=== PATIENT | male | born 1945 | race Caucasian/White ===

== ENCOUNTER → 2016-09-04 | Outpatient (CLI) | payer MEDICARE, BC ==
[2016-09-04 07:35] LABS: Basophils # (A) 0.1 k/uL (0-0.2); Basophils % (A) 1 %; Eosinophils # (A) 0.3 k/uL (0-0.7); Eosinophils % (A) 4 %; HCT 49.6 % (39.0-53.0); HDW 2.38; HGB 16.3 gm/dL (13.0-17.5); Luc # (Auto) 0.15; Luc % (Auto) 2; Lymphocytes % (A) 29 %; MCH 31.8 pg (25.0-35.0); MCHC 32.7 g/dL (31.0-37.0); MCV 97.2 fL (80.0-100.0); Mean Platelet Volume 6.9; Monocytes # (A) 0.6 k/uL (0-1.0); Monocytes % (A) 9 %; Neutrophils # (A) 3.8 k/uL (1.3-7.7); Neutrophils % (A) 55 %; RBC 5.11 m/uL (4.30-5.90); RDW 12.6 % (11.5-15.5); WBC (Perox) 6.53
[2016-09-04 07:57] LABS: Appearance,Urine Clear (Clear); Bacteria,Urine Rare /hpf; Bilirubin,Urine Negative (Negative); Glucose,Urine (UA) Negative (Negative); Ketones,Urine Negative (Negative); Leukocyte Esterase,Urine Negative (Negative); Mucus,Urine Rare /hpf; Nitrite,Urine Negative (Negative); Particle Count 833; Protein,Urine Negative (Negative); RBC,Urine 2 /hpf (0-5); Specific Gravity,Urine 1.011 (1.001-1.035); UA Billing (MACRO vs. MICRO) MICRO; Urobilinogen,Urine <2.0 mg/dL (<2.0); WBC,Urine 1 /hpf (0-5)
[2016-09-04 09:06] LABS: Hemoglobin A1C 5.8 % (4.2-6.1)
[2016-09-04 11:41] LABS: ALT 40 U/L (21-72); AST 23 U/L (17-59); Alkaline Phosphatase 77 U/L (38-126); Anion Gap 10 mmol/L; Blood Urea Nitrogen 14 mg/dL (9-20); Calcium 9.8 mg/dL (8.4-10.2); Carbon Dioxide 25 mmol/L (22-30); Chloride 106 mmol/L (98-107); Cholesterol 141 mg/dL (<200); Creatine Kinase 58 U/L (55-170); Glucose 110 mg/dL (74-99); HDL Cholesterol 40 mg/dL (40-60); Non-African American GFR(MDRD) >60 (>60 ml/min/1.73 sqM); Potassium 5.1 mmol/L (3.5-5.1); Sodium 141 mmol/L (137-145); Total Bilirubin 0.4 mg/dL (0.2-1.3); Total Protein 6.6 g/dL (6.3-8.2); Triglycerides 130 mg/dL (<150); Uric Acid 4.7 mg/dL (3.5-8.5)
[2016-09-04 12:05] LABS: Prostate Specific Antigen 1.52 ng/mL (0.00-4.00)
== END | disposition home or self-care (01) ==
LOC: LABWHC1 06:48
PROVIDERS: ATTEND Internal Medicine Interventional Cardiology
DX: I10 Essential (primary) hypertension (principal); E78.00 Pure hypercholesterolemia, unspecified; I25.811 Atherosclerosis of native coronary artery of transplanted heart without angina pectoris; N40.0 Benign prostatic hyperplasia without lower urinary tract symptoms
CPT/HCPCS: 36415; 80053; 80061; 81001; 82306; 82550; 83036; 84153; 84439; 84443; 84550; 85025

== ENCOUNTER → 2017-03-12 | Outpatient (CLI) | payer MEDICARE, BC ==
[2017-03-12 09:00] LABS: ALT 49 U/L (21-72); AST 29 U/L (17-59); Cholesterol 134 mg/dL (<200); HDL Cholesterol 33 mg/dL (40-60)
== END | disposition home or self-care (01) ==
LOC: LABWHC1 07:33
PROVIDERS: ATTEND Internal Medicine Interventional Cardiology
DX: E78.2 Mixed hyperlipidemia (principal)
CPT/HCPCS: 36415; 80061; 84450; 84460

== ENCOUNTER → 2018-01-14 | Outpatient (CLI) | payer MEDICARE, BC ==
[2018-01-14 16:52] LABS: HCT 46.7 % (39.0-53.0); HGB 15.6 gm/dL (13.0-17.5); MCH 31.5 pg (25.0-35.0); MCHC 33.4 g/dL (31.0-37.0); MCV 94.4 fL (80.0-100.0); Platelet Count 250 k/uL (150-450); RBC 4.95 m/uL (4.30-5.90); RDW 12.8 % (11.5-15.5)
[2018-01-14 16:58] LABS: Anion Gap 11 mmol/L; Blood Urea Nitrogen 11 mg/dL (9-20); Carbon Dioxide 25 mmol/L (22-30); Chloride 105 mmol/L (98-107); Potassium 4.3 mmol/L (3.5-5.1); Sodium 141 mmol/L (137-145)
== END | disposition home or self-care (01) ==
LOC: LABPAT 16:22
PROVIDERS: ATTEND Internal Medicine Interventional Cardiology
DX: Z01.812 Encounter for preprocedural laboratory examination (principal); I25.10 Atherosclerotic heart disease of native coronary artery without angina pectoris
CPT/HCPCS: 36415; 80051; 82565; 84520; 85027

== ENCOUNTER 2018-01-15 12:34 | Inpatient (IN) | payer MEDICARE, BC ==
[2018-01-15] MEDS ORDERED: ASPIRIN 325 MG TAB ONE (13:00)
[2018-01-15] MEDS ORDERED: ALPRAZolam 0.5 MG TAB PO PRN (13:12)
[2018-01-15] MEDS ORDERED: NITROGLYCERIN SL TABS 0.4 MG TAB SUBLINGUAL PRN (13:12)
[2018-01-15] MEDS ORDERED: SODIUM CHLORIDE 0.9% 1,000 ML in EMPTY BAG 1 BAG IV ONE (13:12)
[2018-01-15] MEDS ORDERED: ASPIRIN 325 MG TAB PO STA (13:12)
[2018-01-15] MEDS ORDERED: ALPRAZolam 0.25 MG TAB PO PRN (13:12)
[2018-01-15] MEDS ORDERED: ATORVASTATIN 80 MG TAB PO STA (13:12)
[2018-01-15] MEDS ORDERED: fentaNYL (PF) 50 MCG/ML 2 ML AMP IV ONE (14:06)
[2018-01-15] MEDS ORDERED: VERAPAMIL 2.5 MG/ML 2 ML AMP ONE (14:06)
[2018-01-15] MEDS ORDERED: fentaNYL (PF) 50 MCG/ML 2 ML AMP ONE (14:06)
[2018-01-15] MEDS ORDERED: LIDOCAINE 2% INJ 20 MG/ML SQ ONE (14:08)
[2018-01-15] MEDS ORDERED: VERAPAMIL SYRINGE (5 MG/10 ML) INTRAARTER ONE (14:10)
[2018-01-15] MEDS ORDERED: HEPARIN SODIUM 1,000 UN/ML (10ML VL) ONE (14:12)
[2018-01-15] MEDS ORDERED: IOPAMIDOL-370 125ML BTL INJ ONE (14:23)
[2018-01-15] MEDS ORDERED: RX INFO: IV CONTRAST WAS GIVEN 1 EACH MISC MISCELLANE PRN (14:41)
[2018-01-15] MEDS ORDERED: SODIUM CHLORIDE 0.9% 1,000 ML IV SCH (14:45)
--- NOTE | 2018-01-15 15:12 | LTR ---
January 15, [address] Owusu: I had the pleasure of performing cardiac catheterization on Mr. Huizar at [facility] on January 15 and a full copy of the procedure note will be forwarded to you. In brief, he was found to have heavily calcified coronary artery versus chronic occluded right coronary artery and severe stenosis involving the proximal LAD and a long segment, heavily calcified. In view of that, I have recommend proceeding with evaluation for possible coronary artery bypass grafting. I will keep you updated on his progress. Thank you again for allowing me to participate in his care. Please feel free to call for any questions. Sincerely, MMTHOML / IJN: [id number] /
--- NOTE | 2018-01-15 15:12 | CC ---
CARDIAC CATHETERIZATION REPORT Mr. Huizar is a 72-year-old male with a known history of coronary disease status post stenting in 2009, who presented with symptoms of chest discomfort reminding him of the way he felt at the time of his stenting. In view of that, recommendation made regarding cardiac catheterization. The procedures, risks and complications were discussed with the patient who is in full understanding and agreement. PROCEDURE: Patient was brought to laboratory mechanic helper in a fasting state after receiving fentanyl and Benadryl and achieving moderate conscious sedated state. Using Xylocaine anesthesia and Seldinger technique a 6-Turkmen sheath was introduced in the right radial artery. Selective right and left angiography performed using 5-Turkmen 3 and half bend right and left Christine catheter multiple views of the coronary artery including hemiaxial views obtained. Following that 5-Turkmen tight pigtail catheters introduced into the left ventricle and a 30 degree HAND view of the left ventricle was obtained. Following that, catheter and sheaths were removed. Hemostasis was obtained with deployment of a TR band. There was no immediate complication. Patient was returned to his room in stable condition. Of note, the patient received 3500 units of intravenous heparin as well as intra-arterial verapamil. FINDINGS: 1. Fluoroscopy: There was severe calcification involving all the coronary arteries. 2. Left Main: This is a large-sized vessel bifurcating left circumflex, left anterior descending artery. Left main coronary artery has no evidence of high-grade stenosis. 3. Left Anterior Descending Artery: This is a large-sized vessel reaching to the apex with a wraparound apex segment giving rise to 2 diagonal branch starting in the proximal segment of the LAD and extending to after the takeoff of the second diagonal branch. There is a severe stenosis with area of stenosis of 99% with severe calcification. The lesion involved the 2nd of the diagonal branch as well. The rest of the vessel has no high-grade stenosis. 4. Left Circumflex: This is a nondominant vessel, small in caliber. It has a has diffuse intimal disease proximally. It gives rise to a small obtuse marginal branch that is totally occluded. 5. Right Coronary Artery: This vessel is totally occluded in the mid segment with no significant antegrade flow. 6. Collaterals: There are collaterals from the left coronary system toward the right PDA and PLV. 7. Left Ventriculogram: Left ventriculogram is performed in 30 degree HAND view and revealed a normal left ventricular size with mild inferior wall hypokinesis. Ejection fraction was 50%. There was no significant mitral regurgitation. 8. Hemodynamics: There was no gradient across the aortic valve. The left ventricle end- diastolic pressure is 18-20 mmHg. CONCLUSION: 1. Heavily calcified coronary arteries. 2. Critical stenosis involving the proximal LAD. 3. Chronic occluded right coronary artery. 4. Severe stenosis in the diffuse left circumflex. 5. Mildly impaired left ventricular systolic function. RECOMMENDATION: In view of the finding and the anatomy I have recommend proceeding with evaluation for coronary bypass grafting. The rationale behind that approach was discussed with the patient and his family who are in full understanding and agreement. Duration procedure is 18 minutes. MMODL / IJN: [id number] /
[2018-01-15] MEDS ORDERED: MD COMMUNICATION TO PHARMACY 1 EACH MISC PO ONE ×4 (15:39)
--- NOTE | 2018-01-15 16:12 | P.GSCN ---
<Andres Conde - Last Filed: 01/15/18 15:56> History of Present Illness Consult date: 01/15/18 Reason for Consult: Symptomatic multivessel coronary artery disease. Requesting physician: Kyle Nicholson History of present illness: This is 72-year-old gentleman who is followed by Dr. Owusu on an outpatient basis. His past medical history significant for coronary artery disease with previous drug-eluting stent placement to his right coronary artery in 2009, hypertension, dyslipidemia, peripheral vascular disease, family history of early onset coronary artery disease with his brother having open heart surgery before the age of 55 and current tobacco dependence. Recently, the patient has been having episodes of chest pain with activity which has been starting in his left arm and radiating to his chest and jaw. He reports the pain doesn't subside with about 10-15 minutes of rest. The chest pain has been present on occasion while resting. He denies any shortness of breath, nausea, vomiting, dizziness or syncope. He was seen and evaluated by his brattice builder Dr. Nicholson who recommended an elective heart catheterization. After obtaining consent he underwent an elective cardiac catheterization which demonstrated a totally occluded right coronary artery, a totally occluded circumflex coronary artery, 99% stenosis to his proximal left anterior ascending coronary artery, and a 50% stenosis to his mid left anterior descending coronary artery. During that heart catheterization a left ventriculogram was completed which showed him to have an ejection fraction of 50%. Due to the patient's symptoms, history of coronary artery disease and cardiac catheterization results a consult was placed to Dr. Son from cardiothoracic surgery to evaluate the patient for possible myocardial revascularization. Review of Systems A 14 point review of systems was completed and was negative except as mentioned in the HPI. Past Medical History Past Medical History: Hyperlipidemia, Hypertension, Vascular Disorder History of Any Multi-Drug Resistant Organisms: None Reported Past Surgical History: Heart Catheterization With Stent (2 drug-eluting stents placed to his right coronary artery in 2009) Past Anesthesia/Blood Transfusion Reactions: No Reported Reaction Past Psychological History: No Psychological Hx Reported Smoking Status: Current every day smoker Past Alcohol Use History: None Reported Past Drug Use History: None Reported - Past Family History Mother Family Medical History: Coronary Artery Disease (CAD), Myocardial Infarction ([place] ) Father Family Medical History: Pneumonia Medications and Allergies Home Medications Medication Instructions Recorded Confirmed Type Acetaminophen Tab [Tylenol] 650 mg PO Q4HR PRN #0 tab 01/21/18 Rx Aspirin 325 mg PO DAILY #30 tab 01/21/18 Rx Atorvastatin [Lipitor] 40 mg PO DAILY #30 tab 01/21/18 Rx Clopidogrel [Plavix] 75 mg PO DAILY #30 tab 01/21/18 Rx Metoprolol Tartrate [Lopressor] 25 mg PO BID #60 tab 01/21/18 Rx Pantoprazole [Protonix] 40 mg PO AC-BRKFST #30 tablet. 01/21/18 Rx Sennosides-Docusate Sodium 2 each PO HS #14 tab 01/21/18 Rx [Senokot-S] guaiFENesin [Mucinex] 1,200 mg PO Q12HR #60 tablet.er 01/21/18 Rx Allergies Allergy/AdvReac Type Severity Reaction Status Date / Time No Known Allergies Allergy Verified 01/16/18 15:38 Surgical - Exam Vital Signs Temp Pulse Resp BP Pulse Ox 97.7 F 50 L 18 132/74 98 01/15/18 13:08 01/15/18 13:08 01/15/18 13:08 01/15/18 13:08 01/15/18 13:08 - General well developed, well nourished, no distress, no pain - Eyes PERRL, normal ocular movement - ENT normal pinna, normal nares, normal mucosa, no hearing loss, no congestion, dentures - Neck No lymphadenopathy, neck is supple. no masses, no bruits, trachea midline, no venous distension - Respiratory Lung sounds are essentially clear throughout, diminished to his bilateral bases. Respirations are symmetrical and nonlabored. - Cardiovascular Regular rhythm and rate. S1 and S2 present, negative for S3, gallop or murmur. Bedside telemetry showing normal sinus bradycardia heart rate 50. No edema present. - Abdomen Abdomen is soft, nontender and nondistended. Active bowel sounds all 4 abdominal quadrants. No guarding or rigidity. No organomegaly. - Genitourinary Deferred - Rectum Deferred - Integumentary Skin is warm and dry. No clubbing or cyanosis present. no rash, no growths, no abnormal pigmentation - Neurologic normal coordination, normal sensation - Musculoskeletal normal gait, normal posture - Psychiatric oriented to time, oriented to person, oriented to place, speech is normal, memory intact Results - Imaging Additional studies: Heart catheterization results reviewed by Dr. Son with Dr. Nicholson. Assessment and Plan (1) Coronary artery disease Status: Acute Code(s): I25.10 - ATHSCL HEART DISEASE OF [place] CORONARY ARTERY W/O ANG PCTRS SNOMED Code(s): 74369417 (2) Unstable angina Status: Acute Code(s): I20.0 - UNSTABLE ANGINA SNOMED Code(s): 2189580 (3) History of coronary artery stent placement Status: Acute Code(s): Z95.5 - PRESENCE OF CORONARY ANGIOPLASTY IMPLANT AND GRAFT SNOMED Code(s): 523398644 (4) Hypertension Status: Acute Code(s): I10 - ESSENTIAL (PRIMARY) HYPERTENSION SNOMED Code(s) : 97870696 (5) Hyperlipidemia Status: Acute Code(s): E78.5 - HYPERLIPIDEMIA, UNSPECIFIED SNOMED Code(s): 00890767 (6) Tobacco dependence Status: Acute Code(s): F17.200 - NICOTINE DEPENDENCE, UNSPECIFIED, UNCOMPLICATED SNOMED Code(s): 06957000 (7) Peripheral vascular disease Status: Acute Code(s): I73.9 - PERIPHERAL VASCULAR DISEASE, UNSPECIFIED SNOMED Code(s): 060337542 Plan: The patient was seen and examined. His chart and diagnostics were reviewed. Dr. Son reviewed the patient's cardiac catheterization results with Dr. Nicholson. Dr. Son discussed with the patient and his the results of the heart catheterization. Risks and benefits of myocardial revascularization were discussed with the patient. The patient wishes to proceed with myocardial revascularization surgery which will be scheduled on 01/17/2018. Preoperative teaching and preoperative testing has been initiated. Continue to maximize medical therapy aspirin, statin and beta gem. He will be admitted to the hospital and scheduled for myocardial revascularization. Thank you Dr. Nicholson for this consult and we will look port working with you in the care of your patient. Time with Patient: Greater than 30 <David Son - Last Filed: 01/21/18 16:21> Surgical - Exam Vital Signs Temp Pulse Resp BP Pulse Ox 97.7 F 50 L 18 132/74 98 01/15/18 13:08 01/15/18 13:08 01/15/18 13:08 01/15/18 13:08 01/15/18 13:08 Results - Labs 01/21/18 05:32 01/21/18 05:32 Abnormal Lab Results - Last 24 Hours (Table) 01/21/18 01/21/18 Range/Units 05:32 05:32 RBC 3.60 L (4.30-5.90) m/uL Hgb 11.6 L (13.0-17.5) gm/dL Hct 34.3 L (39.0-53.0) % Sodium 136 L (137-145) mmol/L Creatinine 0.62 L (0.66-1.25) mg/dL Total Protein 5.0 L (6.3-8.2) g/dL Albumin 2.9 L (3.5-5.0) g/dL Diabetes panel 01/21/18 Range/Units 05:32 Sodium 136 L (137-145) mmol/L Potassium 4.3 (3.5-5.1) mmol/L Chloride 100 (98-107) mmol/L Carbon Dioxide 28 (22-30) mmol/L BUN 14 (9-20) mg/dL Creatinine 0.62 L (0.66-1.25) mg/dL Glucose 92 (74-99) mg/dL Calcium 8.5 (8.4-10.2) mg/dL AST 54 (17-59) U/L ALT 55 (21-72) U/L Alkaline Phosphatase 86 (38-126) U/L Total Protein 5.0 L (6.3-8.2) g/dL Albumin 2.9 L (3.5-5.0) g/dL Calcium panel 01/21/18 Range/Units 05:32 Calcium 8.5 (8.4-10.2) mg/dL Albumin 2.9 L (3.5-5.0) g/dL Pituitary panel 01/21/18 Range/Units 05:32 Sodium 136 L (137-145) mmol/L Potassium 4.3 (3.5-5.1) mmol/L Chloride 100 (98-107) mmol/L Carbon Dioxide 28 (22-30) mmol/L BUN 14 (9-20) mg/dL Creatinine 0.62 L (0.66-1.25) mg/dL Glucose 92 (74-99) mg/dL Calcium 8.5 (8.4-10.2) mg/dL Adrenal panel 06/26/18 Range/Units 05:32 Sodium 136 L (137-145) mmol/L Potassium 4.3 (3.5-5.1) mmol/L Chloride 100 (98-107) mmol/L Carbon Dioxide 28 (22-30) mmol/L BUN 14 (9-20) mg/dL Creatinine 0.62 L (0.66-1.25) mg/dL Glucose 92 (74-99) mg/dL Calcium 8.5 (8.4-10.2) mg/dL Total Bilirubin 0.4 (0.2-1.3) mg/dL AST 54 (17-59) U/L ALT 55 (21-72) U/L Alkaline Phosphatase 86 (38-126) U/L Total Protein 5.0 L (6.3-8.2) g/dL Albumin 2.9 L (3.5-5.0) g/dL Assessment and Plan Plan: The patient was seen and examined. The history and physical findings were verified. I agree with the above assessment and plan. The patient is a 72-year -old male reports chest pain with activity. His cardiac catheterization did reveal multivessel coronary artery disease including a tight, greater than 95% proximal LAD lesion. Coronary artery bypass is recommended. The risks, benefits, and alternatives to this procedure were discussed with the patient. All his questions were answered. We will initiate our standard preoperative workup and plan on performing his procedure during this admission. Thank you for allowing me to participate in the care of this patient. Should you have any questions please feel free to contact me at your earliest convenience.
[2018-01-15 18:14] LABS: Basophils % (A) 1 %; Eosinophils # (A) 0.2 k/uL (0-0.7); Eosinophils % (A) 3 %; HCT 42.6 % (39.0-53.0); HGB 14.5 gm/dL (13.0-17.5); Lymphocytes # (A) 1.5 k/uL (1.0-4.8); Lymphocytes % (A) 30 %; MCH 31.8 pg (25.0-35.0); MCHC 34.1 g/dL (31.0-37.0); MCV 93.4 fL (80.0-100.0); Mean Platelet Volume 7.2; Monocytes # (A) 0.6 k/uL (0-1.0); Monocytes % (A) 11 %; Neutrophils # (A) 2.5 k/uL (1.3-7.7); Neutrophils % (A) 52 %; Platelet Count 221 k/uL (150-450); RBC 4.56 m/uL (4.30-5.90); RDW 13.1 % (11.5-15.5); WBC 4.8 k/uL (3.8-10.6)
[2018-01-15 18:20] LABS: ALT 47 U/L (21-72); AST 30 U/L (17-59); Albumin 3.9 g/dL (3.5-5.0); Alkaline Phosphatase 71 U/L (38-126); Anion Gap 10 mmol/L; Blood Urea Nitrogen 11 mg/dL (9-20); Calcium 9.4 mg/dL (8.4-10.2); Carbon Dioxide 25 mmol/L (22-30); Chloride 105 mmol/L (98-107); Cholesterol 104 mg/dL (<200); Glucose 66 mg/dL (74-99); HDL Cholesterol 35 mg/dL (40-60); LDL Cholesterol,Calculated 53 mg/dL (0-99); Magnesium 2.1 mg/dL (1.6-2.3); Potassium 4.3 mmol/L (3.5-5.1); Sodium 140 mmol/L (137-145); Total Bilirubin 0.2 mg/dL (0.2-1.3); Total Protein 5.8 g/dL (6.3-8.2); Triglycerides 80 mg/dL (<150)
[2018-01-15 18:22] LABS: INR 1.1 (<1.2); Partial Thromboplastin Time 26.4 sec (22.0-30.0); Prothrombin Time 10.5 sec (9.0-12.0)
[2018-01-15] MEDS: HEPARIN SOD,PORK IN 0.45% NACL 25,000 UNIT in 0.45% NACL 1 500ML.BAG IV SCH (20:22)
[2018-01-15 20:54] LABS: Amorphous Sediment,Urine Rare /hpf; Appearance,Urine Clear (Clear); Bilirubin,Urine Negative (Negative); Blood,Urine Trace (Negative); Color,Urine Light Yellow; Glucose,Urine (UA) Negative (Negative); Ketones,Urine Negative (Negative); Leukocyte Esterase,Urine Negative (Negative); Mucus,Urine Rare /hpf; Nitrite,Urine Negative (Negative); Protein,Urine Negative (Negative); RBC,Urine 1 /hpf (0-5); Specific Gravity,Urine 1.018 (1.001-1.035); Urobilinogen,Urine <2.0 mg/dL (<2.0); WBC,Urine <1 /hpf (0-5)
[2018-01-15] MEDS: MUPIROCIN 2% OINT 22 GM TUBE NASAL SCH (22:58)
[2018-01-16 01:24] LABS: Hepatitis A Antibody IgM Non-Reactive (Non-Reactive); Hepatitis B Core IgM Non-Reactive (Non-Reactive)
[2018-01-16 03:18] LABS: Anion Gap 7 mmol/L; Blood Urea Nitrogen 13 mg/dL (9-20); Calcium 9.1 mg/dL (8.4-10.2); Carbon Dioxide 25 mmol/L (22-30); Chloride 106 mmol/L (98-107); Glucose 87 mg/dL (74-99); Potassium 4.1 mmol/L (3.5-5.1); Sodium 138 mmol/L (137-145)
[2018-01-16 03:29] LABS: Basophils % (A) 1 %; Eosinophils # (A) 0.2 k/uL (0-0.7); Eosinophils % (A) 4 %; HCT 41.8 % (39.0-53.0); HGB 13.9 gm/dL (13.0-17.5); Lymphocytes # (A) 1.4 k/uL (1.0-4.8); Lymphocytes % (A) 28 %; MCH 31.3 pg (25.0-35.0); MCHC 33.2 g/dL (31.0-37.0); MCV 94.3 fL (80.0-100.0); Mean Platelet Volume 7.1; Monocytes # (A) 0.5 k/uL (0-1.0); Monocytes % (A) 11 %; Neutrophils # (A) 2.7 k/uL (1.3-7.7); Neutrophils % (A) 54 %; Platelet Count 214 k/uL (150-450); RBC 4.44 m/uL (4.30-5.90); RDW 12.9 % (11.5-15.5); WBC 4.9 k/uL (3.8-10.6)
[2018-01-16] MEDS: HEPARIN SODIUM,PORCINE 5,000 UNIT/ML 1 ML VIAL IV PRN ×2 (03:42→10:59)
[2018-01-16 04:49] LABS: Hemoglobin A1C 5.8 % (4.0-6.0)
--- NOTE | 2018-01-16 07:36 | XR ---
EXAMINATION TYPE: XR chest 2V DATE OF EXAM: 01/16/2018 COMPARISON: 06/02/2010 HISTORY: Preoperative clearance. TECHNIQUE: Frontal and lateral views of the chest are obtained. FINDINGS: There is no focal air space opacity, pleural effusion, or pneumothorax seen. There is pulm onary hyperinflation without hemidiaphragm flattening although there is biapical lucency and therefor e underlying pulmonary emphysema as felt to be present. There is thickening of the right minor fissur e. Slightly prominent right paratracheal stripe may relate to vascular engorgement. The cardiac silh ouette size is within normal limits. The osseous structures are intact. Mild multilevel degenerativ e changes of the thoracic spine. IMPRESSION: No acute cardiopulmonary process. Pulmonary hyperinflation and biapical lucency may be o n the basis of underlying COPD. Correlate with pulmonary function tests.
--- NOTE | 2018-01-16 08:13 | PN ---
PROGRESS NOTE Mr. Huizar is a 72-year-old male with known history of coronary artery disease who presented with symptoms of unstable angina, underwent cardiac catheterization, was found to have critical complex proximal LAD lesion in a very calcified vessels with chronically occluded right coronary artery and obtuse marginal branch. He is doing well this morning. His breathing is stable. He is denying any chest pain. No dizziness. No palpitation. No nausea. He continued be in sinus mechanism. He was evaluated by the cardiovascular surgical team yesterday and by Dr. Son and he is scheduled to undergo coronary artery bypass grafting tomorrow. He continued to be on aspirin once a day, Lipitor 80 mg daily, atenolol 25 mg daily, isosorbide mononitrate 30 mg daily. PHYSICAL EXAMINATION: Blood pressure 114/60 with the heart rate in the 50s. LUNGS: Clear. HEART: Regular rate and rhythm. S1, S2. No S3 with systolic murmur. No diastolic murmur. ABDOMEN: Soft nontender. EXTREMITIES: No edema. Right radial pulse intact. LAB DATA: Lab data revealed BUN and creatinine 13 and 0.8, potassium 4.1. Hemoglobin is 13.9. IMPRESSION: 1. Unstable angina with severe coronary artery disease. 2. Hypertension. 3. Chronic tobacco use. 4. Hyperlipidemia. RECOMMENDATION: Patient will proceed with coronary artery bypass grafting tomorrow and depending on his progress, further recommendation will be made. MMODL / IJN: [id number] /
[2018-01-16] MEDS: ATENOLOL 25 MG TAB PO SCH (08:20)
[2018-01-16] MEDS: ISOSORBIDE MONONITRATE ER 30 MG TAB.ER.24H PO SCH (08:20)
[2018-01-16] MEDS: MUPIROCIN 2% OINT 22 GM TUBE NASAL SCH ×2 (08:20→20:31)
--- NOTE | 2018-01-16 10:41 | P.CNPUL ---
History of Present Illness Consult date: 01/16/18 Reason for consult: chest pain History of present illness: A 72-year-old male patient with symptomatic coronary artery disease who came in for episodes of chest pain and the patient underwent a cardiac catheterization he was found to have significant coronary artery disease with totally occluded RCA, totally occluded circumflex, 99% stenosis of the proximal LAD and 50% stenosis of the mid LAD. The patient has had a previous coronary intervention and stenting of the RCA more than 10 years ago. His ejection fraction was 50%. The patient was referred for CT surgery for bypass surgery. The surgery is planned to be done for tomorrow. He is a smoker. His FEV1 is normal to 69% of predicted. No cough or sputum production. No chest congestion. No recent pneumonias or no swelling lower extremities. Chest x-ray shows no acute abnormalities. He is currently free of any chest pain is hemodynamically stable. His last cardiac catheterization and stenting was in 2009 when the patient had 2 drug-eluting stents in the right coronary artery. Renal function is within normal limits and the patient has good performance status. Review of Systems Constitutional: Reports as per HPI Eyes: denies blurred vision, denies bulging eye, denies decreased vision Ears: deny: decreased hearing, ear discharge, earache Ears, nose, mouth and throat: Denies headache, Denies sore throat Cardiovascular: Reports chest pain Respiratory: Denies cough Gastrointestinal: Denies abdominal pain, Denies diarrhea, Denies nausea, Denies vomiting Genitourinary: Reports as per HPI Musculoskeletal: Reports as per HPI Musculoskeletal: absent: ankle pain, ankle stiffness, ankle swelling Integumentary: Denies pruritus, Denies rash Neurological: Denies numbness, Denies weakness Psychiatric: Reports as per HPI Endocrine: Reports as per HPI Hematologic/Lymphatic: Reports as per HPI Allergic/Immunologic: Reports as per HPI Past Medical History Past Medical History: Coronary Artery Disease (CAD), COPD, Hyperlipidemia, Hypertension, Vascular Disorder History of Any Multi-Drug Resistant Organisms: None Reported Past Surgical History: Heart Catheterization With Stent Past Anesthesia/Blood Transfusion Reactions: No Reported Reaction Date of Last Stent Placement:: 2007 Past Psychological History: No Psychological Hx Reported Smoking Status: Current every day smoker Past Alcohol Use History: None Reported Additional Past Alcohol Use History / Comment(s): started about 50 years ago. spokes 4 cigarrets a day Past Drug Use History: None Reported - Past Family History Mother Family Medical History: Coronary Artery Disease (CAD), Myocardial Infarction ([place] ) Father Family Medical History: Pneumonia Medications and Allergies Home Medications Medication Instructions Recorded Confirmed Type Aspirin [Adult Low Dose Aspirin EC] 81 mg PO HS 01/15/18 01/15/18 History Atenolol 25 mg PO DAILY 01/15/18 01/15/18 History Atorvastatin [Lipitor] 80 mg PO HS 01/15/18 01/15/18 History Isosorbide Mononitrate ER [Imdur] 30 mg PO DAILY 01/15/18 01/15/18 History Allergies Allergy/AdvReac Type Severity Reaction Status Date / Time No Known Allergies Allergy Verified 01/15/18 08:38 Physical Exam Vitals: Vital Signs Temp Pulse Pulse Resp BP BP Pulse Ox 01/16/18 08:12 98.1 F 60 18 123/87 97 01/16/18 03:24 98 F 57 L 16 114/60 95 01/16/18 00:00 97.9 F 58 L 18 101/61 94 L 01/15/18 20:00 97.6 F 57 L 18 108/66 92 L 01/15/18 18:30 97.6 F 57 L 18 108/66 92 L 01/15/18 17:25 57 L 18 141/70 94 L 01/15/18 16:25 48 L 18 136/65 95 01/15/18 16:02 47 L 16 141/70 94 L 01/15/18 15:28 60 18 156/85 97 01/15/18 15:12 52 L 18 164/78 98 01/15/18 14:40 47 L 16 186/81 98 01/15/18 13:08 97.7 F 50 L 18 132/74 143/74 98 Intake and Output 01/15/18 01/16/18 01/16/18 22:59 06:59 14:59 Intake Total 800 918.213 Balance 800 918.213 Intake: Intake, IV Titration 800 918.213 Amount Heparin Sod,Pork in 0.45% 118.213 NaCl 25,000 unit In 0.45 % NaCl 1 500ml.bag @ 12 UNITS/KG/HR 16.12 mls/hr IV .Q24H [facility] Rx#: [id number] Sodium Chloride 0.9% 1, 800 800 000 ml @ 100 mls/hr IV . Q10H [facility] Rx#:[id number] Other: Voiding Method Urinal Urinal # Voids 1 Weight 67.2 kg 65 kg - General well developed, well nourished, no distress, no pain - Eyes PERRL, normal ocular movement - ENT normal pinna, normal nares, normal mucosa, no hearing loss, no congestion, dentures - Neck No lymphadenopathy, neck is supple. no masses, no bruits, trachea midline, no venous distension - Respiratory Lung sounds are essentially clear throughout, diminished to his bilateral bases. Respirations are symmetrical and nonlabored. - Cardiovascular Regular rhythm and rate. S1 and S2 present, negative for S3, gallop or murmur. Bedside telemetry showing normal sinus bradycardia heart rate 50. No edema present. - Abdomen Abdomen is soft, nontender and nondistended. Active bowel sounds all 4 abdominal quadrants. No guarding or rigidity. No organomegaly. - Genitourinary Deferred - Rectum Deferred - Integumentary Skin is warm and dry. No clubbing or cyanosis present. no rash, no growths, no abnormal pigmentation - Neurologic normal coordination, normal sensation - Musculoskeletal normal gait, normal posture - Psychiatric oriented to time, oriented to person, oriented to place, speech is normal, memory intact Results - Laboratory Findings CBC and BMP: 01/16/18 02:46 01/16/18 02:46 PT/INR, D-dimer PT 10.5 sec (9.0-12.0) 01/15/18 17:47 INR 1.1 (<1.2) 01/15/18 17:47 Abnormal lab findings: Abnormal Labs 01/15/18 01/15/18 01/16/18 17:47 20:42 02:46 APTT 37.3 H Glucose 66 L Total Protein 5.8 L HDL Cholesterol 35 L Urine Blood Trace H Amorphous Sediment Rare H Urine Mucus Rare H Crossmatch 01/16/18 06:20 APTT Glucose Total Protein HDL Cholesterol Urine Blood Amorphous Sediment Urine Mucus Crossmatch See Detail - Diagnostic Findings Chest x-ray: image reviewed Assessment and Plan Plan: Assessment 1 symptomatic multivessel coronary artery disease awaiting coronary artery bypass surgery. Patient has a preserved LV function. 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 We'll provide the patient incentive spirometer. We 'll put the patient on DuoNeb the breast treatments 4 times a day/when necessary. Proceed with coronary artery bypass surgery in a.m. Will be involved in managing the ventilator and attempt for any pulmonary needs. Anticipate and easy recovery and easy extubation and do not foresee any way complications patient who seems to have a good performance and functional status and the relatively preserved lung capacity. Smoking cessation counseling was done. Chest x-ray was reviewed. We'll continue to follow.
--- NOTE | 2018-01-16 12:29 | P.CONS ---
History of Present Illness - Reason for Consult Consult date: 01/16/18 CAD, will be going for CABG, COPD, hypertension, hyperlipidemia Requesting physician: Kyle Nicholson - Chief Complaint Chest pain, CAD, total occlusion of the RCA and circumflex with stenosis of - History of Present Illness 72-year-old male one of Dr. Owusu's patient with past medical history of CAD, COPD, hypertension hyperlipidemia who apparently has been having worsening chest pain with exertion and atypical symptoms on and off had lost heart catheter in 2009 a Chin had to limited stent at the time of the coronary artery. Had recurrent symptom this time on and off was sent to see cardiology in consultation and scheduled for elective heart catheter. Finding yesterday of significant coronary artery disease with total occlusion of the LAD, total occlusion of the circumflex, 99% stenosis of the proximal LAD and 50% stenosis of the mid LAD. Ejection fraction has been 50 percentile patient was seen pulmonary and will be clear for surgery. Patient was seen and evaluated by cardiothoracic surgery and planning to do bypass surgery tomorrow. Review of Systems CONSTITUTIONAL: Well-developed no acute respiratory distress. EYES: No icterus sclerae, no conjunctivitis. EARS, NOSE, MOUTH, THROAT, and FACE: No sore throat, lymphadenopathy, carotid bruits or deformity. RESPIRATORY: No SOB cough or wheezes. CARDIOVASCULAR: No CP, Palpitation, PND, Orthopnea, or angina. GASTROINTESTINAL: No Abd pain, Nausea or vomiting, no Diarrhea or constipation, No GI Bleed, no distention or masses. GENITOURINARY: Negative for Hematuria or UTI, no kidney stones. INTEGUMENT/BREAST: Negative for any muscular injury with mild osteoarthritis.. HEMATOLOGIC/LYMPHATIC: Negative for bleed or purpura. MUSCULOSKELTAL: Negative for Myalgia or arthralgia. NEURLOGICAL: No LOC, Sz or syncope, blurred vision dizziness or abnormality.. BEHAVIORAL/PSYCH: Negative. ENDOCRINE: Negative. Past Medical History Past Medical History: Coronary Artery Disease (CAD), COPD, Hyperlipidemia, Hypertension, Vascular Disorder History of Any Multi-Drug Resistant Organisms: None Reported Past Surgical History: Heart Catheterization With Stent Past Anesthesia/Blood Transfusion Reactions: No Reported Reaction Date of Last Stent Placement:: 2007 Past Psychological History: No Psychological Hx Reported Smoking Status: Current every day smoker Past Alcohol Use History: None Reported Additional Past Alcohol Use History / Comment(s): started about 50 years ago. spokes 4 cigarrets a day Past Drug Use History: None Reported - Past Family History Mother Family Medical History: Coronary Artery Disease (CAD), Myocardial Infarction ([place] ) Father Family Medical History: Pneumonia Medications and Allergies Home Medications Medication Instructions Recorded Confirmed Type Aspirin [Adult Low Dose Aspirin EC] 81 mg PO HS 01/15/18 01/15/18 History Atenolol 25 mg PO DAILY 01/15/18 01/15/18 History Atorvastatin [Lipitor] 80 mg PO HS 01/15/18 01/15/18 History Isosorbide Mononitrate ER [Imdur] 30 mg PO DAILY 01/15/18 01/15/18 History Allergies Allergy/AdvReac Type Severity Reaction Status Date / Time No Known Allergies Allergy Verified 01/15/18 08:38 Physical Exam Vitals: Vital Signs Temp Pulse Pulse Resp BP BP Pulse Ox 01/16/18 08:12 98.1 F 60 18 123/87 97 01/16/18 03:24 98 F 57 L 16 114/60 95 01/16/18 00:00 97.9 F 58 L 18 101/61 94 L 01/15/18 20:00 97.6 F 57 L 18 108/66 92 L 01/15/18 18:30 97.6 F 57 L 18 108/66 92 L 01/15/18 17:25 57 L 18 141/70 94 L 01/15/18 16:25 48 L 18 136/65 95 01/15/18 16:02 47 L 16 141/70 94 L 01/15/18 15:28 60 18 156/85 97 01/15/18 15:12 52 L 18 164/78 98 01/15/18 14:40 47 L 16 186/81 98 01/15/18 13:08 97.7 F 50 L 18 132/74 143/74 98 Intake and Output 01/15/18 01/16/18 01/16/18 22:59 06:59 14:59 Intake Total 800 082.926 2815.496 Balance 800 133.625 9718.496 Intake: IV 40 NS @ 20ml/hr 40 Intake, IV Titration 800 918.213 146.496 Amount Heparin Sod,Pork in 0.45% 118.213 146.496 NaCl 25,000 unit In 0.45 % NaCl 1 500ml.bag @ 12 UNITS/KG/HR 16.12 mls/hr IV .Q24H KB Rx#: [id number] Sodium Chloride 0.9% 1, 800 800 000 ml @ 100 mls/hr IV . Q10H KB Rx#:[id number] Oral 1034 Other: Voiding Method Urinal Urinal # Voids 1 2 Weight 67.2 kg 65 kg General Appearance: Alert, cooperative, no distress, appears stated age. Neck HEENT: Supple, no lymphadenopathy, no thyroid enlargement, no carotid bruits. Lungs: Decreased breath sounds bilaterally with auscultation without crackles or wheezes no rhonchi, no deformity. Chest Wall: Chest wall decrease expansion with deep inspiration no tenderness and no deformity was found on exam, no costochondral pain or discomfort. Heart: Regular rate and rhythm, S1, S2 normal, positive S3, 2/6 ejection systolic murmur, rub or gallop. Back: Symmetric, no curvature, ROM normal, no CVA tenderness. Abdomen: Soft, non-tender, bowel sounds active all four quadrants, no masses, no organomegaly. Extremities: Extremities normal, atraumatic, no cyanosis or edema. Pulses: 2+ and symmetric. Skin: Skin color, texture, tugor normal, no rashes or lesions. Neurologic: Alert oriented x3 cranial nerves II through XII intact, no motor deficit, no abnormal balance or gait. Results CBC & Chem 7: 01/16/18 02:46 01/16/18 02:46 Labs: Abnormal Lab Results - Last 24 Hours (Table) 01/15/18 01/15/18 01/16/18 Range/Units 17:47 20:42 02:46 APTT 37.3 H (22.0-30.0) sec Glucose 66 L (74-99) mg/dL Total Protein 5.8 L (6.3-8.2) g/dL HDL Cholesterol 35 L (40-60) mg/dL Urine Blood Trace H (Negative) Amorphous Sediment Rare H (None) /hpf Urine Mucus Rare H (None) /hpf Crossmatch 01/16/18 01/16/18 Range/Units 06:20 10:19 APTT 83.2 H (22.0-30.0) sec Glucose (74-99) mg/dL Total Protein (6.3-8.2) g/dL HDL Cholesterol (40-60) mg/dL Urine Blood (Negative) Amorphous Sediment (None) /hpf Urine Mucus (None) /hpf Crossmatch See Detail Microbiology - Last 24 Hours (Table) 01/15/18 15:53 Nasal Screen MRSA/MSSA (TIM) - Preliminary Nasal Swab 01/15/18 20:42 Urine Culture - Preliminary Urine,Voided Assessment and Plan Plan: 1 multivessel coronary artery disease: Post heart catheter with severe blockage of at least 3 coronary artery, patient be going for open heart surgery tomorrow. From medical standpoint patient had mild risk for complications during after surgery, risk assessment is accepted for this type of surgery no reason to delay surgery or to do any other intervention before this surgery. Patient will be watch hemodynamically will be seen by intensive care/pulmonary regular basis on watch his hemodynamic status along with his blood sugar and watch for any complication after surgery. 2 unstable angina: Patient has been having symptoms repeatedly was on medical management with the current finding of his heart catheter patient be going for surgery. 3 mild COPD: With FEV1 of 69%, patient seen pulmonary regular basis will be kept on bronchodilator along with steroid base nebulizer. 4 hypertension: Patient has been on atenolol will continue atenolol and add small dose of ANA inhibitor. 5 hyperlipidemia: Remain on atorvastatin 80 mg daily. 6 chronic history of smoking: Smoking cessation was addressed patient will be on nicotine patch. 7 peripheral vascular disease: Patient has been seen and watch by cardiology further testing and study might be needed in the future. 8 DVT prophylaxis: Patient will continue knee-high MONISHA hose for now on after surgery DVT prophylaxis will be use. 9 GI prophylaxis: Patient will be on Pepcid 20 mg daily. CODE STATUS: Full code. Admit patient to inpatient status for more than 2 nights service will be transferred to cardiothoracic after surgery will continue to watch patient for medical standpoint and daily basis.
[2018-01-16] MEDS: IPRATROPIUM-ALBUTEROL 3 ML NEB INHALATION SCH ×3 (12:47→19:05)
--- NOTE | 2018-01-16 13:02 | US ---
EXAMINATION TYPE: US carotid duplex BILAT DATE OF EXAM: 01/16/2018 COMPARISON: NONE CLINICAL HISTORY: Preoperative cardiac surgery. EXAM MEASUREMENTS: RIGHT: Peak Systolic Velocity (PSV) cm/sec ----- Right CCA: 73.6 ----- Right ICA: 195.3 ----- Right ECA: 172.7 ICA/CCA ratio: 2.7 RIGHT: End Diastole cm/sec ----- Right CCA: 12.7 ----- Right ICA: 26.2 ----- Right ECA: 13.0 LEFT: Peak Systolic Velocity (PSV) cm/sec ----- Left CCA: 99.5 ----- Left ICA: 56.1 ----- Left ECA: 76.2 ICA/CCA ratio: 0.6 LEFT: End Diastole cm/sec ----- Left CCA: 15.5 ----- Left ICA: 16.8 ----- Left ECA: 6.3 VERTEBRALS (direction of flow): Right Vertebral: Antegrade Left Vertebral: Antegrade Rhythm: Normal Moderate atherosclerotic changes with some mild stenosis on right. Left has no significant velocity e levations. IMPRESSION: 1. Stenosis within the right internal carotid artery corresponding to degree of 50-69% sonographicall y. CTA neck could be performed for more accurate assessment of degree of stenosis. 2. No sonographic evidence of hemodynamically significant stenosis within the left carotid arterial s ystem as visualized.
--- NOTE | 2018-01-16 18:00 | P.PN ---
Subjective Progress Note Date: 01/16/18 Principal diagnosis: Symptomatic multivessel coronary artery disease with previous drug-eluting stent placement to his right coronary artery in 2010, hypertension, dyslipidemia , peripheral vascular disease, family history of early onset coronary artery disease with his brother having open heart surgery before the age of 55 and current tobacco dependence. The patient is sitting up to the edge of his bed in no acute distress. He denies any complaints of pain or shortness of breath. He reports that he has been up ambulating in the [address] [place] [id number] without difficulty. Preoperative teaching was reviewed with the patient and his questions were answered to the best of my ability. Preoperative testing and progress. Objective - Vital Signs Vital signs: Vital Signs Temp 98.1 F 01/16/18 08:12 Pulse 60 01/16/18 08:12 Resp 18 01/16/18 08:12 BP 123/87 01/16/18 08:12 Pulse Ox 97 01/16/18 08:12 Intake & Output 01/15/18 01/16/18 01/16/18 18:59 06:59 18:59 Intake Total 1000 918.213 Balance 1000 918.213 Weight 67.2 kg 65 kg Intake: IV 200 Intake, IV Titration 800 918.213 Amount Heparin Sod,Pork in 0.45% 118.213 NaCl 25,000 unit In 0.45 % NaCl 1 500ml.bag @ 12 UNITS/KG/HR 16.12 mls/hr IV .Q24H KB Rx#: [id number] Sodium Chloride 0.9% 1, 800 800 000 ml @ 100 mls/hr IV . Q10H KB Rx#:[id number] Other: Voiding Method Urinal # Voids 1 - Constitutional General appearance: Present: cooperative, no acute distress - Neck Details: Neck is supple, no JVD, no lymphadenopathy. - Respiratory Details: Lung sounds are essentially clear throughout. Respirations are symmetrical and nonlabored. Oxygen saturation are 97% on room air. Bedside FEV1 was completed and is 69% of predicted. He is achieving 3000 mL on his incentive spirometry. - Cardiovascular Details: Regular rhythm and rate. S1 and S2 present, negative for S3, gallop or murmur. Remote telemetry showing sinus bradycardia heart rate 57. No edema present. - Gastrointestinal Gastrointestinal Comment(s): Abdomen is soft, nontender and nondistended. Active bowel sounds all 4 abdominal quadrants. No guarding or rigidity. No organomegaly. - Genitourinary Genitourinary Comment(s): Voiding clear yellow urine. - Integumentary Integumentary Comment(s): Skin is warm and dry. No clubbing or cyanosis present. No rash or abnormal pigmentation present. - Neurologic Neurologic: Present: CNII-XII intact - Musculoskeletal Musculoskeletal: Present: gait normal, strength equal bilaterally - Psychiatric Psychiatric: Present: A&O x's 3, appropriate affect, intact judgment & insight - Allied health notes Allied health notes reviewed: nursing - Labs CBC & Chem 7: 01/16/18 02:46 01/16/18 02:46 Labs: Abnormal Lab Results - Last 24 Hours (Table) 01/15/18 01/15/18 01/16/18 Range/Units 17:47 20:42 02:46 APTT 37.3 H (22.0-30.0) sec Glucose 66 L (74-99) mg/dL Total Protein 5.8 L (6.3-8.2) g/dL HDL Cholesterol 35 L (40-60) mg/dL Urine Blood Trace H (Negative) Amorphous Sediment Rare H (None) /hpf Urine Mucus Rare H (None) /hpf Microbiology - Last 24 Hours (Table) 01/15/18 15:53 Nasal Screen MRSA/MSSA (TIM) - Preliminary Nasal Swab 01/15/18 20:42 Urine Culture - Preliminary Urine,Voided - Imaging and Cardiology Chest x-ray: report reviewed, image reviewed Assessment and Plan (1) Coronary artery disease Current Visit: Yes Status: Acute Code(s): I25.10 - ATHSCL HEART DISEASE OF [place] CORONARY ARTERY W/O ANG PCTRS SNOMED Code(s): 02131434 (2) Unstable angina Current Visit: Yes Status: Acute Code(s): I20.0 - UNSTABLE ANGINA SNOMED Code(s): 8705560 (3) History of coronary artery stent placement Current Visit: Yes Status: Acute Code(s): Z95.5 - PRESENCE OF CORONARY ANGIOPLASTY IMPLANT AND GRAFT SNOMED Code(s): 280503499 (4) Hypertension Current Visit: Yes Status: Acute Code(s): I10 - ESSENTIAL (PRIMARY) HYPERTENSION SNOMED Code(s): 67123558 (5) Hyperlipidemia Current Visit: Yes Status: Acute Code(s): E78.5 - HYPERLIPIDEMIA, UNSPECIFIED SNOMED Code(s): 53204474 (6) Tobacco dependence Current Visit: Yes Status: Acute Code(s): F17.200 - NICOTINE DEPENDENCE, UNSPECIFIED, UNCOMPLICATED SNOMED Code(s): 40692051 (7) Peripheral vascular disease Current Visit: Yes Status: Acute Code(s): I73.9 - PERIPHERAL VASCULAR DISEASE, UNSPECIFIED SNOMED Code(s): 348014044 Plan: 1. Continue to maximize medical therapy, aspirin, statin and beta gem. 2. Continue heparin drip per protocol, discontinue heparin 2 hours prior to open-heart surgery. 3. Encourage use of his incentive spirometry every hour while awake. 4. Discussed with the patient importance of smoking cessation. 5. Continue preoperative teaching and preoperative testing in progress. 6. STS risk score calculated and discussed with the patient by Dr. Son. 7. 5 m walk test completed time 1: 4.75 seconds, Time 2: 4.07 seconds, Time 3: 3.85 seconds. 8. Cardiology management per Dr. Nicholson. 9. Pulmonary management per Dr. Calhoun. 10. Medical management per primary care service. 11. The patient is scheduled for myocardial revascularization surgery tomorrow 01/17/2018. 12. Nothing by mouth after midnight. 13. Bedside FEV1 completed which showed a 69% effective value. 14. More recommendations to follow based on patient's clinical course. Time with Patient: Greater than 30
[2018-01-16] MEDS ORDERED: ASPIRIN 81 MG PO SCH (21:00)
[2018-01-16] MEDS ORDERED: ATORVASTATIN 80 MG TAB PO SCH (21:00)
[2018-01-16] MEDS: HEPARIN SOD,PORK IN 0.45% NACL 25,000 UNIT in 0.45% NACL 1 500ML.BAG IV SCH (22:40)
[2018-01-17 04:49] LABS: Basophils % (A) 1 %; Eosinophils # (A) 0.1 k/uL (0-0.7); Eosinophils % (A) 2 %; HCT 42.3 % (39.0-53.0); Lymphocytes # (A) 1.7 k/uL (1.0-4.8); Lymphocytes % (A) 34 %; MCH 31.6 pg (25.0-35.0); MCHC 33.1 g/dL (31.0-37.0); MCV 95.6 fL (80.0-100.0); Mean Platelet Volume 7.2; Monocytes # (A) 0.4 k/uL (0-1.0); Monocytes % (A) 8 %; Neutrophils # (A) 2.6 k/uL (1.3-7.7); Neutrophils % (A) 52 %; Platelet Count 209 k/uL (150-450); RBC 4.43 m/uL (4.30-5.90); RDW 13.2 % (11.5-15.5); WBC 5.1 k/uL (3.8-10.6)
[2018-01-17] MEDS ORDERED: NITROGLYCERIN-D5W PMX 50 MG in DEXTROSE/WATER 1 250ML.BAG IV ONE (05:00)
[2018-01-17] MEDS ORDERED: PHENYLEPHRINE 40 MG in SODIUM CHLORIDE 0.9% 250 ML IV ONE (05:00)
[2018-01-17] MEDS ORDERED: ASPIRIN 325 MG TAB PO ONE (05:00)
[2018-01-17] MEDS ORDERED: ceFAZolin 2 GM in SODIUM CHLORIDE 0.9% 30 ML IVPB ONE (05:00)
[2018-01-17] MEDS ORDERED: ALBUMIN HUMAN 5% 500 ML in EMPTY BAG 1 BAG IVPB ONE ×6 (05:00)
[2018-01-17] MEDS ORDERED: SODIUM BICARB 8.4% 50 ML SYR (1 MEQ/ML) IV ONE (05:00)
[2018-01-17] MEDS ORDERED: DEXTROSE 5% IN WATER 1,000 ML with POTASSIUM CHLORIDE 110 MEQ, MAGNESIUM SULFATE 16 MEQ... IV SCH ×5 (05:00)
[2018-01-17] MEDS ORDERED: ceFAZolin 2,000 MG in SODIUM CHLORIDE 0.9% 30 ML IVPB ONE (05:00)
[2018-01-17] MEDS ORDERED: HEPARIN SODIUM 1,000 UN/ML (10ML VL) IV ONE (05:00)
[2018-01-17] MEDS ORDERED: INSULIN REGULAR 100 UNIT in SODIUM CHLORIDE 0.9% 100 ML IV ONE (05:00)
[2018-01-17] MEDS ORDERED: MAGNESIUM SULFATE SYG 4.06 MEQ/ML SYRINGE IV ONE (05:00)
[2018-01-17] MEDS ORDERED: ATORVASTATIN 10 MG TAB PO ONE (05:00)
[2018-01-17] MEDS ORDERED: CALCIUM CHLORIDE 100 MG/ML 10 ML SYRINGE IVP ONE (05:00)
[2018-01-17] MEDS ORDERED: PROTAMINE SULFATE 250 MG in EMPTY BAG 1 BAG IV ONE (05:00)
[2018-01-17] MEDS ORDERED: PROTAMINE SULFATE 10 MG/ML 25 ML VIAL IV ONE ×2 (05:00→08:24)
[2018-01-17] MEDS ORDERED: PAPAVERINE 360 MG in SODIUM CHLORIDE 0.9% 90 ML IV ONE (05:00)
[2018-01-17] MEDS ORDERED: PHENYLEPHRINE-0.9% NACL SYG 1 MG/10 ML SYRINGE IV ONE ×4 (05:00)
[2018-01-17] MEDS ORDERED: NOREPINEPHRIN 4 MG-0.9% NS PMX 4 MG/250 ML ML IV SCH (05:00)
[2018-01-17] MEDS ORDERED: MANNITOL 25% 12.5 GM/50 ML VIAL IV ONE ×2 (05:00)
[2018-01-17] MEDS ORDERED: CLEVIDIPINE BUTYRATE 25 MG in EMPTY BAG 1 BAG IV ONE (05:00)
[2018-01-17] MEDS ORDERED: TRANEXAMIC ACID 2,000 MG in SODIUM CHLORIDE 0.9% 180 ML IV ONE (05:00)
[2018-01-17] MEDS ORDERED: PROPOFOL 1,000 MG in EMPTY BAG 1 BAG IV ONE (05:00)
[2018-01-17] MEDS ORDERED: NITROGLYCERIN-D5W PMX 25 MG/250 ML BTL IV ONE (05:00)
[2018-01-17] MEDS ORDERED: HEPARIN SODIUM,PORCINE 5,000 UNIT in SODIUM CHLORIDE 0.9% 500 ML IV ONE (05:00)
[2018-01-17] MEDS ORDERED: ceFAZolin 1,000 MG in SODIUM CHLORIDE 0.9% IRRIGATIO 1,000 ML IRRIGATION ONE (05:00)
[2018-01-17] MEDS ORDERED: CHLORHEXIDINE GLUCONATE 15 ML CUP MUCOUS MEM ONE (05:00)
[2018-01-17] MEDS ORDERED: ALBUMIN HUMAN 25% 50 ML in EMPTY BAG 1 BAG IVPB ONE (05:00)
[2018-01-17] MEDS ORDERED: DEXTROSE 5% IN WATER 1,000 ML with POTASSIUM CHLORIDE 25 MEQ, SODIUM CHLORIDE 2.5MEQ/ML... IV SCH ×6 (05:00)
[2018-01-17] MEDS ORDERED: METOPROLOL TARTRATE 12.5 MG TAB PO ONE (05:00)
[2018-01-17] MEDS ORDERED: LACTATED RINGERS 1,000 ML IV ONE (06:46)
[2018-01-17] MEDS ORDERED: PROPOFOL 10 MG/ML 20 ML VIAL IV ONE (08:24)
[2018-01-17] MEDS ORDERED: TRANEXAMIC ACID 1,000 MG/10 ML VIAL ONE (08:24)
[2018-01-17] MEDS ORDERED: VECURONIUM 10 MG VIAL IV ONE (08:24)
[2018-01-17] MEDS ORDERED: HEPARIN SODIUM,PORCINE 10,000 UNIT/ML 1 ML VIAL ONE (08:24)
[2018-01-17] MEDS ORDERED: SODIUM CHLORIDE 0.9% 250 ML BAG ONE (08:24)
[2018-01-17] MEDS ORDERED: LACTATED RINGERS 1,000 ML BAG IV ONE (08:24)
[2018-01-17] MEDS ORDERED: MIDAZOLAM 2 MG/2 ML VIAL ONE (08:24)
[2018-01-17] MEDS ORDERED: ELECTROLYTE-R (PH 7.4) 1,000 ML IV.SOLN IV ONE (08:24)
[2018-01-17] MEDS ORDERED: fentaNYL (PF) 50 MCG/ML 50 ML VIAL ONE (08:24)
[2018-01-17] MEDS ORDERED: SUCCINYLCHOLINE CHLORIDE 100 MG/5 ML SYR IV ONE (08:24)
[2018-01-17] MEDS ORDERED: MAGNESIUM SULFATE 4 MEQ/ML 2 ML VIAL ONE (08:24)
[2018-01-17 09:16] LABS: ABG Base Excess -1.2 mmol/L; ABG HCO3 24 mmol/L (21-25); ABG Oxygen Saturation 99.9 % (94-97); ABG PCO2 40 mmHg (35-45); ABG PH 7.39 (7.35-7.45); ABG PO2 380 mmHg (83-108); ABG Potassium Whole Blood 4.2 mmol/L (3.4-4.5); ABG Sodium Whole Blood 141 mmol/L (135-146); ABG TCO2 25 mmol/L (19-24)
[2018-01-17 11:17] LABS: ABG Base Excess -0.2 mmol/L; ABG HCO3 25 mmol/L (21-25); ABG PCO2 43 mmHg (35-45); ABG PH 7.38 (7.35-7.45); ABG Sodium Whole Blood 137 mmol/L (135-146); ABG TCO2 26 mmol/L (19-24)
[2018-01-17 11:47] LABS: ABG Base Excess 0.3 mmol/L; ABG HCO3 25 mmol/L (21-25); ABG Oxygen Saturation 99.9 % (94-97); ABG PCO2 39 mmHg (35-45); ABG PH 7.41 (7.35-7.45); ABG PO2 312 mmHg (83-108); ABG Potassium Whole Blood 4.9 mmol/L (3.4-4.5); ABG Sodium Whole Blood 134 mmol/L (135-146); ABG TCO2 26 mmol/L (19-24)
[2018-01-17 12:16] LABS: ABG Base Excess 0.2 mmol/L; ABG HCO3 25 mmol/L (21-25); ABG Oxygen Saturation 99.8 % (94-97); ABG PCO2 37 mmHg (35-45); ABG PH 7.43 (7.35-7.45); ABG PO2 289 mmHg (83-108); ABG Potassium Whole Blood 4.6 mmol/L (3.4-4.5); ABG Sodium Whole Blood 135 mmol/L (135-146); ABG TCO2 26 mmol/L (19-24)
[2018-01-17 12:47] LABS: ABG Base Excess 0.4 mmol/L; ABG HCO3 25 mmol/L (21-25); ABG Oxygen Saturation 99.9 % (94-97); ABG PCO2 37 mmHg (35-45); ABG PH 7.44 (7.35-7.45); ABG PO2 356 mmHg (83-108); ABG Potassium Whole Blood 4.8 mmol/L (3.4-4.5); ABG Sodium Whole Blood 135 mmol/L (135-146); ABG TCO2 26 mmol/L (19-24)
[2018-01-17] MEDS ORDERED: ALBUMIN HUMAN 5% 250 ML IVPB ONE (14:38)
[2018-01-17] MEDS ORDERED: Potassium Replacement Protocol 1 EACH MISC MISCELLANE PRN (14:45)
[2018-01-17] MEDS ORDERED: BENZOCAINE/MENTHOL LOZENG 1 EACH LOZENGE MUCOUS MEM PRN (14:45)
[2018-01-17] MEDS ORDERED: IPRATROPIUM-ALBUTEROL 3 ML NEB INHALATION PRN (14:45)
[2018-01-17] MEDS ORDERED: CALCIUM CHLORIDE 1,000 MG in SODIUM CHLORIDE 0.9% 100 ML IV PRN (14:45)
[2018-01-17] MEDS ORDERED: DEXTROSE 5% IN WATER 100 ML with AMIODARONE 150 MG IV PRN (14:45)
[2018-01-17] MEDS ORDERED: Phosphorus Replacement Protoco 1 EACH MISC MISCELLANE PRN (14:45)
[2018-01-17] MEDS ORDERED: PROPOFOL 1,000 MG in EMPTY BAG 1 BAG IV SCH (14:45)
[2018-01-17] MEDS ORDERED: METOCLOPRAMIDE 5 MG/ML 2 ML VIAL IVP PRN (14:45)
[2018-01-17] MEDS ORDERED: NITROGLYCERIN-D5W PMX 50 MG in DEXTROSE/WATER 1 250ML.BAG IV SCH (14:45)
[2018-01-17] MEDS ORDERED: AMIODARONE 450 MG in DEXTROSE 5% IN WATER 250 ML IV PRN ×2 (14:45)
[2018-01-17] MEDS ORDERED: Magnesium Replacement Protocol 1 EACH MISC MISCELLANE PRN (14:45)
[2018-01-17] MEDS ORDERED: ALBUMIN HUMAN 5% 250 ML in EMPTY BAG 1 BAG IVPB PRN (14:45)
[2018-01-17] MEDS ORDERED: INSULIN REGULAR 100 UNIT in SODIUM CHLORIDE 0.9% 100 ML IV SCH (15:15)
[2018-01-17 15:30] LABS: Basophils % (A) 0 %; Eosinophils % (A) 0 %; HCT 32.1 % (39.0-53.0); Lymphocytes # (A) 0.9 k/uL (1.0-4.8); Lymphocytes % (A) 12 %; MCH 31.5 pg (25.0-35.0); MCHC 32.6 g/dL (31.0-37.0); MCV 96.5 fL (80.0-100.0); Mean Platelet Volume 7.3; Monocytes # (A) 0.4 k/uL (0-1.0); Monocytes % (A) 6 %; Neutrophils # (A) 6.3 k/uL (1.3-7.7); Neutrophils % (A) 81 %; Platelet Count 121 k/uL (150-450); RBC 3.32 m/uL (4.30-5.90); RDW 13.2 % (11.5-15.5); WBC 7.7 k/uL (3.8-10.6)
[2018-01-17 15:32] LABS: ABG Base Excess 0.4 mmol/L; ABG HCO3 26 mmol/L (21-25); ABG Oxygen Saturation 99.7 % (94-97); ABG PCO2 48 mmHg (35-45); ABG PH 7.35 (7.35-7.45); ABG PO2 263 mmHg (83-108); ABG TCO2 28 mmol/L (19-24)
[2018-01-17 15:33] LABS: HGB 10.5 gm/dL (13.0-17.5); Ionized Calcium 4.8 mg/dL (4.5-5.3)
[2018-01-17 15:33] LABS: Glucose,Whole Blood 110 mg/dL (75-99)
--- NOTE | 2018-01-17 15:33 | XR ---
EXAMINATION TYPE: XR chest 1V portable DATE OF EXAM: 01/17/2018 COMPARISON: 01/16/2018 INDICATION: Post cardiac surgery TECHNIQUE: Single frontal view of the chest is obtained. FINDINGS: The heart size is normal. The pulmonary vasculature is normal. No suspicious infiltrates are present. There is a left-sided chest tube present. Subcutaneous air is near the insertion site. Nasogastric tu be transverses the thorax with the tip in the left upper quadrant of the abdomen. Right central venou s catheter is present with the tip in the main pulmonary artery region. An endotracheal tube is prese nt with the tip above the leonides. 2 Mediastinal tubes are present. IMPRESSION: 1. Multiple lines and catheters discussed above. 2. No acute pulmonary process.
[2018-01-17] MEDS: IPRATROPIUM-ALBUTEROL 3 ML NEB INHALATION SCH ×4 (15:37→23:32)
[2018-01-17 15:39] LABS: INR 1.3 (<1.2)
[2018-01-17 15:57] LABS: ALT 28 U/L (21-72); AST 28 U/L (17-59); Albumin 2.1 g/dL (3.5-5.0); Alkaline Phosphatase 36 U/L (38-126); Anion Gap 5 mmol/L; Blood Urea Nitrogen 10 mg/dL (9-20); Calcium 7.7 mg/dL (8.4-10.2); Carbon Dioxide 26 mmol/L (22-30); Chloride 107 mmol/L (98-107); Glucose 103 mg/dL (74-99); Magnesium 2.6 mg/dL (1.6-2.3); Potassium 4.1 mmol/L (3.5-5.1); Sodium 138 mmol/L (137-145); Total Bilirubin 0.2 mg/dL (0.2-1.3); Total Protein 3.7 g/dL (6.3-8.2)
[2018-01-17 16:01] LABS: Glucose,Whole Blood 98 mg/dL (75-99)
[2018-01-17] MEDS: ceFAZolin IN SWFI 2 GM/20 ML SYRINGE IVP SCH ×2 (16:08→23:35)
[2018-01-17] MEDS: LACTATED RINGERS 1,000 ML IV SCH (16:09)
[2018-01-17] MEDS: CLEVIDIPINE BUTYRATE 25 MG in EMPTY BAG 1 BAG IV SCH (16:09)
--- NOTE | 2018-01-17 16:23 | OP ---
OPERATIVE REPORT DATE OF SURGERY: 01/17/2018 PREOPERATIVE DIAGNOSIS: Coronary artery disease. POSTOPERATIVE DIAGNOSE: Coronary artery disease. PROCEDURE: 1. Urgent coronary bypass grafting x3 vessels (left internal mammary artery to left anterior descending artery, saphenous vein graft to diagonal artery, saphenous vein graft to ramus artery). 2. Endoscopic vein harvest, left greater saphenous vein. 3. Epiaortic ultrasound. 4. Transesophageal echocardiogram. SURGEON: David Son MD. ASSISTANTS: 1. IMMANUEL Eaton. 2. Armen Conde NP. ANESTHESIA: General. SPECIMENS: None. COMPLICATIONS: None. INDICATION: The patient is a 72-year-old male with a past medical history significant for hyperlipidemia, hypertension, peripheral vascular disease, coronary artery disease, status post coronary stents, and tobacco use. He presented to the hospital with chest pain. Cardiac catheterization did reveal multi-vessel coronary artery disease. Coronary artery bypass was recommended. The risks, benefits and alternatives to this procedure were discussed with the patient. All his questions were answered. Consent was obtained. FINDINGS: The left internal mammary artery was a good conduit with brisk flow. Saphenous vein was a good conduit. The LAD contained diffuse heavy calcium that measured 1.3 mm. The ramus artery measured 1.5 mm. The diagonal artery measured 1.0 mm. There was a fair amount of calcium on all coronary arteries. There were islands of plaque as well on the ascending aorta. PROCEDURE IN DETAIL: The patient was taken to the operating room and placed supine on the operating table. After induction of general anesthesia, he was prepped and draped in the usual sterile fashion. Preoperative transesophageal echocardiogram confirmed an ejection fraction of about 40% to 45% with some hypokinesis of the anterior septal wall and trivial mitral regurgitation. A median sternotomy was performed. The left internal mammary artery was harvested in the standard fashion, taking care to clip all branches. Intravenous heparin was administered and the vessel was transected distally revealing brisk flow. Simultaneously, greater saphenous vein was harvested from the left lower extremity using endoscopic technique. All branches were tied. The vein was a good conduit. A pericardial cradle was created. The ascending aorta was palpated. There was evidence of calcific plaque noted in the arch as well as at the takeoff of the innominate artery and in the distal ascending aorta anteriorly. Epiaortic ultrasound was then performed. It also revealed plaque posteriorly in the distal ascending aorta. I did identify a spot which was soft and free of plaque that I felt was amenable to cannulation. In addition, epiaortic ultrasound directed a safe area for cross- clamp. The arterial cannula was then placed in the ascending aorta. A venous cannula was placed through the right atrial appendage directed into the IVC. Both antegrade and retrograde catheters were then placed as well. The patient was then placed on cardiopulmonary bypass with good decompression of the heart. The aortic cross- clamp was applied carefully. Cold blood potassium cardioplegia was delivered in both antegrade and retrograde fashion to achieve arrest of the heart. Of note, cardioplegia was delivered every 15 to 20 minutes while the patient remained under crossclamp. We began by inspecting the inferior wall. The right coronary artery was heavily calcified. I did not feel there were any targets amenable for bypass. The lateral wall was then inspected. The ramus artery was identified. It contained palpable plaque proximally. I dissected it distally into its intramuscular location, which was thin-walled but free of disease. A small arteriotomy was created. This vessel accepted a 1.5 mm probe distally. Using saphenous vein in reverse fashion, an end-to- side anastomosis was created. This was performed using running 7-0 Prolene suture. The graft was hemostatic and had great flow. Next the diagonal artery was identified. It too contained calcific plaque proximally. A soft spot was noted distally and an arteriotomy was created. This vessel accepted a 1 mm probe. Using saphenous vein in reverse fashion, an end-to-side anastomosis was created. This was performed using running 7-0 Prolene suture. The graft was seen intact and had good flow. Finally attention was turned to the LAD. It contained thick plaque throughout its course. A soft spot amenable for bypass was noted in its mid to distal region. A small arteriotomy was created. This vessel accepted a 1 mm probe. Using the left internal mammary artery, an end-to-side anastomosis was created. This was performed using running 8-0 Prolene suture. The graft was hemostatic. The mammary pedicle was then tacked on the anterior surface of the heart. Attention was then turned to the proximal anastomoses. These were performed to the ascending aorta in end-to-side fashion using running 6-0 Prolene sutures. One liter of warm blood was delivered in retrograde fashion. The aortic crossclamp was removed. The grafts were de-aired in standard fashion. Distal anastomoses were inspected and appeared to be hemostatic. Temporary atrial and ventricular pacing wires were placed and brought through the skin. The retrograde catheter was removed. The patient was then weaned off cardiopulmonary bypass. He without difficulty. Follow-up transesophageal echocardiogram revealed improved function of the left ventricle and no change in the trivial mitral regurgitation. Protamine was administered. There were no adverse reactions. The remaining cannulas were removed. All surgical sites were inspected and found to be hemostatic. Reinforcement sutures were placed as needed. The mediastinum was copiously irrigated with warm saline solution. Soft tissues were reapproximated over the ascending aorta as well as over the apex of the heart. Straight 32- [place] chest tubes were placed in the left pleural space as well as in the mediastinum. These were all secured to the skin using sutures. The bone was reapproximated using stainless steel wires in a [id number] fashion. At the completion of the closure, the sternum was well aligned. The wound was then closed in layers. Sterile dressing was applied. The patient appeared to have tolerated the procedure well. There were no immediate complications. He returned to the ICU in critical but stable condition. MMODL / IJN: [id number] / LYLA
--- NOTE | 2018-01-17 16:27 | P.PN ---
Subjective Progress Note Date: 01/17/18 I'm seeing this patient postop following his three-vessel bypass surgery for multivessel symptomatic coronary artery disease. The patient arrived to the intensive care unit. The patient was placed on Diprivan which is currently running at 20 mics per KG pigmented for sedation. Initially was on SIMV mode of ventilation and switch him to assist control rate of 14 with a tidal volume of 500 and I dropped down the FiO2 down to 50% with a PEEP of 5. Chest x-ray shows adequate positioning of the orotracheal tube, chest tubes, NG tube and Buncombe-Neptali catheter. No evidence of any pneumothorax. The patient has 2 mediastinal chest tube and the patient has a single left pleural chest tube and output is minimal at this point and there is no evidence of any air leak. The patient had a episodes of bradycardia, sinus in nature, and currently rate of 80. He is hypertensive on Cleviprex drip at 1 mg/hr. Producing adequate amount of urine output. Cardiac index is at 3.4. His blood gases showed a pH of 7.35 and a pCO2 of 48 and pO2 of 263 and this was done upon arrival to the intensive care unit in 100% FiO2. Labs show a hemoglobin of 10.5. The rest of the electrodes are all within normal limits. Creatinine is at 0.6. Objective - Vital Signs Vital signs: Vital Signs Temp 98.4 F 01/17/18 06:37 Pulse 91 01/17/18 15:54 Resp 16 01/17/18 06:37 BP 155/80 01/17/18 06:37 Pulse Ox 96 01/17/18 06:37 Intake & Output 01/16/18 01/17/18 01/17/18 18:59 06:59 18:59 Intake Total 2163.793 299.514 3 Output Total 2300 Balance 2163.793 299.514 -2297 Weight 66.6 kg Intake: IV 200 20 3 NS @ 20ml/hr 200 20 Intake, IV Titration 369.793 279.514 Amount Heparin Sod,Pork in 0.45% 209.793 279.514 NaCl 25,000 unit In 0.45 % NaCl 1 500ml.bag @ 12 UNITS/KG/HR 16.12 mls/hr IV .Q24H [facility] Rx#: [id number] Heparin Sodium,Porcine 5, 160 000 unit In Sodium Chloride 0.9% 500 ml @ As Directed IV ONCE ONE Rx# :[id number] Oral 1594 Output: Urine 1300 Estimated Blood Loss 1000 Other: Voiding Method Toilet Urinal # Voids 3 1 - Exam Sedated, comfortable likely distress intubated on a mechanical ventilator. Orotracheal and orogastric tube are both in place. Head exam was generally normal. There was no scleral icterus or corneal arcus. Mucous membranes were moist. Neck was supple and without jugular venous distension, thyromegaly, or carotid bruits. Carotids were easily palpable bilaterally. There was no adenopathy. The patient has a right IJ Buncombe-Neptali catheter. The patient also has a orotracheal and orogastric tube. Lungs revealed equal and symmetrical breath sounds bilaterally. Sternum is stable clean and intact. The patient is to mediastinal and 1 left pleural chest tube. Cardiac exam revealed the PMI to be normally situated and sized. The rhythm was regular and no extrasystoles were noted during several minutes of auscultation. The first and second heart sounds were normal and physiologic splitting of the second heart sound was noted. There were no murmurs, rubs, clicks, or gallops. There is some rub appreciated over the anterior chest area mainly on the left. Abdominal exam revealed normal bowel sounds. The abdomen was soft, non-tender, and without masses, organomegaly, or appreciable enlargement of the abdominal aorta. Examination of the extremities revealed easily palpable radial, femoral and pedal pulses. There was no cyanosis, clubbing or edema. Examination of the skin revealed no evidence of significant rashes, suspicious appearing nevi or other concerning lesions. Sternal wound is dry clean and intact. Neurologically the patient is easily arousable and currently is sedated on Diprivan. No cranial deficits. - Labs CBC & Chem 7: 01/17/18 15:15 01/17/18 15:15 Labs: Abnormal Lab Results - Last 24 Hours (Table) 01/16/18 01/16/18 01/17/18 Range/Units 06:20 19:12 04:37 RBC (4.30-5.90) m/uL Hgb (13.0-17.5) gm/dL Hct (39.0-53.0) % Plt Count (150-450) k/uL Lymphocytes # (1.0-4.8) k/uL INR (<1.2) APTT 72.4 H 43.1 H (22.0-30.0) sec ABG pCO2 (35-45) mmHg ABG pO2 (83-108) mmHg ABG HCO3 (21-25) mmol/L ABG Total CO2 (19-24) mmol/L ABG O2 Saturation (94-97) % Creatinine (0.66-1.25) mg/dL Glucose (74-99) mg/dL POC Glucose (mg/dL) (75-99) mg/dL Calcium (8.4-10.2) mg/dL Magnesium (1.6-2.3) mg/dL Alkaline Phosphatase (38-126) U/L Total Protein (6.3-8.2) g/dL Albumin (3.5-5.0) g/dL Crossmatch See Detail 01/17/18 01/17/18 01/17/18 Range/Units 09:17 15:13 15:15 RBC 3.32 L (4.30-5.90) m/uL Hgb 10.5 L D (13.0-17.5) gm/dL Hct 32.1 L (39.0-53.0) % Plt Count 121 L (150-450) k/uL Lymphocytes # 0.9 L (1.0-4.8) k/uL INR (<1.2) APTT (22.0-30.0) sec ABG pCO2 (35-45) mmHg ABG pO2 380 H (83-108) mmHg ABG HCO3 (21-25) mmol/L ABG Total CO2 25 H (19-24) mmol/L ABG O2 Saturation 99.9 H (94-97) % Creatinine (0.66-1.25) mg/dL Glucose (74-99) mg/dL POC Glucose (mg/dL) 110 H (75-99) mg/dL Calcium (8.4-10.2) mg/dL Magnesium (1.6-2.3) mg/dL Alkaline Phosphatase (38-126) U/L Total Protein (6.3-8.2) g/dL Albumin (3.5-5.0) g/dL Crossmatch 01/17/18 01/17/18 01/17/18 Range/Units 15:15 15:15 15:29 RBC (4.30-5.90) m/uL Hgb (13.0-17.5) gm/dL Hct (39.0-53.0) % Plt Count (150-450) k/uL Lymphocytes # (1.0-4.8) k/uL INR 1.3 H (<1.2) APTT (22.0-30.0) sec ABG pCO2 48 H (35-45) mmHg ABG pO2 263 H (83-108) mmHg ABG HCO3 26 H (21-25) mmol/L ABG Total CO2 28 H (19-24) mmol/L ABG O2 Saturation 99.7 H (94-97) % Creatinine 0.60 L (0.66-1.25) mg/dL Glucose 103 H (74-99) mg/dL POC Glucose (mg/dL) (75-99) mg/dL Calcium 7.7 L (8.4-10.2) mg/dL Magnesium 2.6 H (1.6-2.3) mg/dL Alkaline Phosphatase 36 L (38-126) U/L Total Protein 3.7 L (6.3-8.2) g/dL Albumin 2.1 L (3.5-5.0) g/dL Crossmatch Microbiology - Last 24 Hours (Table) 01/15/18 15:53 Nasal Screen MRSA/MSSA (TIM) - Final Nasal Swab 01/15/18 20:42 Urine Culture - Final Urine,Voided Assessment and Plan Plan: Assessment 1 three-vessel coronary artery bypass surgery for symptomatic multivessel coronary artery disease, and the patient is postop day #0. Still intubated on a mechanical ventilator. Sedated with Diprivan. Hemodynamically stable. Currently on Cleviprex drip for blood pressure control. Chest tubes are all in place. Chest x-ray was reviewed and was adequate. Blood gases was reviewed and necessary vent changes were done. Hemodynamically stable with adequate cardiac output and urine output. Patient had a single episode of sinus bradycardia currently paced at the rate of 80. 2 post thoracotomy, currently intubated on mechanical ventilator. 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 Monitor pulse ox and saturation. Drop down the FiO2 down to 40% if he is able to tolerate that. Chest x-ray was reviewed. Continue the Cleviprex drip. Monitor hemodynamics. Start weaning this patient. We'll start of by stopping sedation assessing his readiness to wean and we'll check weaning parameters and he is able to tolerate a spontaneous breathing trial he will be extubated. We'll continue to follow. Postop blood gases and blood work was all reviewed.
[2018-01-17 16:55] LABS: Glucose,Whole Blood 102 mg/dL (75-99)
[2018-01-17] MEDS: KETOROLAC 30 MG/ML 1 ML VIAL IVP PRN ×2 (16:57→22:58)
[2018-01-17] MEDS: ACETAMINOPHEN IV (For NPO) 1,000 MG in EMPTY BAG 1 BAG IVPB SCH ×2 (17:02→23:35)
[2018-01-17 17:40] LABS: ABG Base Excess -0.8 mmol/L; ABG HCO3 25 mmol/L (21-25); ABG Oxygen Saturation 97.7 % (94-97); ABG PCO2 42 mmHg (35-45); ABG PH 7.37 (7.35-7.45); ABG PO2 95 mmHg (83-108); ABG TCO2 26 mmol/L (19-24)
[2018-01-17 18:08] LABS: Glucose,Whole Blood 102 mg/dL (75-99)
[2018-01-17 18:22] LABS: Basophils % (A) 0 %; Eosinophils % (A) 0 %; HCT 35.6 % (39.0-53.0); HGB 11.7 gm/dL (13.0-17.5); Lymphocytes # (A) 0.6 k/uL (1.0-4.8); Lymphocytes % (A) 7 %; MCH 31.4 pg (25.0-35.0); MCHC 32.9 g/dL (31.0-37.0); MCV 95.3 fL (80.0-100.0); Mean Platelet Volume 7.2; Monocytes # (A) 0.5 k/uL (0-1.0); Monocytes % (A) 7 %; Neutrophils % (A) 86 %; Platelet Count 131 k/uL (150-450); RBC 3.74 m/uL (4.30-5.90); RDW 13.1 % (11.5-15.5); WBC 8.1 k/uL (3.8-10.6)
[2018-01-17 18:27] LABS: Ionized Calcium 4.7 mg/dL (4.5-5.3)
[2018-01-17 18:40] LABS: Anion Gap 6 mmol/L; Blood Urea Nitrogen 9 mg/dL (9-20); Calcium 7.9 mg/dL (8.4-10.2); Carbon Dioxide 25 mmol/L (22-30); Chloride 106 mmol/L (98-107); Glucose 94 mg/dL (74-99); Magnesium 2.3 mg/dL (1.6-2.3); Potassium 4.2 mmol/L (3.5-5.1); Sodium 137 mmol/L (137-145)
[2018-01-17 18:49] LABS: INR 1.2 (<1.2); Prothrombin Time 11.1 sec (9.0-12.0)
[2018-01-17 19:08] LABS: Glucose,Whole Blood 113 mg/dL (75-99)
[2018-01-17] MEDS ORDERED: ARTIFICIAL TEARS-HYPROMELLOSE DROPS 15 ML BTL BOTH EYES PRN (19:50)
[2018-01-17 20:11] LABS: Glucose,Whole Blood 100 mg/dL (75-99)
[2018-01-17 20:23] LABS: Basophils % (A) 0 %; Eosinophils % (A) 0 %; HCT 37.1 % (39.0-53.0); HGB 12.2 gm/dL (13.0-17.5); Lymphocytes # (A) 0.6 k/uL (1.0-4.8); Lymphocytes % (A) 7 %; MCH 31.6 pg (25.0-35.0); MCHC 32.9 g/dL (31.0-37.0); MCV 96.1 fL (80.0-100.0); Mean Platelet Volume 6.9; Monocytes # (A) 0.5 k/uL (0-1.0); Monocytes % (A) 6 %; Neutrophils # (A) 8.1 k/uL (1.3-7.7); Neutrophils % (A) 87 %; Platelet Count 143 k/uL (150-450); RBC 3.86 m/uL (4.30-5.90); RDW 13.5 % (11.5-15.5); WBC 9.4 k/uL (3.8-10.6)
[2018-01-17] MEDS ORDERED: METOPROLOL TARTRATE 12.5 MG TAB PO STA (20:52)
[2018-01-17] MEDS: MUPIROCIN 2% OINT 22 GM TUBE NASAL SCH ×2 (21:15→23:32)
[2018-01-17] MEDS: HEPARIN SODIUM,PORCINE 5,000 UNIT/ML 1 ML VIAL SQ SCH (21:20)
[2018-01-17 21:37] LABS: Glucose,Whole Blood 98 mg/dL (75-99)
[2018-01-17 22:20] LABS: Glucose,Whole Blood 101 mg/dL (75-99)
[2018-01-17 23:06] LABS: Glucose,Whole Blood 105 mg/dL (75-99)
[2018-01-17] MEDS: ATENOLOL 25 MG TAB PO SCH (23:32)
[2018-01-17] MEDS: ISOSORBIDE MONONITRATE ER 30 MG TAB.ER.24H PO SCH (23:32)
[2018-01-18] MEDS ORDERED: METOPROLOL TARTRATE 12.5 MG TAB PO STA (00:10)
[2018-01-18 01:22] LABS: Glucose,Whole Blood 106 mg/dL (75-99)
[2018-01-18 04:18] LABS: Glucose,Whole Blood 106 mg/dL (75-99)
[2018-01-18 04:28] LABS: Basophils % (A) 0 %; Eosinophils % (A) 0 %; HCT 36.3 % (39.0-53.0); HGB 11.8 gm/dL (13.0-17.5); Lymphocytes # (A) 1.4 k/uL (1.0-4.8); Lymphocytes % (A) 15 %; MCH 31.1 pg (25.0-35.0); MCHC 32.6 g/dL (31.0-37.0); MCV 95.6 fL (80.0-100.0); Mean Platelet Volume 7.5; Monocytes # (A) 0.6 k/uL (0-1.0); Monocytes % (A) 6 %; Neutrophils # (A) 7.1 k/uL (1.3-7.7); Neutrophils % (A) 77 %; Platelet Count 145 k/uL (150-450); RDW 13.3 % (11.5-15.5); WBC 9.2 k/uL (3.8-10.6)
[2018-01-18 04:38] LABS: INR 1.2 (<1.2); Partial Thromboplastin Time 28.6 sec (22.0-30.0); Prothrombin Time 11.4 sec (9.0-12.0)
[2018-01-18 04:39] LABS: Ionized Calcium 4.8 mg/dL (4.5-5.3)
[2018-01-18 04:48] LABS: ALT 35 U/L (21-72); AST 45 U/L (17-59); Albumin 2.7 g/dL (3.5-5.0); Alkaline Phosphatase 45 U/L (38-126); Anion Gap 7 mmol/L; Blood Urea Nitrogen 9 mg/dL (9-20); Calcium 7.9 mg/dL (8.4-10.2); Carbon Dioxide 24 mmol/L (22-30); Chloride 103 mmol/L (98-107); Glucose 99 mg/dL (74-99); Magnesium 2.1 mg/dL (1.6-2.3); Potassium 4.4 mmol/L (3.5-5.1); Sodium 134 mmol/L (137-145); Total Bilirubin 0.2 mg/dL (0.2-1.3); Total Protein 4.3 g/dL (6.3-8.2)
[2018-01-18] MEDS: ACETAMINOPHEN IV (For NPO) 1,000 MG in EMPTY BAG 1 BAG IVPB SCH ×3 (05:31→19:08)
[2018-01-18 06:43] LABS: Glucose,Whole Blood 116 mg/dL (75-99)
[2018-01-18 07:11] LABS: Glucose,Whole Blood 110 mg/dL (75-99)
--- NOTE | 2018-01-18 07:38 | XR ---
EXAMINATION TYPE: XR chest 1V portable DATE OF EXAM: 01/18/2018 Comparison: 01/17/2018 Clinical History: 72-year-old male Post Operative Cardiac Surgery Findings: Heart remains upper limits of normal in size. Median sternotomy wires. Mild diffuse interstitial prom inence shows improvement. Some patchy left basilar opacity is slightly increased. Interval extubation and removal of NG tube. 2 mediastinal drains. Some epicardial pacer leads. Left-s ided chest tube without residual pneumothorax. Right IJ sheath with Perry-Neptali catheter at the distal main pulmonary outflow tract. Impression: 1. Improving vascular congestion. 2. Interval extubation with some slight increased patchy left basilar atelectasis.
[2018-01-18 08:28] LABS: Glucose,Whole Blood 112 mg/dL (75-99)
[2018-01-18] MEDS: IPRATROPIUM-ALBUTEROL 3 ML NEB INHALATION SCH ×4 (08:36→19:26)
[2018-01-18] MEDS ORDERED: PANTOPRAZOLE 40 MG/10 ML VIAL IVP SCH (09:00)
[2018-01-18] MEDS: HEPARIN SODIUM,PORCINE 5,000 UNIT/ML 1 ML VIAL SQ SCH ×2 (09:15→17:19)
[2018-01-18] MEDS: ceFAZolin IN SWFI 2 GM/20 ML SYRINGE IVP SCH (09:15)
[2018-01-18] MEDS: ONDANSETRON 4 MG/2 ML VIAL IVP PRN ×2 (09:15→16:01)
[2018-01-18] MEDS: PANTOPRAZOLE 40 MG TABLET PO SCH (09:16)
[2018-01-18] MEDS: METOPROLOL TARTRATE 12.5 MG TAB PO SCH ×3 (09:17→21:01)
[2018-01-18] MEDS: CLOPIDOGREL 75 MG TAB PO SCH (09:17)
[2018-01-18] MEDS: ASPIRIN 325 MG TAB PO SCH (09:17)
[2018-01-18] MEDS: MUPIROCIN 2% OINT 22 GM TUBE NASAL SCH ×2 (09:17→21:01)
[2018-01-18] MEDS: ATORVASTATIN 40 MG TAB PO SCH (09:17)
--- NOTE | 2018-01-18 09:54 | P.PN ---
Subjective Progress Note Date: 01/18/18 Principal diagnosis: Symptomatic multivessel coronary artery disease with previous drug-eluting stent placement to his right coronary artery in 2009, hypertension, dyslipidemia , peripheral vascular disease, family history of early onset coronary artery disease with his brother having open heart surgery before the age of 55, COPD mild with a preoperative FEV1 of 69% of predicted and current tobacco dependence. POD #1 urgent coronary artery bypass grafting 3 vessels with placement of his left internal mammary artery to the left anterior descending coronary artery, reverse greater saphenous vein graft to the diagonal coronary artery, a reverse greater saphenous vein graft to the ramus coronary artery. Endoscopic vein harvest of the left greater saphenous vein, epi-aortic ultrasound, intraoperative transesophageal echocardiogram. The patient is sitting up to the bedside recliner. He is in no acute distress. He denies any shortness of breath at this time, he is complaining of pain 3-4 out of 10 on the pain scale 2 his chest tube insertion sites. He is currently on 4 L nasal cannula with oxygen saturations 100%. He is achieving 1000 mL on his incentive spirometry. His heart hugger is in place and he is demonstrating appropriate use. He was extubated at 5:45 PM yesterday 01/17/2018. Objective - Vital Signs Vital signs: Vital Signs Temp 98.4 F 01/17/18 06:37 Pulse 72 01/18/18 08:47 Resp 16 01/18/18 07:00 BP 155/80 01/17/18 06:37 Pulse Ox 99 01/18/18 08:00 Intake & Output 01/17/18 01/18/18 01/18/18 18:59 06:59 18:59 Intake Total 471 995.800 409.5 Output Total 4193 1795 111 Balance -3722 -799.200 298.5 Weight 73.8 kg Intake: IV 470 979 168 0.9 flush 27 99 18 ACETAMINOPHEN IV (For NPO 100 ) 1,000 mg In Empty Bag 1 bag @ 400 mls/hr IVPB Q6HR [facility] Rx#:[id number] Lactated Ringers 1,000 ml 250 550 100 @ 50 mls/hr IV .Q20H [facility] Rx#:[id number] cardiac output 90 330 50 Intake, IV Titration 1 16.800 1.5 Amount Clevidipine Butyrate 25 1 16.800 mg In Empty Bag 1 bag @ 1 MG/HR 2 mls/hr IV .Q24H [facility] Rx#:[id number] Nitroglycerin-D5w Pmx 50 1.5 mg In Dextrose/Water 1 250ml.bag @ 5 MCG/MIN 1.5 mls/hr IV .Q24H [facility] Rx#: [id number] Oral 240 Output: Chest Tube Drainage 268 370 36 Mediastinal 232 280 20 left pleural 36 90 16 Urine 2925 1425 75 Estimated Blood Loss 1000 Other: Voiding Method Indwelling Catheter Indwelling Catheter ABP, PAP, CO, CI - Last Documented Arterial Blood Pressure 100/50 Pulmonary Artery Pressure 13/5 Cardiac Output 4.4 Cardiac Index 2.4 - Constitutional General appearance: Present: cooperative, no acute distress - Respiratory Details: Lung sounds with some scattered expiratory wheezes, diminished bilateral bases. Respirations are symmetrical and nonlabored. Oxygen saturation is 100% on 4 L nasal cannula. He is achieving 1000 mL on his incentive spirometry. Mediastinal chest tube and left pleural chest tubes in place to low continuous wall suction -20 cm H2O. Positive air leak to his mediastinal chest tubes. Mediastinal chest tubes and left pleural chest tube draining thin serosanguineous drainage. Mediastinal chest tubes drained 190 mL output in the last 8 hours, 510 mL since surgery. Left pleural chest tube drained 90 mL in the last 8 hours, 125 mL since surgery. - Cardiovascular Details: Regular rhythm and rate. S1 and S2 present, negative for S3, gallop or murmur. Sternum is stable. Bedside telemetry showing sinus bradycardia heart rate 63. Heart hugger is in place and he is demonstrating appropriate use. No edema present. Knee-high MONISHA hose and sequential compression devices in place to his bilateral lower extremities. Atrial and ventricular epicardial pacemaker wires in place and connected to back up to bedside pacemaker generator. Right IJ Cordis with Brandeis-Neptali catheter in place and functioning. Cardiac output 5.4, cardiac index 3.0, PA pressures 18/9, CVP pressures 2. - Gastrointestinal Gastrointestinal Comment(s): Abdomen is soft, nontender and nondistended. Active bowel sounds all 4 abdominal quadrants. He is tolerating oral intake. - Genitourinary Genitourinary Comment(s): Sandhu catheter in place for accurate I&O. Draining clear yellow urine. 1050 mL output in the last 8 hours. - Integumentary Integumentary Comment(s): Skin is warm and dry. No clubbing or cyanosis present. Midline sternal incision clean and dry and approximated. No drainage or redness present. Left leg EVH site clean dry and approximated. No drainage or redness present. - Neurologic Neurologic: Present: CNII-XII intact - Musculoskeletal Musculoskeletal: Present: gait normal, strength equal bilaterally - Psychiatric Psychiatric: Present: A&O x's 3, appropriate affect, intact judgment & insight - Allied health notes Allied health notes reviewed: nursing - Labs CBC & Chem 7: 01/18/18 04:20 01/18/18 04:20 Labs: Abnormal Lab Results - Last 24 Hours (Table) 01/16/18 01/17/18 01/17/18 Range/Units 06:20 09:17 15:13 RBC (4.30-5.90) m/uL Hgb (13.0-17.5) gm/dL Hct (39.0-53.0) % Plt Count (150-450) k/uL Neutrophils # (1.3-7.7) k/uL Lymphocytes # (1.0-4.8) k/uL INR (<1.2) ABG pCO2 (35-45) mmHg ABG pO2 380 H (83-108) mmHg ABG HCO3 (21-25) mmol/L ABG Total CO2 25 H (19-24) mmol/L ABG O2 Saturation 99.9 H (94-97) % Sodium (137-145) mmol/L Creatinine (0.66-1.25) mg/dL Glucose (74-99) mg/dL POC Glucose (mg/dL) 110 H (75-99) mg/dL Calcium (8.4-10.2) mg/dL Magnesium (1.6-2.3) mg/dL Alkaline Phosphatase (38-126) U/L Total Protein (6.3-8.2) g/dL Albumin (3.5-5.0) g/dL Crossmatch See Detail 01/17/18 01/17/18 01/17/18 Range/Units 15:15 15:15 15:15 RBC 3.32 L (4.30-5.90) m/uL Hgb 10.5 L D (13.0-17.5) gm/dL Hct 32.1 L (39.0-53.0) % Plt Count 121 L (150-450) k/uL Neutrophils # (1.3-7.7) k/uL Lymphocytes # 0.9 L (1.0-4.8) k/uL INR 1.3 H (<1.2) ABG pCO2 (35-45) mmHg ABG pO2 (83-108) mmHg ABG HCO3 (21-25) mmol/L ABG Total CO2 (19-24) mmol/L ABG O2 Saturation (94-97) % Sodium (137-145) mmol/L Creatinine 0.60 L (0.66-1.25) mg/dL Glucose 103 H (74-99) mg/dL POC Glucose (mg/dL) (75-99) mg/dL Calcium 7.7 L (8.4-10.2) mg/dL Magnesium 2.6 H (1.6-2.3) mg/dL Alkaline Phosphatase 36 L (38-126) U/L Total Protein 3.7 L (6.3-8.2) g/dL Albumin 2.1 L (3.5-5.0) g/dL Crossmatch 01/17/18 01/17/18 01/17/18 Range/Units 15:29 16:53 17:35 RBC (4.30-5.90) m/uL Hgb (13.0-17.5) gm/dL Hct (39.0-53.0) % Plt Count (150-450) k/uL Neutrophils # (1.3-7.7) k/uL Lymphocytes # (1.0-4.8) k/uL INR (<1.2) ABG pCO2 48 H (35-45) mmHg ABG pO2 263 H (83-108) mmHg ABG HCO3 26 H (21-25) mmol/L ABG Total CO2 28 H 26 H (19-24) mmol/L ABG O2 Saturation 99.7 H 97.7 H (94-97) % Sodium (137-145) mmol/L Creatinine (0.66-1.25) mg/dL Glucose (74-99) mg/dL POC Glucose (mg/dL) 102 H (75-99) mg/dL Calcium (8.4-10.2) mg/dL Magnesium (1.6-2.3) mg/dL Alkaline Phosphatase (38-126) U/L Total Protein (6.3-8.2) g/dL Albumin (3.5-5.0) g/dL Crossmatch 01/17/18 01/17/18 01/17/18 Range/Units 18:05 18:10 18:10 RBC 3.74 L (4.30-5.90) m/uL Hgb 11.7 L (13.0-17.5) gm/dL Hct 35.6 L (39.0-53.0) % Plt Count 131 L (150-450) k/uL Neutrophils # (1.3-7.7) k/uL Lymphocytes # 0.6 L (1.0-4.8) k/uL INR (<1.2) ABG pCO2 (35-45) mmHg ABG pO2 (83-108) mmHg ABG HCO3 (21-25) mmol/L ABG Total CO2 (19-24) mmol/L ABG O2 Saturation (94-97) % Sodium (137-145) mmol/L Creatinine 0.62 L (0.66-1.25) mg/dL Glucose (74-99) mg/dL POC Glucose (mg/dL) 102 H (75-99) mg/dL Calcium 7.9 L (8.4-10.2) mg/dL Magnesium (1.6-2.3) mg/dL Alkaline Phosphatase (38-126) U/L Total Protein (6.3-8.2) g/dL Albumin (3.5-5.0) g/dL Crossmatch 01/17/18 01/17/18 01/17/18 Range/Units 18:10 18:56 20:08 RBC (4.30-5.90) m/uL Hgb (13.0-17.5) gm/dL Hct (39.0-53.0) % Plt Count (150-450) k/uL Neutrophils # (1.3-7.7) k/uL Lymphocytes # (1.0-4.8) k/uL INR 1.2 H (<1.2) ABG pCO2 (35-45) mmHg ABG pO2 (83-108) mmHg ABG HCO3 (21-25) mmol/L ABG Total CO2 (19-24) mmol/L ABG O2 Saturation (94-97) % Sodium (137-145) mmol/L Creatinine (0.66-1.25) mg/dL Glucose (74-99) mg/dL POC Glucose (mg/dL) 113 H 100 H (75-99) mg/dL Calcium (8.4-10.2) mg/dL Magnesium (1.6-2.3) mg/dL Alkaline Phosphatase (38-126) U/L Total Protein (6.3-8.2) g/dL Albumin (3.5-5.0) g/dL Crossmatch 01/17/18 01/17/18 01/17/18 Range/Units 20:10 22:18 23:05 RBC 3.86 L (4.30-5.90) m/uL Hgb 12.2 L (13.0-17.5) gm/dL Hct 37.1 L (39.0-53.0) % Plt Count 143 L (150-450) k/uL Neutrophils # 8.1 H (1.3-7.7) k/uL Lymphocytes # 0.6 L (1.0-4.8) k/uL INR (<1.2) ABG pCO2 (35-45) mmHg ABG pO2 (83-108) mmHg ABG HCO3 (21-25) mmol/L ABG Total CO2 (19-24) mmol/L ABG O2 Saturation (94-97) % Sodium (137-145) mmol/L Creatinine (0.66-1.25) mg/dL Glucose (74-99) mg/dL POC Glucose (mg/dL) 101 H 105 H (75-99) mg/dL Calcium (8.4-10.2) mg/dL Magnesium (1.6-2.3) mg/dL Alkaline Phosphatase (38-126) U/L Total Protein (6.3-8.2) g/dL Albumin (3.5-5.0) g/dL Crossmatch 01/18/18 01/18/18 01/18/18 Range/Units 01:20 04:16 04:20 RBC 3.80 L (4.30-5.90) m/uL Hgb 11.8 L (13.0-17.5) gm/dL Hct 36.3 L (39.0-53.0) % Plt Count 145 L (150-450) k/uL Neutrophils # (1.3-7.7) k/uL Lymphocytes # (1.0-4.8) k/uL INR (<1.2) ABG pCO2 (35-45) mmHg ABG pO2 (83-108) mmHg ABG HCO3 (21-25) mmol/L ABG Total CO2 (19-24) mmol/L ABG O2 Saturation (94-97) % Sodium (137-145) mmol/L Creatinine (0.66-1.25) mg/dL Glucose (74-99) mg/dL POC Glucose (mg/dL) 106 H 106 H (75-99) mg/dL Calcium (8.4-10.2) mg/dL Magnesium (1.6-2.3) mg/dL Alkaline Phosphatase (38-126) U/L Total Protein (6.3-8.2) g/dL Albumin (3.5-5.0) g/dL Crossmatch 01/18/18 01/18/18 01/18/18 Range/Units 04:20 04:20 06:41 RBC (4.30-5.90) m/uL Hgb (13.0-17.5) gm/dL Hct (39.0-53.0) % Plt Count (150-450) k/uL Neutrophils # (1.3-7.7) k/uL Lymphocytes # (1.0-4.8) k/uL INR 1.2 H (<1.2) ABG pCO2 (35-45) mmHg ABG pO2 (83-108) mmHg ABG HCO3 (21-25) mmol/L ABG Total CO2 (19-24) mmol/L ABG O2 Saturation (94-97) % Sodium 134 L (137-145) mmol/L Creatinine 0.60 L (0.66-1.25) mg/dL Glucose (74-99) mg/dL POC Glucose (mg/dL) 116 H (75-99) mg/dL Calcium 7.9 L (8.4-10.2) mg/dL Magnesium (1.6-2.3) mg/dL Alkaline Phosphatase (38-126) U/L Total Protein 4.3 L (6.3-8.2) g/dL Albumin 2.7 L (3.5-5.0) g/dL Crossmatch 01/18/18 01/18/18 Range/Units 07:10 08:26 RBC (4.30-5.90) m/uL Hgb (13.0-17.5) gm/dL Hct (39.0-53.0) % Plt Count (150-450) k/uL Neutrophils # (1.3-7.7) k/uL Lymphocytes # (1.0-4.8) k/uL INR (<1.2) ABG pCO2 (35-45) mmHg ABG pO2 (83-108) mmHg ABG HCO3 (21-25) mmol/L ABG Total CO2 (19-24) mmol/L ABG O2 Saturation (94-97) % Sodium (137-145) mmol/L Creatinine (0.66-1.25) mg/dL Glucose (74-99) mg/dL POC Glucose (mg/dL) 110 H 112 H (75-99) mg/dL Calcium (8.4-10.2) mg/dL Magnesium (1.6-2.3) mg/dL Alkaline Phosphatase (38-126) U/L Total Protein (6.3-8.2) g/dL Albumin (3.5-5.0) g/dL Crossmatch - Imaging and Cardiology Chest x-ray: report reviewed, image reviewed Assessment and Plan (1) Coronary artery disease Current Visit: Yes Status: Acute Code(s): I25.10 - ATHSCL HEART DISEASE OF [place] CORONARY ARTERY W/O ANG PCTRS SNOMED Code(s): 77946645 (2) Unstable angina Current Visit: Yes Status: Acute Code(s): I20.0 - UNSTABLE ANGINA SNOMED Code(s): 4706142 (3) History of coronary artery stent placement Current Visit: Yes Status: Acute Code(s): Z95.5 - PRESENCE OF CORONARY ANGIOPLASTY IMPLANT AND GRAFT SNOMED Code(s): 413679800 (4) Hypertension Current Visit: Yes Status: Acute Code(s): I10 - ESSENTIAL (PRIMARY) HYPERTENSION SNOMED Code(s): 27020375 (5) Hyperlipidemia Current Visit: Yes Status: Acute Code(s): E78.5 - HYPERLIPIDEMIA, UNSPECIFIED SNOMED Code(s): 13571051 (6) Tobacco dependence Current Visit: Yes Status: Acute Code(s): F17.200 - NICOTINE DEPENDENCE, UNSPECIFIED, UNCOMPLICATED SNOMED Code(s): 17789368 (7) Peripheral vascular disease Current Visit: Yes Status: Acute Code(s): I73.9 - PERIPHERAL VASCULAR DISEASE, UNSPECIFIED SNOMED Code(s): 569786659 (8) COPD (chronic obstructive pulmonary disease) Current Visit: Yes Status: Acute Code(s): J44.9 - CHRONIC OBSTRUCTIVE PULMONARY DISEASE, UNSPECIFIED SNOMED Code(s): 18591651 Plan: 1. Continue aspirin, statin, Plavix, heparin subcu, and beta gem. We will adjust beta gem as tolerated. 2. Encourage use of his incentive spirometry every hour while awake. 3. Continue to encourage and discuss the importance of smoking cessation. 4. Pulmonary recommendations per Dr. Calhoun. 5. Monitor daily labs and x-rays. 6. We will discontinue his Brandeis-Neptali catheter today and keep his right IJ cordis in place to continuous CVP monitoring. 7. Medical management per Dr. Owusu. 8. Increase activity as tolerated, PT/OT/cardiac rehab consulted. 9. We will keep his chest tubes in place today to low continuous wall suction at -20 cm H2O. 10. Pain control per current medication regime. 11. Further recommendations to follow based on patient's clinical course. Time with Patient: Greater than 30
--- NOTE | 2018-01-18 11:54 | PN ---
PROGRESS NOTE Michele Huizar underwent coronary artery bypass grafting yesterday with CABG x3. He is alert, awake, sitting in a chair. He has been extubated. His vitals are stable. Pulse rate is in the 70s. Respirations are normal. Blood pressure 102/42 mmHg, pulse ox 97% to 100% on 3 L nasal cannula. Breath sounds are reduced bilaterally. Conducted sounds are audible. Heart sounds are distant. Extremities are warm. He is afebrile. IMPRESSION: 1. Severe coronary artery disease. 2. Status post coronary artery bypass grafting. 3. History of paroxysmal atrial fibrillation which was brief perioperatively but is now in sinus rhythm. SUGGEST: Continue post-CABG care. Continue aspirin. Continue atorvastatin. The rest of his cardiac medications will be re-introduced gradually, depending upon his response. He is on low-dose metoprolol. MMODL / IJN: [id number] /
--- NOTE | 2018-01-18 12:27 | P.PN ---
Subjective Progress Note Date: 01/18/18 I'm seeing this patient postop following his three-vessel bypass surgery for multivessel symptomatic coronary artery disease. The patient arrived to the intensive care unit. The patient was placed on Diprivan which is currently running at 20 mics per KG pigmented for sedation. Initially was on SIMV mode of ventilation and switch him to assist control rate of 14 with a tidal volume of 500 and I dropped down the FiO2 down to 50% with a PEEP of 5. Chest x-ray shows adequate positioning of the orotracheal tube, chest tubes, NG tube and Saint Jo-Neptali catheter. No evidence of any pneumothorax. The patient has 2 mediastinal chest tube and the patient has a single left pleural chest tube and output is minimal at this point and there is no evidence of any air leak. The patient had a episodes of bradycardia, sinus in nature, and currently rate of 80. He is hypertensive on Cleviprex drip at 1 mg/hr. Producing adequate amount of urine output. Cardiac index is at 3.4. His blood gases showed a pH of 7.35 and a pCO2 of 48 and pO2 of 263 and this was done upon arrival to the intensive care unit in 100% FiO2. Labs show a hemoglobin of 10.5. The rest of the electrodes are all within normal limits. Creatinine is at 0.6. On today's evaluation of 01/15/2018, the patient is awake and alert and extubated on 3 L of oxygen by nasal cannula. Chest x-ray showed adequate expansion of both lungs and there is no evidence of any pneumothorax. The patient is to mediastinal chest tube and 1 pleural chest tube. There is evidence of air leak within the mediastinal chest tube and the patient has no evidence of pneumothorax or pneumomediastinum and today's chest x-ray. Afebrile. Chest wall pain is under good control. Using incentive spirometer and pulling approximately 1000. The patient has put out approximately 190 mL of output from the mediastinal chest tube over the past 8 hours and 5 and since surgery. As for left-sided chest tube output of 125 mL since surgery. The patient's Saint Jo-Neptali catheter shows a cardiac output of 5.4 with an index of 3.0. CVP is at 2. Pulmonary artery pressures are 18/9 cm of water. No altered mentation. Tolerating some clear liquid diet this morning. Renal function is stable. No pressors of been utilized. He was also stable at 11.8. Objective - Vital Signs Vital signs: Vital Signs Temp 98.4 F 01/17/18 06:37 Pulse 85 01/18/18 11:00 Resp 22 01/18/18 11:00 BP 88/49 01/18/18 09:00 Pulse Ox 100 01/18/18 11:00 Intake & Output 01/17/18 01/18/18 01/18/18 18:59 06:59 18:59 Intake Total 471 995.800 492.0 Output Total 4193 1795 276 Balance -3722 -799.200 216.0 Weight 73.8 kg Intake: IV 470 979 249 0.9 flush 27 99 39 ACETAMINOPHEN IV (For NPO 100 ) 1,000 mg In Empty Bag 1 bag @ 400 mls/hr IVPB Q6HR KB Rx#:[id number] Lactated Ringers 1,000 ml 250 550 160 @ 20 mls/hr IV .Q24H KB Rx#:[id number] cardiac output 90 330 50 Intake, IV Titration 1 16.800 3.0 Amount Clevidipine Butyrate 25 1 16.800 mg In Empty Bag 1 bag @ 1 MG/HR 2 mls/hr IV .Q24H KB Rx#:[id number] Nitroglycerin-D5w Pmx 50 3.0 mg In Dextrose/Water 1 250ml.bag @ 5 MCG/MIN 1.5 mls/hr IV .Q24H KB Rx#: [id number] Oral 240 Output: Chest Tube Drainage 268 370 86 Mediastinal 232 280 60 left pleural 36 90 26 Urine 2925 1425 190 Estimated Blood Loss 1000 Other: Voiding Method Indwelling Catheter Indwelling Catheter Indwelling Catheter ABP, PAP, CO, CI - Last Documented Arterial Blood Pressure 98/43 Pulmonary Artery Pressure 13/5 Cardiac Output 4.4 Cardiac Index 2.4 - Exam Patient is awake and alert and the patient is not in acute respiratory distress this point in time. Extubated on oxygen by nasal cannula at 3 L/m. Head exam was generally normal. There was no scleral icterus or corneal arcus. Mucous membranes were moist. Neck was supple and without jugular venous distension, thyromegaly, or carotid bruits. Carotids were easily palpable bilaterally. There was no adenopathy. The patient has a right IJ Saint Jo-Neptali catheter. The patient also has a orotracheal and orogastric tube. Lungs revealed equal and symmetrical breath sounds bilaterally. Sternum is stable clean and intact. The patient is to mediastinal and 1 left pleural chest tube. Cardiac exam revealed the PMI to be normally situated and sized. The rhythm was regular and no extrasystoles were noted during several minutes of auscultation. The first and second heart sounds were normal and physiologic splitting of the second heart sound was noted. There were no murmurs, rubs, clicks, or gallops. There is some rub appreciated over the anterior chest area mainly on the left. Abdominal exam revealed normal bowel sounds. The abdomen was soft, non-tender, and without masses, organomegaly, or appreciable enlargement of the abdominal aorta. Examination of the extremities revealed easily palpable radial, femoral and pedal pulses. There was no cyanosis, clubbing or edema. Examination of the skin revealed no evidence of significant rashes, suspicious appearing nevi or other concerning lesions. Sternal wound is dry clean and intact. Neurologically the patient is awake and alert and not in acute distress. - Labs CBC & Chem 7: 01/18/18 04:20 01/18/18 04:20 Labs: Abnormal Lab Results - Last 24 Hours (Table) 01/16/18 01/17/18 01/17/18 Range/Units 06:20 15:13 15:15 RBC 3.32 L (4.30-5.90) m/uL Hgb 10.5 L D (13.0-17.5) gm/dL Hct 32.1 L (39.0-53.0) % Plt Count 121 L (150-450) k/uL Neutrophils # (1.3-7.7) k/uL Lymphocytes # 0.9 L (1.0-4.8) k/uL INR (<1.2) ABG pCO2 (35-45) mmHg ABG pO2 (83-108) mmHg ABG HCO3 (21-25) mmol/L ABG Total CO2 (19-24) mmol/L ABG O2 Saturation (94-97) % Sodium (137-145) mmol/L Creatinine (0.66-1.25) mg/dL Glucose (74-99) mg/dL POC Glucose (mg/dL) 110 H (75-99) mg/dL Calcium (8.4-10.2) mg/dL Magnesium (1.6-2.3) mg/dL Alkaline Phosphatase (38-126) U/L Total Protein (6.3-8.2) g/dL Albumin (3.5-5.0) g/dL Crossmatch See Detail 01/17/18 01/17/18 01/17/18 Range/Units 15:15 15:15 15:29 RBC (4.30-5.90) m/uL Hgb (13.0-17.5) gm/dL Hct (39.0-53.0) % Plt Count (150-450) k/uL Neutrophils # (1.3-7.7) k/uL Lymphocytes # (1.0-4.8) k/uL INR 1.3 H (<1.2) ABG pCO2 48 H (35-45) mmHg ABG pO2 263 H (83-108) mmHg ABG HCO3 26 H (21-25) mmol/L ABG Total CO2 28 H (19-24) mmol/L ABG O2 Saturation 99.7 H (94-97) % Sodium (137-145) mmol/L Creatinine 0.60 L (0.66-1.25) mg/dL Glucose 103 H (74-99) mg/dL POC Glucose (mg/dL) (75-99) mg/dL Calcium 7.7 L (8.4-10.2) mg/dL Magnesium 2.6 H (1.6-2.3) mg/dL Alkaline Phosphatase 36 L (38-126) U/L Total Protein 3.7 L (6.3-8.2) g/dL Albumin 2.1 L (3.5-5.0) g/dL Crossmatch 01/17/18 01/17/18 01/17/18 Range/Units 16:53 17:35 18:05 RBC (4.30-5.90) m/uL Hgb (13.0-17.5) gm/dL Hct (39.0-53.0) % Plt Count (150-450) k/uL Neutrophils # (1.3-7.7) k/uL Lymphocytes # (1.0-4.8) k/uL INR (<1.2) ABG pCO2 (35-45) mmHg ABG pO2 (83-108) mmHg ABG HCO3 (21-25) mmol/L ABG Total CO2 26 H (19-24) mmol/L ABG O2 Saturation 97.7 H (94-97) % Sodium (137-145) mmol/L Creatinine (0.66-1.25) mg/dL Glucose (74-99) mg/dL POC Glucose (mg/dL) 102 H 102 H (75-99) mg/dL Calcium (8.4-10.2) mg/dL Magnesium (1.6-2.3) mg/dL Alkaline Phosphatase (38-126) U/L Total Protein (6.3-8.2) g/dL Albumin (3.5-5.0) g/dL Crossmatch 01/17/18 01/17/18 01/17/18 Range/Units 18:10 18:10 18:10 RBC 3.74 L (4.30-5.90) m/uL Hgb 11.7 L (13.0-17.5) gm/dL Hct 35.6 L (39.0-53.0) % Plt Count 131 L (150-450) k/uL Neutrophils # (1.3-7.7) k/uL Lymphocytes # 0.6 L (1.0-4.8) k/uL INR 1.2 H (<1.2) ABG pCO2 (35-45) mmHg ABG pO2 (83-108) mmHg ABG HCO3 (21-25) mmol/L ABG Total CO2 (19-24) mmol/L ABG O2 Saturation (94-97) % Sodium (137-145) mmol/L Creatinine 0.62 L (0.66-1.25) mg/dL Glucose (74-99) mg/dL POC Glucose (mg/dL) (75-99) mg/dL Calcium 7.9 L (8.4-10.2) mg/dL Magnesium (1.6-2.3) mg/dL Alkaline Phosphatase (38-126) U/L Total Protein (6.3-8.2) g/dL Albumin (3.5-5.0) g/dL Crossmatch 01/17/18 01/17/18 01/17/18 Range/Units 18:56 20:08 20:10 RBC 3.86 L (4.30-5.90) m/uL Hgb 12.2 L (13.0-17.5) gm/dL Hct 37.1 L (39.0-53.0) % Plt Count 143 L (150-450) k/uL Neutrophils # 8.1 H (1.3-7.7) k/uL Lymphocytes # 0.6 L (1.0-4.8) k/uL INR (<1.2) ABG pCO2 (35-45) mmHg ABG pO2 (83-108) mmHg ABG HCO3 (21-25) mmol/L ABG Total CO2 (19-24) mmol/L ABG O2 Saturation (94-97) % Sodium (137-145) mmol/L Creatinine (0.66-1.25) mg/dL Glucose (74-99) mg/dL POC Glucose (mg/dL) 113 H 100 H (75-99) mg/dL Calcium (8.4-10.2) mg/dL Magnesium (1.6-2.3) mg/dL Alkaline Phosphatase (38-126) U/L Total Protein (6.3-8.2) g/dL Albumin (3.5-5.0) g/dL Crossmatch 01/17/18 01/17/18 01/18/18 Range/Units 22:18 23:05 01:20 RBC (4.30-5.90) m/uL Hgb (13.0-17.5) gm/dL Hct (39.0-53.0) % Plt Count (150-450) k/uL Neutrophils # (1.3-7.7) k/uL Lymphocytes # (1.0-4.8) k/uL INR (<1.2) ABG pCO2 (35-45) mmHg ABG pO2 (83-108) mmHg ABG HCO3 (21-25) mmol/L ABG Total CO2 (19-24) mmol/L ABG O2 Saturation (94-97) % Sodium (137-145) mmol/L Creatinine (0.66-1.25) mg/dL Glucose (74-99) mg/dL POC Glucose (mg/dL) 101 H 105 H 106 H (75-99) mg/dL Calcium (8.4-10.2) mg/dL Magnesium (1.6-2.3) mg/dL Alkaline Phosphatase (38-126) U/L Total Protein (6.3-8.2) g/dL Albumin (3.5-5.0) g/dL Crossmatch 01/18/18 01/18/18 01/18/18 Range/Units 04:16 04:20 04:20 RBC 3.80 L (4.30-5.90) m/uL Hgb 11.8 L (13.0-17.5) gm/dL Hct 36.3 L (39.0-53.0) % Plt Count 145 L (150-450) k/uL Neutrophils # (1.3-7.7) k/uL Lymphocytes # (1.0-4.8) k/uL INR 1.2 H (<1.2) ABG pCO2 (35-45) mmHg ABG pO2 (83-108) mmHg ABG HCO3 (21-25) mmol/L ABG Total CO2 (19-24) mmol/L ABG O2 Saturation (94-97) % Sodium (137-145) mmol/L Creatinine (0.66-1.25) mg/dL Glucose (74-99) mg/dL POC Glucose (mg/dL) 106 H (75-99) mg/dL Calcium (8.4-10.2) mg/dL Magnesium (1.6-2.3) mg/dL Alkaline Phosphatase (38-126) U/L Total Protein (6.3-8.2) g/dL Albumin (3.5-5.0) g/dL Crossmatch 01/18/18 01/18/18 01/18/18 Range/Units 04:20 06:41 07:10 RBC (4.30-5.90) m/uL Hgb (13.0-17.5) gm/dL Hct (39.0-53.0) % Plt Count (150-450) k/uL Neutrophils # (1.3-7.7) k/uL Lymphocytes # (1.0-4.8) k/uL INR (<1.2) ABG pCO2 (35-45) mmHg ABG pO2 (83-108) mmHg ABG HCO3 (21-25) mmol/L ABG Total CO2 (19-24) mmol/L ABG O2 Saturation (94-97) % Sodium 134 L (137-145) mmol/L Creatinine 0.60 L (0.66-1.25) mg/dL Glucose (74-99) mg/dL POC Glucose (mg/dL) 116 H 110 H (75-99) mg/dL Calcium 7.9 L (8.4-10.2) mg/dL Magnesium (1.6-2.3) mg/dL Alkaline Phosphatase (38-126) U/L Total Protein 4.3 L (6.3-8.2) g/dL Albumin 2.7 L (3.5-5.0) g/dL Crossmatch 01/18/18 Range/Units 08:26 RBC (4.30-5.90) m/uL Hgb (13.0-17.5) gm/dL Hct (39.0-53.0) % Plt Count (150-450) k/uL Neutrophils # (1.3-7.7) k/uL Lymphocytes # (1.0-4.8) k/uL INR (<1.2) ABG pCO2 (35-45) mmHg ABG pO2 (83-108) mmHg ABG HCO3 (21-25) mmol/L ABG Total CO2 (19-24) mmol/L ABG O2 Saturation (94-97) % Sodium (137-145) mmol/L Creatinine (0.66-1.25) mg/dL Glucose (74-99) mg/dL POC Glucose (mg/dL) 112 H (75-99) mg/dL Calcium (8.4-10.2) mg/dL Magnesium (1.6-2.3) mg/dL Alkaline Phosphatase (38-126) U/L Total Protein (6.3-8.2) g/dL Albumin (3.5-5.0) g/dL Crossmatch Assessment and Plan Plan: Assessment 1 three-vessel coronary artery bypass surgery for symptomatic multivessel coronary artery disease, and the patient is postop day #1. The patient is hemodynamically stable. The patient has a pleural and mediastinal chest tube and there is evidence of air leak within the mediastinal chest tube. Output has been minimal. Hemodynamically stable. Cardiac output and index are satisfactory. Adequate urine output. No pressors at this point. 2 post thoracotomy, currently on 3 L of oxygen by nasal cannula 3 previous history of coronary artery disease and coronary intervention and stenting of the RCA back in 2009 4 COPD mild with an FEV1 of 69% of predicted 5 hypertension 6 hyperlipidemia 7 smoker 8 peripheral vascular disease Plan Continue aspirin and Plavix. Continue beta blockers. Monitor the output from the chest tube. Monitored air leak. Discontinue the Saint Jo-Neptali catheter. Continue using incentive spirometer. We'll continue to follow. We'll stay in ICU for another 24 hours.
--- NOTE | 2018-01-18 12:35 | P.PN ---
Subjective 72-year-old male one of Dr. Owusu's patient with past medical history of CAD, COPD, hypertension hyperlipidemia who apparently has been having worsening chest pain with exertion and atypical symptoms on and off had lost heart catheter in 2009 a Chin had to limited stent at the time of the coronary artery. Had recurrent symptom this time on and off was sent to see cardiology in consultation and scheduled for elective heart catheter. Finding yesterday of significant coronary artery disease with total occlusion of the LAD, total occlusion of the circumflex, 99% stenosis of the proximal LAD and 50% stenosis of the mid LAD. Ejection fraction has been 50 percentile patient was seen pulmonary and will be clear for surgery. Patient was seen and evaluated by cardiothoracic surgery and planning to do bypass surgery tomorrow. 01/18: Patient is postop following a three-vessel bypass surgery. He was extubated yesterday. Patient was evaluated this morning, he is noted to be sitting up in the bedside chair, in no acute distress. He is in the intensive care unit, he has two mediastinal chest tubes and left pleural chest tube. The patient did have a episode of bradycardia yesterday, heart rate did come up and is running in the 70s. Glucose has been well controlled, had slight drop in hemoglobin 11.8, creatinine 0.60, BUN 9. Objective - Vital Signs Vital signs: Vital Signs Temp 98.4 F 01/17/18 06:37 Pulse 71 01/18/18 08:37 Resp 16 01/18/18 07:00 BP 155/80 01/17/18 06:37 Pulse Ox 99 01/18/18 08:00 Intake & Output 01/17/18 01/18/18 01/18/18 18:59 06:59 18:59 Intake Total 471 995.800 409.5 Output Total 4193 1795 111 Balance -3722 -799.200 298.5 Weight 73.8 kg Intake: IV 470 979 168 0.9 flush 27 99 18 ACETAMINOPHEN IV (For NPO 100 ) 1,000 mg In Empty Bag 1 bag @ 400 mls/hr IVPB Q6HR KB Rx#:[id number] Lactated Ringers 1,000 ml 250 550 100 @ 50 mls/hr IV .Q20H KB Rx#:[id number] cardiac output 90 330 50 Intake, IV Titration 1 16.800 1.5 Amount Clevidipine Butyrate 25 1 16.800 mg In Empty Bag 1 bag @ 1 MG/HR 2 mls/hr IV .Q24H KB Rx#:[id number] Nitroglycerin-D5w Pmx 50 1.5 mg In Dextrose/Water 1 250ml.bag @ 5 MCG/MIN 1.5 mls/hr IV .Q24H KB Rx#: [id number] Oral 240 Output: Chest Tube Drainage 268 370 36 Mediastinal 232 280 20 left pleural 36 90 16 Urine 2925 1425 75 Estimated Blood Loss 1000 Other: Voiding Method Indwelling Catheter Indwelling Catheter ABP, PAP, CO, CI - Last Documented Arterial Blood Pressure 100/50 Pulmonary Artery Pressure 13/5 Cardiac Output 4.4 Cardiac Index 2.4 - Exam General Appearance: Alert, cooperative, no distress, appears stated age. Neck HEENT: Supple, no lymphadenopathy, no thyroid enlargement, no carotid bruits. Lungs: Decreased breath sounds bilaterally with auscultation without crackles or wheezes no rhonchi, no deformity. Chest Wall: Chest wall decrease expansion with deep inspiration no tenderness and no deformity was found on exam, no costochondral pain or discomfort. Heart: Regular rate and rhythm, S1, S2 normal, positive S3, 2/6 ejection systolic murmur, rub or gallop. Back: Symmetric, no curvature, ROM normal, no CVA tenderness. Abdomen: Soft, non-tender, bowel sounds active all four quadrants, no masses, no organomegaly. Extremities: Extremities normal, atraumatic, no cyanosis or edema. Pulses: 2+ and symmetric. Skin: Skin color, texture, tugor normal, no rashes or lesions. Neurologic: Alert oriented x3 cranial nerves II through XII intact, no motor deficit, no abnormal balance or - Labs CBC & Chem 7: 01/18/18 04:20 01/18/18 04:20 Labs: Abnormal Lab Results - Last 24 Hours (Table) 01/16/18 01/17/18 01/17/18 Range/Units 06:20 09:17 15:13 RBC (4.30-5.90) m/uL Hgb (13.0-17.5) gm/dL Hct (39.0-53.0) % Plt Count (150-450) k/uL Neutrophils # (1.3-7.7) k/uL Lymphocytes # (1.0-4.8) k/uL INR (<1.2) ABG pCO2 (35-45) mmHg ABG pO2 380 H (83-108) mmHg ABG HCO3 (21-25) mmol/L ABG Total CO2 25 H (19-24) mmol/L ABG O2 Saturation 99.9 H (94-97) % Sodium (137-145) mmol/L Creatinine (0.66-1.25) mg/dL Glucose (74-99) mg/dL POC Glucose (mg/dL) 110 H (75-99) mg/dL Calcium (8.4-10.2) mg/dL Magnesium (1.6-2.3) mg/dL Alkaline Phosphatase (38-126) U/L Total Protein (6.3-8.2) g/dL Albumin (3.5-5.0) g/dL Crossmatch See Detail 01/17/18 01/17/18 01/17/18 Range/Units 15:15 15:15 15:15 RBC 3.32 L (4.30-5.90) m/uL Hgb 10.5 L D (13.0-17.5) gm/dL Hct 32.1 L (39.0-53.0) % Plt Count 121 L (150-450) k/uL Neutrophils # (1.3-7.7) k/uL Lymphocytes # 0.9 L (1.0-4.8) k/uL INR 1.3 H (<1.2) ABG pCO2 (35-45) mmHg ABG pO2 (83-108) mmHg ABG HCO3 (21-25) mmol/L ABG Total CO2 (19-24) mmol/L ABG O2 Saturation (94-97) % Sodium (137-145) mmol/L Creatinine 0.60 L (0.66-1.25) mg/dL Glucose 103 H (74-99) mg/dL POC Glucose (mg/dL) (75-99) mg/dL Calcium 7.7 L (8.4-10.2) mg/dL Magnesium 2.6 H (1.6-2.3) mg/dL Alkaline Phosphatase 36 L (38-126) U/L Total Protein 3.7 L (6.3-8.2) g/dL Albumin 2.1 L (3.5-5.0) g/dL Crossmatch 01/17/18 01/17/18 01/17/18 Range/Units 15:29 16:53 17:35 RBC (4.30-5.90) m/uL Hgb (13.0-17.5) gm/dL Hct (39.0-53.0) % Plt Count (150-450) k/uL Neutrophils # (1.3-7.7) k/uL Lymphocytes # (1.0-4.8) k/uL INR (<1.2) ABG pCO2 48 H (35-45) mmHg ABG pO2 263 H (83-108) mmHg ABG HCO3 26 H (21-25) mmol/L ABG Total CO2 28 H 26 H (19-24) mmol/L ABG O2 Saturation 99.7 H 97.7 H (94-97) % Sodium (137-145) mmol/L Creatinine (0.66-1.25) mg/dL Glucose (74-99) mg/dL POC Glucose (mg/dL) 102 H (75-99) mg/dL Calcium (8.4-10.2) mg/dL Magnesium (1.6-2.3) mg/dL Alkaline Phosphatase (38-126) U/L Total Protein (6.3-8.2) g/dL Albumin (3.5-5.0) g/dL Crossmatch 01/17/18 01/17/18 01/17/18 Range/Units 18:05 18:10 18:10 RBC 3.74 L (4.30-5.90) m/uL Hgb 11.7 L (13.0-17.5) gm/dL Hct 35.6 L (39.0-53.0) % Plt Count 131 L (150-450) k/uL Neutrophils # (1.3-7.7) k/uL Lymphocytes # 0.6 L (1.0-4.8) k/uL INR (<1.2) ABG pCO2 (35-45) mmHg ABG pO2 (83-108) mmHg ABG HCO3 (21-25) mmol/L ABG Total CO2 (19-24) mmol/L ABG O2 Saturation (94-97) % Sodium (137-145) mmol/L Creatinine 0.62 L (0.66-1.25) mg/dL Glucose (74-99) mg/dL POC Glucose (mg/dL) 102 H (75-99) mg/dL Calcium 7.9 L (8.4-10.2) mg/dL Magnesium (1.6-2.3) mg/dL Alkaline Phosphatase (38-126) U/L Total Protein (6.3-8.2) g/dL Albumin (3.5-5.0) g/dL Crossmatch 01/17/18 01/17/18 01/17/18 Range/Units 18:10 18:56 20:08 RBC (4.30-5.90) m/uL Hgb (13.0-17.5) gm/dL Hct (39.0-53.0) % Plt Count (150-450) k/uL Neutrophils # (1.3-7.7) k/uL Lymphocytes # (1.0-4.8) k/uL INR 1.2 H (<1.2) ABG pCO2 (35-45) mmHg ABG pO2 (83-108) mmHg ABG HCO3 (21-25) mmol/L ABG Total CO2 (19-24) mmol/L ABG O2 Saturation (94-97) % Sodium (137-145) mmol/L Creatinine (0.66-1.25) mg/dL Glucose (74-99) mg/dL POC Glucose (mg/dL) 113 H 100 H (75-99) mg/dL Calcium (8.4-10.2) mg/dL Magnesium (1.6-2.3) mg/dL Alkaline Phosphatase (38-126) U/L Total Protein (6.3-8.2) g/dL Albumin (3.5-5.0) g/dL Crossmatch 01/17/18 01/17/18 01/17/18 Range/Units 20:10 22:18 23:05 RBC 3.86 L (4.30-5.90) m/uL Hgb 12.2 L (13.0-17.5) gm/dL Hct 37.1 L (39.0-53.0) % Plt Count 143 L (150-450) k/uL Neutrophils # 8.1 H (1.3-7.7) k/uL Lymphocytes # 0.6 L (1.0-4.8) k/uL INR (<1.2) ABG pCO2 (35-45) mmHg ABG pO2 (83-108) mmHg ABG HCO3 (21-25) mmol/L ABG Total CO2 (19-24) mmol/L ABG O2 Saturation (94-97) % Sodium (137-145) mmol/L Creatinine (0.66-1.25) mg/dL Glucose (74-99) mg/dL POC Glucose (mg/dL) 101 H 105 H (75-99) mg/dL Calcium (8.4-10.2) mg/dL Magnesium (1.6-2.3) mg/dL Alkaline Phosphatase (38-126) U/L Total Protein (6.3-8.2) g/dL Albumin (3.5-5.0) g/dL Crossmatch 01/18/18 01/18/18 01/18/18 Range/Units 01:20 04:16 04:20 RBC 3.80 L (4.30-5.90) m/uL Hgb 11.8 L (13.0-17.5) gm/dL Hct 36.3 L (39.0-53.0) % Plt Count 145 L (150-450) k/uL Neutrophils # (1.3-7.7) k/uL Lymphocytes # (1.0-4.8) k/uL INR (<1.2) ABG pCO2 (35-45) mmHg ABG pO2 (83-108) mmHg ABG HCO3 (21-25) mmol/L ABG Total CO2 (19-24) mmol/L ABG O2 Saturation (94-97) % Sodium (137-145) mmol/L Creatinine (0.66-1.25) mg/dL Glucose (74-99) mg/dL POC Glucose (mg/dL) 106 H 106 H (75-99) mg/dL Calcium (8.4-10.2) mg/dL Magnesium (1.6-2.3) mg/dL Alkaline Phosphatase (38-126) U/L Total Protein (6.3-8.2) g/dL Albumin (3.5-5.0) g/dL Crossmatch 01/18/18 01/18/18 01/18/18 Range/Units 04:20 04:20 06:41 RBC (4.30-5.90) m/uL Hgb (13.0-17.5) gm/dL Hct (39.0-53.0) % Plt Count (150-450) k/uL Neutrophils # (1.3-7.7) k/uL Lymphocytes # (1.0-4.8) k/uL INR 1.2 H (<1.2) ABG pCO2 (35-45) mmHg ABG pO2 (83-108) mmHg ABG HCO3 (21-25) mmol/L ABG Total CO2 (19-24) mmol/L ABG O2 Saturation (94-97) % Sodium 134 L (137-145) mmol/L Creatinine 0.60 L (0.66-1.25) mg/dL Glucose (74-99) mg/dL POC Glucose (mg/dL) 116 H (75-99) mg/dL Calcium 7.9 L (8.4-10.2) mg/dL Magnesium (1.6-2.3) mg/dL Alkaline Phosphatase (38-126) U/L Total Protein 4.3 L (6.3-8.2) g/dL Albumin 2.7 L (3.5-5.0) g/dL Crossmatch 01/18/18 01/18/18 Range/Units 07:10 08:26 RBC (4.30-5.90) m/uL Hgb (13.0-17.5) gm/dL Hct (39.0-53.0) % Plt Count (150-450) k/uL Neutrophils # (1.3-7.7) k/uL Lymphocytes # (1.0-4.8) k/uL INR (<1.2) ABG pCO2 (35-45) mmHg ABG pO2 (83-108) mmHg ABG HCO3 (21-25) mmol/L ABG Total CO2 (19-24) mmol/L ABG O2 Saturation (94-97) % Sodium (137-145) mmol/L Creatinine (0.66-1.25) mg/dL Glucose (74-99) mg/dL POC Glucose (mg/dL) 110 H 112 H (75-99) mg/dL Calcium (8.4-10.2) mg/dL Magnesium (1.6-2.3) mg/dL Alkaline Phosphatase (38-126) U/L Total Protein (6.3-8.2) g/dL Albumin (3.5-5.0) g/dL Crossmatch Assessment and Plan Plan: 1 multivessel coronary artery disease: Status post three-vessel bypass surgery. From medical standpoint patient had mild risk for complications during after surgery, risk assessment is accepted for this type of surgery no reason to delay surgery or to do any other intervention before this surgery. Patient will be watch hemodynamically will be seen by intensive care/pulmonary regular basis on watch his hemodynamic status along with his blood sugar and watch for any complication after surgery. 2 unstable angina: Patient has been having symptoms repeatedly was on medical management with the current finding of his heart catheter, status post three- vessel bypass surgery 3 mild COPD: With FEV1 of 69%, patient seen pulmonary regular basis will be kept on bronchodilator along with steroid base nebulizer. 4 hypertension: Patient has been on atenolol will continue atenolol and add small dose of ANA inhibitor. 5 hyperlipidemia: Remain on atorvastatin 80 mg daily. 6 chronic history of smoking: Smoking cessation was addressed patient will be on nicotine patch. 7 peripheral vascular disease: Patient has been seen and watch by cardiology further testing and study might be needed in the future. 8 DVT prophylaxis: Patient will continue knee-high MONISHA hose for now on after surgery DVT prophylaxis will be use. 9 GI prophylaxis: Patient will be on Pepcid 20 mg daily. CODE STATUS: Full code. Admit patient to inpatient status for more than 2 nights service will be transferred to cardiothoracic after surgery will continue to watch patient for medical standpoint and daily basis. The above impression and plan of care have been discussed and directed by signing physician. Kelly Strauss nurse practitioner acting as scribe for signing physician.
[2018-01-18 13:16] LABS: Glucose,Whole Blood 138 mg/dL (75-99)
[2018-01-18 14:01] VITALS: BMI 24.0
[2018-01-18] MEDS ORDERED: HYDROcodone/APAP 5-325MG 1 EACH TAB PO PRN (14:29)
[2018-01-18] MEDS ORDERED: BISACODYL 10 MG SUPP RECTAL PRN (14:31)
[2018-01-18] MEDS ORDERED: MAGNESIUM HYDROXIDE 2,400 MG/10 ML CUP PO PRN (14:31)
[2018-01-18] MEDS: CLEVIDIPINE BUTYRATE 25 MG in EMPTY BAG 1 BAG IV SCH (15:18)
[2018-01-18] MEDS: LACTATED RINGERS 1,000 ML IV SCH (15:19)
[2018-01-18] MEDS: INSULIN ASPART 100 UNIT/ML 1 ML 10 ML VIAL SQ SCH ×2 (18:05→21:01)
[2018-01-18 18:08] LABS: Glucose,Whole Blood 84 mg/dL (75-99)
[2018-01-18 20:57] LABS: Glucose,Whole Blood 109 mg/dL (75-99)
[2018-01-18] MEDS: HYDROcodone/APAP 5-325MG 1 EACH TAB PO PRN (21:00)
[2018-01-18] MEDS: SENNOSIDES-DOCUSATE SODIUM 1 EACH TAB PO SCH (21:01)
[2018-01-19] MEDS: HEPARIN SODIUM,PORCINE 5,000 UNIT/ML 1 ML VIAL SQ SCH ×3 (00:12→16:26)
[2018-01-19] MEDS: KETOROLAC 30 MG/ML 1 ML VIAL IVP PRN ×2 (00:22→11:32)
[2018-01-19] MEDS ORDERED: FUROSEMIDE 10 MG/ML 4 ML VIAL IV STA (00:39)
[2018-01-19] MEDS: HYDROcodone/APAP 5-325MG 1 EACH TAB PO PRN (04:33)
[2018-01-19 04:35] LABS: Basophils % (A) 0 %; Eosinophils # (A) 0.1 k/uL (0-0.7); Eosinophils % (A) 1 %; HGB 11.3 gm/dL (13.0-17.5); Lymphocytes # (A) 1.1 k/uL (1.0-4.8); Lymphocytes % (A) 13 %; MCH 31.6 pg (25.0-35.0); MCHC 33.2 g/dL (31.0-37.0); MCV 95.3 fL (80.0-100.0); Mean Platelet Volume 7.5; Monocytes # (A) 0.6 k/uL (0-1.0); Monocytes % (A) 8 %; Neutrophils # (A) 6.4 k/uL (1.3-7.7); Neutrophils % (A) 77 %; Platelet Count 125 k/uL (150-450); RBC 3.57 m/uL (4.30-5.90); RDW 13.1 % (11.5-15.5); WBC 8.3 k/uL (3.8-10.6)
[2018-01-19 04:39] LABS: Ionized Calcium 4.8 mg/dL (4.5-5.3)
[2018-01-19 04:49] LABS: ALT 27 U/L (21-72); AST 39 U/L (17-59); Albumin 2.7 g/dL (3.5-5.0); Alkaline Phosphatase 46 U/L (38-126); Anion Gap 6 mmol/L; Blood Urea Nitrogen 11 mg/dL (9-20); Carbon Dioxide 26 mmol/L (22-30); Chloride 103 mmol/L (98-107); Glucose 94 mg/dL (74-99); Magnesium 2.1 mg/dL (1.6-2.3); Potassium 4.5 mmol/L (3.5-5.1); Sodium 135 mmol/L (137-145); Total Bilirubin 0.3 mg/dL (0.2-1.3); Total Protein 4.5 g/dL (6.3-8.2)
--- NOTE | 2018-01-19 07:14 | XR ---
EXAMINATION TYPE: XR chest 1V portable DATE OF EXAM: 01/19/2018 Comparison: 01/19/2020 Clinical History: 72-year-old male Post Operative Cardiac Surgery Findings: Right IJ sheath remains in place. [place]-Nept[place] catheter removed in the interval. Median sternotomy wires . 2 mediastinal drains remain in place. Left-sided chest tube redemonstrated. No appreciable pneumoth orax. Heart remains borderline in size. Diffuse interstitial prominence unchanged. Some patchy right basilar density is increased. Improved aeration at the left base. Impression: 1. Stable mild pulmonary vascular congestion. 2. Some minimal patchy opacity, likely atelectasis at right base.
[2018-01-19 07:17] LABS: Glucose,Whole Blood 89 mg/dL (75-99)
[2018-01-19] MEDS: ONDANSETRON 4 MG/2 ML VIAL IVP PRN (07:25)
[2018-01-19] MEDS: IPRATROPIUM-ALBUTEROL 3 ML NEB INHALATION SCH ×4 (07:40→19:36)
[2018-01-19] MEDS: INSULIN ASPART 100 UNIT/ML 1 ML 10 ML VIAL SQ SCH ×4 (08:38→21:22)
[2018-01-19] MEDS: ATORVASTATIN 40 MG TAB PO SCH (08:54)
[2018-01-19] MEDS: PANTOPRAZOLE 40 MG TABLET PO SCH (08:54)
[2018-01-19] MEDS: ASPIRIN 325 MG TAB PO SCH (08:54)
[2018-01-19] MEDS: CLOPIDOGREL 75 MG TAB PO SCH (08:54)
[2018-01-19] MEDS: MUPIROCIN 2% OINT 22 GM TUBE NASAL SCH ×2 (08:54→21:23)
[2018-01-19] MEDS: METOPROLOL TARTRATE 12.5 MG TAB PO SCH ×2 (08:55→21:23)
[2018-01-19] MEDS ORDERED: FUROSEMIDE 10 MG/ML 2 ML VIAL IV STA (09:55)
--- NOTE | 2018-01-19 11:49 | PN ---
PROGRESS NOTE Mr. Huizar underwent coronary artery bypass grafting. He is doing very well. He is doing well. His vitals stable. He looks very comfortable. He has some chest pain incisional, but overall he is breathing very comfortably. He is afebrile, 98.7 degrees Fahrenheit, pulse rate in the 80s, blood pressure 120/61 mmHg. Head and neck examination normal. Heart sounds are normal. Lungs are clear to auscultation. Extremities are warm no edema. IMPRESSION: Status post coronary artery disease status post coronary artery bypass grafting, doing well. SUGGEST: Continue current medications and once the lines are removed and the central lines and chest tubes are removed, he should be moved to [facility]. MMODL / IJN: [id number] /
[2018-01-19 11:53] LABS: Glucose,Whole Blood 91 mg/dL (75-99)
--- NOTE | 2018-01-19 12:45 | P.PN ---
Subjective 72-year-old male one of Dr. Owusu's patient with past medical history of CAD, COPD, hypertension hyperlipidemia who apparently has been having worsening chest pain with exertion and atypical symptoms on and off had lost heart catheter in 2009 a Chin had to limited stent at the time of the coronary artery. Had recurrent symptom this time on and off was sent to see cardiology in consultation and scheduled for elective heart catheter. Finding yesterday of significant coronary artery disease with total occlusion of the LAD, total occlusion of the circumflex, 99% stenosis of the proximal LAD and 50% stenosis of the mid LAD. Ejection fraction has been 50 percentile patient was seen pulmonary and will be clear for surgery. Patient was seen and evaluated by cardiothoracic surgery and planning to do bypass surgery tomorrow. 01/18: Patient is postop following a three-vessel bypass surgery. He was extubated yesterday. Patient was evaluated this morning, he is noted to be sitting up in the bedside chair, in no acute distress. He is in the intensive care unit, he has two mediastinal chest tubes and left pleural chest tube. The patient did have a episode of bradycardia yesterday, heart rate did come up and is running in the 70s. Glucose has been well controlled, had slight drop in hemoglobin 11.8, creatinine 0.60, BUN 9. 01/19: Patient doing well status post three-vessel bypass surgery. His noted to be sitting up in the bedside recliner this morning with family at bedside. He continues to use his incentive spirometer, he is achieving 1000 mL's. He denies any shortness of breath at this time. He does have some pain around the chest tube insertion sites. Glucose continues to be well controlled, creatinine 0.7, BUN 11, hemoglobin stable at 11.3. Plan to be transferred out of the ICU today Objective - Vital Signs Vital signs: Vital Signs Temp 99.2 F 01/19/18 12:00 Pulse 88 01/19/18 12:00 Resp 16 01/19/18 12:00 BP 91/43 01/19/18 12:00 Pulse Ox 92 L 01/19/18 12:00 Intake & Output 01/18/18 01/19/18 01/19/18 18:59 06:59 18:59 Intake Total 1254.0 712 552 Output Total 1526 1481 180 Balance -272.0 -769 372 Weight 73.8 kg 71.4 kg Intake: IV 531 312 72 0.9 flush 81 72 12 ACETAMINOPHEN IV (For NPO 100 ) 1,000 mg In Empty Bag 1 bag @ 400 mls/hr IVPB Q6HR KB Rx#:[id number] Lactated Ringers 1,000 ml 300 240 60 @ 20 mls/hr IV .Q24H KB Rx#:[id number] cardiac output 50 Intake, IV Titration 3.0 Amount Nitroglycerin-D5w Pmx 50 3.0 mg In Dextrose/Water 1 250ml.bag @ 5 MCG/MIN 1.5 mls/hr IV .Q24H KB Rx#: [id number] Oral 720 400 480 Output: Chest Tube Drainage 186 186 60 Mediastinal 140 150 20 left pleural 46 36 40 Urine 1340 1295 120 Other: Voiding Method Indwelling Catheter Indwelling Catheter Indwelling Catheter ABP, PAP, CO, CI - Last Documented Arterial Blood Pressure 112/81 Pulmonary Artery Pressure 13/5 Cardiac Output 4.4 Cardiac Index 2.4 - Exam General Appearance: Alert, cooperative, no distress, appears stated age. Neck HEENT: Supple, no lymphadenopathy, no thyroid enlargement, no carotid bruits. Lungs: Decreased breath sounds bilaterally with auscultation without crackles or wheezes no rhonchi, no deformity. Chest Wall: Chest wall decrease expansion with deep inspiration no tenderness and no deformity was found on exam, no costochondral pain or discomfort. Heart: Regular rate and rhythm, S1, S2 normal, positive S3, 2/6 ejection systolic murmur, rub or gallop. Back: Symmetric, no curvature, ROM normal, no CVA tenderness. Abdomen: Soft, non-tender, bowel sounds active all four quadrants, no masses, no organomegaly. Extremities: Extremities normal, atraumatic, no cyanosis or edema. Pulses: 2+ and symmetric. Skin: Skin color, texture, tugor normal, no rashes or lesions. Neurologic: Alert oriented x3 cranial nerves II through XII intact, no motor deficit, no abnormal balance or - Labs CBC & Chem 7: 01/19/18 04:25 01/19/18 04:25 Labs: Abnormal Lab Results - Last 24 Hours (Table) 01/18/18 01/18/18 01/19/18 Range/Units 13:13 20:56 04:25 RBC (4.30-5.90) m/uL Hgb (13.0-17.5) gm/dL Hct (39.0-53.0) % Plt Count (150-450) k/uL Sodium 135 L (137-145) mmol/L POC Glucose (mg/dL) 138 H 109 H (75-99) mg/dL Calcium 8.0 L (8.4-10.2) mg/dL Total Protein 4.5 L (6.3-8.2) g/dL Albumin 2.7 L (3.5-5.0) g/dL 01/19/18 Range/Units 04:25 RBC 3.57 L (4.30-5.90) m/uL Hgb 11.3 L (13.0-17.5) gm/dL Hct 34.0 L (39.0-53.0) % Plt Count 125 L (150-450) k/uL Sodium (137-145) mmol/L POC Glucose (mg/dL) (75-99) mg/dL Calcium (8.4-10.2) mg/dL Total Protein (6.3-8.2) g/dL Albumin (3.5-5.0) g/dL Assessment and Plan Plan: 1 multivessel coronary artery disease: Status post three-vessel bypass surgery. From medical standpoint patient had mild risk for complications during after surgery, risk assessment is accepted for this type of surgery no reason to delay surgery or to do any other intervention before this surgery. Patient will be watch hemodynamically will be seen by intensive care/pulmonary regular basis on watch his hemodynamic status along with his blood sugar and watch for any complication after surgery. 2 unstable angina: Patient has been having symptoms repeatedly was on medical management with the current finding of his heart catheter, status post three- vessel bypass surgery 3 mild COPD: With FEV1 of 69%, patient seen pulmonary regular basis will be kept on bronchodilator along with steroid base nebulizer. 4 hypertension: Patient has been on atenolol will continue atenolol and add small dose of ANA inhibitor. 5 hyperlipidemia: Remain on atorvastatin 80 mg daily. 6 chronic history of smoking: Smoking cessation was addressed patient will be on nicotine patch. 7 peripheral vascular disease: Patient has been seen and watch by cardiology further testing and study might be needed in the future. 8 DVT prophylaxis: Patient will continue knee-high MONISHA hose for now on after surgery DVT prophylaxis will be use. 9 GI prophylaxis: Patient will be on Pepcid 20 mg daily. CODE STATUS: Full code. Admit patient to inpatient status for more than 2 nights service will be transferred to cardiothoracic after surgery will continue to watch patient for medical standpoint and daily basis. The above impression and plan of care have been discussed and directed by signing physician. Kelly Strauss nurse practitioner acting as scribe for signing physician.
--- NOTE | 2018-01-19 13:20 | P.PN ---
Subjective Progress Note Date: 01/19/18 Principal diagnosis: Symptomatic multivessel coronary artery disease with previous drug-eluting stent placement to his right coronary artery in 2010, hypertension, dyslipidemia , peripheral vascular disease, family history of early onset coronary artery disease with his brother having open heart surgery before the age of 55, COPD mild with a preoperative FEV1 of 69% of predicted and current tobacco dependence. POD #2 urgent coronary artery bypass grafting 3 vessels with placement of his left internal mammary artery to the left anterior descending coronary artery, reverse greater saphenous vein graft to the diagonal coronary artery, a reverse greater saphenous vein graft to the ramus coronary artery. Endoscopic vein harvest of the left greater saphenous vein, epi-aortic ultrasound, intraoperative transesophageal echocardiogram. The patient is sitting up to the bedside recliner. He is in no acute distress. He denies any shortness of breath at this time, he is complaining of pain 6 out of 10 on the pain scale to his chest tube insertion sites. He is currently on room air are 95%. He is achieving 1000 mL on his incentive spirometry. His heart hugger is in place and he is demonstrating appropriate use. He is ambulating in the ICU hallway with minimal assistance. Objective - Vital Signs Vital signs: Vital Signs Temp 99.2 F 01/19/18 12:00 Pulse 88 01/19/18 12:00 Resp 16 01/19/18 12:00 BP 91/43 01/19/18 12:00 Pulse Ox 92 L 01/19/18 12:00 Intake & Output 01/18/18 01/19/18 01/19/18 18:59 06:59 18:59 Intake Total 1254.0 712 552 Output Total 1526 1481 180 Balance -272.0 -769 372 Weight 73.8 kg 71.4 kg Intake: IV 531 312 72 0.9 flush 81 72 12 ACETAMINOPHEN IV (For NPO 100 ) 1,000 mg In Empty Bag 1 bag @ 400 mls/hr IVPB Q6HR KB Rx#:[id number] Lactated Ringers 1,000 ml 300 240 60 @ 20 mls/hr IV .Q24H KB Rx#:[id number] cardiac output 50 Intake, IV Titration 3.0 Amount Nitroglycerin-D5w Pmx 50 3.0 mg In Dextrose/Water 1 250ml.bag @ 5 MCG/MIN 1.5 mls/hr IV .Q24H [facility] Rx#: [id number] Oral 720 400 480 Output: Chest Tube Drainage 186 186 60 Mediastinal 140 150 20 left pleural 46 36 40 Urine 1340 1295 120 Other: Voiding Method Indwelling Catheter Indwelling Catheter Indwelling Catheter ABP, PAP, CO, CI - Last Documented Arterial Blood Pressure 112/81 Pulmonary Artery Pressure 13/5 Cardiac Output 4.4 Cardiac Index 2.4 - Constitutional General appearance: Present: cooperative, no acute distress - Respiratory Details: Lung sounds with few scattered expiratory wheezes, diminished to his bilateral bases. Respirations are symmetrical and nonlabored. Oxygen saturation are 95% on room air. He is achieving 1000 mL on his incentive spirometry. Mediastinal chest tubes and left pleural chest tube to low continuous wall suction -20 cm H2O. Positive air leak is present to his mediastinal chest tubes. Mediastinal chest tubes and left pleural chest tube draining thin serosanguineous drainage. Mediastinal chest tubes with 290 mL output in the last 24 hours, 120 mL output in the last 8 hours. Left pleural chest tube with 80 mL output in the last 24 hours, 25 mm output in the last 8 hours. - Cardiovascular Details: Regular rhythm and rate. S1 and S2 present, negative for S3, gallop or murmur. Sternum is stable. Bedside telemetry showing normal sinus rhythm heart rate 83. Atrial and ventricular epicardial pacemaker wires intact and connected to bedside backup pacemaker generator. Heart hugger is in place and he is demonstrating appropriate use. Knee-high MONISHA hose and sequential compression devices in place to his bilateral lower extremities. No edema present. Right IJ Cordis in place and connected to continuous CVP monitoring. Current CVP pressures 8 mmHg. - Gastrointestinal Gastrointestinal Comment(s): Abdomen is soft, nontender and nondistended. Active bowel sounds all 4 abdominal quadrants. He is tolerating oral intake. Passing flatus. - Genitourinary Genitourinary Comment(s): Sandhu catheter for accurate I&O. Draining clear yellow urine. 1035 mL output in the last 8 hours. - Integumentary Integumentary Comment(s): Skin is warm and dry. No clubbing or cyanosis present. Midline sternal incision clean and dry and approximated. No drainage or redness present. Left leg EVH site clean dry and approximated. No drainage or redness present. - Musculoskeletal Musculoskeletal: Present: gait normal, strength equal bilaterally - Psychiatric Psychiatric: Present: A&O x's 3, appropriate affect, intact judgment & insight - Allied health notes Allied health notes reviewed: nursing - Labs CBC & Chem 7: 01/19/18 04:25 01/19/18 04:25 Labs: Abnormal Lab Results - Last 24 Hours (Table) 01/18/18 01/18/18 01/19/18 Range/Units 13:13 20:56 04:25 RBC (4.30-5.90) m/uL Hgb (13.0-17.5) gm/dL Hct (39.0-53.0) % Plt Count (150-450) k/uL Sodium 135 L (137-145) mmol/L POC Glucose (mg/dL) 138 H 109 H (75-99) mg/dL Calcium 8.0 L (8.4-10.2) mg/dL Total Protein 4.5 L (6.3-8.2) g/dL Albumin 2.7 L (3.5-5.0) g/dL 01/19/18 Range/Units 04:25 RBC 3.57 L (4.30-5.90) m/uL Hgb 11.3 L (13.0-17.5) gm/dL Hct 34.0 L (39.0-53.0) % Plt Count 125 L (150-450) k/uL Sodium (137-145) mmol/L POC Glucose (mg/dL) (75-99) mg/dL Calcium (8.4-10.2) mg/dL Total Protein (6.3-8.2) g/dL Albumin (3.5-5.0) g/dL - Imaging and Cardiology Chest x-ray: report reviewed, image reviewed Assessment and Plan (1) Coronary artery disease Current Visit: Yes Status: Acute Code(s): I25.10 - ATHSCL HEART DISEASE OF [place] CORONARY ARTERY W/O ANG PCTRS SNOMED Code(s): 77768319 (2) Unstable angina Current Visit: Yes Status: Acute Code(s): I20.0 - UNSTABLE ANGINA SNOMED Code(s): 2026463 (3) History of coronary artery stent placement Current Visit: Yes Status: Acute Code(s): Z95.5 - PRESENCE OF CORONARY ANGIOPLASTY IMPLANT AND GRAFT SNOMED Code(s): 922162932 (4) Hypertension Current Visit: Yes Status: Acute Code(s): I10 - ESSENTIAL (PRIMARY) HYPERTENSION SNOMED Code(s): 26880599 (5) Hyperlipidemia Current Visit: Yes Status: Acute Code(s): E78.5 - HYPERLIPIDEMIA, UNSPECIFIED SNOMED Code(s): 66091908 (6) Tobacco dependence Current Visit: Yes Status: Acute Code(s): F17.200 - NICOTINE DEPENDENCE, UNSPECIFIED, UNCOMPLICATED SNOMED Code(s): 64255028 (7) Peripheral vascular disease Current Visit: Yes Status: Acute Code(s): I73.9 - PERIPHERAL VASCULAR DISEASE, UNSPECIFIED SNOMED Code(s): 759804215 (8) COPD (chronic obstructive pulmonary disease) Current Visit: Yes Status: Acute Code(s): J44.9 - CHRONIC OBSTRUCTIVE PULMONARY DISEASE, UNSPECIFIED SNOMED Code(s): 14982463 Plan: 1. Continue aspirin, statin, Plavix, heparin subcu, and beta gem. We will adjust beta gem as tolerated. 2. Encourage use of his incentive spirometry every hour while awake. 3. Continue to encourage and discuss the importance of smoking cessation. 4. Pulmonary recommendations per Dr. Calhoun. 5. Monitor daily labs and x-rays. 6. We will discontinue his right IJ Cordis. 7. Medical management per Dr. Owusu. 8. Increase activity as tolerated, PT/OT/cardiac rehab consulted. 9. We will keep his left pleural chest tube in place today to low continuous wall suction at -20 cm H2O. We will discontinue his mediastinal chest tubes. 10. Pain control per current medication regimen. 11. We will discontinue his Sandhu catheter. 12. Lasix 20 mg IV 1 now. 13. Further recommendations to follow based on patient's clinical course. 14. He will be transferred to [address] [place] [address] when bed available. Time with Patient: Greater than 30
--- NOTE | 2018-01-19 14:48 | P.PN ---
Subjective Progress Note Date: 01/19/18 I'm seeing this patient postop following his three-vessel bypass surgery for multivessel symptomatic coronary artery disease. The patient arrived to the intensive care unit. The patient was placed on Diprivan which is currently running at 20 mics per KG pigmented for sedation. Initially was on SIMV mode of ventilation and switch him to assist control rate of 14 with a tidal volume of 500 and I dropped down the FiO2 down to 50% with a PEEP of 5. Chest x-ray shows adequate positioning of the orotracheal tube, chest tubes, NG tube and [place]-Neptali catheter. No evidence of any pneumothorax. The patient has 2 mediastinal chest tube and the patient has a single left pleural chest tube and output is minimal at this point and there is no evidence of any air leak. The patient had a episodes of bradycardia, sinus in nature, and currently rate of 80. He is hypertensive on Cleviprex drip at 1 mg/hr. Producing adequate amount of urine output. Cardiac index is at 3.4. His blood gases showed a pH of 7.35 and a pCO2 of 48 and pO2 of 263 and this was done upon arrival to the intensive care unit in 100% FiO2. Labs show a hemoglobin of 10.5. The rest of the electrodes are all within normal limits. Creatinine is at 0.6. On today's evaluation of 01/18/2018, the patient is awake and alert and extubated on 3 L of oxygen by nasal cannula. Chest x-ray showed adequate expansion of both lungs and there is no evidence of any pneumothorax. The patient is to mediastinal chest tube and 1 pleural chest tube. There is evidence of air leak within the mediastinal chest tube and the patient has no evidence of pneumothorax or pneumomediastinum and today's chest x-ray. Afebrile. Chest wall pain is under good control. Using incentive spirometer and pulling approximately 1000. The patient has put out approximately 190 mL of output from the mediastinal chest tube over the past 8 hours and 5 and since surgery. As for left-sided chest tube output of 125 mL since surgery. The patient's [place]Neptali catheter shows a cardiac output of 5.4 with an index of 3.0. CVP is at 2. Pulmonary artery pressures are 18/9 cm of water. No altered mentation. Tolerating some clear liquid diet this morning. Renal function is stable. No pressors of been utilized. He was also stable at 11.8. On 01/19/2018, the patient is awake and alert. The patient has no specific complaints. The patient is postop day #2 following his coronary artery bypass surgery. The sternal stable clean and intact. The mediastinal chest tubes were removed today. Note that postop the patient was having some limited use final leak with subsequently recovered. He is hemodynamically stable on no pressors. He is afebrile. Chest x-ray shows adequate expansion of both lungs bilaterally and there is no evidence of any pneumothorax. Cardiac rhythm is sinus. He is using incentive spirometer. Hemoglobin is stable. No other significant events overnight. Objective - Vital Signs Vital signs: Vital Signs Temp 99.2 F 01/19/18 12:00 Pulse 94 01/19/18 14:00 Resp 20 01/19/18 14:00 BP 96/47 01/19/18 14:00 Pulse Ox 93 L 01/19/18 14:00 Intake & Output 01/18/18 01/19/18 01/19/18 18:59 06:59 18:59 Intake Total 1254.0 712 552 Output Total 1526 1481 180 Balance -272.0 -769 372 Weight 73.8 kg 71.4 kg Intake: IV 531 312 72 0.9 flush 81 72 12 ACETAMINOPHEN IV (For NPO 100 ) 1,000 mg In Empty Bag 1 bag @ 400 mls/hr IVPB Q6HR [facility] Rx#:[id number] Lactated Ringers 1,000 ml 300 240 60 @ 20 mls/hr IV .Q24H [facility] Rx#:[id number] cardiac output 50 Intake, IV Titration 3.0 Amount Nitroglycerin-D5w Pmx 50 3.0 mg In Dextrose/Water 1 250ml.bag @ 5 MCG/MIN 1.5 mls/hr IV .Q24H [facility] Rx#: [id number] Oral 720 400 480 Output: Chest Tube Drainage 186 186 60 Mediastinal 140 150 20 left pleural 46 36 40 Urine 1340 1295 120 Other: Voiding Method Indwelling Catheter Indwelling Catheter Indwelling Catheter ABP, PAP, CO, CI - Last Documented Arterial Blood Pressure 112/81 Pulmonary Artery Pressure 13/5 Cardiac Output 4.4 Cardiac Index 2.4 - Exam Patient is awake and alert and the patient is not in acute respiratory distress this point in time. Head exam was generally normal. There was no scleral icterus or corneal arcus. Mucous membranes were moist. Neck was supple and without jugular venous distension, thyromegaly, or carotid bruits. Carotids were easily palpable bilaterally. There was no adenopathy. The patient has a right IJ [place]Neptali catheter. The patient also has a orotracheal and orogastric tube. Lungs revealed equal and symmetrical breath sounds bilaterally. Sternum is stable clean and intact. The patient has 1 left pleural chest tube. Cardiac exam revealed the PMI to be normally situated and sized. The rhythm was regular and no extrasystoles were noted during several minutes of auscultation. The first and second heart sounds were normal and physiologic splitting of the second heart sound was noted. There were no murmurs, rubs, clicks, or gallops. There is some rub appreciated over the anterior chest area mainly on the left. Abdominal exam revealed normal bowel sounds. The abdomen was soft, non-tender, and without masses, organomegaly, or appreciable enlargement of the abdominal aorta. Examination of the extremities revealed easily palpable radial, femoral and pedal pulses. There was no cyanosis, clubbing or edema. Examination of the skin revealed no evidence of significant rashes, suspicious appearing nevi or other concerning lesions. Sternal wound is dry clean and intact. Neurologically the patient is awake and alert and not in acute distress. - Labs CBC & Chem 7: 01/19/18 04:25 01/19/18 04:25 Labs: Abnormal Lab Results - Last 24 Hours (Table) 01/18/18 01/19/18 01/19/18 Range/Units 20:56 04:25 04:25 RBC 3.57 L (4.30-5.90) m/uL Hgb 11.3 L (13.0-17.5) gm/dL Hct 34.0 L (39.0-53.0) % Plt Count 125 L (150-450) k/uL Sodium 135 L (137-145) mmol/L POC Glucose (mg/dL) 109 H (75-99) mg/dL Calcium 8.0 L (8.4-10.2) mg/dL Total Protein 4.5 L (6.3-8.2) g/dL Albumin 2.7 L (3.5-5.0) g/dL Assessment and Plan Plan: Assessment 1 three-vessel coronary artery bypass surgery for symptomatic multivessel coronary artery disease, and the patient is postop day #2. The patient is hemodynamically stable. The mediastinal chest tube has been removed. The patient has only pleural chest tube left at this point in time. Chest x-ray showed adequate expansion of both lungs. 2 post thoracotomy, currently on room air with a pulse ox of 93%. 3 previous history of coronary artery disease and coronary intervention and stenting of the RCA back in 2009 4 COPD mild with an FEV1 of 69% of predicted 5 hypertension 6 hyperlipidemia 7 smoker 8 peripheral vascular disease Plan Continue aspirin and Plavix. Continue beta blockers. Monitor the output from the chest tube. The central chest tube has been removed. Monitor the output from the pleural chest tube. He was evidently stable. Patient is currently off oxygen on room air. No other significant events overnight. We'll continue to follow.
[2018-01-19 17:26] LABS: Glucose,Whole Blood 90 mg/dL (75-99)
[2018-01-19 21:21] LABS: Glucose,Whole Blood 118 mg/dL (75-99)
[2018-01-19] MEDS: SENNOSIDES-DOCUSATE SODIUM 1 EACH TAB PO SCH (21:23)
[2018-01-20] MEDS: HEPARIN SODIUM,PORCINE 5,000 UNIT/ML 1 ML VIAL SQ SCH ×4 (03:12→23:40)
[2018-01-20] MEDS: HYDROcodone/APAP 5-325MG 1 EACH TAB PO PRN (03:12)
[2018-01-20 06:18] LABS: Basophils % (A) 0 %; Eosinophils # (A) 0.2 k/uL (0-0.7); Eosinophils % (A) 2 %; HCT 35.2 % (39.0-53.0); HGB 11.5 gm/dL (13.0-17.5); Lymphocytes # (A) 1.2 k/uL (1.0-4.8); Lymphocytes % (A) 13 %; MCH 31.7 pg (25.0-35.0); MCHC 32.6 g/dL (31.0-37.0); Mean Platelet Volume 7.6; Monocytes # (A) 0.5 k/uL (0-1.0); Monocytes % (A) 6 %; Neutrophils # (A) 7.1 k/uL (1.3-7.7); Neutrophils % (A) 78 %; Platelet Count 148 k/uL (150-450); RBC 3.63 m/uL (4.30-5.90); RDW 13.5 % (11.5-15.5)
[2018-01-20 06:31] LABS: ALT 32 U/L (21-72); AST 33 U/L (17-59); Albumin 2.8 g/dL (3.5-5.0); Alkaline Phosphatase 54 U/L (38-126); Anion Gap 7 mmol/L; Blood Urea Nitrogen 16 mg/dL (9-20); Calcium 8.5 mg/dL (8.4-10.2); Carbon Dioxide 28 mmol/L (22-30); Chloride 100 mmol/L (98-107); Glucose 88 mg/dL (74-99); Potassium 4.4 mmol/L (3.5-5.1); Sodium 135 mmol/L (137-145); Total Bilirubin 0.3 mg/dL (0.2-1.3); Total Protein 4.6 g/dL (6.3-8.2)
[2018-01-20 06:52] LABS: Glucose,Whole Blood 82 mg/dL (75-99)
--- NOTE | 2018-01-20 07:34 | XR ---
EXAMINATION TYPE: XR chest 1V portable DATE OF EXAM: 01/20/2018 COMPARISON: 01/19/2018 INDICATION: Postop CABG TECHNIQUE: Single frontal view of the chest is obtained. FINDINGS: The heart size is normal. The pulmonary vasculature is normal. Lung mccarthy are clear. There is artifact overlying the chest. EKG leads overlie the chest. Left-sided chest tube is in position. No pneumothorax is evident. Right central venous catheter sheath has been removed. Sternotomy wires from CABG are evident. Mediastinal tubes have been removed. IMPRESSION: 1. Left-sided chest tube remains in position. 2. No acute pulmonary process. 3. Removal of some lines and catheters. The left chest tube remains in position without pneumothorax is evident.
[2018-01-20] MEDS: PANTOPRAZOLE 40 MG TABLET PO SCH (08:15)
[2018-01-20] MEDS: ASPIRIN 325 MG TAB PO SCH (08:15)
[2018-01-20] MEDS: CLOPIDOGREL 75 MG TAB PO SCH (08:15)
[2018-01-20] MEDS: ATORVASTATIN 40 MG TAB PO SCH (08:15)
[2018-01-20] MEDS: METOPROLOL TARTRATE 12.5 MG TAB PO SCH ×2 (08:15→20:22)
[2018-01-20] MEDS: MUPIROCIN 2% OINT 22 GM TUBE NASAL SCH ×2 (08:16→20:22)
[2018-01-20] MEDS: IPRATROPIUM-ALBUTEROL 3 ML NEB INHALATION SCH ×4 (08:33→19:45)
[2018-01-20] MEDS ORDERED: METOPROLOL TARTRATE 12.5 MG TAB PO SCH (09:00)
[2018-01-20] MEDS ORDERED: FUROSEMIDE 10 MG/ML 2 ML VIAL IV ONE (09:00)
[2018-01-20 09:18] LABS: ABG PO2 >420 mmHg (83-108)
[2018-01-20 09:28] LABS: ABG Base Excess -0.8 mmol/L; ABG HCO3 24 mmol/L (21-25); ABG Oxygen Saturation 99.7 % (94-97); ABG PCO2 40 mmHg (35-45); ABG PH 7.39 (7.35-7.45); ABG PO2 376 mmHg (83-108); ABG Potassium Whole Blood 3.7 mmol/L (3.4-4.5); ABG Sodium Whole Blood 137 mmol/L (135-146); ABG TCO2 25 mmol/L (19-24)
--- NOTE | 2018-01-20 09:54 | P.PN ---
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 POD #3 urgent coronary artery bypass grafting 3 vessels with placement of his left internal mammary artery to the left anterior descending coronary artery, reverse greater saphenous vein graft to the diagonal coronary artery, a reverse greater saphenous vein graft to the ramus coronary artery. Endoscopic vein harvest of the left greater saphenous vein, epi-aortic ultrasound, intraoperative transesophageal echocardiogram. The patient is sitting up to the bedside recliner. He is in no acute distress. He denies any shortness of breath at this time, he is complaining of pain 3 out of 10 on the pain scale to his chest tube insertion site. He is currently on room air are 94% oxygen saturations. He is achieving 750 mL on his incentive spirometry. His heart hugger is in place and he is demonstrating appropriate use. He is ambulating in the ICU hallway with minimal assistance. Objective - Vital Signs Vital signs: Vital Signs Temp 97.6 F 01/20/18 04:00 Pulse 81 01/20/18 06:00 Resp 18 01/20/18 06:00 BP 100/59 01/20/18 06:00 Pulse Ox 99 01/20/18 06:00 Intake & Output 01/19/18 01/20/18 01/20/18 18:59 06:59 18:59 Intake Total 552 Output Total 680 495 Balance -128 -495 Weight 65 kg Intake: IV 72 0.9 flush 12 Lactated Ringers 1,000 ml 60 @ 20 mls/hr IV .Q24H [facility] Rx#:[id number] Oral 480 Output: Chest Tube Drainage 110 70 Mediastinal 20 left pleural 90 70 Urine 570 425 Other: Voiding Method Urinal Urinal # Voids 0 ABP, PAP, CO, CI - Last Documented Arterial Blood Pressure 112/81 Pulmonary Artery Pressure 13/5 Cardiac Output 4.4 Cardiac Index 2.4 - Constitutional General appearance: Present: cooperative, no acute distress - Respiratory Details: Lung sounds with few expiratory wheezes throughout, diminished was bilateral bases left greater than right. Respirations are symmetrical and nonlabored. Oxygen saturation are 94% on room air. His achieving 750 mm on incentive spirometry. Left pleural chest tube in place to low continuous wall suction - 20 cm H2O. No air leak present. Draining thin serosanguineous drainage. 70 mL output in the last 8 hours, 150 mL output in the last 24 hours. Loose productive cough, white colored sputum. - Cardiovascular Details: Regular rhythm and rate. S1 and S2 present, negative for S3, gallop or murmur. Sternum is stable. Bedside telemetry showing normal sinus rhythm heart rate 94. Heart hugger is in place and he is demonstrating appropriate use. Knee- high MONISHA hose and sequential compression devices in place to his bilateral lower extremities. No edema present. Atrial and ventricular epicardial pacemaker wires in place and grounded. - Gastrointestinal Gastrointestinal Comment(s): Abdomen is soft, nontender and nondistended. Hypoactive bowel sounds all 4 abdominal quadrants. Tolerating oral intake. No bowel movement since surgery. - Genitourinary Genitourinary Comment(s): Voiding clear yellow urine. 425 mL output in the last 8 hours. - Integumentary Integumentary Comment(s): Skin is warm and dry. No clubbing or cyanosis present. Midline sternal incision clean and dry and approximated. No drainage or redness present. Left leg EVH sites clean dry and approximated. No redness or drainage present. No edema present. - Neurologic Neurologic: Present: CNII-XII intact - Musculoskeletal Musculoskeletal: Present: gait normal, strength equal bilaterally - Psychiatric Psychiatric: Present: A&O x's 3, appropriate affect, intact judgment & insight - Allied health notes Allied health notes reviewed: nursing - Labs CBC & Chem 7: 01/20/18 05:42 01/20/18 05:42 Labs: Abnormal Lab Results - Last 24 Hours (Table) 01/19/18 01/20/18 01/20/18 Range/Units 21:18 05:42 05:42 RBC 3.63 L (4.30-5.90) m/uL Hgb 11.5 L (13.0-17.5) gm/dL Hct 35.2 L (39.0-53.0) % Plt Count 148 L (150-450) k/uL Sodium 135 L (137-145) mmol/L POC Glucose (mg/dL) 118 H (75-99) mg/dL Total Protein 4.6 L (6.3-8.2) g/dL Albumin 2.8 L (3.5-5.0) g/dL - Imaging and Cardiology Chest x-ray: report reviewed, image reviewed Assessment and Plan (1) Coronary artery disease Current Visit: Yes Status: Acute Code(s): I25.10 - ATHSCL HEART DISEASE OF [place] CORONARY ARTERY W/O ANG PCTRS SNOMED Code(s): 27537355 (2) Unstable angina Current Visit: Yes Status: Acute Code(s): I20.0 - UNSTABLE ANGINA SNOMED Code(s): 2512051 (3) History of coronary artery stent placement Current Visit: Yes Status: Acute Code(s): Z95.5 - PRESENCE OF CORONARY ANGIOPLASTY IMPLANT AND GRAFT SNOMED Code(s): 391699661 (4) Hypertension Current Visit: Yes Status: Acute Code(s): I10 - ESSENTIAL (PRIMARY) HYPERTENSION SNOMED Code(s): 99256830 (5) Hyperlipidemia Current Visit: Yes Status: Acute Code(s): E78.5 - HYPERLIPIDEMIA, UNSPECIFIED SNOMED Code(s): 29908651 (6) Tobacco dependence Current Visit: Yes Status: Acute Code(s): F17.200 - NICOTINE DEPENDENCE, UNSPECIFIED, UNCOMPLICATED SNOMED Code(s): 36594033 (7) Peripheral vascular disease Current Visit: Yes Status: Acute Code(s): I73.9 - PERIPHERAL VASCULAR DISEASE, UNSPECIFIED SNOMED Code(s): 273983349 (8) COPD (chronic obstructive pulmonary disease) Current Visit: Yes Status: Acute Code(s): J44.9 - CHRONIC OBSTRUCTIVE PULMONARY DISEASE, UNSPECIFIED SNOMED Code(s): 80202666 Plan: 1. Continue aspirin, statin, Plavix, heparin subcu, and beta gem. We will adjust beta gem as tolerated. 2. Encourage use of his incentive spirometry every hour while awake. 3. Continue to encourage and discuss the importance of smoking cessation. 4. Pulmonary recommendations per Dr. Last. 5. Monitor daily labs and x-rays. 6. We will discontinue his epicardial pacemaker wires, bed rest for 1 hour post pacemaker wire removal. 7. Medical management per primary care service. 8. Increase activity as tolerated, PT/OT/cardiac rehab consulted. 9. We will clamp his left pleural chest tube. If no air leak is present we will remove his left pleural chest tube today. 10. Pain control per current medication regimen. 11. He will be transferred to [address] [place] [address] when bed available. 12. Lasix 20 mg IV 1 now. 13. We will start the patient on Mucinex 1200 mg by mouth every 12 hours for his productive cough. 14. Further recommendations to follow based on patient's clinical course. Atrial and ventricular epicardial pacemaker wires removed without incident today at 9:45 AM. Patient will be on bed rest for 1 hour post pacemaker wire removal. Time with Patient: Greater than 30
[2018-01-20] MEDS: guaiFENesin 600 MG TABLET.ER PO SCH ×2 (10:24→20:22)
--- NOTE | 2018-01-20 11:08 | PN ---
PROGRESS NOTE Michele is a 72-year-old gentleman who is status post CABG, doing well. The pacer has just been removed. Comfortable at rest and hemodynamically stable. On exam, comfortable in sinus rhythm. Vital signs are stable. Chest exam reveals good air entry bilaterally. Heart exam reveals first and second heart sounds. No gallop. Exam of the extremities did not reveal any edema. Peripheral pulses are felt. The patient is currently on aspirin, Lipitor, Plavix, Lopressor, which we will continue. ASSESSMENT: Coronary artery disease status post coronary artery bypass grafting. PLAN: Patient is doing well. Continue with current medications. MMODL / IJN: [id number] /
--- NOTE | 2018-01-20 11:57 | P.PN ---
Subjective Progress Note Date: 01/20/18 Principal diagnosis: Status post CABG postoperative day #3. I'm seeing this patient postop following his three-vessel bypass surgery for multivessel symptomatic coronary artery disease. The patient arrived to the intensive care unit. The patient was placed on Diprivan which is currently running at 20 mics per KG pigmented for sedation. Initially was on SIMV mode of ventilation and switch him to assist control rate of 14 with a tidal volume of 500 and I dropped down the FiO2 down to 50% with a PEEP of 5. Chest x-ray shows adequate positioning of the orotracheal tube, chest tubes, NG tube and [place]-Neptali catheter. No evidence of any pneumothorax. The patient has 2 mediastinal chest tube and the patient has a single left pleural chest tube and output is minimal at this point and there is no evidence of any air leak. The patient had a episodes of bradycardia, sinus in nature, and currently rate of 80. He is hypertensive on Cleviprex drip at 1 mg/hr. Producing adequate amount of urine output. Cardiac index is at 3.4. His blood gases showed a pH of 7.35 and a pCO2 of 48 and pO2 of 263 and this was done upon arrival to the intensive care unit in 100% FiO2. Labs show a hemoglobin of 10.5. The rest of the electrodes are all within normal limits. Creatinine is at 0.6. On today's evaluation of 01/18/2018, the patient is awake and alert and extubated on 3 L of oxygen by nasal cannula. Chest x-ray showed adequate expansion of both lungs and there is no evidence of any pneumothorax. The patient is to mediastinal chest tube and 1 pleural chest tube. There is evidence of air leak within the mediastinal chest tube and the patient has no evidence of pneumothorax or pneumomediastinum and today's chest x-ray. Afebrile. Chest wall pain is under good control. Using incentive spirometer and pulling approximately 1000. The patient has put out approximately 190 mL of output from the mediastinal chest tube over the past 8 hours and 5 and since surgery. As for left-sided chest tube output of 125 mL since surgery. The patient's [place]-Neptali catheter shows a cardiac output of 5.4 with an index of 3.0. CVP is at 2. Pulmonary artery pressures are 18/9 cm of water. No altered mentation. Tolerating some clear liquid diet this morning. Renal function is stable. No pressors of been utilized. He was also stable at 11.8. On 01/19/2018, the patient is awake and alert. The patient has no specific complaints. The patient is postop day #2 following his coronary artery bypass surgery. The sternal stable clean and intact. The mediastinal chest tubes were removed today. Note that postop the patient was having some limited use final leak with subsequently recovered. He is hemodynamically stable on no pressors. He is afebrile. Chest x-ray shows adequate expansion of both lungs bilaterally and there is no evidence of any pneumothorax. Cardiac rhythm is sinus. He is using incentive spirometer. Hemoglobin is stable. No other significant events overnight. Reevaluated today on 01/20/2018 patient is doing well, asymptomatic, doing well with incentive spirometry, chest x-ray showed left sided chest tube in place, but no acute process is noted otherwise. Postsurgical changes noted. CBC is relatively normal basic metabolic profile is normal. Objective - Vital Signs Vital signs: Vital Signs Temp 98.9 F 01/20/18 08:00 Pulse 88 01/20/18 10:00 Resp 18 01/20/18 10:00 BP 101/52 01/20/18 10:00 Pulse Ox 93 L 01/20/18 10:00 Intake & Output 01/19/18 01/20/18 01/20/18 18:59 06:59 18:59 Intake Total 552 240 Output Total 680 495 540 Balance -128 -495 -300 Weight 65 kg Intake: IV 72 0.9 flush 12 Lactated Ringers 1,000 ml 60 @ 20 mls/hr IV .Q[facility]H [facility] Rx#:[id number] Oral 480 240 Output: Chest Tube Drainage 110 70 90 Mediastinal 20 left pleural 90 70 90 Urine 570 425 450 Other: Voiding Method Urinal Urinal # Voids 0 ABP, PAP, CO, CI - Last Documented Arterial Blood Pressure 112/81 Pulmonary Artery Pressure 13/5 Cardiac Output 4.4 Cardiac Index 2.4 - Exam Physical Exam revealed a 72-year-old white male in no distress. Head: Atraumatic, normocephalic. HEENT:[Neck is supple.] [No neck masses.] [No thyromegaly.] [No JVD.] Chest: [Diminished breath sounds at the bases, no crackles, no rhonchi, no wheezes.] Left sided chest tube is noted. Cardiac Exam: [Normal S1 and S2, no S3 gallop, no murmur.] Abdomen: [Soft, nontender, no megaly, no rebound, no guarding, normal bowel sounds.] Extremities: [No clubbing, no edema, no cyanosis.] Neurological Exam: [No focal neurologic deficit. Psychiatric: Normal mood affect and mental status examination. Lymphatics: No lymphadenopathy.] - Labs CBC & Chem 7: 01/20/18 05:42 01/20/18 05:42 Labs: Abnormal Lab Results - Last 24 Hours (Table) 01/17/18 01/17/18 01/17/18 Range/Units 11:18 11:48 12:17 RBC (4.30-5.90) m/uL Hgb (13.0-17.5) gm/dL Hct (39.0-53.0) % Plt Count (150-450) k/uL ABG pO2 >420 H 312 H 289 H (83-108) mmHg ABG Total CO2 26 H 26 H 26 H (19-24) mmol/L ABG O2 Saturation 100.0 H 99.9 H 99.8 H (94-97) % ABG Hematocrit 26 L 25 L 25 L (34.0-46.0) % ABG Sodium 134 L (135-146) mmol/L ABG Potassium 4.9 H 4.6 H (3.4-4.5) mmol/L ABG Ionized Calcium 4.1 L 4.1 L 4.2 L (4.5-5.3) mg/dL ABG Glucose 127 H 226 H 222 H (75-99) mg/dL ABG Lactic Acid (0.5-1.6) mmol/L Hemoglobin 8.6 L 8.0 L 8.3 L (13.0-17.5) gm/dL Sodium (137-145) mmol/L POC Glucose (mg/dL) (75-99) mg/dL Total Protein (6.3-8.2) g/dL Albumin (3.5-5.0) g/dL Arterial Blood Potassium 4.9 H 4.6 H (3.4-4.5) mmol/L Arterial Blood Glucose 127 H 226 H 222 H (75-99) mg/dL 01/17/18 01/17/18 01/19/18 Range/Units 12:48 14:03 21:18 RBC (4.30-5.90) m/uL Hgb (13.0-17.5) gm/dL Hct (39.0-53.0) % Plt Count (150-450) k/uL ABG pO2 356 H 376 H (83-108) mmHg ABG Total CO2 26 H 25 H (19-24) mmol/L ABG O2 Saturation 99.9 H 99.7 H (94-97) % ABG Hematocrit 24 L 30 L (34.0-46.0) % ABG Sodium (135-146) mmol/L ABG Potassium 4.8 H (3.4-4.5) mmol/L ABG Ionized Calcium 4.2 L 4.3 L (4.5-5.3) mg/dL ABG Glucose 276 H 167 H (75-99) mg/dL ABG Lactic Acid 2.6 H* (0.5-1.6) mmol/L Hemoglobin 7.9 L 9.6 L (13.0-17.5) gm/dL Sodium (137-145) mmol/L POC Glucose (mg/dL) 118 H (75-99) mg/dL Total Protein (6.3-8.2) g/dL Albumin (3.5-5.0) g/dL Arterial Blood Potassium 4.8 H (3.4-4.5) mmol/L Arterial Blood Glucose 276 H 167 H (75-99) mg/dL 01/20/18 01/20/18 Range/Units 05:42 05:42 RBC 3.63 L (4.30-5.90) m/uL Hgb 11.5 L (13.0-17.5) gm/dL Hct 35.2 L (39.0-53.0) % Plt Count 148 L (150-450) k/uL ABG pO2 (83-108) mmHg ABG Total CO2 (19-24) mmol/L ABG O2 Saturation (94-97) % ABG Hematocrit (34.0-46.0) % ABG Sodium (135-146) mmol/L ABG Potassium (3.4-4.5) mmol/L ABG Ionized Calcium (4.5-5.3) mg/dL ABG Glucose (75-99) mg/dL ABG Lactic Acid (0.5-1.6) mmol/L Hemoglobin (13.0-17.5) gm/dL Sodium 135 L (137-145) mmol/L POC Glucose (mg/dL) (75-99) mg/dL Total Protein 4.6 L (6.3-8.2) g/dL Albumin 2.8 L (3.5-5.0) g/dL Arterial Blood Potassium (3.4-4.5) mmol/L Arterial Blood Glucose (75-99) mg/dL Assessment and Plan Assessment: 1 three-vessel coronary artery bypass surgery for symptomatic multivessel coronary artery disease, and the patient is postop day for 3. The patient is hemodynamically stable. 2 post thoracotomy, currently on room air with a pulse ox of 93%. 3 previous history of coronary artery disease and coronary intervention and stenting of the RCA back in 2009 4 COPD mild with an FEV1 of 69% of predicted 5 hypertension 6 hyperlipidemia 7 smoker 8 peripheral vascular disease Recommendation: Continue present meds continue incentive spirometry, likely transfer out of the ICU to a monitor bed on selective. Time with Patient: Less than 30
--- NOTE | 2018-01-20 12:54 | P.PN ---
Subjective 72-year-old male one of Dr. Owusu's patient with past medical history of CAD, COPD, hypertension hyperlipidemia who apparently has been having worsening chest pain with exertion and atypical symptoms on and off had lost heart catheter in 2009 a Chin had to limited stent at the time of the coronary artery. Had recurrent symptom this time on and off was sent to see cardiology in consultation and scheduled for elective heart catheter. Finding yesterday of significant coronary artery disease with total occlusion of the LAD, total occlusion of the circumflex, 99% stenosis of the proximal LAD and 50% stenosis of the mid LAD. Ejection fraction has been 50 percentile patient was seen pulmonary and will be clear for surgery. Patient was seen and evaluated by cardiothoracic surgery and planning to do bypass surgery tomorrow. 01/18: Patient is postop following a three-vessel bypass surgery. He was extubated yesterday. Patient was evaluated this morning, he is noted to be sitting up in the bedside chair, in no acute distress. He is in the intensive care unit, he has two mediastinal chest tubes and left pleural chest tube. The patient did have a episode of bradycardia yesterday, heart rate did come up and is running in the 70s. Glucose has been well controlled, had slight drop in hemoglobin 11.8, creatinine 0.60, BUN 9. 01/19: Patient doing well status post three-vessel bypass surgery. His noted to be sitting up in the bedside recliner this morning with family at bedside. He continues to use his incentive spirometer, he is achieving 1000 mL's. He denies any shortness of breath at this time. He does have some pain around the chest tube insertion sites. Glucose continues to be well controlled, creatinine 0.7, BUN 11, hemoglobin stable at 11.3. Plan to be transferred out of the ICU today 01/20: Patient was evaluated this morning status post three-vessel bypass surgery. He is sitting up at the bedside recliner, continues to do well with his incentive spirometry. He reports he is feeling well, denies any chest pain , palpitations, or increased shortness of breath. He is using the heart hugger and also ambulating in the hallways. Repeat chest x-ray shows the left-sided chest tube, but no acute process. Objective - Vital Signs Vital signs: Vital Signs Temp 99.3 F 01/20/18 12:00 Pulse 89 01/20/18 12:00 Resp 18 01/20/18 12:00 BP 94/60 01/20/18 12:00 Pulse Ox 98 01/20/18 12:00 Intake & Output 01/19/18 01/20/18 01/20/18 18:59 06:59 18:59 Intake Total 552 480 Output Total 863 108 0807 Balance -128 -495 -560 Weight 65 kg 65 kg Intake: IV 72 0.9 flush 12 Lactated Ringers 1,000 ml 60 @ 20 mls/hr IV .Q24H [facility] Rx#:[id number] Oral 480 480 Output: Chest Tube Drainage 110 70 90 Mediastinal 20 left pleural 90 70 90 Urine 570 425 950 Other: Voiding Method Urinal Urinal # Voids 0 ABP, PAP, CO, CI - Last Documented Arterial Blood Pressure 112/81 Pulmonary Artery Pressure 13/5 Cardiac Output 4.4 Cardiac Index 2.4 - Exam General Appearance: Alert, cooperative, no distress, appears stated age. Neck HEENT: Supple, no lymphadenopathy, no thyroid enlargement, no carotid bruits. Lungs: Decreased breath sounds bilaterally with auscultation without crackles or wheezes no rhonchi, no deformity. Chest Wall: Chest wall decrease expansion with deep inspiration no tenderness and no deformity was found on exam, no costochondral pain or discomfort. Heart: Regular rate and rhythm, S1, S2 normal, positive S3, 2/6 ejection systolic murmur, rub or gallop. Back: Symmetric, no curvature, ROM normal, no CVA tenderness. Abdomen: Soft, non-tender, bowel sounds active all four quadrants, no masses, no organomegaly. Extremities: Extremities normal, atraumatic, no cyanosis or edema. Pulses: 2+ and symmetric. Skin: Skin color, texture, tugor normal, no rashes or lesions. Neurologic: Alert oriented x3 cranial nerves II through XII intact, no motor deficit, no abnormal balance or - Labs CBC & Chem 7: 01/20/18 05:42 01/20/18 05:42 Labs: Abnormal Lab Results - Last 24 Hours (Table) 01/17/18 01/17/18 01/17/18 Range/Units 11:18 11:48 12:17 RBC (4.30-5.90) m/uL Hgb (13.0-17.5) gm/dL Hct (39.0-53.0) % Plt Count (150-450) k/uL ABG pO2 >420 H 312 H 289 H (83-108) mmHg ABG Total CO2 26 H 26 H 26 H (19-24) mmol/L ABG O2 Saturation 100.0 H 99.9 H 99.8 H (94-97) % ABG Hematocrit 26 L 25 L 25 L (34.0-46.0) % ABG Sodium 134 L (135-146) mmol/L ABG Potassium 4.9 H 4.6 H (3.4-4.5) mmol/L ABG Ionized Calcium 4.1 L 4.1 L 4.2 L (4.5-5.3) mg/dL ABG Glucose 127 H 226 H 222 H (75-99) mg/dL ABG Lactic Acid (0.5-1.6) mmol/L Hemoglobin 8.6 L 8.0 L 8.3 L (13.0-17.5) gm/dL Sodium (137-145) mmol/L POC Glucose (mg/dL) (75-99) mg/dL Total Protein (6.3-8.2) g/dL Albumin (3.5-5.0) g/dL Arterial Blood Potassium 4.9 H 4.6 H (3.4-4.5) mmol/L Arterial Blood Glucose 127 H 226 H 222 H (75-99) mg/dL 01/17/18 01/17/18 01/19/18 Range/Units 12:48 14:03 21:18 RBC (4.30-5.90) m/uL Hgb (13.0-17.5) gm/dL Hct (39.0-53.0) % Plt Count (150-450) k/uL ABG pO2 356 H 376 H (83-108) mmHg ABG Total CO2 26 H 25 H (19-24) mmol/L ABG O2 Saturation 99.9 H 99.7 H (94-97) % ABG Hematocrit 24 L 30 L (34.0-46.0) % ABG Sodium (135-146) mmol/L ABG Potassium 4.8 H (3.4-4.5) mmol/L ABG Ionized Calcium 4.2 L 4.3 L (4.5-5.3) mg/dL ABG Glucose 276 H 167 H (75-99) mg/dL ABG Lactic Acid 2.6 H* (0.5-1.6) mmol/L Hemoglobin 7.9 L 9.6 L (13.0-17.5) gm/dL Sodium (137-145) mmol/L POC Glucose (mg/dL) 118 H (75-99) mg/dL Total Protein (6.3-8.2) g/dL Albumin (3.5-5.0) g/dL Arterial Blood Potassium 4.8 H (3.4-4.5) mmol/L Arterial Blood Glucose 276 H 167 H (75-99) mg/dL 01/20/18 01/20/18 Range/Units 05:42 05:42 RBC 3.63 L (4.30-5.90) m/uL Hgb 11.5 L (13.0-17.5) gm/dL Hct 35.2 L (39.0-53.0) % Plt Count 148 L (150-450) k/uL ABG pO2 (83-108) mmHg ABG Total CO2 (19-24) mmol/L ABG O2 Saturation (94-97) % ABG Hematocrit (34.0-46.0) % ABG Sodium (135-146) mmol/L ABG Potassium (3.4-4.5) mmol/L ABG Ionized Calcium (4.5-5.3) mg/dL ABG Glucose (75-99) mg/dL ABG Lactic Acid (0.5-1.6) mmol/L Hemoglobin (13.0-17.5) gm/dL Sodium 135 L (137-145) mmol/L POC Glucose (mg/dL) (75-99) mg/dL Total Protein 4.6 L (6.3-8.2) g/dL Albumin 2.8 L (3.5-5.0) g/dL Arterial Blood Potassium (3.4-4.5) mmol/L Arterial Blood Glucose (75-99) mg/dL Assessment and Plan Plan: 1 multivessel coronary artery disease: Status post three-vessel bypass surgery. From medical standpoint patient had mild risk for complications during after surgery, risk assessment is accepted for this type of surgery no reason to delay surgery or to do any other intervention before this surgery. Patient will be watch hemodynamically will be seen by intensive care/pulmonary regular basis on watch his hemodynamic status along with his blood sugar and watch for any complication after surgery. 2 unstable angina: Patient has been having symptoms repeatedly was on medical management with the current finding of his heart catheter, status post three- vessel bypass surgery 3 mild COPD: With FEV1 of 69%, patient seen pulmonary regular basis will be kept on bronchodilator along with steroid base nebulizer. 4 hypertension: Patient has been on atenolol will continue atenolol and add small dose of ANA inhibitor. 5 hyperlipidemia: Remain on atorvastatin 80 mg daily. 6 chronic history of smoking: Smoking cessation was addressed patient will be on nicotine patch. 7 peripheral vascular disease: Patient has been seen and watch by cardiology further testing and study might be needed in the future. 8 DVT prophylaxis: Patient will continue knee-high MONISHA hose for now on after surgery DVT prophylaxis will be use. 9 GI prophylaxis: Patient will be on Pepcid 20 mg daily. CODE STATUS: Full code. Admit patient to inpatient status for more than 2 nights service will be transferred to cardiothoracic after surgery will continue to watch patient for medical standpoint and daily basis. The above impression and plan of care have been discussed and directed by signing physician. Kelly Strauss nurse practitioner acting as scribe for signing physician.
[2018-01-20] MEDS: SENNOSIDES-DOCUSATE SODIUM 1 EACH TAB PO SCH (20:22)
[2018-01-20] MEDS: ACETAMINOPHEN TAB 325 MG TAB PO PRN (20:22)
[2018-01-21] MEDS: ONDANSETRON 4 MG/2 ML VIAL IVP PRN (02:31)
[2018-01-21 05:42] LABS: Basophils % (A) 0 %; Eosinophils # (A) 0.1 k/uL (0-0.7); Eosinophils % (A) 2 %; HCT 34.3 % (39.0-53.0); HGB 11.6 gm/dL (13.0-17.5); Lymphocytes # (A) 1.2 k/uL (1.0-4.8); Lymphocytes % (A) 15 %; MCH 32.2 pg (25.0-35.0); MCHC 33.8 g/dL (31.0-37.0); MCV 95.2 fL (80.0-100.0); Mean Platelet Volume 8.1; Monocytes # (A) 0.5 k/uL (0-1.0); Monocytes % (A) 6 %; Neutrophils # (A) 6.1 k/uL (1.3-7.7); Neutrophils % (A) 76 %; Platelet Count 184 k/uL (150-450); RDW 13.2 % (11.5-15.5)
[2018-01-21 06:12] LABS: ALT 55 U/L (21-72); AST 54 U/L (17-59); Albumin 2.9 g/dL (3.5-5.0); Alkaline Phosphatase 86 U/L (38-126); Anion Gap 8 mmol/L; Blood Urea Nitrogen 14 mg/dL (9-20); Calcium 8.5 mg/dL (8.4-10.2); Carbon Dioxide 28 mmol/L (22-30); Chloride 100 mmol/L (98-107); Glucose 92 mg/dL (74-99); Potassium 4.3 mmol/L (3.5-5.1); Sodium 136 mmol/L (137-145); Total Bilirubin 0.4 mg/dL (0.2-1.3)
[2018-01-21] MEDS: ACETAMINOPHEN TAB 325 MG TAB PO PRN (06:57)
[2018-01-21] MEDS: KETOROLAC 30 MG/ML 1 ML VIAL IVP PRN (06:59)
--- NOTE | 2018-01-21 07:53 | XR ---
EXAMINATION TYPE: XR chest 1V portable DATE OF EXAM: 01/21/2018 HISTORY: Shortness of breath. COMPARISON: 01/20/2018 TECHNIQUE: Single view of the chest is submitted. FINDINGS: Demonstrated are scattered senescent parenchymal change. Left-sided chest tube has been removed. Suspect small less than 10% left apical pneumothorax. Subcuta neous air is seen within the left neck region. Mild blunting left costophrenic angle may reflect a small pleural effusion. Cardiomediastinal silhouette is midline. Right lung is clear. IMPRESSION: 1. Left-sided chest tube has been removed. Suspect small less than 10% left apical pneumothorax. Sub cutaneous air is seen within the left neck region.
[2018-01-21] MEDS: HEPARIN SODIUM,PORCINE 5,000 UNIT/ML 1 ML VIAL SQ SCH (08:25)
[2018-01-21] MEDS: PANTOPRAZOLE 40 MG TABLET PO SCH (08:25)
[2018-01-21] MEDS: ASPIRIN 325 MG TAB PO SCH (08:25)
[2018-01-21] MEDS: CLOPIDOGREL 75 MG TAB PO SCH (08:26)
[2018-01-21] MEDS: ATORVASTATIN 40 MG TAB PO SCH (08:26)
[2018-01-21] MEDS: guaiFENesin 600 MG TABLET.ER PO SCH (08:26)
[2018-01-21] MEDS: IPRATROPIUM-ALBUTEROL 3 ML NEB INHALATION SCH ×2 (08:50→11:46)
[2018-01-21] MEDS ORDERED: METOPROLOL TARTRATE 25 MG TAB PO SCH (09:00)
--- NOTE | 2018-01-21 10:16 | P.PN ---
Subjective Progress Note Date: 01/21/18 Principal diagnosis: Status post CABG postoperative day #4 I'm seeing this patient postop following his three-vessel bypass surgery for multivessel symptomatic coronary artery disease. The patient arrived to the intensive care unit. The patient was placed on Diprivan which is currently running at 20 mics per KG pigmented for sedation. Initially was on SIMV mode of ventilation and switch him to assist control rate of 14 with a tidal volume of 500 and I dropped down the FiO2 down to 50% with a PEEP of 5. Chest x-ray shows adequate positioning of the orotracheal tube, chest tubes, NG tube and Camden-Neptali catheter. No evidence of any pneumothorax. The patient has 2 mediastinal chest tube and the patient has a single left pleural chest tube and output is minimal at this point and there is no evidence of any air leak. The patient had a episodes of bradycardia, sinus in nature, and currently rate of 80. He is hypertensive on Cleviprex drip at 1 mg/hr. Producing adequate amount of urine output. Cardiac index is at 3.4. His blood gases showed a pH of 7.35 and a pCO2 of 48 and pO2 of 263 and this was done upon arrival to the intensive care unit in 100% FiO2. Labs show a hemoglobin of 10.5. The rest of the electrodes are all within normal limits. Creatinine is at 0.6. On today's evaluation of 01/18/2018, the patient is awake and alert and extubated on 3 L of oxygen by nasal cannula. Chest x-ray showed adequate expansion of both lungs and there is no evidence of any pneumothorax. The patient is to mediastinal chest tube and 1 pleural chest tube. There is evidence of air leak within the mediastinal chest tube and the patient has no evidence of pneumothorax or pneumomediastinum and today's chest x-ray. Afebrile. Chest wall pain is under good control. Using incentive spirometer and pulling approximately 1000. The patient has put out approximately 190 mL of output from the mediastinal chest tube over the past 8 hours and 5 and since surgery. As for left-sided chest tube output of 125 mL since surgery. The patient's Camden-Neptali catheter shows a cardiac output of 5.4 with an index of 3.0. CVP is at 2. Pulmonary artery pressures are 18/9 cm of water. No altered mentation. Tolerating some clear liquid diet this morning. Renal function is stable. No pressors of been utilized. He was also stable at 11.8. On 01/19/2018, the patient is awake and alert. The patient has no specific complaints. The patient is postop day #2 following his coronary artery bypass surgery. The sternal stable clean and intact. The mediastinal chest tubes were removed today. Note that postop the patient was having some limited use final leak with subsequently recovered. He is hemodynamically stable on no pressors. He is afebrile. Chest x-ray shows adequate expansion of both lungs bilaterally and there is no evidence of any pneumothorax. Cardiac rhythm is sinus. He is using incentive spirometer. Hemoglobin is stable. No other significant events overnight. Reevaluated today on 01/20/2018 patient is doing well, asymptomatic, doing well with incentive spirometry, chest x-ray showed left sided chest tube in place, but no acute process is noted otherwise. Postsurgical changes noted. CBC is relatively normal basic metabolic profile is normal. Patient was seen today on 01/21/2018, doing quite well, relatively asymptomatic , no cough no wheezing no shortness of breath, chest x-ray is reassuring, discharge planning is in progress. All labs were reviewed including CBC and basic metabolic profile as well as liver profile. Objective - Vital Signs Vital signs: Vital Signs Temp 98.1 F 01/21/18 08:00 Pulse 100 01/21/18 08:00 Resp 16 01/21/18 08:00 BP 100/60 01/21/18 08:00 Pulse Ox 95 01/21/18 08:00 Intake & Output 01/20/18 01/21/18 01/21/18 18:59 06:59 18:59 Intake Total 480 480 Output Total 1635 1225 Balance -1155 -1225 480 Weight 65 kg 63.6 kg Intake: Oral 480 480 Output: Chest Tube Drainage 110 left pleural 110 Urine 1525 1225 Other: Voiding Method Urinal Urinal # Voids 1 0 ABP, PAP, CO, CI - Last Documented Arterial Blood Pressure 112/81 Pulmonary Artery Pressure 13/5 Cardiac Output 4.4 Cardiac Index 2.4 - Exam Physical Exam revealed a 72-year-old white male in no distress. Head: Atraumatic, normocephalic. HEENT:[Neck is supple.] [No neck masses.] [No thyromegaly.] [No JVD.] Chest: [Diminished breath sounds at the bases, no crackles, no rhonchi, no wheezes.] Left sided chest tube is noted. Cardiac Exam: [Normal S1 and S2, no S3 gallop, no murmur.] Abdomen: [Soft, nontender, no megaly, no rebound, no guarding, normal bowel sounds.] Extremities: [No clubbing, no edema, no cyanosis.] Neurological Exam: [No focal neurologic deficit. Psychiatric: Normal mood affect and mental status examination. Lymphatics: No lymphadenopathy.] - Labs CBC & Chem 7: 01/21/18 05:32 01/21/18 05:32 Labs: Abnormal Lab Results - Last 24 Hours (Table) 01/21/18 01/21/18 Range/Units 05:32 05:32 RBC 3.60 L (4.30-5.90) m/uL Hgb 11.6 L (13.0-17.5) gm/dL Hct 34.3 L (39.0-53.0) % Sodium 136 L (137-145) mmol/L Creatinine 0.62 L (0.66-1.25) mg/dL Total Protein 5.0 L (6.3-8.2) g/dL Albumin 2.9 L (3.5-5.0) g/dL Assessment and Plan Assessment: 1 three-vessel coronary artery bypass surgery for symptomatic multivessel coronary artery disease, and the patient is postop #4 2 post thoracotomy, currently on room air with a pulse ox of 93%. 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
--- NOTE | 2018-01-21 10:34 | P.VSCSTY ---
Greater Saphenous Vein Mapping This is bilateral lower extremity greater saphenous vein mapping. Date of service 01/16/2018 Vein quality and ultrasound appearance no thrombosis or wall changes are seen. Vein size groin right 5.8 x 5.3 groin left 5.8 x 4.5 High thigh right 2.9 x 2.6 high thigh left 4.7 x 4.2 Mid thigh right 2.5 x 2.2 mid thigh left 4.8 x 3.8 Above-knee right 2.9 x 2.3 above-knee left 4.5 x 3.1 Below knee right 3.1 x 2.1 below-knee left 4.7 x 3.2 Mid calf right 3.9 x 2.2 mid calf left 2.9 x 2.5 Ankle right 4.2 x 2.7 ankle left 3.3 x 2.3 Impression usable bilateral greater saphenous vein. Left leg somewhat more consistent in size..
--- NOTE | 2018-01-21 10:38 | P.ARTDOP ---
Arterial Doppler LOWER EXTREMITY ARTERIAL DOPPLER: DATE OF SERVICE: 01/16/2018 Reason for study: Pre-CABG. Doppler waveforms: Multiphasic bilaterally throughout. Pulse volume recording: Mild blunting distally. Pressure gradients: Mild gradient across the knee bilaterally. Ankle-brachial indices: 0.79 on the right and 0.87 on the left. Toe pressures: [] on the right, [] on the left Impression: Mild bilateral femoral popliteal disease..
--- NOTE | 2018-01-21 10:41 | P.DS ---
Providers Date of admission: 01/16/18 14:37 Expected date of discharge: 01/21/18 Attending physician: David Son Consults: 01/15/18 14:43 Consult Physician Routine Consulting Provider: David Son Consult Reason/Comments: cabg Do you want consulting provider notified?: Already Contacted 01/15/18 15:39 Consult Physician Routine Consulting Provider: Gilbert Calhoun Consult Reason/Comments: Pulmonary management Do you want consulting provider notified?: Yes, Notify in am Consult to Anesthesia Routine Consulting Provider: Anesthesia,Services Consult Reason/Comments: Cardiac Surgery Pre-Op 01/16/18 07:37 Consult Physician Routine Consulting Provider: Nura Owusu Consult Reason/Comments: cad Do you want consulting provider notified?: Yes 01/17/18 14:45 Consult Physician Routine Consulting Provider: Kyle Nicholson Consult Reason/Comments: Clinical Studies Specialist Consult: post cardiac surgery Do you want consulting provider notified?: Already Contacted Primary care physician: Nura Francoise - Discharge Diagnosis(es) (1) Coronary artery disease Current Visit: Yes Status: Acute (2) Unstable angina Current Visit: Yes Status: Acute (3) History of coronary artery stent placement Current Visit: Yes Status: Acute (4) Hypertension Current Visit: Yes Status: Acute (5) Hyperlipidemia Current Visit: Yes Status: Acute (6) Tobacco dependence Current Visit: Yes Status: Acute (7) Peripheral vascular disease Current Visit: Yes Status: Acute (8) COPD (chronic obstructive pulmonary disease) Current Visit: Yes Status: Acute Hospital Course: FINAL DIAGNOSIS: 1. Symptomatic multivessel coronary artery disease with previous drug-eluting stent placement to his right coronary artery in 2009 2. Hypertension 3. Hyperlipidemia 4. Peripheral vascular disease 5. Family history of early onset coronary artery disease with his brother having open heart surgery before the age of 55 6. COPD mild with preoperative FEV1 of 69% of predicted 7. Current tobacco dependence PRINCIPAL PROCEDURE: 1. Urgent coronary artery bypass grafting 3 vessels with placement of his left internal mammary artery to his left anterior setting coronary artery, a reverse greater saphenous vein graft to the diagonal coronary artery, and a reverse greater saphenous vein graft to the ramus coronary artery. 2. Endoscopic vein harvest of his left greater saphenous vein. 3. Intraoperative transesophageal echocardiogram and epi-aortic ultrasound. 4. Selective left and right coronary angiography. HISTORY OF PRESENT ILLNESS: This is 72-year-old gentleman who is followed by Dr. Talley on an outpatient basis. He has a past medical history significant for coronary artery disease with previous drug-eluting stent placement to his right coronary artery in 2009, hypertension, hyperlipidemia, peripheral vascular disease with intermittent claudication, family history of early onset coronary artery disease with his brother having open heart surgery before the age of 55 and current tobacco dependence. The patient has recently been complaining of episodes of chest pain with activity, which has been present for the last 2-3 weeks. He was recently in [place] and was having complaints of chest pain which radiated to his left arm and jaw. The pain was subsiding with episodes of rest. He was seen by his primary care physician and underwent a 12-lead EKG which was abnormal. Subsequently he was referred to Dr. Nicholson from [facility] due to his recent symptoms, history of coronary artery disease and abnormal EKG. Subsequently on 01/15/2018 he underwent elective cardiac catheterization which demonstrated a totally occluded right coronary artery, a totally occluded circumflex coronary artery, a 99% stenosis to his proximal left anterior descending coronary artery, and a 50% stenosis to his mid left anterior descending coronary artery. Also during heart catheterization and left ventriculogram was completed which showed him to have an ejection fraction of 50%. A 2-D echocardiogram was also completed which showed an overall left ventricular systolic function to be low normal with an ejection fraction between 50 and 55%, trace to mild mitral valve regurgitation, trace tricuspid valve regurgitation, and mild pulmonic valve regurgitation. Due to the patient's symptoms, history of coronary artery disease and cardiac catheterization results a consult was placed to Dr. Son from cardiothoracic surgery to evaluate the patient for myocardial revascularization. HOSPITAL COURSE: The patient was admitted to the hospital, his cardiac catheterization results were reviewed with the patient by Dr. Son and Dr. Nicholson. Treatment options were reviewed with the patient and the patient wished to proceed with myocardial revascularization surgery. Preoperatively his STS risk score was calculated and was discussed with the patient by Dr. Son. Subsequently a consent was obtained and the patient was taken to the operating room where Dr. Son performed an urgent coronary artery bypass grafting 3 vessels with placement of his left internal mammary artery to the left anterior descending coronary artery, a reverse greater saphenous vein graft to the diagonal coronary artery, and a reverse greater saphenous vein graft to the ramus coronary artery. He also underwent endoscopic vein harvesting of his left greater saphenous vein, intraoperative epi-aortic ultrasound and transesophageal echocardiogram. The patient was then transferred to the cardiovascular intensive care unit where he was recovered, monitored hemodynamically, and where he progressed cardiac rhythm rehabilitation phase 1. He was extubated, all lines, tubes and supportive drips were discontinued when appropriate and transfer orders were placed to [address] [place] [id number] for further monitoring and rehabilitation. The patient remained in the intensive care unit due to no bed availability on the stepdown unit. His oxygen was titrated down and he was weaned to room air, he continued to work with physical therapy and was ready to be discharged home on day #4 with [facility] to follow. He has received verbal and written instructions regarding his medications, activity restrictions, signs and symptoms requiring physician notification and his follow up appointments. COMPLICATIONS: There were no postoperative complications. CONSULTATIONS: 1. Dr. Nicholson for cardiology management. 2. Dr. Owusu for medical management. 3. Dr. Calhoun for pulmonary and ventilator management. DISCHARGE INSTRUCTIONS: 1. No driving for 4 weeks, or until physician gives their ok. 2. The patient should sleep in their own bed, no medical bed needed. 3. Stairs are not an issue. If the bedroom is upstairs, it is advised that the patient go up at night and down in the morning for the first week. Go slowly, using handrail and take 1 step at a time. 4. MONISHA hose are to be worn for 30 days or until physician discontinues. 5. Heart hugger is to be worn 100% of the time until physician discontinues.( except when showering) 6. No lifting, pushing, or pulling more than 10 pounds for 12 weeks. The physician will advise of any restriction changes. 7. The patient is expected to continue the prescribed walking program. 8. Continue pain control per as needed orders. 9. Continue with incentive spirometry and splinting/heart hugger until otherwise directed by the physician. 10. Must shower daily using liquid antibacterial soap and a separate white washcloth for each individual incision. 11. Routine sternal incision care, no ointments, lotions or powders on the incisions. 12. Please notify surgeon/nurse practitioner for temperature greater than 101F or purulent drainage from incisions 13. Prescriptions for first 30 days given per cardiac surgery service. After 30 days, all prescription refills obtained through cardiology/primary care physician. 14. A red arm and has been placed on this patient it should be worn for 30 days post surgery and will be removed by the cardiothoracic surgeons. If an ER visit is necessary, please make sure the number on the red arm band is called. 15. The importance of smoking cessation was discussed and reviewed with the patient. HOME HEALTH SERVICES TO PROVIDE: RN SKILLED HOME CARE SERVICES FOR POST-OP SURGICAL PATIENTS WITH THE FOLLOWING: Coronary Artery Bypass Surgery (CABG), Mitral Valve Replacement/ Repair ( MVR), Aortic Valve Replacement/Repair (AVR) RN TO CONTINUE EDUCATION FROM ``ROAD TO A HEALTH HEART PATIENT EDUCATION MANUAL" (GIVEN TO PATIENT IN THE HOSPITAL) MEDICATION RECONCILIATION WITH EDUCATION NEEDED ON FIRST HOME VISIT EMPHASIZE IMPORTANCE OF WEARING BREAST SUPPORT/HEART HUGGER ENCOURAGE USE OF INCENTIVE SPIROMETER 10 X EVERY HOUR WHILE AWAKE ENCOURAGE UTILIZATION OF LOWER EXTREMITY COMPRESSION STOCKINGS/MONISHA HOSE and ELEVATE LEGS ABOVE LEVEL OF HEART WHILE AT REST. ENCOURAGE AMBULATION 3-5x/day INCREASING TOLERATES, WHILE AVOID EXTREMES IN TEMPERATURE FREQUENCY: RN TO OPEN THE PATIENT WITHIN 24 HOURS OF DISCHARGE FROM THE HOSPITAL WITH TELEHEALTH INSTALLED AT [facility] – [place], RN TO VISIT 2-3 X A WEEK FOR 4 WEEKS ESTABLISHED BY PATIENT NEEDS. LABORATORY: CBC, CMP TO BE DRAWN ON THE THIRD DAY HOME, (RAN STAT) FAX RESULTS TO [phone]. 01/24/2018 TELEHEALTH PARAMETERS: WEIGHT: NOTIFY MD OF WEIGHT GAIN OF 2 LBS IN 24 HOURS OR 5 LBS IN ONE WEEK HR: NOTIFY MD OF HR <55 BPM OR HR>100 BPM BP: NOTIFY MD IF BP <90/55 OR BP>140/100 O2 SAT: NOTIFY MD IF PO2<93% ON ROOM AIR SEND TELEHEALTH REPORT TO [employer]OP[facility] CONSULTANT AND CARDIOVASCULAR SURGEON THE FIRST WEEK OF CARE AND THEN BI-WEEKLY. PLEASE ADDITIONALLY COMMUNICATE ANY ABNORMALS AND NEW FINDINGS TO THE SURGEONS OFFICE. Plan - Discharge Summary Discharge Rx Participant: Yes New Discharge Prescriptions: New Acetaminophen Tab [Tylenol] 650 mg PO Q4HR PRN #0 tab PRN Reason: Fever And/ Or Pain guaiFENesin [Mucinex] 1,200 mg PO Q12HR #60 tablet.er Aspirin 325 mg PO DAILY #30 tab Atorvastatin [Lipitor] 40 mg PO DAILY #30 tab Clopidogrel [Plavix] 75 mg PO DAILY #30 tab Metoprolol Tartrate [Lopressor] 25 mg PO BID #60 tab Pantoprazole [Protonix] 40 mg PO AC-BRKFST #30 tablet.[address] Grace-Docusate Sodium [Senokot-S] 2 each PO HS #14 tab Discontinued Isosorbide Mononitrate ER [Imdur] 30 mg PO DAILY Atorvastatin [Lipitor] 80 mg PO HS Atenolol 25 mg PO DAILY Aspirin [Adult Low Dose Aspirin EC] 81 mg PO HS Discharge Medication List Acetaminophen Tab [Tylenol] 650 mg PO Q4HR PRN #0 tab 01/21/18 [Rx] Aspirin 325 mg PO DAILY #30 tab 01/21/18 [Rx] Atorvastatin [Lipitor] 40 mg PO DAILY #30 tab 01/21/18 [Rx] Clopidogrel [Plavix] 75 mg PO DAILY #30 tab 01/21/18 [Rx] Metoprolol Tartrate [Lopressor] 25 mg PO BID #60 tab 01/21/18 [Rx] Pantoprazole [Protonix] 40 mg PO AC-BRKFST #30 tablet. 01/21/18 [Rx] Sennosides-Docusate Sodium [Senokot-S] 2 each PO HS #14 tab 01/21/18 [Rx] guaiFENesin [Mucinex] 1,200 mg PO Q12HR #60 tablet.er 01/21/18 [Rx] Follow up Appointment(s)/Referral(s): Kyle Nicholson MD [STAFF PHYSICIAN] - 01/31/18 10:45 am Nura Owusu MD [Primary Care Provider] - 02/03/18 4:00 pm Inga Cotton NPC [Nurse Practitioner] - 02/12/18 2:00 pm [facility], [NON-STAFF] - David Son MD [STAFF PHYSICIAN] - 02/07/18 10:45 am Andres Conde NPC [Nurse Practitioner] - 02/03/18 11:00 am Discharge Disposition: HOME WITH HOME HEALTH SERVICES
--- NOTE | 2018-01-21 11:01 | PN ---
PROGRESS NOTE Michele is a 72-year-old gentleman with history of coronary artery disease, status post CABG, is doing well and actually ready to be discharged home. Remains in sinus rhythm and free of symptoms. PHYSICAL EXAMINATION: On exam, vital signs are stable. There is no jugular venous distention. Chest exam reveals good air entry bilaterally. Heart exam reveals first and second heart sounds. No gallop. Exam of extremities did not reveal any edema. Peripheral pulses are felt. The patient is currently on aspirin, Lipitor, Plavix, Lopressor. ASSESSMENT: Coronary artery disease, status post coronary artery bypass grafting. Patient is doing well. Stable to be discharged home. Follow up with Cardiology. MMODL / IJN: [id number] /
[2018-01-21 12:04] VITALS: BP 103/63; PULSE 95; RESP 15; TEMP 98
--- NOTE | 2018-01-21 13:11 | P.PN ---
Subjective 72-year-old male one of Dr. Owusu's patient with past medical history of CAD, COPD, hypertension hyperlipidemia who apparently has been having worsening chest pain with exertion and atypical symptoms on and off had lost heart catheter in 2009 a Chin had to limited stent at the time of the coronary artery. Had recurrent symptom this time on and off was sent to see cardiology in consultation and scheduled for elective heart catheter. Finding yesterday of significant coronary artery disease with total occlusion of the LAD, total occlusion of the circumflex, 99% stenosis of the proximal LAD and 50% stenosis of the mid LAD. Ejection fraction has been 50 percentile patient was seen pulmonary and will be clear for surgery. Patient was seen and evaluated by cardiothoracic surgery and planning to do bypass surgery tomorrow. 01/18: Patient is postop following a three-vessel bypass surgery. He was extubated yesterday. Patient was evaluated this morning, he is noted to be sitting up in the bedside chair, in no acute distress. He is in the intensive care unit, he has two mediastinal chest tubes and left pleural chest tube. The patient did have a episode of bradycardia yesterday, heart rate did come up and is running in the 70s. Glucose has been well controlled, had slight drop in hemoglobin 11.8, creatinine 0.60, BUN 9. 01/19: Patient doing well status post three-vessel bypass surgery. His noted to be sitting up in the bedside recliner this morning with family at bedside. He continues to use his incentive spirometer, he is achieving 1000 mL's. He denies any shortness of breath at this time. He does have some pain around the chest tube insertion sites. Glucose continues to be well controlled, creatinine 0.7, BUN 11, hemoglobin stable at 11.3. Plan to be transferred out of the ICU today 01/20: Patient was evaluated this morning status post three-vessel bypass surgery. He is sitting up at the bedside recliner, continues to do well with his incentive spirometry. He reports he is feeling well, denies any chest pain , palpitations, or increased shortness of breath. He is using the heart hugger and also ambulating in the hallways. Repeat chest x-ray shows the left-sided chest tube, but no acute process. 01/21: Patient doing well today, no shortness of breath, slight chest discomfort , heart hugger in place. Patient continues with incentive spirometry, vital signs remain stable, he is ambulating well the hallways. Objective - Vital Signs Vital signs: Vital Signs Temp 98.0 F 01/21/18 12:00 Pulse 95 01/21/18 12:00 Resp 15 01/21/18 12:00 BP 103/63 01/21/18 12:00 Pulse Ox 95 01/21/18 12:00 Intake & Output 01/20/18 01/21/18 01/21/18 18:59 06:59 18:59 Intake Total 480 480 Output Total 1635 1225 Balance -1155 -1225 480 Weight 65 kg 63.6 kg Intake: Oral 480 480 Output: Chest Tube Drainage 110 left pleural 110 Urine 1525 1225 Other: Voiding Method Urinal Urinal # Voids 1 1 ABP, PAP, CO, CI - Last Documented Arterial Blood Pressure 112/81 Pulmonary Artery Pressure 13/5 Cardiac Output 4.4 Cardiac Index 2.4 - Exam General Appearance: Alert, cooperative, no distress, appears stated age. Neck HEENT: Supple, no lymphadenopathy, no thyroid enlargement, no carotid bruits. Lungs: Decreased breath sounds bilaterally with auscultation without crackles or wheezes no rhonchi, no deformity. Chest Wall: Chest wall decrease expansion with deep inspiration no tenderness and no deformity was found on exam, no costochondral pain or discomfort. Heart: Regular rate and rhythm, S1, S2 normal, positive S3, 2/6 ejection systolic murmur, rub or gallop. Back: Symmetric, no curvature, ROM normal, no CVA tenderness. Abdomen: Soft, non-tender, bowel sounds active all four quadrants, no masses, no organomegaly. Extremities: Extremities normal, atraumatic, no cyanosis or edema. Pulses: 2+ and symmetric. Skin: Skin color, texture, tugor normal, no rashes or lesions. Neurologic: Alert oriented x3 cranial nerves II through XII intact, no motor deficit, no abnormal balance or - Labs CBC & Chem 7: 01/21/18 05:32 01/21/18 05:32 Labs: Abnormal Lab Results - Last 24 Hours (Table) 01/21/18 01/21/18 Range/Units 05:32 05:32 RBC 3.60 L (4.30-5.90) m/uL Hgb 11.6 L (13.0-17.5) gm/dL Hct 34.3 L (39.0-53.0) % Sodium 136 L (137-145) mmol/L Creatinine 0.62 L (0.66-1.25) mg/dL Total Protein 5.0 L (6.3-8.2) g/dL Albumin 2.9 L (3.5-5.0) g/dL Assessment and Plan Plan: 1 multivessel coronary artery disease: Status post three-vessel bypass surgery. From medical standpoint patient had mild risk for complications during after surgery, risk assessment is accepted for this type of surgery no reason to delay surgery or to do any other intervention before this surgery. Patient will be watch hemodynamically will be seen by intensive care/pulmonary regular basis on watch his hemodynamic status along with his blood sugar and watch for any complication after surgery. 2 unstable angina: Patient has been having symptoms repeatedly was on medical management with the current finding of his heart catheter, status post three- vessel bypass surgery 3 mild COPD: With FEV1 of 69%, patient seen pulmonary regular basis will be kept on bronchodilator along with steroid base nebulizer. 4 hypertension: Patient has been on atenolol will continue atenolol and add small dose of ANA inhibitor. 5 hyperlipidemia: Remain on atorvastatin 80 mg daily. 6 chronic history of smoking: Smoking cessation was addressed patient will be on nicotine patch. 7 peripheral vascular disease: Patient has been seen and watch by cardiology further testing and study might be needed in the future. 8 DVT prophylaxis: Patient will continue knee-high MONISHA hose for now on after surgery DVT prophylaxis will be use. 9 GI prophylaxis: Patient will be on Pepcid 20 mg daily. CODE STATUS: Full code. Admit patient to inpatient status for more than 2 nights service will be transferred to cardiothoracic after surgery will continue to watch patient for medical standpoint and daily basis. The above impression and plan of care have been discussed and directed by signing physician. Kelly Strauss nurse practitioner acting as scribe for signing physician.
--- NOTE | 2018-01-23 12:48 | ECHOF ---
Referral Reason:Preop cardiac surgery MEASUREMENTS -------- HEIGHT: 175.3 cm WEIGHT: 67.1 kg BP: IVSd: 1.2 cm (0.6 - 1.1) LVIDd: 3.8 cm (3.9 - 5.3) LVPWd: 1.2 cm (0.6 - 1.1) IVSs: 1.7 cm LVIDs: 3.2 cm LVPWs: 1.4 cm RVIDd: 2.7 cm (< 3.3) LAESV Index (A-L): 21.38 ml/m Ao Diam: 2.9 cm (2.0 - 3.7) LA Diam: 3.1 cm (2.7 - 3.8) AV Cusp: 1.5 cm (1.5 - 2.6) EPSS: 0.7 cm MV E Rj: 1.03 m/s MV DecT: 169 ms MV A Rj: 0.81 m/s MV E/A Ratio: 1.28 RAP: 5.00 mmHg RVSP: 22.02 mmHg MV EF SLOPE: 108.99 mm/s (70 - 150) MV EXCURSION: 1.89 cm (> 18.000) FINDINGS -------- Resting bradycardia (HR<60bpm). This was a technically adequate study. The left ventricular size is normal. There is mild concentric left ventricular hypertrophy. Overa ll left ventricular systolic function is low-normal with, an EF between 50 - 55 %. The right ventricle is normal in size and function. Normal LA size by volume 22+/-6 ml/m2. The right atrium is normal in size. Aortic valve is trileaflet and is mildly thickened. There is no evidence of aortic regurgitation. There is no evidence of aortic stenosis. The mitral valve leaflets are mildly thickened. There is trace to mild mitral regurgitation. Trace tricuspid regurgitation present. Right ventricular systolic pressure is normal at < 35 mmHg. There is no evidence of pulmonary hypertension. Trace/mild (physiologic) pulmonic regurgitation. The aortic root size is normal. Normal inferior vena cava with normal inspiratory collapse consistent with estimated right atrial pre ssure of 5 mmHg. There is no pericardial effusion. CONCLUSIONS -------- 1. Resting bradycardia (HR<60bpm). 2. This was a technically adequate study. 3. The left ventricular size is normal. 4. There is mild concentric left ventricular hypertrophy. 5. Overall left ventricular systolic function is low-normal with, an EF between 50 - 55 %. 6. Normal LA size by volume 22+/-6 ml/m2. 7. Aortic valve is trileaflet and is mildly thickened. 8. The mitral valve leaflets are mildly thickened. 9. There is trace to mild mitral regurgitation. 10. Trace tricuspid regurgitation present. 11. Right ventricular systolic pressure is normal at < 35 mmHg. 12. There is no evidence of pulmonary hypertension. 13. Trace/mild (physiologic) pulmonic regurgitation. 14. The aortic root size is normal. 15. There is no pericardial effusion. ELECTROMEDICAL EQUIPMENT TECHNICIAN: Vic Hooper RDCS
== END 2018-01-21 12:49 | disposition home health service (06) | DRG 234 ==
LOC: CATHCVL 12:34 → 6SEL 14:25 → CATHCVL 01-16 14:37 → 6ICU 01-17 06:13 → 6SEL 01-19 16:30 → 6ICU 01-19 16:33
PROVIDERS: ADMIT Surgery; ATTEND Surgery
PROC: 4A023N7 Measurement of Cardiac Sampling and Pressure, Left Heart, Percutaneous Approach (ICD-10-PCS; principal; 2018-01-16)
PROC: B2111ZZ Fluoroscopy of Multiple Coronary Arteries using Low Osmolar Contrast (ICD-10-PCS; 2018-01-16)
PROC: B2151ZZ Fluoroscopy of Left Heart using Low Osmolar Contrast (ICD-10-PCS; 2018-01-16)
PROC: 03B10ZZ Excision of Left Internal Mammary Artery, Open Approach (ICD-10-PCS; 2018-01-17)
PROC: 06BQ4ZZ Excision of Left Saphenous Vein, Percutaneous Endoscopic Approach (ICD-10-PCS; 2018-01-17)
PROC: 021109W Bypass Coronary Artery, Two Arteries from Aorta with Autologous Venous Tissue, Open Approach (ICD-10-PCS; 2018-01-17)
PROC: B24BZZ4 Ultrasonography of Heart with Aorta, Transesophageal (ICD-10-PCS; 2018-01-17)
PROC: 5A1221Z Performance of Cardiac Output, Continuous (ICD-10-PCS; 2018-01-17)
PROC: 02100AW Bypass Coronary Artery, One Artery from Aorta with Autologous Arterial Tissue, Open Approach (ICD-10-PCS; 2018-01-17 08:00)
DX: I25.110 Atherosclerotic heart disease of native coronary artery with unstable angina pectoris (principal); I25.84 Coronary atherosclerosis due to calcified coronary lesion; I25.82 Chronic total occlusion of coronary artery; E78.5 Hyperlipidemia, unspecified; I10 Essential (primary) hypertension; J44.9 Chronic obstructive pulmonary disease, unspecified; I73.9 Peripheral vascular disease, unspecified; I48.0 Paroxysmal atrial fibrillation; F17.200 Nicotine dependence, unspecified, uncomplicated; I70.0 Atherosclerosis of aorta; Z79.82 Long term (current) use of aspirin; Z79.899 Other long term (current) drug therapy; Z82.49 Family history of ischemic heart disease and other diseases of the circulatory system; Z82.5 Family history of asthma and other chronic lower respiratory diseases; Z71.6 Tobacco abuse counseling
CPT/HCPCS: 36415; 71045; 71046; 80048; 80051; 80053; 80061; 80074; 81001; 82330; 82565; 82805; 83036; 83735; 83880; 84443; 84520; 85025; 85027; 85610; 85730; 86850; 86891; 86900; 86901; 86920; 87070; 87086; 93306; 93458; 93880; 93923; 93970; 94002; 94150; 94640

== ENCOUNTER → 2018-01-24 | Outpatient (CLI) | payer MEDICARE, BC ==
--- NOTE | 2018-01-24 13:05 | XR ---
EXAMINATION TYPE: XR chest 2V DATE OF EXAM: 01/24/2018 COMPARISON: Chest x-ray from 3 days ago. HISTORY: History of cardiac bypass surgery one week ago TECHNIQUE: Frontal and lateral views of the chest are obtained. FINDINGS: There is persistent left neck subcutaneous emphysema. Post CABG changes with mediastinal cl ips and sternal wires is redemonstrated. There is persistent small left pleural effusion and associat ed left basilar atelectasis. . There is new right infrahilar atelectasis and/or infiltrate. No sizabl e pneumothorax is seen bilaterally. The cardiac silhouette size is stable and enlarged. The osseous structures are intact. IMPRESSION: Persistent left neck subcutaneous emphysema. Persistent cardiomegaly with small left ple ural effusion and associated left basilar atelectasis and/or infiltrate. No residual left-sided pneum othorax currently. Suspect new right medial infrahilar atelectasis and/or infiltrate. Consider progre ss study.
== END | disposition home or self-care (01) ==
LOC: RADXRMAIN 11:37
PROVIDERS: ATTEND Nurse Practitioner Acute Care
DX: J98.2 Interstitial emphysema (principal); I51.7 Cardiomegaly; J90 Pleural effusion, not elsewhere classified
CPT/HCPCS: 71046

== ENCOUNTER → 2018-03-11 | Outpatient (CLI) | payer MEDICARE, BC ==
[2018-03-11 09:02] LABS: ALT 29 U/L (21-72); AST 22 U/L (17-59); Albumin 4.3 g/dL (3.5-5.0); Alkaline Phosphatase 86 U/L (38-126); Anion Gap 7 mmol/L; Blood Urea Nitrogen 13 mg/dL (9-20); Carbon Dioxide 29 mmol/L (22-30); Chloride 104 mmol/L (98-107); Cholesterol 170 mg/dL (<200); Glucose 96 mg/dL (74-99); HDL Cholesterol 41 mg/dL (40-60); LDL Cholesterol,Calculated 104 mg/dL (0-99); Potassium 5.1 mmol/L (3.5-5.1); Sodium 140 mmol/L (137-145); Total Bilirubin 0.2 mg/dL (0.2-1.3); Total Protein 6.7 g/dL (6.3-8.2); Triglycerides 123 mg/dL (<150)
== END | disposition home or self-care (01) ==
LOC: LABWHC1 07:57
PROVIDERS: ATTEND Internal Medicine Interventional Cardiology
DX: E78.2 Mixed hyperlipidemia (principal)
CPT/HCPCS: 36415; 80053; 80061

== ENCOUNTER → 2018-11-03 | Outpatient (CLI) | payer MEDICARE, BC ==
[2018-11-03 16:29] LABS: Albumin 4.7 g/dL (3.80-4.90); Albumin/Globulin Ratio 2.61 (1.60-3.17); Anion Gap 6.8 mmol/L (4.00-12.00); Carbon Dioxide 27.2 mmol/L (21.6-31.8); Globulin 1.8 g/dL (1.6-3.3); LDL Cholesterol,Calculated 70.6 mg/dL (0.0-131.0); Potassium 4.8 mmol/L (3.5-5.5); Total Bilirubin 0.4 mg/dL (0.3-1.2); Total Protein 6.5 g/dL (6.2-8.2); VLDL Calculation 31.4 mg/dL (5.00-40.00)
== END | disposition home or self-care (01) ==
LOC: LABWHC1 07:32
PROVIDERS: ATTEND Internal Medicine Interventional Cardiology
DX: E78.2 Mixed hyperlipidemia (principal)
CPT/HCPCS: 36415; 80053; 80061

== ENCOUNTER → 2018-12-31 | Outpatient (CLI) | payer MEDICARE, BC ==
[2018-12-31 08:34] LABS: HCT 45.7 % (39.0-53.0); HGB 14.6 gm/dL (13.0-17.5); MCH 29.6 pg (25.0-35.0); MCHC 32.1 g/dL (31.0-37.0); MCV 92.2 fL (80.0-100.0); Mean Platelet Volume 7.5; Platelet Count 283 k/uL (150-450); RBC 4.95 m/uL (4.30-5.90); RDW 13.9 % (11.5-15.5); WBC 6.6 k/uL (3.8-10.6)
[2018-12-31 08:39] LABS: Potassium 5.2 mmol/L (3.5-5.1)
== END | disposition home or self-care (01) ==
LOC: LABPAT 07:19
PROVIDERS: ATTEND Internal Medicine Interventional Cardiology
DX: I25.10 Atherosclerotic heart disease of native coronary artery without angina pectoris (principal); E78.2 Mixed hyperlipidemia; Z01.812 Encounter for preprocedural laboratory examination; I73.9 Peripheral vascular disease, unspecified; Z95.1 Presence of aortocoronary bypass graft
CPT/HCPCS: 36415; 80051; 82565; 82947; 84520; 85027

== ENCOUNTER 2019-01-08 07:41 | Day surgery (SDC) | payer MEDICARE, BC ==
[2019-01-05 13:42] VITALS: BMI 25.1
[~2019-01-08 07:41] MED LIST: ALPRAZolam 0.25 MG TAB PO PRN; ALPRAZolam 0.5 MG TAB PO PRN; ASPIRIN 325 MG TAB PO STA; ATORVASTATIN 80 MG TAB PO STA; NITROGLYCERIN SL TABS 0.4 MG TAB SUBLINGUAL PRN; SODIUM CHLORIDE 0.9% 1,000 ML in EMPTY BAG 1 BAG IV ONE
[2019-01-08 08:18] VITALS: PULSE 94; TEMP 97.8
[2019-01-08] MEDS ORDERED: fentaNYL (PF) 50 MCG/ML 2 ML AMP ONE (09:13)
[2019-01-08] MEDS ORDERED: LIDOCAINE 1% INJ 10MG/ML (20 ML MDV) ONE (09:13)
[2019-01-08] MEDS ORDERED: fentaNYL (PF) 50 MCG/ML 2 ML AMP IV ONE (09:37)
[2019-01-08] MEDS ORDERED: LIDOCAINE 1% INJ 10MG/ML (20 ML MDV) SQ ONE (09:52)
[2019-01-08] MEDS ORDERED: IOPAMIDOL-370 50ML BTL INJ ONE (10:11)
[2019-01-08] MEDS ORDERED: IOPAMIDOL-370 125ML BTL INJ ONE (10:11)
[2019-01-08] MEDS ORDERED: RX INFO: IV CONTRAST WAS GIVEN 1 EACH MISC MISCELLANE PRN (10:32)
[2019-01-08] MEDS ORDERED: SODIUM CHLORIDE 0.9% 1,000 ML IV SCH (10:45)
--- NOTE | 2019-01-08 11:22 | CC ---
CARDIAC CATHETERIZATION REPORT Mr. Huizar is a 73-year-old male with known history of coronary artery disease, status post coronary artery bypass grafting, history of hypertension, hyperlipidemia, diabetes mellitus as well history of peripheral vascular disease who has been complaining of episode of chest discomfort, consistent with angina pectoris and had a positive stress test. In view of that, recommendation made regarding cardiac catheterization, the procedures, it risks and complication were discussed with the patient who is in full understanding and agreement. PROCEDURE: Patient was brought to the quality assurance lab technician in a fasting semi-sedated state after receiving fentanyl and Benadryl and achieving moderate conscious sedated state. Using Xylocaine anesthesia and Seldinger technique, a 6-[place]izen [place] sheath was introduced in the right femoral artery. Selective right and left coronary angiography was performed using6- [place], 4 bend right Christine catheter. Multiple views of the coronary artery including hemiaxial views obtained. From that the right Christine catheter was used to cannulate the saphenous vein grafts and as well as BALDERAS to LAD. Images of the grafts were obtained. Following that, a 6-[place]izen [place] tight pigtail catheter was introduced into the left ventricle and a 30 degree HAND view of the left ventricle was obtained. Following that catheter and sheaths were removed. Hemostasis was obtained with compression of the right groin. There was no immediate complication patient is returned to his room in stable condition. FINDINGS: 1. FLUOROSCOPY: There was severe calcification involving all the coronary arteries and the right femoral artery. 2. LEFT MAIN: This is a large-sized vessel bifurcating into left circumflex, left anterior descending artery, left main coronary artery, has an ostial 95% stenosis. The rest of the vessel has no high-grade stenosis. 3. LEFT ANTERIOR DESCENDING ARTERY: This is a large-sized vessel giving rise to 2 diagonal branch, heavily calcified. Prior to the takeoff of the first diagonal branch, there is a 95% heavily calcified lesion after the takeoff of the second diagonal after the takeoff of the first diagonal branch. There is another area of stenosis of 95%. There was competitive flow in the LAD but no competitive flow in both diagonal branch. 4. LEFT CIRCUMFLEX: This is a nondominant small vessel that has chronic occluded small obtuse marginal branch. The left circumflex bright in the proximal segment has a 90% stenosis. The rest of the vessel has no high-grade stenosis. 5. RIGHT CORONARY ARTERY: This vessel is heavily calcified, totally occluded in mid segment with no antegrade flow. 6. COLLATERALS: There is clot from the left coronary system toward the right PDA. 7. SAPHENOUS VEIN GRAFT TO THE DIAGONAL BRANCH, DIAGONAL 1: This graft is totally occluded proximally. Two saphenous vein graft to the diagonal branch 2. This graft is totally occluded proximally. 8. BALDERAS TO LAD: The distal anastomotic site is patent. The flow into the LAD is brisk. There is no evidence of high-grade stenosis. 9. LEFT VENTRICULOGRAM: Left ventriculogram has been performed in 30 degree HAND view and revealed a normal left ventricular size with inferior wall hypokinesis. Ejection fraction is estimated at 50% there was arrhythmia induced mitral regurgitation severe calcification in the abdominal aorta was noted. 10.HEMODYNAMICS: There was no gradient across the aortic valve. The left ventricular end-diastolic pressure was 16-20 mmHg. CONCLUSION: 1. Heavily calcified coronary artery and calcified right femoral artery. 2. Severe left main disease. 3. Critical stenosis in the proximal and mid left anterior descending artery. 4. Critical stenosis in the left circumflex. 5. Chronic occluded right coronary artery. 6. Patent BALDERAS to LAD. 7. Chronically occluded saphenous vein graft to the diagonal 1 and 2. 8. Mildly impaired left ventricular systolic function with calcified abdominal aorta. RECOMMENDATION: In view of finding anatomy, I will maximize his medical therapy at this time and the patient will undergo evaluation for possible high risk stenting of the left main and the LAD. Those findings and recommendation were discussed with the patient his family, who are in full understanding and agreement. Duration of procedure is 22 minutes. MMTHOML / JAIRN: [id number] /
[2019-01-08 13:51] LABS: Glucose,Whole Blood 81 mg/dL (75-99)
[2019-01-08 14:42] VITALS: RESP 18
[2019-01-08 17:55] VITALS: BP 118/58
[2019-01-08] MEDS ORDERED: CLOPIDOGREL 75 MG TAB PO SCH (21:00)
[2019-01-08] MEDS ORDERED: METOPROLOL TARTRATE 25 MG TAB PO SCH (21:00)
[2019-01-08] MEDS ORDERED: LISINOPRIL 5 MG TAB PO SCH (21:00)
[2019-01-09] MEDS ORDERED: PANTOPRAZOLE 40 MG TABLET PO SCH (07:30)
[2019-01-09] MEDS ORDERED: ISOSORBIDE MONONITRATE ER 30 MG TAB.ER.24H PO SCH (09:00)
[2019-01-09] MEDS ORDERED: EZETIMIBE 10 MG TAB PO SCH (09:00)
[2019-01-09] MEDS ORDERED: ATORVASTATIN 40 MG TAB PO SCH (09:00)
[2019-01-09] MEDS ORDERED: ASPIRIN 81 MG PO SCH (09:00)
--- NOTE | 2019-01-12 17:42 | CDI ---
Outpatient Documentation Clarification Form Date: 01/12/19 CDS/Tree Wrapper Name: Angi Lujan Phone: If any questions, call Megan Black Bevel Polisher at [phone] Patient Name: Michele Huizar Admit Date: 01/08/19 Discharge Date: 01/08/19 ATTENTION: The [facility] Coding Staff appreciate your assistance in clarifying documentation. Please respond to the clarification below the line at the bottom and electronically sign. The [facility] Coding staff will review the response and follow-up if needed. Please note: Queries are made part of the Legal Health Record. If you have any questions, please contact the Bevel Polisher. Dear Dr. Nicholson, Please provide clarification as to the location of the calcification in the Right Coronary Artery. In or to code to the greatest specificity, please clarify if the stenosis was in-stent or int the artery itself. On the H&P under Cardiovascular procedures it states that the MID RCA ws stented in 2009. On the Operative report it is documented that the RCA is heavily calcified and totally occluded in the MID segment. Please clarify. Thank you for your kind consideration, _Diffuse calcification MTDD
--- NOTE | 2019-01-14 12:51 | CDI ---
Outpatient Documentation Clarification Form Date: 01/12/19 CDS/Entry Level Staff Accountant Name: Angi Lujan Phone: If any questions, call Megan Black Program Engineer at [phone] Patient Name: Michele Huizar Admit Date: 01/08/19 Discharge Date: 01/08/19 ATTENTION: The [facility] Coding Staff appreciate your assistance in clarifying documentation. Please respond to the clarification below the line at the bottom and electronically sign. The [facility] Coding staff will review the response and follow-up if needed. Please note: Queries are made part of the Legal Health Record. If you have any questions, please contact the Program Engineer. Dear Dr. Nicholson, Patient presented for a cardiac catheterization because of episodes of angina pectoris and a positive stress test. Patient has known CAD and has had a CABG along with a stent placement in 2009 in the RCA. Views of the RCA on this catheterization exam showed heavy calcification and total occlusion in the mid segment. Thank you for clarifying that there was diffuse calcifications in your previous query answer. Further clarification is needed, however. Please clarify if the stent that was previously placed within the RCA is involved in the current occlusion/disease within the RCA. Please clarify: Not involved with the occlusion End stent restenosis (disease adjacent to the stent) In stent (within the stent) Other (please specify) Unable to determine Thank you for your kind consideration, The RCA is patent and has moderate disease MTDD
== END 2019-01-08 17:50 | disposition home or self-care (01) ==
LOC: CATHCVL 07:41
PROVIDERS: ATTEND Internal Medicine Interventional Cardiology
DX: I25.10 Atherosclerotic heart disease of native coronary artery without angina pectoris (principal); I70.0 Atherosclerosis of aorta; I25.84 Coronary atherosclerosis due to calcified coronary lesion; I25.82 Chronic total occlusion of coronary artery; I10 Essential (primary) hypertension; F17.210 Nicotine dependence, cigarettes, uncomplicated; E78.5 Hyperlipidemia, unspecified; Z79.02 Long term (current) use of antithrombotics/antiplatelets; Z79.82 Long term (current) use of aspirin; Z79.899 Other long term (current) drug therapy; Z95.5 Presence of coronary angioplasty implant and graft
CPT/HCPCS: 93459; 84132; C1769 ×2; C1894; J2001; J3010; Q9967 ×2

== ENCOUNTER → 2019-06-17 | Outpatient (CLI) | payer MEDICARE, BC ==
[2019-06-17 16:03] LABS: African American GFR (CKD) 86.8 (60.0-200.0); Albumin 4.6 g/dL (3.80-4.90); Albumin/Globulin Ratio 2.56 (1.60-3.17); Anion Gap 11.5 mmol/L (4.00-12.00); Calcium 9.7 mg/dL (8.7-10.3); Carbon Dioxide 24.5 mmol/L (21.6-31.8); Chol/HDL Ratio 3.74; Globulin 1.8 g/dL (1.6-3.3); Non-African American GFR(CKD) 74.9 (60.0-200.0); Potassium 4.5 mmol/L (3.5-5.5); Total Bilirubin 0.3 mg/dL (0.2-1.2); Total Protein 6.4 g/dL (6.2-8.2)
== END | disposition home or self-care (01) ==
LOC: LABWHC1 08:10
PROVIDERS: ATTEND Internal Medicine Interventional Cardiology
DX: E78.2 Mixed hyperlipidemia (principal)
CPT/HCPCS: 36415; 80053; 80061

== ENCOUNTER → 2019-12-10 | Outpatient (CLI) | payer MEDICARE, BC ==
[2019-12-10 15:21] LABS: Chol/HDL Ratio 3.69; LDL Cholesterol,Calculated 66.2 mg/dL (0.0-131.0); VLDL Calculation 27.8 mg/dL (5.00-40.00)
== END | disposition home or self-care (01) ==
LOC: LABWHC1 08:01
PROVIDERS: ATTEND Nurse Practitioner Adult Health
DX: E78.2 Mixed hyperlipidemia (principal)
CPT/HCPCS: 36415; 80061; 84450; 84460

== ENCOUNTER → 2020-06-21 | Outpatient (CLI) | payer MEDICARE, BC ==
[2020-06-21 08:28] LABS: Basophils # (A) 0.1 k/uL (0-0.2); Basophils % (A) 1 %; Eosinophils # (A) 0.3 k/uL (0-0.7); Eosinophils % (A) 4 %; HCT 46.7 % (39.0-53.0); HGB 15.6 gm/dL (13.0-17.5); Lymphocytes # (A) 1.7 k/uL (1.0-4.8); Lymphocytes % (A) 23 %; MCH 31.9 pg (25.0-35.0); MCHC 33.5 g/dL (31.0-37.0); MCV 95.4 fL (80.0-100.0); Mean Platelet Volume 7.1; Monocytes # (A) 0.5 k/uL (0-1.0); Monocytes % (A) 8 %; Neutrophils # (A) 4.3 k/uL (1.3-7.7); Neutrophils % (A) 61 %; Platelet Count 259 k/uL (150-450); RDW 12.5 % (11.5-15.5); WBC 7.1 k/uL (3.8-10.6)
[2020-06-21 15:59] LABS: African American GFR (CKD) 76.8 (60.0-200.0); Albumin 4.6 g/dL (3.80-4.90); Albumin/Globulin Ratio 2.3 (1.60-3.17); Anion Gap 7.6 mmol/L (4.00-12.00); BUN/Creat Ratio 16.36 Ratio (12.00-20.00); Carbon Dioxide 28.4 mmol/L (21.6-31.8); Chol/HDL Ratio 4.03; LDL Cholesterol,Calculated 80.8 mg/dL (0.0-131.0); Non-African American GFR(CKD) 66.2 (60.0-200.0); Potassium 4.8 mmol/L (3.5-5.5); Total Bilirubin 0.4 mg/dL (0.2-1.2); Total Protein 6.6 g/dL (6.2-8.2); VLDL Calculation 25.2 mg/dL (5.00-40.00)
== END | disposition home or self-care (01) ==
LOC: LABWHC1 07:47
PROVIDERS: ATTEND Internal Medicine Interventional Cardiology
DX: E78.2 Mixed hyperlipidemia (principal); I10 Essential (primary) hypertension
CPT/HCPCS: 36415; 80053; 80061; 84443; 85025

== ENCOUNTER → 2020-12-14 | Outpatient (CLI) | payer MEDICARE, BC ==
[2020-12-14 14:53] LABS: Chol/HDL Ratio 4.59
== END | disposition home or self-care (01) ==
LOC: LABWHC1 07:53
PROVIDERS: ATTEND Nurse Practitioner Adult Health
DX: E78.2 Mixed hyperlipidemia (principal)
CPT/HCPCS: 36415; 80061

== ENCOUNTER → 2021-07-11 | Outpatient (CLI) | payer MEDICARE, BC ==
[2021-07-11 19:23] LABS: ALT 20 U/L (10-49); AST 14 U/L (14-35); African American GFR (CKD) 97.2 (60.0-200.0); Albumin 4.4 g/dL (3.8-4.9); Alkaline Phosphatase 99 U/L (41-126); Blood Urea Nitrogen 13.5 mg/dL (9.0-27.0); Calcium 9.4 mg/dL (8.7-10.3); Carbon Dioxide 20.7 mmol/L (20.0-27.5); Chloride 104 mmol/L (96-109); Chol/HDL Ratio 3.87 Ratio; Globulin 2.2 g/dL (1.6-3.3); Glucose 98 mg/dL (70-110); LDL Cholesterol,Calculated 77.3 mg/dL (0.0-131.0); Non-African American GFR(CKD) 83.8 (60.0-200.0); Potassium 4.5 mmol/L (3.5-5.5); Sodium 140 mmol/L (135-145); Total Protein 6.6 g/dL (6.2-8.2)
== END | disposition home or self-care (01) ==
LOC: LABWHC1 08:23
PROVIDERS: ATTEND Internal Medicine Interventional Cardiology
DX: E78.2 Mixed hyperlipidemia (principal)
CPT/HCPCS: 36415; 80053; 80061

== ENCOUNTER 2021-11-25 13:51 | Emergency (ER) | payer MEDICARE, BC ==
[2021-11-25 13:56] VITALS: RESP 18; TEMP 98
[2021-11-25] MEDS ORDERED: LIDOCAINE 1% INJ 10MG/ML (5 ML VIAL-PF) SQ ONE (14:29)
[2021-11-25] MEDS ORDERED: LIDOCAINE/EPINEPHR/TETRACAINE 5 ML BOTTLE TOPICAL ONE (14:30)
--- NOTE | 2021-11-25 14:35 | ED ---
General Adult HPI - General Chief complaint: Wound/Laceration Stated complaint: L hand finger lac Time Seen by Provider: 11/25/21 14:20 Source: patient, RN notes reviewed, old records reviewed Mode of arrival: ambulatory Limitations: no limitations - History of Present Illness Initial comments: 76-year-old male presents with complaints of laceration to his left middle finger last night around 6 PM. Patient states he cut it on his own pocketknife. He did not seek care at that time. He states that he did wash out and put a bandage on it. However today it opened up again and has not been able to get it to stop bleeding. Patient states his tetanus shot is up-to-date. -: hour(s) (22) Location: left (finger), upper extremity Radiation: non-radiation Severity scale (1-10): 4 Quality: constant Consistency: constant Associated Symptoms: denies other symptoms Treatments Prior to Arrival: other (bandage) - Related Data Home Medications Medication Instructions Recorded Confirmed Aspirin [Adult Low Dose Aspirin EC] 81 mg PO DAILY 01/05/19 01/08/19 Clopidogrel [Plavix] 75 mg PO HS 01/05/19 01/05/19 Ezetimibe [Zetia] 10 mg PO DAILY 01/05/19 01/05/19 lisinopriL [Zestril] 5 mg PO HS 01/05/19 01/05/19 Previous Rx's Medication Instructions Recorded Atorvastatin [Lipitor] 40 mg PO DAILY #30 tab 01/21/18 Metoprolol Tartrate [Lopressor] 25 mg PO BID #60 tab 01/21/18 Pantoprazole [Protonix] 40 mg PO AC-BRKFST #30 tablet. 01/21/18 Isosorbide Mononitrate ER [Imdur] 30 mg PO DAILY #90 tab 01/08/19 Cephalexin [Keflex] 500 mg PO Q6HR 2 Days #8 cap 11/25/21 Allergies Allergy/AdvReac Type Severity Reaction Status Date / Time No Known Allergies Allergy Verified 11/25/21 13:56 Review of Systems ROS Statement: Those systems with pertinent positive or pertinent negative responses have been documented in the HPI. ROS Other: All systems not noted in ROS Statement are negative. Past Medical History Past Medical History: Coronary Artery Disease (CAD), COPD, Hyperlipidemia, Hypertension, Vascular Disorder History of Any Multi-Drug Resistant Organisms: None Reported Past Surgical History: Heart Catheterization With Stent Additional Past Surgical History / Comment(s): two cardiac stents, triple bypass 12/2017 Past Anesthesia/Blood Transfusion Reactions: No Reported Reaction Date of Last Stent Placement:: 2007 Past Psychological History: No Psychological Hx Reported Smoking Status: Never smoker Past Alcohol Use History: None Reported Past Drug Use History: None Reported - Past Family History Mother Family Medical History: Myocardial Infarction ([place]) Father Family Medical History: Pneumonia Brother(s) Family Medical History: Cancer General Exam Limitations: no limitations General appearance: alert, in no apparent distress Respiratory exam: Absent: respiratory distress Cardiovascular Exam: Present: regular rate Left Hand Wrist exam: Present: laceration (laceration to Flexor surface of the left middle finger approximately 3 cm) Vascular: Present: normal capillary refill. Absent: vascular compromise Neurological exam: Present: alert, oriented X3, normal gait Psychiatric exam: Present: normal affect, normal mood Skin exam: Present: warm, dry, normal color. Absent: cyanosis, diaphoretic, petechiae, pallor Course Vital Signs 11/25/21 11/25/21 13:54 14:50 Temperature 98 F Pulse Rate 93 89 Respiratory 18 18 Rate Blood Pressure 115/72 O2 Sat by Pulse 98 Oximetry Procedures - Laceration Laceration #1 Consent Obtained: verbal consent Indication: laceration Site: other (ring finger left hand) Description: linear Depth: simple, single layer Anesthetic Used: lidocaine 1% Anesthesia Technique: local infiltration Type of Sutures: nylon Size of Sutures: 4-0 Number of Sutures: 5 Technique: simple, interrupted Patient Tolerated Procedure: well Medical Decision Making - Medical Decision Making Patient presents with a laceration to his left middle finger he sustained last night at 6 PM, cut with his own pocket knife. Wound was closed with 5 sutures. He has full extension and flexion of the finger and capillary refill is less than 2 seconds. Patient was placed on antibiotics prophylactically for 2 days. He states that his tetanus shot is up-to-date. He was discharged home to have sutures removed in 10 days, keep wound clean and dry and return if any complications including fever, redness, increased pain or drainage. Patient is agreeable to this plan of care. Disposition Clinical Impression: Laceration Disposition: HOME SELF-CARE Condition: Good Instructions (If sedation given, give patient instructions): Finger Laceration (ED) Additional Instructions: Keep wound clean and dry. Sutures to be removed in 10 days. Take antibiotics for the next 2 days as prescribed to prevent infection. Return to the emergency room with any new or concerning symptoms including fever, redness, increased pain or drainage. Prescriptions: Cephalexin [Keflex] 500 mg PO Q6HR 2 Days #8 cap Is patient prescribed a controlled substance at d/c from ED?: No Referrals: Nura Owusu MD [Primary Care Provider] - 1-2 days Time of Disposition: 15:28
[2021-11-25 14:53] VITALS: BP 115/72; PULSE 89
== END 2021-11-25 15:40 | disposition home or self-care (01) ==
LOC: EC 13:51
DX: S61.213A Laceration without foreign body of left middle finger without damage to nail, initial encounter (principal); I10 Essential (primary) hypertension; J44.9 Chronic obstructive pulmonary disease, unspecified; I25.10 Atherosclerotic heart disease of native coronary artery without angina pectoris; E78.5 Hyperlipidemia, unspecified; Z79.02 Long term (current) use of antithrombotics/antiplatelets; Z79.82 Long term (current) use of aspirin; Z79.899 Other long term (current) drug therapy; Z95.5 Presence of coronary angioplasty implant and graft; W26.0XXA Contact with knife, initial encounter
CPT/HCPCS: 12002; 99282; J2001

== ENCOUNTER → 2022-08-01 | Outpatient (CLI) | payer MEDICARE ==
[2022-08-01 16:01] LABS: Basophils # (A) 0.09 X 10*3/uL (0.00-0.10); Basophils % (A) 0.8 %; Eosinophils % (A) 6.7 %; HCT 41.6 % (39.6-50.0); HGB 12.7 g/dL (13.0-17.0); Immature Grans, Automated 0.8 %; Lymphocytes # (A) 1.71 X 10*3/uL (0.90-5.00); Lymphocytes % (A) 14.3 %; MCH 27.3 pg (27.0-32.0); MCHC 30.5 g/dL (32.0-37.0); MCV 89.3 fL (80.0-97.0); Mean Platelet Volume 9.4 fL (9.5-12.2); Monocytes # (A) 1.28 X 10*3/uL (0.20-1.00); Monocytes % (A) 10.7 %; NRBC Per 100 WBC 0 /100 WBCS (0.0-0.0); Neutrophils # (A) 8.02 X 10*3/uL (1.80-7.70); Neutrophils % (A) 66.7 %; Platelet Count 456 X 10*3/uL (140-440); RBC 4.66 X 10*6/uL (4.40-5.60); RDW 13.5 % (11.5-14.5)
[2022-08-01 16:32] LABS: ALT 23 U/L (10-49); AST 18 U/L (14-35); African American GFR (CKD) 96.5 (60.0-200.0); Albumin/Globulin Ratio 1.54 (1.60-3.17); Alkaline Phosphatase 105 U/L (41-126); BUN/Creat Ratio 18.11 Ratio (12.00-20.00); Blood Urea Nitrogen 16.3 mg/dL (9.0-27.0); Calcium 9.7 mg/dL (8.7-10.3); Carbon Dioxide 25.7 mmol/L (20.0-27.5); Chloride 98 mmol/L (96-109); Chol/HDL Ratio 3.69 Ratio; Globulin 2.6 g/dL (1.6-3.3); Glucose 96 mg/dL (70-110); LDL Cholesterol,Calculated 72.6 mg/dL (0.0-131.0); Magnesium 1.9 mg/dL (1.5-2.4); Non-African American GFR(CKD) 83.3 (60.0-200.0); Potassium 4.8 mmol/L (3.5-5.5); Sodium 136 mmol/L (135-145); Total Protein 6.6 g/dL (6.2-8.2)
[2022-08-01 17:02] LABS: Appearance,Urine Clear (Clear); Bilirubin,Urine Negative (Negative); Blood,Urine Negative (Negative); Color,Urine Yellow (Yellow); Ketones,Urine Negative (Negative); Nitrite,Urine Negative (Negative); Specific Gravity,Urine 1.017 (1.001-1.030); Urobilinogen,Urine 0.2 (0.2,1.0)
== END | disposition home or self-care (01) ==
LOC: LABWHC1 07:14
PROVIDERS: ATTEND Internal Medicine Interventional Cardiology
DX: I10 Essential (primary) hypertension (principal); E78.2 Mixed hyperlipidemia; R73.03 Prediabetes
CPT/HCPCS: 36415; 80053; 80061; 81003; 83036; 83735; 84439; 84443; 85025

== ENCOUNTER → 2022-08-23 | Outpatient (CLI) | payer MEDICARE ==
--- NOTE | 2022-08-24 08:03 | CT ---
"EXAMINATION TYPE: CT angio neck DATE OF EXAM: 08/23/2022 COMPARISON: None HISTORY: carotid stenosis. CT DLP: 202.8 mGycm CONTRAST: CTA cervical carotids is performed and with IV Contrast, patient injected with 70 mL of Isovue 370. Contrast CTA of the cervical carotids was performed 3-D reconstruction imaging obtained at a separate workstation. Right carotid system: Mild plaque is seen of the right common carotid artery. There is moderate to s evere plaque also noted at the carotid bulb. Estimated diameter reduction is greater than 90%. ECA is patent. Right vertebral artery appears unremarkable. Left carotid system: Mild plaque is seen of the left common carotid artery. There is mild plaque als o noted at the carotid bulb. Estimated diameter reduction is less than 50%. ECA is patent. Left ve rtebral artery appears unremarkable. There is right upper lobe masslike density with volume loss and paratracheal adenopathy highly suspic ious for malignancy. Dedicated CT of the chest is advised. IMPRESSION: 1. Right upper lobe masslike density with paratracheal adenopathy suspicious for malignancy. CT of th e chest is recommended. 1. High-grade stenosis right carotid bulb with estimated diameter reduction of greater than 90%. 2. Estimated diameter reduction Left ICA less than 50%. NASCET criteria was used in interpretation of this exam? A Yellow level critical message alert has been initiated for Kyle Nicholson MD via the [email or web address] 36 0 | Critical Results System on 08/23/2022 3:30 PM. This message alert has been sent to Kyle Nicholson MD via the preferences provided by the clinician for the receipt of Radiology Critical Findings. [facility] ID [id number]."
== END | disposition home or self-care (01) ==
LOC: RADCTMAIN 13:52
PROVIDERS: ATTEND Internal Medicine Interventional Cardiology
DX: I65.23 Occlusion and stenosis of bilateral carotid arteries (principal)
CPT/HCPCS: 82565; 84520; 70498; 36415; Q9967

== ENCOUNTER → 2022-08-28 | Outpatient (CLI) | payer MEDICARE, BC ==
[2022-08-28 09:33] LABS: African American GFR (CKD) >90 (>60 ml/min/1.73 sqM); Blood Urea Nitrogen 15 mg/dL (9-20); Non-African American GFR(CKD) 89 (>60 ml/min/1.73 sqM)
--- NOTE | 2022-08-28 10:18 | CT ---
EXAMINATION TYPE: CT chest w con CT DLP: 475 mGycm, Automated exposure control for dose reduction was used. DATE OF EXAM: 08/28/2022 10:03 AM COMPARISON: CTA neck 08/23/2022. CLINICAL INDICATION:Male, 77 years old with history of R91.8; PHH, Abnormal findings in lung field TECHNIQUE: Multiple axial images were obtained through the chest following the administration of 100 cc of Isovue 300. FINDINGS: LUNGS/ PLEURA: No pleural effusion or pneumothorax. Large right upper lobe heterogenous enhancing mas s with extension into the mediastinum. This measures grossly 11.7 x 8.5 x 11.8 cm in AP, TV, CC dimen sions. There is mild mass effect upon the superior vena cava. There is mass effect involving the uppe r lobe branches of the right segmental pulmonary arteries. There is tapering with cut off of the righ t upper lobe bronchus. Small left upper lower lobe superior segment and superior segment of the right upper lobe subpleural consolidations. Left upper lobe 4 mm pulmonary nodule (series 4, image 22). AIRWAY: The trachea is patent. HEART: Size within normal limits. No pericardial effusion. Coronary arterial calcifications and/or st ents. MEDIASTINUM: Right paratracheal and prevascular space enlarged lymph nodes with significant including a right paratracheal lymph node measuring 1.1 cm short axis (series 3, image 20). Additional enlarge d conglomerate right hilar lymph nodes with example including a 1.1 cm short axis lymph node (series 3, image 33). Post-CABG changes. VASCULATURE: No aortic aneurysm. Atherosclerotic calcification of the aorta and its branches. MUSCULOSKELETAL: No acute osseous abnormalities. Median sternotomy wires. No aggressive osseous lesio n. SOFT TISSUES/LYMPH NODES: Unremarkable. LOWER NECK: No significant findings. UPPER ABDOMEN: Left adrenal gland heterogenous hypoattenuating mass measuring 4.8 x 4.0 cm. Right darryn al 1.0 cm cyst. IMPRESSION: 1. Large right upper lobe mass measuring up to 11.8 cm which is considered malignancy until proven ot herwise. There is associated cut off of the upper lobe bronchus and invasion into the mediastinum. 2. Pathologically enlarged mediastinal lymph nodes consistent with metastasis. 3. Pathologically enlarged left adrenal gland mass consistent with metastasis. 4. Nonspecific left upper lobe 4 mm pulmonary nodule. A Yellow level critical message alert has been initiated for Nura Owusu MD via the [employer] Critical Results System on 08/28/2022 10:14 AM. This message alert has been sent to Nura Owusu MD vi a the preferences provided by the clinician for the receipt of Radiology Critical Findings. Message I D [id number].
== END | disposition home or self-care (01) ==
LOC: RADCTMAIN 08:29
PROVIDERS: ATTEND Internal Medicine
DX: R91.8 Other nonspecific abnormal finding of lung field (principal); E27.9 Disorder of adrenal gland, unspecified; R59.0 Localized enlarged lymph nodes
CPT/HCPCS: 82565; 84520; 71260; 36415; Q9967

== ENCOUNTER 2022-12-12 10:53 | Inpatient (IN) | payer MEDICARE ==
[2022-12-12] MEDS ORDERED: SODIUM CHLORIDE 0.9% 500 ML 500 ML IV STA (11:10)
[2022-12-12] MEDS ORDERED: ONDANSETRON 4 MG/2 ML VIAL IVP STA (11:11)
--- NOTE | 2022-12-12 11:34 | XR ---
EXAMINATION TYPE: XR chest 2V DATE OF EXAM: 12/12/2022 11:25 AM COMPARISON: CT 08/28/2022. Chest radiograph 01/15/2019 TECHNIQUE: XR chest 2V Frontal and lateral views of the chest. CLINICAL INDICATION:Male, 77 years old with history of syncope; FINDINGS: Lungs/Pleura: There is no evidence of pneumothorax. Blunting of the costophrenic angles. Lobe consol idation changes superimposed on chronic airspace disease. Pulmonary vascularity: Unremarkable. Heart/mediastinum: Cardiomediastinal silhouette is unremarkable. Musculoskeletal: No acute osseous pathology. Midline sternotomy wires are noted. IMPRESSION: 1. Right upper lobe consolidation changes compatible with known mass seen on prior CT 08/28/2022 2. Blunting of the costophrenic angles correlate for underlying trace pleural effusions.
--- NOTE | 2022-12-12 11:55 | ED ---
General Adult HPI - General Chief complaint: Syncope Stated complaint: pass out Time Seen by Provider: 12/12/22 10:59 Source: patient, EMS, RN notes reviewed Mode of arrival: EMS Limitations: no limitations - History of Present Illness Initial comments: 77-year-old male presents emergency dept via EMS from cardiology's office for syncopal episode. Patient states he was driving out some paperwork there when he passed out. Patient states he has not been feeling well after he had chemo 2 weeks ago. Patient states been feeling lightheaded, dizzy. Patient denies any complaints of chest pain or increasing shortness breath. Patient is on chemotherapy for lung cancer. - Related Data Home Medications Medication Instructions Recorded Confirmed Aspirin [Adult Low Dose Aspirin EC] 81 mg PO DAILY 01/05/19 12/12/22 Clopidogrel [Plavix] 75 mg PO HS 01/05/19 12/12/22 Ezetimibe [Zetia] 10 mg PO DAILY 01/05/19 12/12/22 lisinopriL [Zestril] 5 mg PO HS 01/05/19 12/12/22 Ranolazine [Ranexa] 1,000 mg PO BID 09/06/22 12/12/22 Atorvastatin [Lipitor] 80 mg PO DAILY 12/12/22 12/12/22 Isosorbide Mononitrate ER [Imdur] 60 mg PO DAILY 12/12/22 12/12/22 Ondansetron [Zofran] 4 mg PO Q4H PRN 12/12/22 12/12/22 Pantoprazole [Protonix] 40 mg PO DAILY 12/12/22 12/12/22 Previous Rx's Medication Instructions Recorded Metoprolol Tartrate [Lopressor] 25 mg PO BID #60 tab 01/21/18 Allergies Allergy/AdvReac Type Severity Reaction Status Date / Time No Known Allergies Allergy Verified 12/12/22 12:59 Review of Systems ROS Statement: Those systems with pertinent positive or pertinent negative responses have been documented in the HPI. ROS Other: All systems not noted in ROS Statement are negative. Past Medical History Past Medical History: Coronary Artery Disease (CAD), Cancer, COPD, Hyperlipidemia, Hypertension, Vascular Disorder Additional Past Medical History / Comment(s): lung cancer diagnosis in aug/september. History of Any Multi-Drug Resistant Organisms: None Reported Past Surgical History: Heart Catheterization With Stent Additional Past Surgical History / Comment(s): two cardiac stents, triple bypass 12/2017 Past Anesthesia/Blood Transfusion Reactions: No Reported Reaction Date of Last Stent Placement:: 2007 Past Psychological History: No Psychological Hx Reported Smoking Status: Never smoker Past Alcohol Use History: None Reported Past Drug Use History: None Reported - Past Family History Mother Family Medical History: Myocardial Infarction (ME) Father Family Medical History: Pneumonia Brother(s) Family Medical History: Cancer General Exam Limitations: no limitations General appearance: alert, in no apparent distress Head exam: Present: atraumatic, normocephalic, normal inspection Eye exam: Present: normal appearance, PERRL, EOMI. Absent: scleral icterus, conjunctival injection, periorbital swelling ENT exam: Present: normal exam, normal oropharynx, mucous membranes moist Neck exam: Present: normal inspection, full ROM. Absent: tenderness, meningismus, lymphadenopathy Respiratory exam: Present: normal lung sounds bilaterally. Absent: respiratory distress, wheezes, rales, rhonchi, stridor Cardiovascular Exam: Present: regular rate, normal rhythm, normal heart sounds. Absent: systolic murmur, diastolic murmur, rubs, gallop, clicks GI/Abdominal exam: Present: soft, normal bowel sounds. Absent: distended, tenderness, guarding, rebound, rigid Course Vital Signs 12/12/22 12/12/22 12/12/22 10:55 11:27 11:41 Temperature 97.5 F L Pulse Rate 74 75 Respiratory 18 18 Rate Blood Pressure 84/55 77/50 87/53 O2 Sat by Pulse 100 97 Oximetry 12/12/22 12/12/22 12/12/22 12:55 13:23 14:40 Temperature Pulse Rate 81 84 85 Respiratory 16 18 16 Rate Blood Pressure 83/51 85/57 89/57 O2 Sat by Pulse 97 97 95 Oximetry EKG Findings - EKG Comments: EKG Findings:: EKG performed at 11:29 sinus rhythm rate of 75 IL 157/qrs 123 QT/QTC 402/431 - EKG Results: EKG: interpreted by [facility] Medical Decision Making - Medical Decision Making Was pt. sent in by a medical professional or institution (, PA, RETAIL LOAN ORIGINATOR ASSISTANT, urgent care, hospital, or senior care...) When possible be specific @ -No Did you speak to anyone other than the patient for history (EMS, parent, family, police, friend...)? What history was obtained from this source @ -[EMS regarding prehospital care and treatment Did you review nursing and triage notes (agree or disagree)? Why? @ -I reviewed and agree with nursing and triage notes Were old charts reviewed (outside hosp., previous admission, EMS record, old EKG, old radiological studies, urgent care reports/EKG's, senior care records)? Report findings @ -No old charts were reviewed Differential Diagnosis (chest pain, altered mental status, abdominal pain women, abdominal pain men, vaginal bleeding, weakness, fever, dyspnea, syncope, headache, dizziness, GI bleed, back pain, seizure, CVA, palpatations, mental health, musculoskeletal)? @ -Differential Syncope: Valvular disease, hypertrophic cardiomyopathy, pulmonary embolism, tamponade, tachycardia, bradycardia, ME, hypovolemia, hemorrhage, dissection, anemia, intracranial hemorrhage, seizure, hypoglycemia, carbon monoxide poisoning, this is not meant to be an all-inclusive list. EKG interpreted by me (3pts min.). @ -As above X-rays interpreted by me (1pt min.). @ -Chest x-ray shows lung mass CT interpreted by me (1pt min.). @ -CT edge of the chest shows no evidence of PE does show improvement of right lung mass U/S interpreted by me (1pt. min.). @ -None done What testing was considered but not performed or refused? (CT, X-rays, U/S, labs)? Why? @ -None What meds were considered but not given or refused? Why? @ -None Did you discuss the management of the patient with other professionals (professionals i.e. , PA, RETAIL LOAN ORIGINATOR ASSISTANT, lab, RT, psych nurse, social media intern, dub room engineer, teacher, security flex officer, registered nurse hh case manager)? Give summary @ -[Discussed the case with PCP Dr. Owusu for admission given patient's syncopal episode, mild hypertension and elevated troponin. Cardiology Dr. Wesley was notified patient is currently asymptomatic, is otherwise chest pain. Was smoking cessation discussed for >3mins.? @ -No Was critical care preformed (if so, how long)? @ -35mins Were there social determinants of health that impacted care today? How? (Homelessness, low income, unemployed, alcoholism, drug addiction, transportation, low edu. Level, literacy, decrease access to med. care, half-way, rehab)? @ -No Was there de-escalation of care discussed even if they declined (Discuss DNR or withdrawal of care, Hospice)? DNR status @ -No What co-morbidities impacted this encounter? (DM, HTN, Smoking, COPD, CAD, Cancer, CVA, ARF, Chemo, Hep., AIDS, mental health diagnosis, sleep apnea, morbid obesity)? @ -CAD, lung cancer Was patient admitted / discharged? Hospital course, mention meds given and route, prescriptions, significant lab abnormalities, going to OR and other pertinent info. @ -Admitted patient's presented for syncopal episode and cardiology's office. Patient does have an hypotension patient was given fluid bolus. Patient does have mild hypomagnesemia 1.4, 1gm was ordered. Patient is not having any acute EKG changes but has significantly elevated troponin at 16. Patient denies any chest pain. Patient was started on heparin patient case discussed with PCP and cardiology. Undiagnosed new problem with uncertain prognosis? @ -No Drug Therapy requiring intensive monitoring for toxicity (Heparin, Nitro, Insulin, Cardizem)? @ -No Were any procedures done? @ -No Diagnosis/symptom? @ -[NSTEMI, syncope, Acute, or Chronic, or Acute on Chronic? @ -Acute Uncomplicated (without systemic symptoms) or Complicated (systemic symptoms)? @ -Complicated Side effects of treatment? @ -No Exacerbation, Progression, or Severe Exacerbation? @ -No Poses a threat to life or bodily function? How? (Chest pain, USA, ME, pneumonia, PE, COPD, DKA, ARF, appy, cholecystitis, CVA, Diverticulitis, Homicidal, Suicidal, threat to staff... and all critical care pts) @ -[Yes, cardiac arrest risk - Lab Data Result diagrams: 12/12/22 11:10 12/12/22 11:10 Lab Results 12/12/22 12/12/22 12/12/22 Range/Units 11:10 11:10 11:10 WBC 4.0 (3.8-10.6) k/uL RBC 2.75 L (4.30-5.90) m/uL Hgb 8.4 L (13.0-17.5) gm/dL Hct 25.1 L (39.0-53.0) % MCV 91.3 (80.0-100.0) fL MCH 30.4 (25.0-35.0) pg MCHC 33.3 (31.0-37.0) g/dL RDW 20.3 H (11.5-15.5) % Plt Count 143 L (150-450) k/uL MPV 9.1 Neutrophils % 69 % Lymphocytes % 16 % Monocytes % 12 % Eosinophils % 0 % Basophils % 0 % Neutrophils # 2.8 (1.3-7.7) k/uL Lymphocytes # 0.6 L (1.0-4.8) k/uL Monocytes # 0.5 (0-1.0) k/uL Eosinophils # 0.0 (0-0.7) k/uL Basophils # 0.0 (0-0.2) k/uL Anisocytosis Moderate Macrocytosis Slight PT 12.3 H (9.0-12.0) sec INR 1.2 H (<1.2) APTT (22.0-30.0) sec Sodium (137-145) mmol/L Potassium (3.5-5.1) mmol/L Chloride (98-107) mmol/L Carbon Dioxide (22-30) mmol/L Anion Gap mmol/L BUN (9-20) mg/dL Creatinine (0.66-1.25) mg/dL Est GFR (CKD-EPI)AfAm (>60 ml/min/1.73 sqM) Est GFR (CKD-EPI)NonAf (>60 ml/min/1.73 sqM) Glucose (74-99) mg/dL Calcium (8.4-10.2) mg/dL Magnesium 1.4 L (1.6-2.3) mg/dL Total Bilirubin (0.2-1.3) mg/dL AST (17-59) U/L ALT (4-49) U/L Alkaline Phosphatase (38-126) U/L Troponin I (0.000-0.034) ng/mL Total Protein (6.3-8.2) g/dL Albumin (3.5-5.0) g/dL 12/12/22 12/12/22 12/12/22 Range/Units 11:10 11:10 11:10 WBC (3.8-10.6) k/uL RBC (4.30-5.90) m/uL Hgb (13.0-17.5) gm/dL Hct (39.0-53.0) % MCV (80.0-100.0) fL MCH (25.0-35.0) pg MCHC (31.0-37.0) g/dL RDW (11.5-15.5) % Plt Count (150-450) k/uL MPV Neutrophils % % Lymphocytes % % Monocytes % % Eosinophils % % Basophils % % Neutrophils # (1.3-7.7) k/uL Lymphocytes # (1.0-4.8) k/uL Monocytes # (0-1.0) k/uL Eosinophils # (0-0.7) k/uL Basophils # (0-0.2) k/uL Anisocytosis Macrocytosis PT (9.0-12.0) sec INR (<1.2) APTT 23.8 (22.0-30.0) sec Sodium 132 L (137-145) mmol/L Potassium 4.5 (3.5-5.1) mmol/L Chloride 99 (98-107) mmol/L Carbon Dioxide 22 (22-30) mmol/L Anion Gap 11 mmol/L BUN 26 H (9-20) mg/dL Creatinine 0.88 (0.66-1.25) mg/dL Est GFR (CKD-EPI)AfAm >90 (>60 ml/min/1.73 sqM) Est GFR (CKD-EPI)NonAf 84 (>60 ml/min/1.73 sqM) Glucose 115 H (74-99) mg/dL Calcium 8.6 (8.4-10.2) mg/dL Magnesium (1.6-2.3) mg/dL Total Bilirubin 0.4 (0.2-1.3) mg/dL AST 82 H (17-59) U/L ALT 34 (4-49) U/L Alkaline Phosphatase 81 (38-126) U/L Troponin I 16.100 H* (0.000-0.034) ng/mL Total Protein 5.7 L (6.3-8.2) g/dL Albumin 3.3 L (3.5-5.0) g/dL Critical Care Time Critical Care Time: Yes Total Critical Care Time: 35 Disposition Clinical Impression: NSTEMI (non-ST elevated myocardial infarction), Lung cancer, Syncope Disposition: ADMITTED IP TO THIS HOSP Condition: Fair Referrals: Nura Owusu MD [Primary Care Provider] - 1-2 days Time of Disposition: 15:41
[2022-12-12] MEDS ORDERED: SODIUM CHLORIDE 0.9% 1,000 ML IV ONE (11:56)
[2022-12-12 12:30] LABS: Anisocytosis Moderate; Basophils % (A) 0 %; Eosinophils % (A) 0 %; HCT 25.1 % (39.0-53.0); HGB 8.4 gm/dL (13.0-17.5); Lymphocytes # (A) 0.6 k/uL (1.0-4.8); Lymphocytes % (A) 16 %; MCH 30.4 pg (25.0-35.0); MCHC 33.3 g/dL (31.0-37.0); MCV 91.3 fL (80.0-100.0); Macrocytosis Slight; Mean Platelet Volume 9.1; Monocytes # (A) 0.5 k/uL (0-1.0); Monocytes % (A) 12 %; Neutrophils # (A) 2.8 k/uL (1.3-7.7); Neutrophils % (A) 69 %; Platelet Count 143 k/uL (150-450); RBC 2.75 m/uL (4.30-5.90); RDW 20.3 % (11.5-15.5)
[2022-12-12 12:41] LABS: INR 1.2 (<1.2); Prothrombin Time 12.3 sec (9.0-12.0)
[2022-12-12 14:10] LABS: ALT 34 U/L (4-49); AST 82 U/L (17-59); African American GFR (CKD) >90 (>60 ml/min/1.73 sqM); Albumin 3.3 g/dL (3.5-5.0); Alkaline Phosphatase 81 U/L (38-126); Anion Gap 11 mmol/L; Blood Urea Nitrogen 26 mg/dL (9-20); Calcium 8.6 mg/dL (8.4-10.2); Carbon Dioxide 22 mmol/L (22-30); Chloride 99 mmol/L (98-107); Glucose 115 mg/dL (74-99); Non-African American GFR(CKD) 84 (>60 ml/min/1.73 sqM); Potassium 4.5 mmol/L (3.5-5.1); Sodium 132 mmol/L (137-145); Total Bilirubin 0.4 mg/dL (0.2-1.3); Total Protein 5.7 g/dL (6.3-8.2)
[2022-12-12] MEDS ORDERED: MAGNESIUM SULFATE-D5W PMX 1 GM in DEXTROSE/WATER 1 100ML.BAG IVPB ONE (14:39)
--- NOTE | 2022-12-12 15:34 | CT ---
EXAMINATION TYPE: CT chest angio for PE CT DLP: 358.4 mGycm, Automated exposure control for dose reduction was used. DATE OF EXAM: 12/12/2022 3:17 PM COMPARISON: CT chest 08/28/2022 CLINICAL INDICATION:Male, 77 years old with history of Syncope; syncope, hx of lung ca TECHNIQUE/CONTRAST: CTA scan of the thorax is performed with IV Contrast, patient injected with 90 mL of Isovue 370, pulm onary embolism protocol. MIP images are created and reviewed. FINDINGS: Pulmonary Artery: There is no evidence for a filling defect within the pulmonary vasculature to sugge st acute pulmonary embolism. The pulmonary artery is of normal size. Lungs/Pleura: Trace left and small right pleural effusion with associated atelectasis. Decrease in si ze of right upper lobe mass measuring 8.1 x 5.6 cm, previously 11.7 x 8.5 cm. This again is extends i nto the right suprahilar region. Diffuse intralobular septal thickening. Airway: There is again narrowing of the right upper lobe bronchus with abrupt cut off. Heart: Mildly enlarged in size. No pericardial effusion. Severe coronary artery calcifications and/or stents. Vasculature: No evidence of aortic aneurysm. Mediastinum: Increase in size of subcarinal lymph node measuring 1.5 cm short axis, previously 1.0 cm short axis. Post CABG changes. Musculoskeletal: No acute osseous abnormalities. Median sternotomy wires. Soft Tissues: Unremarkable. Lower neck: No significant findings. Upper Abdomen: Cholelithiasis. Left renal cyst measuring up to 2.2 cm.. IMPRESSION: 1. No evidence of pulmonary embolism. 2. Decreased size of right upper lobe mass consistent with known lung cancer. 3. Increase in size of subcarinal lymph node suspicious for metastasis. 4. Cardiomegaly with intralobular septal thickening and trace left and small right pleural effusions which may represent CHF exacerbation. Correlate with BNP. 5. Cholelithiasis.
[2022-12-12] MEDS ORDERED: HEPARIN SODIUM 1,000 UN/ML (10ML VL) IV PRN (15:38)
[2022-12-12] MEDS ORDERED: HEPARIN SODIUM 1,000 UN/ML (10ML VL) IV ONE (15:38)
[2022-12-12] MEDS ORDERED: ASPIRIN 81 MG PO STA (15:41)
[2022-12-12] MEDS: HEPARIN SOD,PORK IN 0.45% NACL 25,000 UNIT in 0.45% NACL 1 250ML.BAG IV SCH (15:51)
--- NOTE | 2022-12-12 17:36 | P.HPIM ---
History of Present Illness H&P Date: 12/12/22 Chief Complaint: Syncope HISTORY OF PRESENT ILLNESS: This is a 77-year-old male with a previous medical history significant for coronary artery disease status post remote Percodans coronary intervention of the RCA more than 10 years ago, status post 3 vessel coronary artery bypass graft back in December 2017 with BALDERAS to LAD, 7 is venous graft to the diagonal branch and sentences graft to the ramus that was done at [facility], hypertension and hypertensive cardio vascular disease, hyperlipidemia, mild chronic obstructive pulmonary disease with an FEV1 of 69%, remote tobacco use and dependence. Patient had quit smoking in 2018, unfortunately patient d eveloped to have a a non-small cell lung cancer that is PD1 and PDL one positive has been under the care of hematology oncology underwent chemotherapy along with immunotherapy in the form of Keytruda along with carboplatin along with Doxil patient was supposed to get his last chemotherapy next Saturday and then he will go for a repeated CT/PET scan for evaluation of the tumor response through Dr. Salcedo's office, patient stated that he had an episode of chest pain last Saturday and he did not have any nitroglycerin sublingual to take so he contacted Dr. Nicholson's office and get some better was her refill apparently that was not done so he tried to stop by today to get his prescription refilled, and while he was in the car he felt a bit dizzy and lightheaded, he sat in the car for lobe that he walked into the office while he is in the lobby he felt dizzy and immediately passed out, patient skinned his right knee, he did not hit his head, patient apparently was brought into the emergency department at [facility] via EMS for evaluation, patient laboratory evaluation showed mild edema, mild from cytopenia likely related to recent chemotherapy, and he also was found surprisingly an elevation of troponin of 16, EKG did not show evidence of acute ST-T wave changes, but because of the presentation was admitted to the hospital he was placed on aspirin as well as heparin drip, he was placed on his Plavix along with the rest of his cardiac medication he was seen in consultation by monico colbert and he was admitted under my service for further evaluation and recommendation. REVIEW OF SYSTEMS: Constitutional: No documented fever, no chills, no night sweats. No weight change. No weakness, fatigue or lethargy. No daytime sleepiness. EENT: No headache. No blurred vision or double vision, no loss of vision. No loss of Hearing, no ringing in the ears, no dizziness. No nasal drainage or congestion. No epistaxis. No sore throat. Lungs: No shortness of breath, no cough, no sputum production. No wheezing. Reports dyspnea with activity. Cardiovascular: No chest pain, no lower extremity edema. No palpitations. No paroxysmal nocturnal dyspnea. No orthopnea. No lightheadedness or dizziness. No syncopal episodes. Abdominal: Reports abdominal pain. No nausea, vomiting. No diarrhea. No constipation. No bloody or tarry stools reports loss of appetite. Genitourinary: No dysuria, increased frequency, urgency. No urinary retention. Musculoskeletal: No myalgias. No muscle weakness, no gait dysfunction, no frequent falls. No back pain. No neck pain. Integumentary: No wounds, no lesions. No rash or pruritus. No unusual bruising. No change in hair or nails. Neurologic: No aphasia. No facial droop. No change in mentation. No head injury. No headache. No paralysis. No paresthesia. Psychiatric: No depression. No anxiety. No mood swings. Endocrine: No abnormal blood sugars. No weight change. PAST MEDICAL HISTORY: Coronary artery disease status post PCI of the RCA and CABG 3 with BALDERAS to LAD reverse saphenous venous graft to the diagonal branch and reverse evidence graft to the ramus intermedius Hypertension and hypertensive cardiovascular disease. Hyperlipidemia. Non-small cell lung cancer currently on immunotherapy and chemotherapy GERD with esophagitis. Unstable angina Anemia. Carotid artery disease PAST SURGICAL HISTORY: CABG 3 in 2018 left heart catheterization 2018 Colonoscopy 2016 Right lung biopsy August 2022. SOCIAL HISTORY: patient used to smoke about a pack every day smoked since he was 20-year-old and quit in 2018. He denies any drug use or abuse, he denies any alcohol ingestion. FAMILY HISTORY: father at age 54 from pneumonia mother at age of 93 from dementia patient had 6 brothers to from cancer and 2 with PA and one is alive and okay patient has 2 sisters one from brain cancer at the age of 30 patient has one son who is okay. PHYSICAL EXAMINATION: General: 77-year-old male sitting up in bed in no apparent distress per HEENT: Head is atraumatic, normocephalic, pupils were equal round reactive to light and recommendation, extraocular muscle movement were intact, sclera nonicteric, conjunctivae were pale, mucous membranes of the mouth are somewhat dry. Neck: Supple, no JVP, decreased carotid upstroke bilaterally, no lymphadenopathy. Chest: Decreased breath sounds at the bases, few rhonchi, no expiratory wheezes, no chest wall tenderness, no intercostal retractions. Heart: First heart sound is normal, second heart sound is normal there is systolic ejection murmur 2/6 located in the left sternal border. Abdomen: Soft, nontender, nondistended, positive bowel sounds. Extremities: There is no edema no calf tenderness DP +2 bilaterally. Neurologic examination: Patient is awake alert and oriented X 3, cranial nerves II-12 appear grossly intact, muscle power were 5 out of 5 in upper extremities and 5 out of 5 in bilateral lower extremities, deep tendon reflexes normal bilaterally. ASSESSMENT AND PLAN: 1. Syncope likely cardiac syncope in view of the patient having non-ST elevation PA. Start the patient on heparin drip, aspirin 81 mg once every day, Plavix 75 minute gram once every day, continue patient on isosorbide mononitrate, continue patient on metoprolol, cardiology consultation, serial enzymes, echocardiogram, we'll continue to monitor the patient very closely. 2. Anemia and Thromocytopenia likely related to recent chemotherapy as well as immunotherapy. Monitor the patient's CBC keep his hemoglobin above 8. 3. Coronary artery disease status post coronary artery bypass graft 3 in 2018 continue treatment as in paragraph #1. 4. Hypertension and hypertensive cardiovascular disease. Continue patient on metoprolol 25 mg orally twice a day as well as lisinopril 5 mg at bedtime. 5. Mixed hyperlipidemia. Continue atorvastatin 80 mg once every day as well as Zetia 10 mg once every day 6. GERD with esophagitis. Continue patient on pantoprazole 40 mg once every day. 7. Non-small cell lung cancer that is PD1 and PDL one positive currently the patient is on immunotherapy as well as chemotherapy. Last cycle next Saturday and then he would be going for restaging. 8. Mild COPD FEV1 is 69% of predicted patient has been tobacco free for the last 5 years. 9. Severe carotid artery disease in the range of 90% of the right internal carotid artery patient at this time is not a candidate for surgical intervention due to his underlying stage IV non-small cell lung cancer. . 10. DVT prophylaxis. Continue patient on heparin drip. 11. GI prophylaxis. Continue patient on Protonix 40 mg once every day. 12. Admitted to inpatient. Estimate a length of stay 2 midnights pre- 13. Patient is full code. Past Medical History Past Medical History: Coronary Artery Disease (CAD), Cancer, COPD, Hyperlipidemia, Hypertension, Vascular Disorder Additional Past Medical History / Comment(s): lung cancer diagnosis in . History of Any Multi-Drug Resistant Organisms: None Reported Past Surgical History: Heart Catheterization With Stent Additional Past Surgical History / Comment(s): two cardiac stents, triple bypass 12/2017 Past Anesthesia/Blood Transfusion Reactions: No Reported Reaction Date of Last Stent Placement:: 2007 Past Psychological History: No Psychological Hx Reported Smoking Status: Never smoker Past Alcohol Use History: None Reported Past Drug Use History: None Reported - Past Family History Mother Family Medical History: Myocardial Infarction (PA) Father Family Medical History: Pneumonia Brother(s) Family Medical History: Cancer Medications and Allergies Home Medications Medication Instructions Recorded Confirmed Type Metoprolol Tartrate [Lopressor] 25 mg PO BID #60 tab 01/21/18 12/12/22 Rx Aspirin [Adult Low Dose Aspirin EC] 81 mg PO DAILY 01/05/19 12/12/22 History Clopidogrel [Plavix] 75 mg PO HS 01/05/19 12/12/22 History Ezetimibe [Zetia] 10 mg PO DAILY 01/05/19 12/12/22 History lisinopriL [Zestril] 5 mg PO HS 01/05/19 12/12/22 History Ranolazine [Ranexa] 1,000 mg PO BID 09/06/22 12/12/22 History Atorvastatin [Lipitor] 80 mg PO DAILY 12/12/22 12/12/22 History Isosorbide Mononitrate ER [Imdur] 60 mg PO DAILY 12/12/22 12/12/22 History Ondansetron [Zofran] 4 mg PO Q4H PRN 12/12/22 12/12/22 History Pantoprazole [Protonix] 40 mg PO DAILY 12/12/22 12/12/22 History Allergies Allergy/AdvReac Type Severity Reaction Status Date / Time No Known Allergies Allergy Verified 12/12/22 12:59 Physical Exam Vitals: Vital Signs Temp Pulse Resp BP Pulse Ox 12/12/22 17:04 89 18 108/93 95 12/12/22 15:53 79 18 92/57 95 12/12/22 14:40 85 16 89/57 95 12/12/22 13:23 84 18 85/57 97 12/12/22 12:55 81 16 83/51 97 12/12/22 11:41 87/53 12/12/22 11:27 75 18 77/50 97 12/12/22 10:55 97.5 F L 74 18 84/55 100 Intake and Output 12/12/22 12/12/22 12/12/22 06:59 14:59 22:59 Other: Weight 70.307 kg Results CBC & Chem 7: 12/12/22 11:10 12/12/22 11:10 Labs: Abnormal Lab Results - Last 24 Hours (Table) 12/12/22 12/12/22 12/12/22 Range/Units 11:10 11:10 11:10 RBC 2.75 L (4.30-5.90) m/uL Hgb 8.4 L (13.0-17.5) gm/dL Hct 25.1 L (39.0-53.0) % RDW 20.3 H (11.5-15.5) % Plt Count 143 L (150-450) k/uL Lymphocytes # 0.6 L (1.0-4.8) k/uL PT 12.3 H (9.0-12.0) sec INR 1.2 H (<1.2) Sodium (137-145) mmol/L BUN (9-20) mg/dL Glucose (74-99) mg/dL Magnesium 1.4 L (1.6-2.3) mg/dL AST (17-59) U/L Troponin I (0.000-0.034) ng/mL Total Protein (6.3-8.2) g/dL Albumin (3.5-5.0) g/dL 12/12/22 12/12/22 Range/Units 11:10 11:10 RBC (4.30-5.90) m/uL Hgb (13.0-17.5) gm/dL Hct (39.0-53.0) % RDW (11.5-15.5) % Plt Count (150-450) k/uL Lymphocytes # (1.0-4.8) k/uL PT (9.0-12.0) sec INR (<1.2) Sodium 132 L (137-145) mmol/L BUN 26 H (9-20) mg/dL Glucose 115 H (74-99) mg/dL Magnesium (1.6-2.3) mg/dL AST 82 H (17-59) U/L Troponin I 16.100 H* (0.000-0.034) ng/mL Total Protein 5.7 L (6.3-8.2) g/dL Albumin 3.3 L (3.5-5.0) g/dL
[2022-12-12] MEDS: RANOLAZINE 500 MG TAB.ER.12H PO SCH (21:00)
[2022-12-12] MEDS: METOPROLOL TARTRATE 25 MG TAB PO SCH (21:01)
[2022-12-12] MEDS: CLOPIDOGREL 75 MG TAB PO SCH (21:01)
[2022-12-12] MEDS: lisinopriL 5 MG TAB PO SCH (21:45)
--- NOTE | 2022-12-13 02:22 | CONS ---
CONSULTATION CHIEF COMPLAINT: Syncope. HISTORY OF PRESENT ILLNESS: This is a 77-year-old gentleman with history of coronary artery disease, status post CABG, who presents to hospital following an episode of syncope. The patient had recently been diagnosed with lung cancer and is currently receiving chemotherapy and the most recent chemo was on Saturday. He was at his oncologist's office this Saturday, had very low blood pressures and was told to go see the stock supervisor and he was at our office today to make an appointment and had a syncopal event. There is no bladder or bowel incontinence, no seizure. No focal neurological deficits. He was sent to the emergency room where his blood pressures were in the 80s systolic. EKG shows sinus rhythm with nonspecific ST-T wave changes. The troponin is elevated at 16. He had a CT scan of the chest that is negative for pulmonary embolism. The patient had a cardiac catheterization in December of 2018 that revealed severe three-vessel coronary artery disease with patent BALDERAS to LAD and occluded venous grafts to the diagonal for which he was advised medical therapy and at the time of my evaluation, he is pain-free and hemodynamically stable. Plan at this stage is to treat him with heparin, obtain a 2D echo, resume his medications naturally. Given the stage IV lung cancer that he had been diagnosed with recently, he is probably not a candidate for any invasive procedures. I will talk to Dr. Nicholson in the morning. PAST MEDICAL HISTORY: Significant for coronary artery disease status post CABG, severe right internal carotid artery stenosis, lung cancer, and dyslipidemia. MEDICATIONS AT HOME: 1. Plavix. 2. Metoprolol. 3. Lipitor. 4. Lisinopril. 5. Zetia. 6. Aspirin. 7. Along with Imdur and Ranexa. ALLERGIES: There are no known drug allergies. FAMILY HISTORY: Negative for premature coronary artery disease. SOCIAL HISTORY: Negative for current smoking, EtOH abuse, or drug abuse. REVIEW OF SYSTEMS: HEENT: Unremarkable. CARDIAC: As described above. RESPIRATORY: Negative. GI: Negative: GENITOURINARY: Negative. ALLERGY/IMMUNOLOGY: Negative. SKIN: Negative. MUSCULOSKELETAL: Significant for arthritis. PSYCHOSOCIAL: Negative. DERM: Negative. CONSTITUTIONAL: Negative. ONCOLOGICAL: As described above. Rest of the system review is not relevant. PHYSICAL EXAMINATION: GENERAL: The patient is comfortable at rest. VITAL SIGNS: Stable. Blood pressure is 107/80, respiratory rate 18, O2 saturation is 95%, and heart rate is 86. NECK: There is no jugular venous distention. Carotid upstroke is normal. There is no bruit. CHEST: Reveals good air entry bilaterally. HEART: Reveals first and second heart sounds, no gallop. EXTREMITIES: Did not reveal any edema. ABDOMEN: Soft, nontender. LABORATORY DATA: Labs are as described above. EKG is as described above. ASSESSMENT: 1. Syncope, probably related to severe hypotension and possible recent [id number] elevation VA, could very well be related to the chemotherapy that he had recently. 2. Coronary artery disease, status post CABG. 3. Severe right internal carotid artery stenosis. PLAN: I will treat the patient with intravenous heparin. Resume his medications gradually. Obtain a 2D echo and decide on further course of action based on how his symptoms evolve. ALLY / PORSHA: [id number] /
[2022-12-13 04:37] LABS: INR 1.1 (<1.2); Prothrombin Time 11.3 sec (9.0-12.0)
[2022-12-13] MEDS: ONDANSETRON 4 MG TAB PO PRN (04:42)
[2022-12-13] MEDS: PANTOPRAZOLE 40 MG TABLET PO SCH (04:42)
--- NOTE | 2022-12-13 07:41 | CONS ---
CONSULTATION HISTORY OF PRESENT ILLNESS: Michele is a 77-year-old gentleman with history of coronary artery disease, status post prior bypass surgery, severe right internal carotid artery stenosis, who had recently been diagnosed with right upper lobe lung mass and had been diagnosed with stage IV lung cancer and is currently receiving chemotherapy. Most recent chemotherapy was given at the beginning of the week. The patient was seen by his oncologist, Dr. Reynoso on Saturday, had very low blood pressures and was told to go see Dr. Urrutia, his business objects consultant and he was at our office around 12:30 today to get an appointment and had a syncopal event. He was sent from there to the emergency room here at [facility], and his blood pressures initially were in the 80s systolic and gradually have improved to 108/93. The patient does not have chest pain, difficulty in breathing, or focal neurological deficits. The patient at the time of my evaluation, appears comfortable at rest, remains in sinus rhythm, stable hemodynamically, and does not seem to be in overt heart failure. He had labs done that showed a hemoglobin of 8.4, platelet count is 143. Troponin is elevated at 16 and creatinine is 0.8. He underwent a CT scan of the chest that is negative for pulmonary embolism. The patient is currently on IV heparin and we will gradually resume his medications. The patient has known coronary artery disease and had prior bypass surgery. Most recent cardiac catheterization in December 2018 revealed severe triple-vessel coronary artery disease with patent BALDERAS to LAD and chronically occluded venous graft to diagonal 1 and diagonal 2. The patient was advised medical therapy DICTATION ENDS HERE MMODL / IJN: [id number] /
[2022-12-13] MEDS: ATORVASTATIN 80 MG TAB PO SCH (09:02)
[2022-12-13] MEDS: EZETIMIBE 10 MG TAB PO SCH (09:02)
[2022-12-13] MEDS: METOPROLOL TARTRATE 25 MG TAB PO SCH ×2 (09:02→20:13)
[2022-12-13] MEDS: ASPIRIN 81 MG PO SCH (09:02)
[2022-12-13] MEDS: RANOLAZINE 500 MG TAB.ER.12H PO SCH ×2 (09:02→20:13)
[2022-12-13] MEDS: ISOSORBIDE MONONITRATE ER 60 MG TAB.ER.24H PO SCH (09:02)
[2022-12-13 09:32] LABS: Mean Platelet Volume 9.7; Platelet Count 181 k/uL (150-450)
--- NOTE | 2022-12-13 12:52 | P.CONS ---
History of Present Illness - Reason for Consult Consult date: 12/13/22 hx lung cancer Requesting physician: Narayan Wesley - Chief Complaint chest pain - History of Present Illness Patient is a 77-year-old male with a significant cardiac history and metastatic non-small cell lung carcinoma. We are consulted for history of NSCLC. He is a patient of Dr. Reynoso. He is currently receiving carbo/Alimta/Keytruda. He has completed cycle 3 on 11/26/22, with plan for 4 cycles, then patient will continue on Keytruda. Patient has been tolerating treatment well. Patient presented to the emergency room for progressing chest pain over the last 2 weeks. He also reports shortness of breath and dizziness which he reports is baseline for him. Patient was at his radiology transcriptionist office when he had a syncopal episode, at which point he presented to the ER for further evaluation. Upon presentation to the ER his troponins were significantly elevated. He was started on IV heparin. Chest x-ray revealed right upper lobe consolidation changes compatible with known mass. Blunting of the costal phrenic angles, correlate for underlying trace pleural effusions. CTA chest revealed no evidence of pulmonary embolism. Decreased size of right upper lobe mass consistent with known lung cancer. Increase in size of subcarinal lymph node suspicious for metastasis. Cardiomegaly with intralobular septal thickening and trace left and small right pleural effusions. WBC 4, hemoglobin 8.4, platelets 143,000. Review of Systems 10 point ROS is negative except as stated in HPI Past Medical History Past Medical History: Coronary Artery Disease (CAD), Cancer, COPD, Hyperlipidemia, Hypertension, Vascular Disorder Additional Past Medical History / Comment(s): lung cancer diagnosis in aug/september. History of Any Multi-Drug Resistant Organisms: None Reported Past Surgical History: Heart Catheterization With Stent Additional Past Surgical History / Comment(s): two cardiac stents, triple bypass 12/2017 Past Anesthesia/Blood Transfusion Reactions: No Reported Reaction Date of Last Stent Placement:: 2007 Smoking Status: Former smoker - Past Family History Mother Family Medical History: Myocardial Infarction ([place]) Father Family Medical History: Pneumonia Brother(s) Family Medical History: Cancer Medications and Allergies Home Medications Medication Instructions Recorded Confirmed Type Metoprolol Tartrate [Lopressor] 25 mg PO BID #60 tab 01/21/18 12/12/22 Rx Aspirin [Adult Low Dose Aspirin EC] 81 mg PO DAILY 01/05/19 12/12/22 History Clopidogrel [Plavix] 75 mg PO HS 01/05/19 12/12/22 History Ezetimibe [Zetia] 10 mg PO DAILY 01/05/19 12/12/22 History lisinopriL [Zestril] 5 mg PO HS 01/05/19 12/12/22 History Ranolazine [Ranexa] 1,000 mg PO BID 09/06/22 12/12/22 History Atorvastatin [Lipitor] 80 mg PO DAILY 12/12/22 12/12/22 History Isosorbide Mononitrate ER [Imdur] 60 mg PO DAILY 12/12/22 12/12/22 History Ondansetron [Zofran] 4 mg PO Q4H PRN 12/12/22 12/12/22 History Pantoprazole [Protonix] 40 mg PO DAILY 12/12/22 12/12/22 History Allergies Allergy/AdvReac Type Severity Reaction Status Date / Time No Known Allergies Allergy Verified 12/12/22 12:59 Physical Exam Vitals: Vital Signs Temp Pulse Pulse Resp BP BP BP 12/13/22 09:15 96.9 F L 91 16 12/13/22 08:04 12/13/22 04:00 78 20 98/57 93/53 12/13/22 01:53 78 18 12/13/22 00:00 97.5 F L 78 18 12/12/22 20:00 97.6 F 98 18 12/12/22 18:16 98.1 F 91 16 103/56 12/12/22 17:04 89 18 108/93 12/12/22 15:53 79 18 92/57 12/12/22 14:40 85 16 89/57 12/12/22 13:23 84 18 85/57 12/12/22 12:55 81 16 83/51 BP BP Pulse Ox 12/13/22 09:15 111/55 97 12/13/22 08:04 98 12/13/22 04:00 94/60 98 12/13/22 01:53 12/13/22 00:00 91/51 98 12/12/22 20:00 106/55 99 12/12/22 18:16 96 12/12/22 17:04 95 12/12/22 15:53 95 12/12/22 14:40 95 12/12/22 13:23 97 12/12/22 12:55 97 Intake and Output 12/12/22 12/13/22 12/13/22 22:59 06:59 14:59 Intake Total 690.319 Balance 690.319 Intake: Intake, IV Titration 150.319 Amount Heparin Sod,Pork in 0.45% 150.319 NaCl 25,000 unit In 0.45 % NaCl 1 250ml.bag @ 12 UNITS/KG/HR 8.437 mls/hr IV .Q24H KB Rx#: [id number] Oral 540 Other: # Voids 1 Weight 70.307 kg - Constitutional General appearance: average body habitus, no acute distress - EENT Eyes: anicteric sclerae, EOMI ENT: hearing grossly normal - Respiratory breathing is unlabored Respiratory: bilateral: rhonchi - Cardiovascular Rhythm: regular Heart sounds: normal: S1, S2 Abnormal Heart Sounds: no systolic murmur, no diastolic murmur, no rub, no S3 Gallop, no S4 Gallop, no click, no other leg Peripheral Edema: bilateral: None - Integumentary Integumentary: pale - Neurologic grossly intact - Musculoskeletal Musculoskeletal: strength equal bilaterally - Psychiatric Psychiatric: A&O x's 3, appropriate affect, intact judgment & insight Results CBC & Chem 7: 12/13/22 08:50 12/12/22 11:10 Labs: Abnormal Lab Results - Last 24 Hours (Table) 12/12/22 12/12/22 12/12/22 Range/Units 11:10 11:10 11:10 RBC 2.75 L (4.30-5.90) m/uL Hgb 8.4 L (13.0-17.5) gm/dL Hct 25.1 L (39.0-53.0) % RDW 20.3 H (11.5-15.5) % Plt Count 143 L (150-450) k/uL Lymphocytes # 0.6 L (1.0-4.8) k/uL PT 12.3 H (9.0-12.0) sec INR 1.2 H (<1.2) APTT (22.0-30.0) sec Sodium (137-145) mmol/L BUN (9-20) mg/dL Glucose (74-99) mg/dL Magnesium 1.4 L (1.6-2.3) mg/dL AST (17-59) U/L Troponin I (0.000-0.034) ng/mL Total Protein (6.3-8.2) g/dL Albumin (3.5-5.0) g/dL 12/12/22 12/12/22 12/12/22 Range/Units 11:10 11:10 22:30 RBC (4.30-5.90) m/uL Hgb (13.0-17.5) gm/dL Hct (39.0-53.0) % RDW (11.5-15.5) % Plt Count (150-450) k/uL Lymphocytes # (1.0-4.8) k/uL PT (9.0-12.0) sec INR (<1.2) APTT 46.8 H (22.0-30.0) sec Sodium 132 L (137-145) mmol/L BUN 26 H (9-20) mg/dL Glucose 115 H (74-99) mg/dL Magnesium (1.6-2.3) mg/dL AST 82 H (17-59) U/L Troponin I 16.100 H* (0.000-0.034) ng/mL Total Protein 5.7 L (6.3-8.2) g/dL Albumin 3.3 L (3.5-5.0) g/dL 12/12/22 12/13/22 12/13/22 Range/Units 22:30 08:50 08:50 RBC (4.30-5.90) m/uL Hgb (13.0-17.5) gm/dL Hct (39.0-53.0) % RDW (11.5-15.5) % Plt Count (150-450) k/uL Lymphocytes # (1.0-4.8) k/uL PT (9.0-12.0) sec INR (<1.2) APTT 33.3 H (22.0-30.0) sec Sodium (137-145) mmol/L BUN (9-20) mg/dL Glucose (74-99) mg/dL Magnesium (1.6-2.3) mg/dL AST (17-59) U/L Troponin I 10.000 H* 6.440 H* (0.000-0.034) ng/mL Total Protein (6.3-8.2) g/dL Albumin (3.5-5.0) g/dL Chest x-ray: report reviewed CT scan - chest: report reviewed Assessment and Plan (1) Lung cancer Current Visit: Yes Status: Acute Priority: High Code(s): C34.90 - MALIGNANT NEOPLASM OF UNSP PART OF UNSP BRONCHUS OR LUNG SNOMED Code(s): 145078789 (2) NSTEMI (non-ST elevated myocardial infarction) Current Visit: Yes Status: Acute Priority: High Code(s): I21.4 - NON-ST ELEVATION (NSTEMI) MYOCARDIAL INFARCTION SNOMED Code(s): 16239587 Plan: Metastatic NSCLC: -He is a patient of Dr. Reynoso. He is currently receiving carbo/Alimta/Keytruda. He has completed cycle 3 on 11/26/22, with plan for 4 cycles, then patient will continue on Keytruda every 3 weeks. Patient has been tolerating treatment well. -In regards to prognosis, chemo is not of curative intent, but pt is tolerating treatment well, and would expect prognosis of 18-24 months, or even longer due to patient having multiple positive biomarkers and would be a candidate for different treatment modalities NSTEMI: -Elevated troponins -Started on IV heparin. On aspirin and plavix -Defer to cardiology for management
--- NOTE | 2022-12-13 13:05 | P.PN ---
Subjective Progress Note Date: 12/13/22 HISTORY OF PRESENT ILLNESS: This is a 77-year-old male who was admitted to the hospital after having a syncopal episode at the cardiology office. Patient was found to have an elevate d troponin of 16. He was started on IV heparin. Patient examined this morning at the bedside. He denies chest pain or pressure. He denies shortness of breath. Most recent cardiac catheterization was performed in 2019 revealing heavily calcified coronary artery and calcified right femoral artery. Severe left main disease. Critical stenosis in the proximal and mid LAD. Critical stenosis in the left circumflex. Chronic occluded right coronary artery. Patent BALDERAS to LAD. Chronically occluded saphenous vein graft to diagonal 1 and 2. Medical management was recommended. PHYSICAL EXAM: VITAL SIGNS: Reviewed. GENERAL: Well-developed in no acute distress. NECK: Supple. No JVD or thyromegaly LUNGS: Respirations even and unlabored. Lungs essentially clear to auscultation bilaterally. HEART: Regular rate and rhythm. S1 and S2 heard. EXTREMITIES: Normal range of motion. No clubbing or cyanosis. Peripheral pulses intact. No lower extremity edema ASSESSMENT: Non-STEMI Syncope Hypotension Coronary artery disease with previous CABG, most recent cardiac catheterization reveals patent BALDERAS to LAD and occluded SVG to diagonal 1 and 2 Chronically occluded RCA Severe left main disease Metastatic non-small cell lung cancer, currently undergoing chemotherapy PLAN: 2-D echo has been ordered. Await results Continue IV heparin for an additional 24 hours Case was discussed with oncology and also with Dr. Nicholson At this time we will plan for medical management. No plans for cardiac catheterization at this time. Further recommendations pending patient's course Nurse practitioner note has been reviewed by physician. Signing provider agrees with the documented findings, assessment, and plan of care. Objective - Vital Signs Vital signs: Vital Signs Temp 97.4 F L 12/13/22 12:00 Pulse 68 12/13/22 12:00 Resp 17 12/13/22 12:00 BP 93/53 12/13/22 12:00 Pulse Ox 97 12/13/22 12:00 FiO2 Intake & Output 12/12/22 12/13/22 12/13/22 18:59 06:59 18:59 Intake Total 690.319 Balance 690.319 Weight 70.307 kg 70.307 kg Intake: Intake, IV Titration 150.319 Amount Heparin Sod,Pork in 0.45% 150.319 NaCl 25,000 unit In 0.45 % NaCl 1 250ml.bag @ 12 UNITS/KG/HR 8.437 mls/hr IV .Q24H [facility] Rx#: [id number] Oral 540 Other: # Voids 1 - Labs CBC & Chem 7: 12/13/22 08:50 12/12/22 11:10 Labs: Abnormal Lab Results - Last 24 Hours (Table) 12/12/22 12/12/22 12/12/22 Range/Units 11:10 11:10 22:30 APTT 46.8 H (22.0-30.0) sec Sodium 132 L (137-145) mmol/L BUN 26 H (9-20) mg/dL Glucose 115 H (74-99) mg/dL AST 82 H (17-59) U/L Troponin I 16.100 H* (0.000-0.034) ng/mL Total Protein 5.7 L (6.3-8.2) g/dL Albumin 3.3 L (3.5-5.0) g/dL 12/12/22 12/13/22 12/13/22 Range/Units 22:30 08:50 08:50 APTT 33.3 H (22.0-30.0) sec Sodium (137-145) mmol/L BUN (9-20) mg/dL Glucose (74-99) mg/dL AST (17-59) U/L Troponin I 10.000 H* 6.440 H* (0.000-0.034) ng/mL Total Protein (6.3-8.2) g/dL Albumin (3.5-5.0) g/dL
[2022-12-13 14:59] LABS: LDL Cholesterol,Calculated 67.9 mg/dL (0.0-131.0); VLDL Calculation 16.06 mg/dL (5.00-40.00)
--- NOTE | 2022-12-13 15:15 | P.PN ---
Subjective Progress Note Date: 12/13/22 HISTORY OF PRESENT ILLNESS: This is a 77-year-old male with a previous medical history significant for coronary artery disease status post remote Percodans coronary intervention of the RCA more than 10 years ago, status post 3 vessel coronary artery bypass graft back in December 2017 with BALDERAS to LAD, 7 is venous graft to the diagonal branch and sentences graft to the ramus that was done at [facility], hypertension and hypertensive cardio vascular disease, hyperlipidemia, mild chronic obstructive pulmonary disease with an FEV1 of 69%, remote tobacco use and dependence. Patient had quit smoking in 2018, unfortunately patient developed to have a a non-small cell lung cancer that is PD1 and PDL one positive has been under the care of hematology oncology underwent chemotherapy along with immunotherapy in the form of Keytruda along with carboplatin along with Doxil patient was supposed to get his last chemotherapy next Saturday and then he will go for a repeated CT/PET scan for evaluation of the tumor response through Dr. Salcedo's office, patient stated that he had an episode of chest pain last Saturday and he did not have any nitroglycerin sublingual to take so he contacted Dr. Nicholson's office and get some better was her refill apparently that was not done so he tried to stop by today to get his prescription refilled, and while he was in the car he felt a bit dizzy and lightheaded, he sat in the car for lobe that he walked into the office while he is in the lobby he felt dizzy and immediately passed out, patient skinned his right knee, he did not hit his head, patient apparently was brought into the emergency department at [facility] via EMS for evaluation, patient laboratory evaluation showed mild edema, mild from cytopenia likely related to recent chemotherapy, and he also was found surprisingly an elevation of troponin of 16, EKG did not show evidence of acute ST-T wave changes, but because of the presentation was admitted to the hospital he was placed on aspirin as well as heparin drip, he was placed on his Plavix along with the rest of his cardiac medication he was seen in consultation by cardiology and he was admitted under my service for further evaluation and recommendation. 12/13: patient has been seen by cardiology and continued on heparin drip, echocardiogram ordered. Case was discussed with his primary district extension service agent, Dr. Nicholson. orthostatic blood pressure was negative. Blood pressure this morning 111/55, heart rate in the 70s to 90s, afebrile, pulse ox 97% on room air. CTA of the chest revealed no evidence of pulmonary embolism. Decreased size of right upper lobe mass consistent with known lung cancer. Increase in size of s ubcarinal lymph node suspicious for metastasis REVIEW OF SYSTEMS: Constitutional: No documented fever, no chills, no night sweats. No weight change. No weakness, fatigue or lethargy. No daytime sleepiness. EENT: No headache. No blurred vision or double vision, no loss of vision. No loss of Hearing, no ringing in the ears, no dizziness. No nasal drainage or congestion. No epistaxis. No sore throat. Lungs: No shortness of breath, no cough, no sputum production. No wheezing. Reports dyspnea with activity. Cardiovascular: No chest pain, no lower extremity edema. No palpitations. No p aroxysmal nocturnal dyspnea. No orthopnea. No lightheadedness or dizziness. No syncopal episodes. Abdominal: Reports abdominal pain. No nausea, vomiting. No diarrhea. No constipation. No bloody or tarry stools reports loss of appetite. Genitourinary: No dysuria, increased frequency, urgency. No urinary retention. Musculoskeletal: No myalgias. No muscle weakness, no gait dysfunction, no fr equent falls. No back pain. No neck pain. Integumentary: No wounds, no lesions. No rash or pruritus. No unusual bruising. No change in hair or nails. Neurologic: No aphasia. No facial droop. No change in mentation. No head injury. No headache. No paralysis. No paresthesia. Psychiatric: No depression. No anxiety. No mood swings. Endocrine: No abnormal blood sugars. No weight change. PHYSICAL EXAMINATION: General: 77-year-old male sitting up in bed in no apparent distress HEENT: Head is atraumatic, normocephalic, pupils were equal round reactive to light and recommendation, extraocular muscle movement were intact, sclera nonicteric, conjunctivae were pale, mucous membranes of the mouth are somewhat dry. Neck: Supple, no JVP, decreased carotid upstroke bilaterally, no lymphadenopathy. Chest: Decreased breath sounds at the bases, few rhonchi, no expiratory wheezes, no chest wall tenderness, no intercostal retractions. Heart: First heart sound is normal, second heart sound is normal there is systolic ejection murmur 2/6 located in the left sternal border. Abdomen: Soft, nontender, nondistended, positive bowel sounds. Extremities: There is no edema no calf tenderness DP +2 bilaterally. Neurologic examination: Patient is awake alert and oriented X 3, cranial nerves II-12 appear grossly intact, muscle power were 5 out of 5 in upper extremities and 5 out of 5 in bilateral lower extremities, deep tendon reflexes normal bilaterally. ASSESSMENT AND PLAN: 1. Syncope likely cardiac syncope in view of the patient having non-ST elevation OH. Start the patient on heparin drip, aspirin 81 mg once every day, Plavix 75 minute gram once every day, continue patient on isosorbide mononitrate, continue patient on metoprolol, cardiology consultation, serial enzymes, echocardiogram, we'll continue to monitor the patient very closely. 2. Anemia and Thromocytopenia likely related to recent chemotherapy as well as immunotherapy. Monitor the patient's CBC keep his hemoglobin above 8. 3. Coronary artery disease status post coronary artery bypass graft 3 in 2018 continue treatment as in paragraph #1. 4. Hypertension and hypertensive cardiovascular disease. Continue patient on metoprolol 25 mg orally twice a day as well as lisinopril 5 mg at bedtime. 5. Mixed hyperlipidemia. Continue atorvastatin 80 mg once every day as well as Zetia 10 mg once every day 6. GERD with esophagitis. Continue patient on pantoprazole 40 mg once every day. 7. Non-small cell lung cancer that is PD1 and PDL one positive currently the patient is on immunotherapy as well as chemotherapy. Last cycle next Saturday and then he would be going for restaging. 8. Mild COPD FEV1 is 69% of predicted patient has been tobacco free for the last 5 years. 9. Severe carotid artery disease in the range of 90% of the right internal carotid artery patient at this time is not a candidate for surgical intervention due to his underlying stage IV non-small cell lung cancer. . 10. DVT prophylaxis. Continue patient on heparin drip. 11. GI prophylaxis. Continue patient on Protonix 40 mg once every day. Patient is full code. Impression and plan of care have been directed as dictated by the signing physician. Eugenia Arce nurse practitioner acting as scribe for signing physician. Objective - Vital Signs Vital signs: Vital Signs Temp 96.9 F L 05/18/23 09:15 Pulse 91 12/13/22 09:15 Resp 16 12/13/22 09:15 BP 111/55 12/13/22 09:15 Pulse Ox 97 12/13/22 09:15 FiO2 Intake & Output 12/12/22 12/13/22 12/13/22 18:59 06:59 18:59 Intake Total 690.319 Balance 690.319 Weight 70.307 kg 70.307 kg Intake: Intake, IV Titration 150.319 Amount Heparin Sod,Pork in 0.45% 150.319 NaCl 25,000 unit In 0.45 % NaCl 1 250ml.bag @ 12 UNITS/KG/HR 8.437 mls/hr IV .Q24H [facility] Rx#: [id number] Oral 540 Other: # Voids 1 - Labs CBC & Chem 7: 12/13/22 08:50 12/12/22 11:10 Labs: Abnormal Lab Results - Last 24 Hours (Table) 12/12/22 12/12/22 12/12/22 Range/Units 11:10 11:10 11:10 RBC 2.75 L (4.30-5.90) m/uL Hgb 8.4 L (13.0-17.5) gm/dL Hct 25.1 L (39.0-53.0) % RDW 20.3 H (11.5-15.5) % Plt Count 143 L (150-450) k/uL Lymphocytes # 0.6 L (1.0-4.8) k/uL PT 12.3 H (9.0-12.0) sec INR 1.2 H (<1.2) APTT (22.0-30.0) sec Sodium (137-145) mmol/L BUN (9-20) mg/dL Glucose (74-99) mg/dL Magnesium 1.4 L (1.6-2.3) mg/dL AST (17-59) U/L Troponin I (0.000-0.034) ng/mL Total Protein (6.3-8.2) g/dL Albumin (3.5-5.0) g/dL 12/12/22 12/12/22 12/12/22 Range/Units 11:10 11:10 22:30 RBC (4.30-5.90) m/uL Hgb (13.0-17.5) gm/dL Hct (39.0-53.0) % RDW (11.5-15.5) % Plt Count (150-450) k/uL Lymphocytes # (1.0-4.8) k/uL PT (9.0-12.0) sec INR (<1.2) APTT 46.8 H (22.0-30.0) sec Sodium 132 L (137-145) mmol/L BUN 26 H (9-20) mg/dL Glucose 115 H (74-99) mg/dL Magnesium (1.6-2.3) mg/dL AST 82 H (17-59) U/L Troponin I 16.100 H* (0.000-0.034) ng/mL Total Protein 5.7 L (6.3-8.2) g/dL Albumin 3.3 L (3.5-5.0) g/dL 12/12/22 12/13/22 Range/Units 22:30 08:50 RBC (4.30-5.90) m/uL Hgb (13.0-17.5) gm/dL Hct (39.0-53.0) % RDW (11.5-15.5) % Plt Count (150-450) k/uL Lymphocytes # (1.0-4.8) k/uL PT (9.0-12.0) sec INR (<1.2) APTT 33.3 H (22.0-30.0) sec Sodium (137-145) mmol/L BUN (9-20) mg/dL Glucose (74-99) mg/dL Magnesium (1.6-2.3) mg/dL AST (17-59) U/L Troponin I 10.000 H* (0.000-0.034) ng/mL Total Protein (6.3-8.2) g/dL Albumin (3.5-5.0) g/dL
[2022-12-13] MEDS: HEPARIN SOD,PORK IN 0.45% NACL 25,000 UNIT in 0.45% NACL 1 250ML.BAG IV SCH (16:15)
[2022-12-13] MEDS: CLOPIDOGREL 75 MG TAB PO SCH (20:13)
[2022-12-13] MEDS: lisinopriL 5 MG TAB PO SCH (20:14)
[2022-12-14] MEDS: PANTOPRAZOLE 40 MG TABLET PO SCH (05:54)
[2022-12-14] MEDS: ONDANSETRON 4 MG TAB PO PRN ×2 (05:54→17:19)
[2022-12-14] MEDS ORDERED: FUROSEMIDE 10 MG/ML 4 ML VIAL IV STA (08:33)
[2022-12-14] MEDS: RANOLAZINE 500 MG TAB.ER.12H PO SCH ×2 (08:52→20:20)
[2022-12-14] MEDS: ISOSORBIDE MONONITRATE ER 60 MG TAB.ER.24H PO SCH (08:52)
[2022-12-14] MEDS: METOPROLOL TARTRATE 25 MG TAB PO SCH ×2 (08:52→20:20)
[2022-12-14] MEDS: ASPIRIN 81 MG PO SCH (08:52)
[2022-12-14] MEDS: IPRATROPIUM-ALBUTEROL 3 ML NEB INHALATION SCH ×5 (08:58→21:22)
--- NOTE | 2022-12-14 08:59 | CA ---
Transthoracic Echo Report Name: Michele Huizar Age: 77 Gender: M : 1945 Exam Date: 12/13/2022 11:16 Exam Location: [place] [facility] Ht (in): 69 Wt (lb): 155 Ordering Physician: Cheryl Gibson Attending/Referring Phys: [id number], Paige Hog Operator Ney Ca Procedure CPT: Indications: LV function Cardiac Hx: CAD, HTN, COPD Technical Quality: Fair Contrast 1: Total Dose (mL): Contrast 2: Total Dose (mL): MEASUREMENTS (Male / Female) Normal Values 2D ECHO LV Diastolic Diameter PLAX 5.1 cm 4.2 - 5.9 / 3.9 - 5.3 cm LV Systolic Diameter PLAX 4.4 cm IVS Diastolic Thickness 1.2 cm 0.6 - 1.0 / 0.6 - 0.9 cm LVPW Diastolic Thickness 1.1 cm 0.6 - 1.0 / 0.6 - 0.9 cm LV Relative Wall Thickness 0.4 RV Internal Dim ED PLAX 2.5 cm LVOT Diameter 2.0 cm Aortic Root Diameter 2.7 cm LA Systolic Diameter LX 3.0 cm 3.0 - 4.0 / 2.7 - 3.8 cm LV Diastolic Volume MOD BP 80.3 cm??? 67 - 155 / 56 - 104 cm??? LV Systolic Volume MOD BP 62.8 cm??? 22 - 58 / 19 - 49 cm??? LV Ejection Fraction MOD BP 21.8 % >= 55 % LV Diastolic Volume MOD 4C 83.6 cm??? LV Systolic Volume MOD 4C 53.9 cm??? LV Ejection Fraction MOD 4C 35.5 % LV Diastolic Length 4C 7.5 cm LV Systolic Length 4C 6.9 cm LV Diastolic Volume MOD 2C 74.9 cm??? LV Systolic Volume MOD 2C 64.8 cm??? LV Ejection Fraction MOD 2C 13.5 % LV Diastolic Length 2C 6.3 cm LV Systolic Length 2C 6.4 cm Ascending Aorta Diameter 3.0 cm DOPPLER AV Peak Velocity 104.8 cm/s AV Peak Gradient 4.4 mmHg MR Peak Velocity 393.0 cm/s MR Peak Gradient 61.8 mmHg Mitral E Point Velocity 104.0 cm/s Mitral A Point Velocity 76.3 cm/s Mitral E to A Ratio 1.4 MV Deceleration Time 159.2 ms MV E' Velocity 4.9 cm/s Mitral E to MV E' Ratio 21.1 TR Peak Velocity 295.4 cm/s TR Peak Gradient 34.9 mmHg Right Ventricular Systolic Press 40.0 mmHg PV Peak Velocity 92.0 cm/s PV Peak Gradient 3.4 mmHg FINDINGS Left Ventricle Left ventricular ejection fraction is estimated at 40%. There is hypokinesia of the inferobasal wall inferoseptal and inferolateral wall. Right Ventricle Normal right ventricular size and function. RVSP=44mmhg Right Atrium Normal right atrial size. Left Atrium Mild left atrial dilatation. LA Index= 35.1ml/m2 Mitral Valve Structurally normal mitral valve. Mild mitral regurgitation. Aortic Valve Grossly Normal. Tricuspid Valve Structurally normal tricuspid valve. Mild tricuspid regurgitation. Pulmonic Valve Pulmonic valve not well visualized. Moderate pulmonic regurgitation. Pericardium Normal pericardium. Aorta Normal size aortic root and proximal ascending aorta. CONCLUSIONS Ischemic cardiomyopathy with ejection fraction of about 40% with inferobasal, inferoseptal and inferolateral hypokinesia mild to moderate pulmonary hypertension mild mitral and tricuspid regurgitation. No pericardial effusion Previewed by: Dr. Rosangela Borja MD (Electronically Signed) Final Date: 14 Dec 2022 08:58
--- NOTE | 2022-12-14 09:10 | XR ---
EXAMINATION TYPE: XR chest 1V portable DATE OF EXAM: 12/14/2022 CLINICAL HISTORY: Difficulty breathing progress study. TECHNIQUE: Single AP portable upright view of the chest is obtained. COMPARISON: Chest x-ray from 2 days earlier and older studies. FINDINGS: Overlying sternal wires and mediastinal clips are redemonstrated. Cardiac silhouette size stable and upper limits of normal. Osseous structures remain demineralized. Background chronic emphys ematous change with persistent right upper lung obstructing mass/neoplasm. Persistent small bilateral pleural effusions. Persistent reticular increased interstitial markings particularly in the lower jake ngs which is nonspecific. IMPRESSION: Chronic changes with stable small bilateral pleural effusions and suspected mild intersti tial edema. Effusions and interstitial edema slightly worsened since most recent x-ray.
[2022-12-14 10:49] LABS: Anisocytosis Moderate; HCT 27.8 % (39.0-53.0); HGB 9.2 gm/dL (13.0-17.5); MCH 30.7 pg (25.0-35.0); MCHC 32.9 g/dL (31.0-37.0); MCV 93.2 fL (80.0-100.0); Macrocytosis Slight; Mean Platelet Volume 8.8; Platelet Count 213 k/uL (150-450); RBC 2.99 m/uL (4.30-5.90); RDW 20.6 % (11.5-15.5); WBC 5.2 k/uL (3.8-10.6)
--- NOTE | 2022-12-14 11:59 | P.PN ---
Subjective Progress Note Date: 12/14/22 HISTORY OF PRESENT ILLNESS: This is a 77-year-old male with a previous medical history significant for coronary artery disease status post remote Percodans coronary intervention of the RCA more than 10 years ago, status post 3 vessel coronary artery bypass graft back in December 2017 with BALDERAS to LAD, 7 is venous graft to the diagonal branch and sentences graft to the ramus that was done at [facility], hypertension and hypertensive cardio vascular disease, hyperlipidemia, mild chronic obstructive pulmonary disease with an FEV1 of 69%, remote tobacco use and dependence. Patient had quit smoking in 2018, unfortunately patient developed to have a a non-small cell lung cancer that is PD1 and PDL one positive has been under the care of hematology oncology underwent chemotherapy along with immunotherapy in the form of Keytruda along with carboplatin along with Doxil patient was supposed to get his last chemotherapy next Saturday and then he will go for a repeated CT/PET scan for evaluation of the tumor response through Dr. Salcedo's office, patient stated that he had an episode of chest pain last Saturday and he did not have any nitroglycerin sublingual to take so he contacted Dr. Nicholson's office and get some better was her refill apparently that was not done so he tried to stop by today to get his prescription refilled, and while he was in the car he felt a bit dizzy and lightheaded, he sat in the car for lobe that he walked into the office while he is in the lobby he felt dizzy and immediately passed out, patient skinned his right knee, he did not hit his head, patient apparently was brought into the emergency department at [facility] via EMS for evaluation, patient laboratory evaluation showed mild edema, mild from cytopenia likely related to recent chemotherapy, and he also was found surprisingly an elevation of troponin of 16, EKG did not show evidence of acute ST-T wave changes, but because of the presentation was admitted to the hospital he was placed on aspirin as well as heparin drip, he was placed on his Plavix along with the rest of his cardiac medication he was seen in consultation by cardiology and he was admitted under my service for further evaluation and recommendation. 12/13: patient has been seen by cardiology and continued on heparin drip, echocardiogram ordered. Case was discussed with his primary baker apprentice, Dr. Nicholson. orthostatic blood pressure was negative. Blood pressure this morning 111/55, heart rate in the 70s to 90s, afebrile, pulse ox 97% on room air. CTA of the chest revealed no evidence of pulmonary embolism. Decreased size of right upper lobe mass consistent with known lung cancer. Increase in size of s ubcarinal lymph node suspicious for metastasis 12/14: Echocardiogram reveals EF of 40% with inferior basal, inferior septal and inferior lateral hypokinesia mild to moderate pulmonary hypertension, mild mitral and tricuspid regurgitation. No pericardial effusion. Patient has been seen by oncology as requested by cardiology regarding prognosis. Would expect prognosis of 18-24 months or even longer. Plan from cardiology is for medical management. No plan for cardiac catheterization at this time and heparin is discontinued. This morning, patient was having some respiratory distress and one dose of IV Lasix ordered and patient diuresed. He is now seen in recheck and his respiratory status is improved. Chest x-ray performed today reveals chronic changes with stable small bilateral pleural effusions and suspected mild interstitial edema. Effusions and interstitial edema slightly worsened since most recent x-ray. IV Lasix added at 40 mg every 12 hours Patient has been afebrile, heart rate in the 80s, blood pressure 129/68, pulse ox 97% on 3 L nasal cannula. Repeat blood work reveals a hemoglobin of 9.2, WBC 5.2 and platelet count 213. Patient denies having any chest pain. REVIEW OF SYSTEMS: Constitutional: No documented fever, no chills, no night sweats. No weight change. No weakness, fatigue or lethargy. No daytime sleepiness. EENT: No headache. No blurred vision or double vision, no loss of vision. No loss of Hearing, no ringing in the ears, no dizziness. No nasal drainage or congestion. No epistaxis. No sore throat. Lungs: Reports shortness of breath, no cough, no sputum production. No wheezing. Reports dyspnea with activity. Cardiovascular: No chest pain, no lower extremity edema. No palpitations. No paroxysmal nocturnal dyspnea. No orthopnea. No lightheadedness or dizziness. No syncopal episodes. Abdominal: Reports abdominal pain. No nausea, vomiting. No diarrhea. No constipation. No bloody or tarry stools reports loss of appetite. Genitourinary: No dysuria, increased frequency, urgency. No urinary retention. Musculoskeletal: No myalgias. No muscle weakness, no gait dysfunction, no frequent falls. No back pain. No neck pain. Integumentary: No wounds, no lesions. No rash or pruritus. No unusual bruising. No change in hair or nails. Neurologic: No aphasia. No facial droop. No change in mentation. No head injury. No headache. No paralysis. No paresthesia. Psychiatric: No depression. No anxiety. No mood swings. Endocrine: No abnormal blood sugars. No weight change. PHYSICAL EXAMINATION: General: 77-year-old male sitting up in bed in no apparent distress HEENT: Head is atraumatic, normocephalic, pupils were equal round reactive to light and recommendation, extraocular muscle movement were intact, sclera nonicteric, conjunctivae were pale, mucous membranes of the mouth are somewhat dry. Neck: Supple, no JVP, decreased carotid upstroke bilaterally, no lymphadenopathy. Chest: Decreased breath sounds at the bases, few rhonchi, no expiratory wheezes, no chest wall tenderness, no intercostal retractions. Heart: First heart sound is normal, second heart sound is normal there is systolic ejection murmur 2/6 located in the left sternal border. Abdomen: Soft, nontender, nondistended, positive bowel sounds. Extremities: There is no edema no calf tenderness DP +2 bilaterally. Neurologic examination: Patient is awake alert and oriented X 3, cranial nerves II-12 appear grossly intact, muscle power were 5 out of 5 in upper extremities and 5 out of 5 in bilateral lower extremities, deep tendon reflexes normal bilaterally. ASSESSMENT AND PLAN: 1. Syncope likely cardiac syncope in view of the patient having non-ST elevation GA. Heparin drip discontinued. Continue patient on aspirin 81 mg once every day, Plavix 75 mg once every day, continue patient on isosorbide mononitrate, continue patient on metoprolol, cardiology consultation, we'll continue to monitor the patient very closely. 2. Acute systolic heart failure. Start patient on IV Lasix 40 mg every 12 hours, monitor I&O, daily weights electrolytes and renal function. 3. Anemia and Thromocytopenia likely related to recent chemotherapy as well as immunotherapy. Monitor the patient's CBC keep his hemoglobin above 8. Oncology consult appreciated. 4. Coronary artery disease status post coronary artery bypass graft 3 in 2018 continue treatment as in paragraph #1. 5. Hypertension and hypertensive cardiovascular disease. Continue patient on metoprolol 25 mg orally twice a day as well as lisinopril 5 mg at bedtime. 6. Mixed hyperlipidemia. Continue atorvastatin 80 mg once every day as well as Zetia 10 mg once every day 7. GERD with esophagitis. Continue patient on pantoprazole 40 mg once every day. 8. Non-small cell lung cancer that is PD1 and PDL one positive currently the patient is on immunotherapy as well as chemotherapy. Last cycle next Saturday and then he would be going for restaging. 9. Mild COPD FEV1 is 69% of predicted patient has been tobacco free for the last 5 years. 10. Severe carotid artery disease in the range of 90% of the right internal carotid artery patient at this time is not a candidate for surgical intervention due to his underlying stage IV non-small cell lung cancer. . 11. DVT prophylaxis. Continue patient on heparin sq. 12. GI prophylaxis. Continue patient on Protonix 40 mg once every day. Patient is full code. Impression and plan of care have been directed as dictated by the signing physician. Eugenia Arce nurse practitioner acting as scribe for signing physician. Objective - Vital Signs Vital signs: Vital Signs Temp 97.9 F 12/14/22 08:25 Pulse 84 12/14/22 10:10 Resp 20 12/14/22 08:25 BP 129/68 12/14/22 08:25 Pulse Ox 96 12/14/22 08:29 FiO2 Intake & Output 12/13/22 12/14/22 12/14/22 18:59 06:59 18:59 Intake Total 1373.281 668.086 240 Balance 1373.281 668.086 240 Intake: Intake, IV Titration 233.281 128.086 Amount Heparin Sod,Pork in 0.45% 233.281 128.086 NaCl 25,000 unit In 0.45 % NaCl 1 250ml.bag @ 12 UNITS/KG/HR 8.437 mls/hr IV .Q24H KB Rx#: [id number] Oral 1140 540 240 Other: Voiding Method Urinal # Voids 1 - Labs CBC & Chem 7: 12/14/22 10:34 12/12/22 11:10 Labs: Abnormal Lab Results - Last 24 Hours (Table) 12/13/22 12/13/22 12/14/22 Range/Units 15:48 23:45 10:34 RBC (4.30-5.90) m/uL Hgb (13.0-17.5) gm/dL Hct (39.0-53.0) % RDW (11.5-15.5) % APTT 43.5 H 92.9 H 45.4 H (22.0-30.0) sec 12/14/22 Range/Units 10:34 RBC 2.99 L (4.30-5.90) m/uL Hgb 9.2 L (13.0-17.5) gm/dL Hct 27.8 L (39.0-53.0) % RDW 20.6 H (11.5-15.5) % APTT (22.0-30.0) sec
[2022-12-14 12:53] LABS: Band Neutrophils % 4 %; Eosinophils # (M) 0.05 k/uL (0-0.7); Lymphocytes # (M) 0.99 k/uL (1.0-4.8); Monocytes # (M) 0.42 k/uL (0-1.0); Neutrophils % (M) 68 %; Nucleated Red Blood Cells 0 /100 WBC (0-0); Total Cells Counted 100
[2022-12-14] MEDS: FUROSEMIDE 10 MG/ML 4 ML VIAL IV SCH ×2 (13:23→22:07)
[2022-12-14] MEDS: EZETIMIBE 10 MG TAB PO SCH (14:01)
[2022-12-14] MEDS: ATORVASTATIN 80 MG TAB PO SCH (14:01)
--- NOTE | 2022-12-14 14:41 | P.CNPUL ---
History of Present Illness Consult date: 12/14/22 Requesting physician: Nura Owusu Reason for consult: other (Non-small cell lung cancer) Chief complaint: Syncope History of present illness: This is a 77-year-old white male with history of coronary artery disease, history of non-small cell lung cancer diagnosed recently by Dr. Unique amaro the patient presented with a large right upper lobe mass. Patient is currently receiving carboplatinum, and Alimta, and keytruda. Patient completed 3 cycles on 11/26/2022, with plan of 4 cycles. Recently he was noted to have low blood pressure, and he was advised to see his dope pourer based on the recommendation of his oncologist/Dr. Reynoso. Patient went to see Dr. Nicholson, and while in the office, patient had an episode of syncope. Patient was sent to the ER and he was noted to have elevated troponins, started on heparin, chest x-ray continues to show the same right upper lobe consolidation/mass which is basically unchanged. CT angiogram of the chest showed no evidence of pulmonary embolism. As a matter of fact a CT angiogram showed slight decrease in the size of the mass in the right upper lobe. There was however increase in the size of the subcarinal lymph nodes. Labs on admission showed relatively normal CBC except for hemoglobin of 8.4, relatively normal electrolytes, normal renal profile, however his troponin was noted to be high as high as 10, and follow-up troponin the following day was 6.4 patient was seen by cardiology on consultation, felt to have non-ST elevation myocardial infarction with syncope and hypotension and awaiting the results of his 2-D echocardiogram in the meantime the patient remains on heparin considering his overall condition, no plans to consider cardiac catheterization at this point. Pulmonary-mas patient does have underlying COPD and I'm recommending treating the patient with bronchodilators. Apparently the patient has been on albuterol which was given to him recently for symptoms of COPD. Patient describes intermittent cough and wheezing no fever no chills no hemoptysis. Review of Systems Constitutional: Negative HEENT: Negative Pulmonary: Intermittent cough and wheezing Cardiac: As noted in HPI GI: Negative Genitourinary: Negative Muscular skeletal: Negative Endocrine: Negative Neurologic: Negative Hematologic: Negative Psychiatric: Negative Skin: Negative Past Medical History Past Medical History: Coronary Artery Disease (CAD), Cancer, COPD, Hyperl ipidemia, Hypertension, Vascular Disorder Additional Past Medical History / Comment(s): lung cancer diagnosis in . History of Any Multi-Drug Resistant Organisms: None Reported Past Surgical History: Heart Catheterization With Stent Additional Past Surgical History / Comment(s): two cardiac stents, triple bypass 12/2017 Past Anesthesia/Blood Transfusion Reactions: No Reported Reaction Date of Last Stent Placement:: 2007 Smoking Status: Former smoker - Past Family History Mother Family Medical History: Myocardial Infarction ([place]) Father Family Medical History: Pneumonia Brother(s) Family Medical History: Cancer Medications and Allergies Home Medications Medication Instructions Recorded Confirmed Type Metoprolol Tartrate [Lopressor] 25 mg PO BID #60 tab 01/21/18 12/12/22 Rx Aspirin [Adult Low Dose Aspirin EC] 81 mg PO DAILY 01/05/19 12/12/22 History Clopidogrel [Plavix] 75 mg PO HS 01/05/19 12/12/22 History Ezetimibe [Zetia] 10 mg PO DAILY 01/05/19 12/12/22 History lisinopriL [Zestril] 5 mg PO HS 01/05/19 12/12/22 History Ranolazine [Ranexa] 1,000 mg PO BID 09/06/22 12/12/22 History Atorvastatin [Lipitor] 80 mg PO DAILY 12/12/22 12/12/22 History Isosorbide Mononitrate ER [Imdur] 60 mg PO DAILY 12/12/22 12/12/22 History Ondansetron [Zofran] 4 mg PO Q4H PRN 12/12/22 12/12/22 History Pantoprazole [Protonix] 40 mg PO DAILY 12/12/22 12/12/22 History Allergies Allergy/AdvReac Type Severity Reaction Status Date / Time No Known Allergies Allergy Verified 12/12/22 12:59 Physical Exam Vitals: Vital Signs Temp Pulse Pulse Resp BP Pulse Ox 12/14/22 10:10 84 12/14/22 10:05 82 12/14/22 08:29 96 12/14/22 08:25 97.9 F 85 20 129/68 97 12/14/22 08:00 85 20 12/14/22 04:00 97.7 F 82 18 113/68 95 12/14/22 01:32 70 18 12/14/22 00:00 97.6 F 70 18 101/66 97 12/13/22 20:00 98.0 F 86 18 113/63 98 12/13/22 16:16 98 F 79 16 106/58 98 Intake and Output 12/13/22 12/14/22 12/14/22 22:59 06:59 14:59 Intake Total 982.962 128.086 360 Balance 982.962 128.086 360 Intake: Intake, IV Titration 82.962 128.086 Amount Heparin Sod,Pork in 0.45% 82.962 128.086 NaCl 25,000 unit In 0.45 % NaCl 1 250ml.bag @ 12 UNITS/KG/HR 8.437 mls/hr IV .Q24H KB Rx#: [id number] Oral 900 360 Other: Voiding Method Urinal # Voids 1 Physical Exam: Revealed 77-year-old white male in no distress Head: Atraumatic, normocephalic. HEENT:[Neck is supple.] [No neck masses.] [No thyromegaly.] [No JVD.] Chest: [Symmetrical chest expansion, scattered rhonchi noted on forced expiratory maneuver Cardiac Exam: [Normal S1 and S2, no S3 gallop, 2/6 systolic murmur at the left sternal border. Abdomen: [Soft, nontender, no megaly, no rebound, no guarding, normal bowel sounds.] Extremities: [No clubbing, no edema, no cyanosis.] Neurological Exam: [No focal neurologic deficit.] Alert and oriented 3. Psychiatric: Normal mood affect and normal mental status examination. Skin: No rashes Musculoskeletal: No deformities and no limitation in range of motion Results - Laboratory Findings CBC and BMP: 12/14/22 10:34 12/12/22 11:10 PT/INR, D-dimer PT 11.3 sec (9.0-12.0) 12/13/22 04:05 INR 1.1 (<1.2) 12/13/22 04:05 Abnormal lab findings: Abnormal Labs 12/12/22 12/12/22 12/12/22 11:10 11:10 11:10 RBC 2.75 L Hgb 8.4 L Hct 25.1 L RDW 20.3 H Plt Count 143 L Lymphocytes # 0.6 L Lymphocytes # (Manual) PT 12.3 H INR 1.2 H APTT Sodium BUN Glucose Magnesium 1.4 L AST Troponin I Total Protein Albumin 12/12/22 12/12/22 12/12/22 11:10 11:10 22:30 RBC Hgb Hct RDW Plt Count Lymphocytes # Lymphocytes # (Manual) PT INR APTT 46.8 H Sodium 132 L BUN 26 H Glucose 115 H Magnesium AST 82 H Troponin I 16.100 H* Total Protein 5.7 L Albumin 3.3 L 12/12/22 12/13/22 12/13/22 22:30 08:50 08:50 RBC Hgb Hct RDW Plt Count Lymphocytes # Lymphocytes # (Manual) PT INR APTT 33.3 H Sodium BUN Glucose Magnesium AST Troponin I 10.000 H* 6.440 H* Total Protein Albumin 12/13/22 12/13/22 12/14/22 15:48 23:45 10:34 RBC Hgb Hct RDW Plt Count Lymphocytes # Lymphocytes # (Manual) PT INR APTT 43.5 H 92.9 H 45.4 H Sodium BUN Glucose Magnesium AST Troponin I Total Protein Albumin 12/14/22 10:34 RBC 2.99 L Hgb 9.2 L Hct 27.8 L RDW 20.6 H Plt Count Lymphocytes # Lymphocytes # (Manual) 0.99 L PT INR APTT Sodium BUN Glucose Magnesium AST Troponin I Total Protein Albumin - Diagnostic Findings CT scan - chest: image reviewed (As noted in HPI) Assessment and Plan Assessment: Impression: Syncope, most likely cardiac in nature considering the patient presented with significantly elevated troponin, this is most likely secondary to non-ST elevation myocardial infarction and hypotension. Acute exacerbation of COPD Right upper lobe mass/non-small cell lung cancer, being followed by oncology and receiving treatment. Plan to have one more cycle of treatment next week. Benign essential hypertension Coronary artery disease and previous CABG 3 in 2018 History of GERD without esophagitis Dyslipidemia Chronic anemia and thrombocytopenia secondary to chemotherapy as well as immunotherapy Recommendation: Agree with the present treatment plan We will add bronchodilators for this patient including DuoNeb and Symbicort. Cardiac treatment as outlined by cardiology on the case Consider cutting down the dose of metoprolol since the patient had recently very low blood pressures on outpatient basis Continue GI and DVT prophylaxis We will continue to follow Time with Patient: Greater than 30
--- NOTE | 2022-12-14 15:52 | P.PN ---
Subjective Progress Note Date: 12/14/22 Principal diagnosis: hx NSCLC At today's visit patient is resting comfortably in bed. Patient denies chest pain and shortness of breath. Patient breathing is even and unlabored. Patient is being followed by cardiology. Echocardiogram showed ischemic cardiomyopathy with ejection fraction of 40%. Plan for medical management, no catherization planned at this time. Objective - Vital Signs Vital signs: Vital Signs Temp 97.9 F 12/14/22 08:25 Pulse 80 12/14/22 15:39 Resp 20 12/14/22 08:25 BP 129/68 12/14/22 08:25 Pulse Ox 96 12/14/22 08:29 FiO2 Intake & Output 12/13/22 12/14/22 12/14/22 18:59 06:59 18:59 Intake Total 1373.281 668.086 360 Balance 1373.281 668.086 360 Intake: Intake, IV Titration 233.281 128.086 Amount Heparin Sod,Pork in 0.45% 233.281 128.086 NaCl 25,000 unit In 0.45 % NaCl 1 250ml.bag @ 12 UNITS/KG/HR 8.437 mls/hr IV .Q24H KB Rx#: [id number] Oral 1140 540 360 Other: Voiding Method Urinal # Voids 1 - Constitutional General appearance: Present: average body habitus, no acute distress - EENT Eyes: Present: anicteric sclerae, EOMI ENT: Present: hearing grossly normal - Respiratory Details: breathing is even and unlabored - Cardiovascular Details: skin is warm and dry - Labs CBC & Chem 7: 12/14/22 10:34 12/12/22 11:10 Labs: Abnormal Lab Results - Last 24 Hours (Table) 12/13/22 12/13/22 12/14/22 Range/Units 15:48 23:45 10:34 RBC (4.30-5.90) m/uL Hgb (13.0-17.5) gm/dL Hct (39.0-53.0) % RDW (11.5-15.5) % Lymphocytes # (Manual) (1.0-4.8) k/uL APTT 43.5 H 92.9 H 45.4 H (22.0-30.0) sec 12/14/22 Range/Units 10:34 RBC 2.99 L (4.30-5.90) m/uL Hgb 9.2 L (13.0-17.5) gm/dL Hct 27.8 L (39.0-53.0) % RDW 20.6 H (11.5-15.5) % Lymphocytes # (Manual) 0.99 L (1.0-4.8) k/uL APTT (22.0-30.0) sec Assessment and Plan (1) Lung cancer Current Visit: Yes Status: Acute Priority: High Code(s): C34.90 - MALIGNANT NEOPLASM OF UNSP PART OF UNSP BRONCHUS OR LUNG SNOMED Code(s): 574402260 (2) NSTEMI (non-ST elevated myocardial infarction) Current Visit: Yes Status: Acute Priority: High Code(s): I21.4 - NON-ST ELEVATION (NSTEMI) MYOCARDIAL INFARCTION SNOMED Code(s): 40319541 Plan: Metastatic NSCLC: -He is a patient of Dr. Reynoso. He is currently receiving carbo/Alimta/Keytruda. He has completed cycle 3 on 11/26/22, with plan for 4 cycles, then patient will continue on Keytruda every 3 weeks. Patient has been tolerating treatment well. -In regards to prognosis, chemo is not of curative intent, but pt is tolerating treatment well, and would expect prognosis of 18-24 months, or even longer due to patient having multiple positive biomarkers and would be a candidate for different treatment modalities -Will hold chemotherapy on 12/17 due to the acute condition. Will schedule follow-up next week in clinic for reevaluation. PET scan was scheduled for 01/04, with follow-up with Dr. Reynoso on 01/14. NSTEMI: -Elevated troponins -echocardiogram revealed ischemic cardiomyopathy and ejection fraction 40% -Heparin d/c, continues on aspirin and plavix -Defer to cardiology for management attests: I have performed H&P and developed impression and plan of care for patient, discussed with dictator. I agree would dictated note, documented as a scribe.
[2022-12-14] MEDS: CLOPIDOGREL 75 MG TAB PO SCH (20:20)
[2022-12-14] MEDS: HEPARIN SODIUM,PORCINE/PF 5,000 UNIT/0.5 ML SYRINGE SQ SCH (20:20)
[2022-12-14] MEDS: SYMBICORT 160-4.5 MCG INHALER INHALATION SCH (21:22)
--- NOTE | 2022-12-15 00:03 | PN ---
PROGRESS NOTE SUBJECTIVE: Michele is a 77-year-old gentleman with history of coronary artery disease, status post prior bypass surgery, severe right and carotid artery stenosis, who has recently been diagnosed with stage IV lung cancer and was receiving chemotherapy, came in to hospital following a syncope. This morning the patient is doing well and is free of chest pain or difficulty in breathing. MEDICATIONS: Currently on, 1. Aspirin. 2. Lipitor. 3. Plavix. 4. Zetia. 5. Imdur. 6. Zestril. 7. Lopressor. I am going to stop the IV heparin at this time and start him on subcu heparin. An echocardiogram on this admission revealed an ejection fraction of 40% with inferobasal hypokinesis. OBJECTIVE: GENERAL: Comfortable at rest. VITAL SIGNS: Stable. NECK: There is no jugular venous distention. Carotid upstroke is normal. There is no bruit. CHEST: Reveals good air entry bilaterally. HEART: Reveals first and second heart sounds. No gallop. ABDOMEN: Soft. EXTREMITIES: Did not reveal any edema. Peripheral pulses are felt. ASSESSMENT: 1. Stage IV lung cancer. 2. Syncope secondary to profound hypertension. 3. Acute [id number] elevation CA. PLAN: The plan at this stage is to treat him with optimal medical therapy. The patient has a survival of about 1 and 1/2 years, but at the last angiogram we could not really revascularize him and his bypass grafts are gone and [place] coronaries do not seem particularly amenable to percutaneous intervention. So, the plan at this stage is to treat him with optimal medical therapy and if he has further episodes of chest pain, we can consider cardiac catheterization on him. MMODL / IJN: [id number] /
[2022-12-15] MEDS: PANTOPRAZOLE 40 MG TABLET PO SCH (05:27)
[2022-12-15 07:36] LABS: ALT 29 U/L (4-49); AST 33 U/L (17-59); African American GFR (CKD) >90 (>60 ml/min/1.73 sqM); Albumin 3.6 g/dL (3.5-5.0); Alkaline Phosphatase 103 U/L (38-126); Anion Gap 8 mmol/L; Blood Urea Nitrogen 22 mg/dL (9-20); Calcium 8.9 mg/dL (8.4-10.2); Carbon Dioxide 30 mmol/L (22-30); Chloride 88 mmol/L (98-107); Glucose 97 mg/dL (74-99); Non-African American GFR(CKD) 79 (>60 ml/min/1.73 sqM); Potassium 3.9 mmol/L (3.5-5.1); Sodium 126 mmol/L (137-145); Total Bilirubin 0.6 mg/dL (0.2-1.3); Total Protein 6.2 g/dL (6.3-8.2)
[2022-12-15] MEDS: SYMBICORT 160-4.5 MCG INHALER INHALATION SCH ×2 (07:40→20:42)
[2022-12-15] MEDS: IPRATROPIUM-ALBUTEROL 3 ML NEB INHALATION SCH ×4 (07:40→20:42)
[2022-12-15] MEDS: FUROSEMIDE 10 MG/ML 4 ML VIAL IV SCH ×2 (08:23→20:16)
[2022-12-15] MEDS: ASPIRIN 81 MG PO SCH (08:23)
[2022-12-15] MEDS: METOPROLOL TARTRATE 25 MG TAB PO SCH ×2 (08:23→21:10)
[2022-12-15] MEDS: HEPARIN SODIUM,PORCINE/PF 5,000 UNIT/0.5 ML SYRINGE SQ SCH ×2 (08:23→20:15)
[2022-12-15] MEDS: ISOSORBIDE MONONITRATE ER 60 MG TAB.ER.24H PO SCH (08:23)
--- NOTE | 2022-12-15 13:13 | P.PN ---
Subjective Progress Note Date: 12/15/22 This is a 77-year-old white male with history of coronary artery disease, history of non-small cell lung cancer diagnosed recently by Dr. Unique manrique and the patient presented with a large right upper lobe mass. Patient is currently receiving carboplatinum, and Alimta, and keytruda. Patient completed 3 cycles on 11/26/2022, with plan of 4 cycles. Recently he was noted to have low blood pressure, and he was advised to see his technology specialist based on the recommendation of his oncologist/Dr. Reynoso. Patient went to see Dr. Nicholson, and while in the office, patient had an episode of syncope. Patient was sent to the ER and he was noted to have elevated troponins, started on heparin, chest x-ray continues to show the same right upper lobe consolidation/mass which is basically unchanged. CT angiogram of the chest showed no evidence of pulmonary embolism. As a matter of fact a CT angiogram showed slight decrease in the size of the mass in the right upper lobe. There was however increase in the size of the subcarinal lymph nodes. Labs on admission showed relatively normal CBC except for hemoglobin of 8.4, relatively normal electrolytes, normal renal profile, however his troponin was noted to be high as high as 10, and follow-up troponin the following day was 6.4 patient was seen by cardiology on consultation, felt to have non-ST elevation myocardial infarction with syncope and hypotension and awaiting the results of his 2-D echocardiogram in the meantime the patient remains on heparin considering his overall condition, no plans to consider cardiac catheterization at this point. Pulmonary-mas patient does have underlying COPD and I'm recommending treating the patient with bronchodilators. Apparently the patient has been on albuterol which was given to him recently for symptoms of COPD. Patient describes intermittent cough and wheezing no fever no chills no hemoptysis. The patient is seen today 12/15/2022 in follow-up on the selective care unit. He is currently resting comfortably in bed. Awake and alert in no acute distress. No further episodes of syncope or near-syncope. Maintaining good O2 saturations in the upper 90s on 2 L/m per nasal cannula. He's been afebrile. Hemodynamically stable. Sodium 126. Potassium 3.9. Bicarb 30. BUN 22. Creatinine 0.94. AST 32. ALT 29. Troponins were trending down. Echocardiogram reveals ischemic cardiomyopathy with ejection fraction of 40% with inferior basal, inferoseptal and inferolateral hypokinesia. Mild to m oderate pulmonary hypertension. He is currently on IV diuretics. Remains on Symbicort and DuoNeb inhalations. Heparin for DVT prophylaxis. Objective - Vital Signs Vital signs: Vital Signs Temp 97.9 F 12/15/22 04:00 Pulse 78 12/15/22 12:56 Resp 18 12/15/22 04:00 BP 107/67 12/15/22 04:00 Pulse Ox 98 12/15/22 07:42 FiO2 Intake & Output 12/14/22 12/15/22 12/15/22 18:59 06:59 18:59 Intake Total 480 540 120 Output Total 300 600 Balance 180 -60 120 Weight 70.1 kg Intake: Oral 480 540 120 Output: Urine 300 600 Other: Voiding Method Urinal Urinal - Exam GENERAL EXAM: Alert, pleasant 77-year-old male, on 2 L nasal cannula, comfortable in no apparent distress. HEAD: Normocephalic. EYES: Normal reaction of pupils, equal size. NOSE: Clear with pink turbinates. THROAT: No erythema or exudates. NECK: No masses, no JVD. CHEST: No chest wall deformity. LUNGS: Equal air entry with basilar crackles. CVS: S1 and S2 normal with no audible murmur, regular rhythm. ABDOMEN: No hepatosplenomegaly, normal bowel sounds, no guarding or rigidity. SPINE: No scoliosis or deformity SKIN: No rashes CENTRAL NERVOUS SYSTEM: No focal deficits, tone is normal in all 4 extremities. EXTREMITIES: There is no peripheral edema. No clubbing, no cyanosis. Peripheral pulses are intact. - Labs CBC & Chem 7: 12/14/22 10:34 12/15/22 07:06 Labs: Abnormal Lab Results - Last 24 Hours (Table) 12/15/22 Range/Units 07:06 Sodium 126 L (137-145) mmol/L Chloride 88 L (98-107) mmol/L BUN 22 H (9-20) mg/dL Total Protein 6.2 L (6.3-8.2) g/dL Assessment and Plan Assessment: Syncope, most likely cardiac in nature considering the patient presented with significantly elevated troponin, this is most likely secondary to non-ST elevation myocardial infarction and hypotension. Ischemic cardiomyopathy with an ejection fraction of 40% with inferior basal, inferoseptal and inferolateral hypokinesia Acute exacerbation of COPD Right upper lobe mass/non-small cell lung cancer, being followed by oncology and receiving treatment. Plan to have one more cycle of treatment next week. Benign essential hypertension Coronary artery disease and previous CABG 3 in 2018 History of GERD without esophagitis Dyslipidemia Chronic anemia and thrombocytopenia secondary to chemotherapy as well as immunotherapy Plan: The patient was seen and evaluated Echocardiogram, medications and labs reviewed Continue on Symbicort and DuoNeb inhalations Remains on IV diuretics We will continue to follow I have personally seen and examined the patient, performed the documentation and the assessment and plan as written. Number of minutes spent on the visit: 10.
--- NOTE | 2022-12-15 14:01 | P.PN ---
Subjective Progress Note Date: 12/15/22 History of present illness: This is a 72-year-old male patient of Dr. Nicholson with past history of coronary artery disease status post prior bypass surgery, severe right carotid artery stenosis. Patient was recently diagnosed with stage IV lung cancer and receiving care in monotherapy with estimated prognosis of one and half years. Patient presented to the hospital due to syncopal episode and did not have any chest pain. He had elevated troponins and diagnosed with an acute non-ST elevated myocardial infarction and plan was for medical management at this time. Patient denies having any chest pain, no lightheadedness or dizziness. He has been up and ambulate to the bathroom without difficulties. Physical examination: Gen: This is a 77-year-old male. He is resting in the chair and appears to be comfortable. VS: reviewed HEENT: Head is atraumatic, normocephalic. Pupils equal, round. Sclerae is anicteric. LUNGS: Good air entry bilaterally No intercostal retractions. HEART: Regular rate and rhythm. No murmur. ABDOMEN: Soft No tenderness. EXTREMITIES: No pedal edema. NEUROLOGICAL: Patient is awake, alert and oriented x3. Assessment: Stage IV lung cancer Syncope secondary to profound hypotension Acute non-ST elevated myocardial infarction Plan: Patient is cleared for discharge home today and may follow-up with Dr. Nicholson in 1-2 weeks. Nurse practitioner note has been reviewed, I agree with documented findings and plan of care. Patient was seen and examined.. Objective - Vital Signs Vital signs: Vital Signs Temp 97.9 F 12/15/22 04:00 Pulse 84 12/15/22 07:55 Resp 18 12/15/22 04:00 BP 107/67 12/15/22 04:00 Pulse Ox 98 12/15/22 07:42 FiO2 Intake & Output 12/14/22 12/15/22 12/15/22 18:59 06:59 18:59 Intake Total 480 540 120 Output Total 300 600 Balance 180 -60 120 Weight 70.1 kg Intake: Oral 480 540 120 Output: Urine 300 600 Other: Voiding Method Urinal Urinal - Labs CBC & Chem 7: 12/14/22 10:34 12/15/22 07:06 Labs: Abnormal Lab Results - Last 24 Hours (Table) 05/19/23 05/19/23 05/20/23 Range/Units 10:34 10:34 07:06 RBC 2.99 L (4.30-5.90) m/uL Hgb 9.2 L (13.0-17.5) gm/dL Hct 27.8 L (39.0-53.0) % RDW 20.6 H (11.5-15.5) % Lymphocytes # (Manual) 0.99 L (1.0-4.8) k/uL APTT 45.4 H (22.0-30.0) sec Sodium 126 L (137-145) mmol/L Chloride 88 L (98-107) mmol/L BUN 22 H (9-20) mg/dL Total Protein 6.2 L (6.3-8.2) g/dL
[2022-12-15] MEDS: ATORVASTATIN 80 MG TAB PO SCH (17:46)
[2022-12-15] MEDS: EZETIMIBE 10 MG TAB PO SCH (17:46)
[2022-12-15] MEDS: RANOLAZINE 500 MG TAB.ER.12H PO SCH ×2 (17:46→21:10)
[2022-12-15] MEDS: CLOPIDOGREL 75 MG TAB PO SCH (20:15)
--- NOTE | 2022-12-15 23:01 | PN ---
PROGRESS NOTE DATE OF SERVICE: 12/15/2022 SUBJECTIVE: This is a 77-year-old gentleman admitted with acute emz-MN-adsctts-elevation myocardial infarction, also had significant shortness of breath. The patient also had lung cancer, on treatment. The patient also had significant lung lesions mainly on to the right side. Dr. Last has seen the patient and adjusting the breathing treatments at this time. Most recent chest x-ray was personally reviewed. PAST MEDICAL HISTORY: Reviewed. REVIEW OF SYSTEMS: A 14-point review is negative except as mentioned earlier. PHYSICAL EXAMINATION: VITAL SIGNS: Pulse 85, blood pressure 107/69, respirations 18. CHEST: A few scattered rhonchi and crackles. ABDOMEN: Soft. NERVOUS SYSTEM: Nonfocal. LABORATORY DATA: Reviewed. Chest x-ray reviewed personally. ASSESSMENT: 1. Acute non ST-segment elevation myocardial infarction. 2. Profound hypotension and syncope. 3. Stage IV lung cancer. 4. Coronary artery disease, coronary artery bypass graft. 5. Gastroesophageal reflux disease. 6. Multiple complex medical issues. RECOMMENDATIONS: Recommend to continue current medications. Continue symptomatic treatment. Monitor blood pressure closely. We will transition Lasix to p.o. Repeat labs. I would also recommend repeat chest x-ray tomorrow and closely follow with Pulmonary and Cardiology. Prognosis guarded because of multiple complex medical issues. Further recommendations to follow. See orders for further details. MMODL / IJN: [id number] /
[2022-12-16 00:49] LABS: Glucose,Whole Blood 135 mg/dL (70-110)
[2022-12-16] MEDS: PANTOPRAZOLE 40 MG TABLET PO SCH (06:16)
--- NOTE | 2022-12-16 07:49 | XR ---
EXAMINATION TYPE: XR chest 1V portable DATE OF EXAM: 12/16/2022 CLINICAL HISTORY: Difficulty breathing and CHF progress study. TECHNIQUE: Single AP portable upright view of the chest is obtained. COMPARISON: Chest x-ray from 2 days earlier FINDINGS: Overlying sternal wires and mediastinal clips are redemonstrated. Cardiac silhouette size stable and upper limits of normal. Osseous structures remain demineralized. Background chronic emphys ematous change with persistent right upper lung obstructing mass/neoplasm. Persistent small bilateral pleural effusions. Persistent reticular increased interstitial markings in the lower lungs which is nonspecific. IMPRESSION: Chronic changes with stable small bilateral pleural effusions. No significant change from most recent study.
[2022-12-16] MEDS: SYMBICORT 160-4.5 MCG INHALER INHALATION SCH ×2 (08:37→20:55)
[2022-12-16] MEDS: IPRATROPIUM-ALBUTEROL 3 ML NEB INHALATION SCH ×4 (08:37→20:55)
[2022-12-16 09:34] LABS: Albumin 3.6 g/dL (3.5-5.0); Calcium 8.6 mg/dL (8.4-10.2); Potassium 4.1 mmol/L (3.5-5.1); Total Bilirubin 0.6 mg/dL (0.2-1.3); Total Protein 6.1 g/dL (6.3-8.2)
[2022-12-16 09:45] LABS: Anisocytosis Moderate; Basophils % (A) 0 %; Eosinophils % (A) 0 %; HCT 25.4 % (39.0-53.0); HGB 8.4 gm/dL (13.0-17.5); Lymphocytes # (A) 0.7 k/uL (1.0-4.8); Lymphocytes % (A) 14 %; MCH 30.4 pg (25.0-35.0); MCHC 33.2 g/dL (31.0-37.0); MCV 91.6 fL (80.0-100.0); Macrocytosis Slight; Mean Platelet Volume 9.4; Monocytes # (A) 0.6 k/uL (0-1.0); Monocytes % (A) 12 %; Neutrophils # (A) 3.5 k/uL (1.3-7.7); Neutrophils % (A) 69 %; Platelet Count 254 k/uL (150-450); RBC 2.77 m/uL (4.30-5.90); RDW 21.6 % (11.5-15.5)
[2022-12-16] MEDS: ONDANSETRON 4 MG TAB PO PRN (09:50)
[2022-12-16] MEDS: ISOSORBIDE MONONITRATE ER 60 MG TAB.ER.24H PO SCH ×2 (12:01→16:00)
[2022-12-16] MEDS: MIDODRINE 5 MG TAB PO SCH ×2 (12:01→17:23)
[2022-12-16] MEDS: METOPROLOL TARTRATE 25 MG TAB PO SCH ×2 (12:43→20:10)
--- NOTE | 2022-12-16 13:22 | P.PN ---
Subjective Progress Note Date: 12/16/22 History of present illness: This is a 72-year-old male patient of Dr. Nicholson with past history of coronary artery disease status post prior bypass surgery, severe right carotid artery stenosis. Patient was recently diagnosed with stage IV lung cancer and receiving care in monotherapy with estimated prognosis of one and half years. Patient presented to the hospital due to syncopal episode and did not have any chest pain. He had elevated troponins and diagnosed with an acute non-ST elevated myocardial infarction and plan was for medical management at this time. Patient denies having any chest pain, no lightheadedness or dizziness. He has been up and ambulate to the bathroom without difficulties. 12/16 Patient was cleared for discharge yesterday but this was held by primary. Today his blood pressure is 85/52 and he is feeling dizzy and had one episodes of emesis. His heart rate is in the 80s. Patient states that his chemotherapy was canceled or Saturday which would be his last course. Patient is nurse will hold lisinopril this morning. IV Lasix discontinued. Midodrine will be started. Physical examination: Gen: This is a 77-year-old male. He is resting in bed and appears to be comfortable. VS: reviewed HEENT: Head is atraumatic, normocephalic. Pupils equal, round. Sclerae is anicteric. LUNGS: Good air entry bilaterally No intercostal retractions. HEART: Regular rate and rhythm. No murmur. ABDOMEN: Soft No tenderness. EXTREMITIES: No pedal edema. NEUROLOGICAL: Patient is awake, alert and oriented x3. Assessment: Stage IV lung cancer Syncope secondary to profound hypotension Acute non-ST elevated myocardial infarction Plan: Due to hypotension, hold fosinopril and IV Lasix, start patient on midodrine 5 mg 3 times daily. Following discharge, patient will follow-up with Dr. Nicholson in 1-2 weeks. Nurse practitioner note has been reviewed, I agree with documented findings and plan of care. Patient was seen and examined.. Objective - Vital Signs Vital signs: Vital Signs Temp 97.9 F 12/16/22 08:10 Pulse 88 12/16/22 08:46 Resp 20 12/16/22 08:10 BP 89/55 12/16/22 09:52 Pulse Ox 96 12/16/22 08:38 FiO2 Intake & Output 12/15/22 12/16/22 12/16/22 18:59 06:59 18:59 Intake Total 240 10 Output Total 750 1300 Balance -510 -1290 Weight 69.2 kg Intake: IV 10 0.9 10 Oral 240 Output: Urine 750 1300 Other: Voiding Method Urinal Urinal - Labs CBC & Chem 7: 12/16/22 08:14 12/16/22 08:14 Labs: Abnormal Lab Results - Last 24 Hours (Table) 12/16/22 12/16/22 12/16/22 Range/Units 00:45 08:14 08:14 RBC 2.77 L (4.30-5.90) m/uL Hgb 8.4 L (13.0-17.5) gm/dL Hct 25.4 L (39.0-53.0) % RDW 21.6 H (11.5-15.5) % Lymphocytes # 0.7 L (1.0-4.8) k/uL Sodium 126 L (137-145) mmol/L Chloride 84 L (98-107) mmol/L Carbon Dioxide 31 H (22-30) mmol/L BUN 21 H (9-20) mg/dL Glucose 113 H (74-99) mg/dL POC Glucose (mg/dL) 135 H (70-110) mg/dL Total Protein 6.1 L (6.3-8.2) g/dL
[2022-12-16] MEDS: FUROSEMIDE 10 MG/ML 4 ML VIAL IV SCH (16:03)
[2022-12-16] MEDS: RANOLAZINE 500 MG TAB.ER.12H PO SCH ×2 (16:09→20:10)
[2022-12-16] MEDS: EZETIMIBE 10 MG TAB PO SCH (16:09)
[2022-12-16] MEDS: HEPARIN SODIUM,PORCINE/PF 5,000 UNIT/0.5 ML SYRINGE SQ SCH ×2 (16:09→20:10)
[2022-12-16] MEDS: ASPIRIN 81 MG PO SCH (16:09)
[2022-12-16] MEDS: ATORVASTATIN 80 MG TAB PO SCH (16:09)
[2022-12-16] MEDS: CLOPIDOGREL 75 MG TAB PO SCH (20:10)
--- NOTE | 2022-12-16 22:34 | PN ---
PROGRESS NOTE DATE OF SERVICE: 12/16/2022 SUBJECTIVE: This is a 77-year-old gentleman who was admitted with acute gvc-MT-ydrwatb-elevation myocardial infarction, also had profound hypotension, syncope. No chest pain. No palpitations. No fever. The most recent chest x-ray done today showed chronic changes. OBJECTIVE: VITAL SIGNS: On exam, pulse is 95, blood pressure 100/60, respirations 19. CHEST: Clear to auscultation. CARDIOVASCULAR: S1, S2. ABDOMEN: Soft. NERVOUS SYSTEM: Nonfocal. LABORATORY DATA: Hemoglobin 8.4, sodium 126. ASSESSMENT: 1. Acute non ST-segment elevation myocardial infarction. 2. Profound hypotension, syncope. 3. Mild hyponatremia. 4. Stage IV lung cancer. 5. Coronary artery disease, coronary artery bypass grafting. 6. Gastroesophageal reflux disease. 7. Anemia, possibly multifactorial. 8. Multiple complex medical issues. RECOMMENDATIONS: Recommend to continue current treatment. I recommend repeat labs PROGNOSIS: Guarded. MMODL / IJN: [id number] / MTDD
[2022-12-17] MEDS: PANTOPRAZOLE 40 MG TABLET PO SCH (06:21)
[2022-12-17] MEDS: MIDODRINE 5 MG TAB PO SCH ×3 (06:21→17:06)
[2022-12-17] MEDS: IPRATROPIUM-ALBUTEROL 3 ML NEB INHALATION SCH ×4 (07:51→19:58)
[2022-12-17] MEDS: SYMBICORT 160-4.5 MCG INHALER INHALATION SCH ×2 (07:51→19:58)
[2022-12-17 07:52] LABS: Anisocytosis Moderate; HCT 27.4 % (39.0-53.0); MCH 29.9 pg (25.0-35.0); MCHC 32.7 g/dL (31.0-37.0); MCV 91.3 fL (80.0-100.0); Macrocytosis Slight; Mean Platelet Volume 9.5; Platelet Count 302 k/uL (150-450); WBC 5.6 k/uL (3.8-10.6)
[2022-12-17] MEDS: METOPROLOL TARTRATE 25 MG TAB PO SCH ×2 (08:07→19:52)
[2022-12-17] MEDS: ATORVASTATIN 80 MG TAB PO SCH (08:07)
[2022-12-17] MEDS: ISOSORBIDE MONONITRATE ER 60 MG TAB.ER.24H PO SCH (08:07)
[2022-12-17] MEDS: HEPARIN SODIUM,PORCINE/PF 5,000 UNIT/0.5 ML SYRINGE SQ SCH ×2 (08:07→19:52)
[2022-12-17] MEDS: EZETIMIBE 10 MG TAB PO SCH (08:07)
[2022-12-17] MEDS: ASPIRIN 81 MG PO SCH (08:07)
[2022-12-17] MEDS: RANOLAZINE 500 MG TAB.ER.12H PO SCH ×2 (08:07→19:52)
[2022-12-17 08:12] LABS: Calcium 8.9 mg/dL (8.4-10.2); Magnesium 1.6 mg/dL (1.6-2.3); Potassium 4.6 mmol/L (3.5-5.1)
[2022-12-17] MEDS: FUROSEMIDE 20 MG TAB PO SCH (08:30)
[2022-12-17 09:13] LABS: Eosinophils # (M) 0.06 k/uL (0-0.7); Lymphocytes # (M) 0.84 k/uL (1.0-4.8); Metamyelocytes # (M) 0.06 k/uL (0); Metamyelocytes % 1 %; Monocytes # (M) 1.18 k/uL (0-1.0); Neutrophils # (M) 3.58 k/uL (1.3-7.7); Neutrophils % (M) 64 %; Nucleated Red Blood Cells 0 /100 WBC (0-0); Total Cells Counted 200
[2022-12-17 09:14] LABS: Poikilocytosis (M) Present
--- NOTE | 2022-12-17 09:59 | P.PN ---
Subjective Progress Note Date: 12/17/22 History of present illness: This is a 72-year-old male patient of Dr. Nicholson with past history of coronary artery disease status post prior bypass surgery, severe right carotid artery stenosis. Patient was recently diagnosed with stage IV lung cancer and receiving care in monotherapy with estimated prognosis of one and half years. Patient presented to the hospital due to syncopal episode and did not have any chest pain. He had elevated troponins and diagnosed with an acute non-ST elevated myocardial infarction and plan was for medical management at this time. Patient denies having any chest pain, no lightheadedness or dizziness. He has been up and ambulate to the bathroom without difficulties. 12/16 Patient was cleared for discharge yesterday but this was held by primary. Today his blood pressure is 85/52 and he is feeling dizzy and had one episodes of emesis. His heart rate is in the 80s. Patient states that his chemotherapy was canceled or Saturday which would be his last course. Patient is nurse will hold lisinopril this morning. IV Lasix discontinued. Midodrine will be started. 12/17 Yesterday, patient's blood pressures was soft and he was feeling dizzy and we held lisinopril and IV Lasix and started patient on midodrine. This morning blood pressure is 107/67, heart rate in the 90s. He is denying lightheadedness or dizziness. He does state he has some shortness of breath. No chest pain. Repeat blood work reveals WBC 5.6, hemoglobin 9. Sodium is 123, BUN 23 creati nine 1.05 Physical examination: Gen: This is a 77-year-old male. He is resting in bed and appears to be comfortable. VS: reviewed HEENT: Head is atraumatic, normocephalic. Pupils equal, round. Sclerae is anicteric. LUNGS: Good air entry bilaterally No intercostal retractions. HEART: Regular rate and rhythm. No murmur. ABDOMEN: Soft No tenderness. EXTREMITIES: No pedal edema. NEUROLOGICAL: Patient is awake, alert and oriented x3. Assessment: Stage IV lung cancer Syncope secondary to profound hypotension Acute non-ST elevated myocardial infarction Hyponatremia Plan: Plan to discontinue lisinopril for now Continue patient on midodrine and add back Lasix when he milligrams daily Following discharge, patient will follow-up with Dr. Nicholson in 1-2 weeks. Nurse practitioner note has been reviewed, I agree with documented findings and plan of care. Patient was seen and examined.. Objective - Vital Signs Vital signs: Vital Signs Temp 97.6 F 12/17/22 04:00 Pulse 96 12/17/22 08:01 Resp 18 12/17/22 04:00 BP 108/65 12/17/22 04:00 Pulse Ox 97 12/17/22 07:51 FiO2 Intake & Output 12/16/22 12/17/22 12/17/22 18:59 06:59 18:59 Intake Total 236 10 Output Total 1150 625 Balance -914 -615 Weight 70.1 kg Intake: IV 10 0.9 10 Oral 236 Output: Urine 1150 625 Other: Voiding Method Urinal Urinal # Bowel Movements 1 - Labs CBC & Chem 7: 12/17/22 07:32 12/17/22 07:32 Labs: Abnormal Lab Results - Last 24 Hours (Table) 12/16/22 12/16/22 12/17/22 Range/Units 08:14 08:14 07:32 RBC 2.77 L 3.00 L (4.30-5.90) m/uL Hgb 8.4 L 9.0 L (13.0-17.5) gm/dL Hct 25.4 L 27.4 L (39.0-53.0) % RDW 21.6 H 22.0 H (11.5-15.5) % Lymphocytes # 0.7 L (1.0-4.8) k/uL Sodium 126 L (137-145) mmol/L Chloride 84 L (98-107) mmol/L Carbon Dioxide 31 H (22-30) mmol/L BUN 21 H (9-20) mg/dL Glucose 113 H (74-99) mg/dL Total Protein 6.1 L (6.3-8.2) g/dL 12/17/22 Range/Units 07:32 RBC (4.30-5.90) m/uL Hgb (13.0-17.5) gm/dL Hct (39.0-53.0) % RDW (11.5-15.5) % Lymphocytes # (1.0-4.8) k/uL Sodium 123 L (137-145) mmol/L Chloride 83 L (98-107) mmol/L Carbon Dioxide (22-30) mmol/L BUN 23 H (9-20) mg/dL Glucose 151 H (74-99) mg/dL Total Protein (6.3-8.2) g/dL
[2022-12-17 13:29] VITALS: BMI 22.8
--- NOTE | 2022-12-17 13:51 | P.PN ---
Subjective Progress Note Date: 12/17/22 Principal diagnosis: NSTEMI, NSCLC stage IV In f/u today pt reports feeling pretty good, mid chest discomfort but no SOB, radiating chest pain. He is ambulatory. On O2 at this time. Objective - Vital Signs Vital signs: Vital Signs Temp 97.8 F 12/17/22 11:46 Pulse 75 12/17/22 11:46 Resp 18 12/17/22 11:46 BP 94/56 12/17/22 11:46 Pulse Ox 92 L 12/17/22 11:46 FiO2 Intake & Output 12/16/22 12/17/22 12/17/22 18:59 06:59 18:59 Intake Total 236 10 550 Output Total 1150 625 250 Balance -914 -615 300 Weight 70.1 kg Intake: IV 10 0.9 10 Oral 236 550 Output: Urine 1150 625 250 Other: Voiding Method Urinal Urinal # Voids 1 # Bowel Movements 1 - Constitutional General appearance: Present: average body habitus, cooperative, no acute distress - EENT Eyes: Present: anicteric sclerae, EOMI ENT: Present: hearing grossly normal - Respiratory Respiratory: right: diminished, left: CTA - Cardiovascular Rhythm: regular Heart sounds: normal: S1, S2 Abnormal Heart Sounds: Absent: systolic murmur, diastolic murmur, rub, S3 Gallop, S4 Gallop, click, other - Peripheral edema leg Peripheral Edema: bilateral: None - Neurologic Neurologic: Present: CNII-XII intact - Musculoskeletal Musculoskeletal: Present: strength equal bilaterally - Psychiatric Psychiatric: Present: A&O x's 3, appropriate affect, intact judgment & insight - Labs CBC & Chem 7: 12/17/22 07:32 12/17/22 07:32 Labs: Abnormal Lab Results - Last 24 Hours (Table) 12/17/22 12/17/22 Range/Units 07:32 07:32 RBC 3.00 L (4.30-5.90) m/uL Hgb 9.0 L (13.0-17.5) gm/dL Hct 27.4 L (39.0-53.0) % RDW 22.0 H (11.5-15.5) % Lymphocytes # (Manual) 0.84 L (1.0-4.8) k/uL Monocytes # (Manual) 1.18 H (0-1.0) k/uL Metamyelocytes # (Man) 0.06 H (0) k/uL Sodium 123 L (137-145) mmol/L Chloride 83 L (98-107) mmol/L BUN 23 H (9-20) mg/dL Glucose 151 H (74-99) mg/dL - Imaging and Cardiology Chest x-ray: report reviewed Assessment and Plan (1) NSTEMI (non-ST elevated myocardial infarction) Current Visit: Yes Status: Acute Priority: High Code(s): I21.4 - NON-ST ELEVATION (NSTEMI) MYOCARDIAL INFARCTION SNOMED Code(s): 61826698 (2) Lung cancer Current Visit: Yes Status: Chronic Priority: Medium Code(s): C34.90 - MALIGNANT NEOPLASM OF UNSP PART OF UNSP BRONCHUS OR LUNG SNOMED Code(s): 821831385 Plan: Metastatic NSCLC: -S/P 3 cycles of Carbo/Alimta/Keytruda. Pending last cycle with chemo/IO then pt will transition to IO maintenance. -In regards to prognosis, tx is not curative but, disease is responding and pt is tolerating treatment. Prognosis of 18-24 months, or even longer due to patient having somatic mutations with targeted therapies. -Tx held this week. Ofc visit in DC plan. Pt will be evaluated and treatment will be rescheduled. -Treatment f/u PET scan scheduled for 01/04, with follow-up with Dr. Reynoso on 01/14. NSTEMI: -Elevated troponins -ECHO LVEF 40% -Cardiology medically managing attests: I have seen and examined pt, performed H&P, developed impression and plan of care. Discussed with dictator. Agree with documentation, dictated as a scribe.
--- NOTE | 2022-12-17 13:52 | P.PN ---
Subjective Progress Note Date: 12/17/22 HISTORY OF PRESENT ILLNESS: This is a 77-year-old male with a previous medical history significant for coronary artery disease status post remote Percodans coronary intervention of the RCA more than 10 years ago, status post 3 vessel coronary artery bypass graft back in December 2017 with BALDERAS to LAD, 7 is venous graft to the diagonal branch and sentences graft to the ramus that was done at [facility], hypertension and hypertensive cardio vascular disease, hyperlipidemia, mild chronic obstructive pulmonary disease with an FEV1 of 69%, remote tobacco use and dependence. Patient had quit smoking in 2018, unfortunately patient developed to have a a non-small cell lung cancer that is PD1 and PDL one positive has been under the care of hematology oncology underwent chemotherapy along with immunotherapy in the form of Keytruda along with carboplatin along with Doxil patient was supposed to get his last chemotherapy next Saturday and then he will go for a repeated CT/PET scan for evaluation of the tumor response through Dr. aSlcedo's office, patient stated that he had an episode of chest pain last Saturday and he did not have any nitroglycerin sublingual to take so he contacted Dr. Nicholson's office and get some better was her refill apparently that was not done so he tried to stop by today to get his prescription refilled, and while he was in the car he felt a bit dizzy and lightheaded, he sat in the car for lobe that he walked into the office while he is in the lobby he felt dizzy and immediately passed out, patient skinned his right knee, he did not hit his head, patient apparently was brought into the emergency department at [facility] via EMS for evaluation, patient laboratory evaluation showed mild edema, mild from cytopenia likely related to recent chemotherapy, and he also was found surprisingly an elevation of troponin of 16, EKG did not show evidence of acute ST-T wave changes, but because of the presentation was admitted to the hospital he was placed on aspirin as well as heparin drip, he was placed on his Plavix along with the rest of his cardiac medication he was seen in consultation by cardiology and he was admitted under my service for further evaluation and recommendation. 12/13: patient has been seen by cardiology and continued on heparin drip, echocardiogram ordered. Case was discussed with his primary windows admin, Dr. Nicholson. orthostatic blood pressure was negative. Blood pressure this morning 111/55, heart rate in the 70s to 90s, afebrile, pulse ox 97% on room air. CTA of the chest revealed no evidence of pulmonary embolism. Decreased size of right upper lobe mass consistent with known lung cancer. Increase in size of s ubcarinal lymph node suspicious for metastasis 12/14: Echocardiogram reveals EF of 40% with inferior basal, inferior septal and inferior lateral hypokinesia mild to moderate pulmonary hypertension, mild mitral and tricuspid regurgitation. No pericardial effusion. Patient has been seen by oncology as requested by cardiology regarding prognosis. Would expect prognosis of 18-24 months or even longer. Plan from cardiology is for medical management. No plan for cardiac catheterization at this time and heparin is discontinued. This morning, patient was having some respiratory distress and one dose of IV Lasix ordered and patient diuresed. He is now seen in recheck and his respiratory status is improved. Chest x-ray performed today reveals chronic changes with stable small bilateral pleural effusions and suspected mild interstitial edema. Effusions and interstitial edema slightly worsened since most recent x-ray. IV Lasix added at 40 mg every 12 hours Patient has been afebrile, heart rate in the 80s, blood pressure 129/68, pulse ox 97% on 3 L nasal cannula. Repeat blood work reveals a hemoglobin of 9.2, WBC 5.2 and platelet count 213. Patient denies having any chest pain. 12/17: Yesterday, patient's blood pressure was soft and he was feeling dizzy, cardiology discontinued lisinopril, and admitted during and held IV Lasix yesterday. Patient states he is feeling better today. No chest pain. He does have shortness of breath with exertion. Sodium today is 123. Serum and urine osmolality and urine sodium ordered. Other lab work revealed a hemoglobin of 9, BUN 23 creatinine 1.03. Heart rates in the 70s to 90s, blood pressure 94/56. We will ask for home oxygen assessment done today. Anticipate he will be ready for discharge tomorrow. REVIEW OF SYSTEMS: Constitutional: No documented fever, no chills, no night sweats. No weight change. No weakness, fatigue or lethargy. No daytime sleepiness. EENT: No headache. No blurred vision or double vision, no loss of vision. No loss of Hearing, no ringing in the ears, no dizziness. No nasal drainage or congestion. No epistaxis. No sore throat. Lungs: Reports shortness of breath, no cough, no sputum production. No wheezing. Reports dyspnea with activity. Cardiovascular: No chest pain, no lower extremity edema. No palpitations. No paroxysmal nocturnal dyspnea. No orthopnea. No lightheadedness or dizziness. No syncopal episodes. Abdominal: Reports abdominal pain. No nausea, vomiting. No diarrhea. No constipation. No bloody or tarry stools reports loss of appetite. Genitourinary: No dysuria, increased frequency, urgency. No urinary retention. Musculoskeletal: No myalgias. No muscle weakness, no gait dysfunction, no frequent falls. No back pain. No neck pain. Integumentary: No wounds, no lesions. No rash or pruritus. No unusual bruising. No change in hair or nails. Neurologic: No aphasia. No facial droop. No change in mentation. No head injury. No headache. No paralysis. No paresthesia. Psychiatric: No depression. No anxiety. No mood swings. Endocrine: No abnormal blood sugars. No weight change. PHYSICAL EXAMINATION: General: 77-year-old male sitting up in bed in no apparent distress HEENT: Head is atraumatic, normocephalic, pupils were equal round reactive to light and recommendation, extraocular muscle movement were intact, sclera nonicteric, conjunctivae were pale, mucous membranes of the mouth are somewhat dry. Neck: Supple, no JVP, decreased carotid upstroke bilaterally, no lymphadenopathy. Chest: Decreased breath sounds at the bases, few rhonchi, no expiratory wheezes, no chest wall tenderness, no intercostal retractions. Heart: First heart sound is normal, second heart sound is normal there is systolic ejection murmur 2/6 located in the left sternal border. Abdomen: Soft, nontender, nondistended, positive bowel sounds. Extremities: There is no edema no calf tenderness DP +2 bilaterally. Neurologic examination: Patient is awake alert and oriented X 3, cranial nerves II-12 appear grossly intact, muscle power were 5 out of 5 in upper extremities and 5 out of 5 in bilateral lower extremities, deep tendon reflexes normal bilaterally. ASSESSMENT AND PLAN: 1. Syncope likely cardiac syncope in view of the patient having non-ST elevation [place]. Heparin drip discontinued. Continue patient on aspirin 81 mg once every day, Plavix 75 mg once every day, continue patient on isosorbide mononitrate, continue patient on metoprolol, cardiology consultation, we'll continue to monitor the patient very closely. 2. Acute systolic heart failure. Patient on oral Lasix 20 mg daily, monitor I&O, daily weights electrolytes and renal function. 3. Anemia and Thromocytopenia likely related to recent chemotherapy as well as immunotherapy. Oncology consult appreciated. 4. Coronary artery disease status post coronary artery bypass graft 3 in 2018 continue treatment as in paragraph #1. 5. Hypertension and hypertensive cardiovascular disease. Continue patient on metoprolol 25 mg orally twice a day. Lisinopril discontinued. 6. Mixed hyperlipidemia. Continue atorvastatin 80 mg once every day as well as Zetia 10 mg once every day 7. GERD with esophagitis. Continue patient on pantoprazole 40 mg once every day. 8. Non-small cell lung cancer that is PD1 and PDL one positive currently the patient is on immunotherapy as well as chemotherapy. Last cycle next Saturday and then he would be going for restaging. 9. Mild COPD FEV1 is 69% of predicted patient has been tobacco free for the last 5 years. 10. Severe carotid artery disease in the range of 90% of the right internal carotid artery patient at this time is not a candidate for surgical intervention due to his underlying stage IV non-small cell lung cancer. . 11. Hypotension. Patient started on midodrine 5 mg 3 times daily. Continue to monitor blood pressure closely. Lisinopril discontinued. 12. Hypo-[place]. Obtain urine sodium, osmolality and serum osmolality. 13. DVT prophylaxis. Continue patient on heparin sq. 14. GI prophylaxis. Continue patient on Protonix 40 mg once every day. Patient is full code. Impression and plan of care have been directed as dictated by the signing physician. Eugenia Arce nurse practitioner acting as scribe for signing physician. Objective - Vital Signs Vital signs: Vital Signs Temp 97.8 F 12/17/22 11:46 Pulse 75 12/17/22 11:46 Resp 18 12/17/22 11:46 BP 94/56 12/17/22 11:46 Pulse Ox 92 L 12/17/22 11:46 FiO2 Intake & Output 12/16/22 12/17/22 12/17/22 18:59 06:59 18:59 Intake Total 236 10 550 Output Total 1150 625 250 Balance -914 -615 300 Weight 70.1 kg Intake: IV 10 0.9 10 Oral 236 550 Output: Urine 1150 625 250 Other: Voiding Method Urinal Urinal # Voids 1 # Bowel Movements 1 - Labs CBC & Chem 7: 12/17/22 07:32 12/17/22 07:32 Labs: Abnormal Lab Results - Last 24 Hours (Table) 12/17/22 12/17/22 Range/Units 07:32 07:32 RBC 3.00 L (4.30-5.90) m/uL Hgb 9.0 L (13.0-17.5) gm/dL Hct 27.4 L (39.0-53.0) % RDW 22.0 H (11.5-15.5) % Lymphocytes # (Manual) 0.84 L (1.0-4.8) k/uL Monocytes # (Manual) 1.18 H (0-1.0) k/uL Metamyelocytes # (Man) 0.06 H (0) k/uL Sodium 123 L (137-145) mmol/L Chloride 83 L (98-107) mmol/L BUN 23 H (9-20) mg/dL Glucose 151 H (74-99) mg/dL
[2022-12-17] MEDS: CLOPIDOGREL 75 MG TAB PO SCH (19:52)
[2022-12-18] MEDS: ONDANSETRON 4 MG TAB PO PRN (03:05)
[2022-12-18] MEDS: MIDODRINE 5 MG TAB PO SCH ×3 (06:36→17:24)
[2022-12-18] MEDS: PANTOPRAZOLE 40 MG TABLET PO SCH (06:36)
[2022-12-18 07:21] LABS: African American GFR (CKD) >90 (>60 ml/min/1.73 sqM); Anion Gap 11 mmol/L; Blood Urea Nitrogen 28 mg/dL (9-20); Calcium 9.1 mg/dL (8.4-10.2); Carbon Dioxide 27 mmol/L (22-30); Chloride 85 mmol/L (98-107); Glucose 108 mg/dL (74-99); Non-African American GFR(CKD) 79 (>60 ml/min/1.73 sqM); Potassium 4.6 mmol/L (3.5-5.1); Sodium 123 mmol/L (137-145)
[2022-12-18] MEDS ORDERED: FUROSEMIDE 10 MG/ML 2 ML VIAL IV STA ×2 (07:41→22:32)
[2022-12-18] MEDS: SYMBICORT 160-4.5 MCG INHALER INHALATION SCH ×2 (07:43→22:22)
[2022-12-18] MEDS: IPRATROPIUM-ALBUTEROL 3 ML NEB INHALATION SCH ×4 (07:43→22:21)
[2022-12-18] MEDS ORDERED: ONDANSETRON 4 MG/2 ML VIAL IVP PRN (07:45)
[2022-12-18] MEDS: FUROSEMIDE 20 MG TAB PO SCH (07:48)
[2022-12-18] MEDS: HEPARIN SODIUM,PORCINE/PF 5,000 UNIT/0.5 ML SYRINGE SQ SCH ×2 (07:50→19:46)
[2022-12-18] MEDS: ASPIRIN 81 MG PO SCH (07:59)
[2022-12-18] MEDS: RANOLAZINE 500 MG TAB.ER.12H PO SCH ×2 (07:59→19:46)
[2022-12-18] MEDS: METOPROLOL TARTRATE 25 MG TAB PO SCH ×2 (07:59→19:47)
[2022-12-18] MEDS: ISOSORBIDE MONONITRATE ER 60 MG TAB.ER.24H PO SCH (07:59)
[2022-12-18] MEDS: EZETIMIBE 10 MG TAB PO SCH (07:59)
[2022-12-18] MEDS: ATORVASTATIN 80 MG TAB PO SCH (07:59)
--- NOTE | 2022-12-18 08:15 | XR ---
EXAMINATION TYPE: XR chest 1V portable DATE OF EXAM: 12/18/2022 Comparison: 12/16/2022 Clinical History: 77-year-old male CHF and right lung cancer Findings: Median sternotomy wires are present post CABG clips. Redemonstrated focal opacification of the right upper lobe as well as small bilateral pleural effusions with right greater than left bibasilar opacit ies which are relatively similar. Background hyperinflation and interstitial prominence. Impression: Exam remains relatively similar to 12/16/2022 with COPD, opacification throughout the right upper lobe , small bilateral pleural effusions, and right greater than left bibasilar opacities.
[2022-12-18] MEDS ORDERED: PROCHLORPERAZINE INJ 10 MG/2 ML VIAL IVP STA (11:09)
--- NOTE | 2022-12-18 11:24 | P.PN ---
Subjective Progress Note Date: 12/18/22 History of present illness: This is a 72-year-old male patient of Dr. Nicholson with past history of coronary artery disease status post prior bypass surgery, severe right carotid artery stenosis. Patient was recently diagnosed with stage IV lung cancer and receiving care in monotherapy with estimated prognosis of one and half years. Patient presented to the hospital due to syncopal episode and did not have any chest pain. He had elevated troponins and diagnosed with an acute non-ST elevated myocardial infarction and plan was for medical management at this time. Patient denies having any chest pain, no lightheadedness or dizziness. He has been up and ambulate to the bathroom without difficulties. 12/16 Patient was cleared for discharge yesterday but this was held by primary. Today his blood pressure is 85/52 and he is feeling dizzy and had one episodes of emesis. His heart rate is in the 80s. Patient states that his chemotherapy was canceled or Saturday which would be his last course. Patient is nurse will hold lisinopril this morning. IV Lasix discontinued. Midodrine will be started. 12/17 Yesterday, patient's blood pressures was soft and he was feeling dizzy and we held lisinopril and IV Lasix and started patient on midodrine. This morning blood pressure is 107/67, heart rate in the 90s. He is denying lightheadedness or dizziness. He does state he has some shortness of breath. No chest pain. Repeat blood work reveals WBC 5.6, hemoglobin 9. Sodium is 123, BUN 23 creati nine 1.05 12/18 Patient had onset of emesis at 2 AM. He does have some shortness of breath today. Pulse ox is 92 on 2 L. Blood pressure 120/72 and heart rate is 70s to 90s. Telemetry sinus rhythm. Repeat blood work reveals sodium 123, potassium 4.6, BUN 28 and creatinine 0.94. ProBNP 11,000. Chest x-ray similar to 12/16 with COPD, opacities the case and throughout the right upper lobe, small bilateral pleural effusions right greater than left bibasilar opacities Physical examination: Gen: This is a 77-year-old male. He is resting in bed and appears to be comfortable. VS: reviewed HEENT: Head is atraumatic, normocephalic. Pupils equal, round. Sclerae is anicteric. LUNGS: Good air entry bilaterally No intercostal retractions. HEART: Regular rate and rhythm. No murmur. ABDOMEN: Soft No tenderness. EXTREMITIES: No pedal edema. NEUROLOGICAL: Patient is awake, alert and oriented x3. Assessment: Stage IV lung cancer Syncope secondary to profound hypotension Acute non-ST elevated myocardial infarction Hyponatremia Plan: 1 dose of IV Lasix 40 mg morning. Continue patient on midodrine and current cardiac medications Following discharge, patient will follow-up with Dr. Nicholson in 1-2 weeks. Nurse practitioner note has been reviewed, I agree with documented findings and plan of care. Patient was seen and examined.. Objective - Vital Signs Vital signs: Vital Signs Temp 96.9 F L 12/17/22 20:00 Pulse 75 12/18/22 04:00 Resp 18 12/18/22 04:00 BP 115/60 12/18/22 04:00 Pulse Ox 95 12/18/22 04:00 FiO2 Intake & Output 12/17/22 12/18/22 12/18/22 18:59 06:59 18:59 Intake Total 770 Output Total 250 Balance 520 Weight 70.1 kg Intake: Oral 770 Output: Urine 250 Other: # Voids 1 1 - Labs CBC & Chem 7: 12/17/22 07:32 12/18/22 06:54 Labs: Abnormal Lab Results - Last 24 Hours (Table) 12/17/22 12/17/22 12/17/22 Range/Units 07:32 07:32 07:32 RBC 3.00 L (4.30-5.90) m/uL Hgb 9.0 L (13.0-17.5) gm/dL Hct 27.4 L (39.0-53.0) % RDW 22.0 H (11.5-15.5) % Lymphocytes # (Manual) 0.84 L (1.0-4.8) k/uL Monocytes # (Manual) 1.18 H (0-1.0) k/uL Metamyelocytes # (Man) 0.06 H (0) k/uL Sodium 123 L (137-145) mmol/L Chloride 83 L (98-107) mmol/L BUN 23 H (9-20) mg/dL Glucose 151 H (74-99) mg/dL Osmolality 266 L (280-301) mosm/kg Ur Random Sodium (40-220) mmol/L 12/17/22 12/18/22 Range/Units 12:29 06:54 RBC (4.30-5.90) m/uL Hgb (13.0-17.5) gm/dL Hct (39.0-53.0) % RDW (11.5-15.5) % Lymphocytes # (Manual) (1.0-4.8) k/uL Monocytes # (Manual) (0-1.0) k/uL Metamyelocytes # (Man) (0) k/uL Sodium 123 L (137-145) mmol/L Chloride 85 L (98-107) mmol/L BUN 28 H (9-20) mg/dL Glucose 108 H (74-99) mg/dL Osmolality (280-301) mosm/kg Ur Random Sodium <20 L (40-220) mmol/L
--- NOTE | 2022-12-18 12:04 | P.PN ---
Subjective Progress Note Date: 12/18/22 Principal diagnosis: hx NSCLC At today's visit patient is resting comfortably in bed. He reports earlier this morning he began having nausea and vomiting and has experienced approximately 10 episodes. He also reports one episode of diarrhea. He has been receiving Zofran with some relief in symptoms. Will add Compazine. Patient is reporting shortness of breath. Denies chest pain, abdominal pain, fever and chills. Objective - Vital Signs Vital signs: Vital Signs Temp 97 F L 12/18/22 08:00 Pulse 92 12/18/22 08:00 Resp 20 12/18/22 08:00 BP 120/72 12/18/22 08:00 Pulse Ox 92 L 12/18/22 08:00 FiO2 Intake & Output 12/17/22 12/18/22 12/18/22 18:59 06:59 18:59 Intake Total 770 420 Output Total 250 Balance 520 420 Weight 70.1 kg Intake: Oral 770 420 Output: Urine 250 Other: Voiding Method Urinal # Voids 1 1 1 - Constitutional General appearance: Present: average body habitus, no acute distress - EENT Eyes: Present: anicteric sclerae, EOMI ENT: Present: hearing grossly normal - Respiratory Details: Breathing is even and unlabored - Cardiovascular Details: skin warm and dry - Integumentary Integumentary: Present: pale - Neurologic Neurologic Comment(s): grossly intact - Musculoskeletal Musculoskeletal: Present: strength equal bilaterally - Psychiatric Psychiatric: Present: A&O x's 3, appropriate affect, intact judgment & insight - Labs CBC & Chem 7: 12/17/22 07:32 12/18/22 06:54 Labs: Abnormal Lab Results - Last 24 Hours (Table) 12/17/22 12/17/22 12/18/22 Range/Units 07:32 12:29 06:54 Sodium 123 L (137-145) mmol/L Chloride 85 L (98-107) mmol/L BUN 28 H (9-20) mg/dL Glucose 108 H (74-99) mg/dL Osmolality 266 L (280-301) mosm/kg Ur Random Sodium <20 L (40-220) mmol/L Assessment and Plan (1) Lung cancer Current Visit: Yes Status: Chronic Priority: Medium Code(s): C34.90 - MALIGNANT NEOPLASM OF UNSP PART OF UNSP BRONCHUS OR LUNG SNOMED Code(s): 560473678 (2) NSTEMI (non-ST elevated myocardial infarction) Current Visit: Yes Status: Acute Priority: High Code(s): I21.4 - NON-ST ELEVATION (NSTEMI) MYOCARDIAL INFARCTION SNOMED Code(s): 52142442 Plan: Metastatic NSCLC: -S/P 3 cycles of Carbo/Alimta/Keytruda. Pending last cycle with chemo/IO then pt will transition to IO maintenance. -In regards to prognosis, tx is not curative but, disease is responding and pt is tolerating treatment. Prognosis of 18-24 months, or even longer due to patient having somatic mutations with targeted therapies. -Tx held this week. Ofc visit in DC plan. Pt will be evaluated and treatment will be rescheduled. -Treatment f/u PET scan scheduled for 01/04, with follow-up with Dr. Reynoso on 01/14 . NSTEMI: -Elevated troponins -ECHO LVEF 40% -Cardiology medically managing
--- NOTE | 2022-12-18 13:23 | P.PN ---
Subjective Progress Note Date: 12/18/22 HISTORY OF PRESENT ILLNESS: This is a 77-year-old male with a previous medical history significant for coronary artery disease status post remote Percodans coronary intervention of the RCA more than 10 years ago, status post 3 vessel coronary artery bypass graft back in December 2017 with BALDERAS to LAD, 7 is venous graft to the diagonal branch and sentences graft to the ramus that was done at [facility], hypertension and hypertensive cardio vascular disease, hyperlipidemia, mild chronic obstructive pulmonary disease with an FEV1 of 69%, remote tobacco use and dependence. Patient had quit smoking in 2018, unfortunately patient developed to have a a non-small cell lung cancer that is PD1 and PDL one positive has been under the care of hematology oncology underwent chemotherapy along with immunotherapy in the form of Keytruda along with carboplatin along with Doxil patient was supposed to get his last chemotherapy next Saturday and then he will go for a repeated CT/PET scan for evaluation of the tumor response through Dr. Salcedo's office, patient stated that he had an episode of chest pain last Saturday and he did not have any nitroglycerin sublingual to take so he contacted Dr. Nicholson's office and get some better was her refill apparently that was not done so he tried to stop by today to get his prescription refilled, and while he was in the car he felt a bit dizzy and lightheaded, he sat in the car for lobe that he walked into the office while he is in the lobby he felt dizzy and immediately passed out, patient skinned his right knee, he did not hit his head, patient apparently was brought into the emergency department at [facility] via EMS for evaluation, patient laboratory evaluation showed mild edema, mild from cytopenia likely related to recent chemotherapy, and he also was found surprisingly an elevation of troponin of 16, EKG did not show evidence of acute ST-T wave changes, but because of the presentation was admitted to the hospital he was placed on aspirin as well as heparin drip, he was placed on his Plavix along with the rest of his cardiac medication he was seen in consultation by cardiology and he was admitted under my service for further evaluation and recommendation. 12/13: patient has been seen by cardiology and continued on heparin drip, echocardiogram ordered. Case was discussed with his primary title 1 tutor, Dr. Nicholson. orthostatic blood pressure was negative. Blood pressure this morning 111/55, heart rate in the 70s to 90s, afebrile, pulse ox 97% on room air. CTA of the chest revealed no evidence of pulmonary embolism. Decreased size of right upper lobe mass consistent with known lung cancer. Increase in size of s ubcarinal lymph node suspicious for metastasis 12/14: Echocardiogram reveals EF of 40% with inferior basal, inferior septal and inferior lateral hypokinesia mild to moderate pulmonary hypertension, mild mitral and tricuspid regurgitation. No pericardial effusion. Patient has been seen by oncology as requested by cardiology regarding prognosis. Would expect prognosis of 18-24 months or even longer. Plan from cardiology is for medical management. No plan for cardiac catheterization at this time and heparin is discontinued. This morning, patient was having some respiratory distress and one dose of IV Lasix ordered and patient diuresed. He is now seen in recheck and his respiratory status is improved. Chest x-ray performed today reveals chronic changes with stable small bilateral pleural effusions and suspected mild interstitial edema. Effusions and interstitial edema slightly worsened since most recent x-ray. IV Lasix added at 40 mg every 12 hours Patient has been afebrile, heart rate in the 80s, blood pressure 129/68, pulse ox 97% on 3 L nasal cannula. Repeat blood work reveals a hemoglobin of 9.2, WBC 5.2 and platelet count 213. Patient denies having any chest pain. 12/17: Yesterday, patient's blood pressure was soft and he was feeling dizzy, cardiology discontinued lisinopril, and admitted during and held IV Lasix yesterday. Patient states he is feeling better today. No chest pain. He does have shortness of breath with exertion. Sodium today is 123. Serum and urine osmolality and urine sodium ordered. Other lab work revealed a hemoglobin of 9, BUN 23 creatinine 1.03. Heart rates in the 70s to 90s, blood pressure 94/56. We will ask for home oxygen assessment done today. Anticipate he will be ready for discharge tomorrow. 12/18: Patient developed nausea and vomiting along with dizziness and shortness of breath this morning. He has received 2 doses of Zofran and was just given Compazine and continues to feel bad. He has not had anything to eat today. No abdominal pain. Cardiology ordered for one dose of IV Lasix continued on oral Lasix and his breathing is better. A chest x-ray was obtained which revealed similar to 12/16 with COPD, opacities the case and throughout the right upper lobe, small bilateral pleural effusions right greater than left bibasilar opacities. Repeat blood work reveals sodium 123, potassium 4.6, BUN 28 and creatinine 0.94. ProBNP 11,000. Patient also had 1 loose stool today. Consult will be added for nephrology regarding hyponatremia, fluid restriction of 1200 mL ordered. REVIEW OF SYSTEMS: Constitutional: No documented fever, no chills, no night sweats. No weight change. No weakness, fatigue or lethargy. No daytime sleepiness. EENT: No headache. No blurred vision or double vision, no loss of vision. No loss of Hearing, no ringing in the ears, no dizziness. No nasal drainage or congestion. No epistaxis. No sore throat. Lungs: Reports shortness of breath, no cough, no sputum production. No w heezing. Reports dyspnea with activity. Cardiovascular: No chest pain, no lower extremity edema. No palpitations. No paroxysmal nocturnal dyspnea. No orthopnea. No lightheadedness or dizziness. No syncopal episodes. Abdominal: Denies abdominal pain. Reports nausea, and vomiting. Reports diar andrew x1. No constipation. No bloody or tarry stools reports loss of appetite. Genitourinary: No dysuria, increased frequency, urgency. No urinary retention. Musculoskeletal: No myalgias. No muscle weakness, no gait dysfunction, no frequent falls. No back pain. No neck pain. Integumentary: No wounds, no lesions. No rash or pruritus. No unusual bruising. No change in hair or nails. Neurologic: No aphasia. No facial droop. No change in mentation. No head injury. No headache. No paralysis. No paresthesia. Psychiatric: No depression. No anxiety. No mood swings. Endocrine: No abnormal blood sugars. No weight change. PHYSICAL EXAMINATION: General: 77-year-old male sitting up in chair, appears uncomfortable due to nausea. HEENT: Head is atraumatic, normocephalic, pupils were equal round reactive to light and recommendation, extraocular muscle movement were intact, sclera nonicteric, conjunctivae were pale, mucous membranes of the mouth are somewhat dry. Neck: Supple, no JVP, decreased carotid upstroke bilaterally, no lymphadenopathy. Chest: Decreased breath sounds at the bases, few rhonchi, no expiratory wheezes, no chest wall tenderness, no intercostal retractions. Heart: First heart sound is normal, second heart sound is normal there is systolic ejection murmur 2/6 located in the left sternal border. Abdomen: Soft, nontender, nondistended, positive bowel sounds. Extremities: There is no edema no calf tenderness DP +2 bilaterally. Neurologic examination: Patient is awake alert and oriented X 3, cranial nerves II-12 appear grossly intact, muscle power were 5 out of 5 in upper extremities and 5 out of 5 in bilateral lower extremities, deep tendon reflexes normal bilaterally. ASSESSMENT AND PLAN: 1. Syncope likely cardiac syncope in view of the patient having non-ST elevation ND. Heparin drip discontinued. Continue patient on aspirin 81 mg once every day, Plavix 75 mg once every day, continue patient on isosorbide mononitrate, continue patient on metoprolol, cardiology consultation appreciated, we'll continue to monitor the patient very closely. 2. Acute systolic heart failure. Patient on oral Lasix 20 mg daily, monitor I&O, daily weights electrolytes and renal function. Patient received 1 dose of IV Lasix 40 mg this morning. 3. Anemia and Thromocytopenia likely related to recent chemotherapy as well as immunotherapy. Oncology consult appreciated. 4. Coronary artery disease status post coronary artery bypass graft 3 in 2018 continue treatment as in paragraph #1. 5. Hypertension and hypertensive cardiovascular disease. Continue patient on metoprolol 25 mg orally twice a day. Lisinopril discontinued. 6. Mixed hyperlipidemia. Continue atorvastatin 80 mg once every day as well as Zetia 10 mg once every day 7. GERD with esophagitis. Continue patient on pantoprazole 40 mg once every day. 8. Non-small cell lung cancer that is PD1 and PDL one positive currently the patient is on immunotherapy as well as chemotherapy. Last cycle next Saturday and then he would be going for restaging. 9. Mild COPD FEV1 is 69% of predicted patient has been tobacco free for the last 5 years. 10. Severe carotid artery disease in the range of 90% of the right internal carotid artery patient at this time is not a candidate for surgical intervention due to his underlying stage IV non-small cell lung cancer. . 11. Hypotension. Patient started on midodrine 5 mg 3 times daily. Continue to monitor blood pressure closely. Lisinopril discontinued. 12. Hyponatremia. Fluid restriction of 1200 mL, nephrology consult. 13. Nausea and vomiting of unclear etiology. Add Reglan 5 mg every 6 hours IV scheduled, discontinue Zofran. Patient is status post 1 dose of IV Compazine. 14. DVT prophylaxis. Continue patient on heparin sq. 15. GI prophylaxis. Continue patient on Protonix 40 mg once every day. Patient is full code. Impression and plan of care have been directed as dictated by the signing physician. Eugenia Arce nurse practitioner acting as scribe for signing physician. Objective - Vital Signs Vital signs: Vital Signs Temp 96.9 F L 12/17/22 20:00 Pulse 75 12/18/22 04:00 Resp 18 12/18/22 04:00 BP 115/60 12/18/22 04:00 Pulse Ox 95 12/18/22 04:00 FiO2 Intake & Output 12/17/22 12/18/22 12/18/22 18:59 06:59 18:59 Intake Total 770 Output Total 250 Balance 520 Weight 70.1 kg Intake: Oral 770 Output: Urine 250 Other: # Voids 1 1 - Labs CBC & Chem 7: 12/17/22 07:32 12/18/22 06:54 Labs: Abnormal Lab Results - Last 24 Hours (Table) 12/17/22 12/17/22 12/17/22 Range/Units 07:32 07:32 07:32 RBC 3.00 L (4.30-5.90) m/uL Hgb 9.0 L (13.0-17.5) gm/dL Hct 27.4 L (39.0-53.0) % RDW 22.0 H (11.5-15.5) % Lymphocytes # (Manual) 0.84 L (1.0-4.8) k/uL Monocytes # (Manual) 1.18 H (0-1.0) k/uL Metamyelocytes # (Man) 0.06 H (0) k/uL Sodium 123 L (137-145) mmol/L Chloride 83 L (98-107) mmol/L BUN 23 H (9-20) mg/dL Glucose 151 H (74-99) mg/dL Osmolality 266 L (280-301) mosm/kg Ur Random Sodium (40-220) mmol/L 12/17/22 12/18/22 Range/Units 12:29 06:54 RBC (4.30-5.90) m/uL Hgb (13.0-17.5) gm/dL Hct (39.0-53.0) % RDW (11.5-15.5) % Lymphocytes # (Manual) (1.0-4.8) k/uL Monocytes # (Manual) (0-1.0) k/uL Metamyelocytes # (Man) (0) k/uL Sodium 123 L (137-145) mmol/L Chloride 85 L (98-107) mmol/L BUN 28 H (9-20) mg/dL Glucose 108 H (74-99) mg/dL Osmolality (280-301) mosm/kg Ur Random Sodium <20 L (40-220) mmol/L
[2022-12-18] MEDS: METOCLOPRAMIDE 5 MG/ML 2 ML VIAL IVP SCH ×2 (13:28→17:24)
[2022-12-18] MEDS: CLOPIDOGREL 75 MG TAB PO SCH (19:46)
[2022-12-18] MEDS ORDERED: FUROSEMIDE 10 MG/ML 4 ML VIAL ONE (22:30)
[2022-12-18 22:32] LABS: Glucose,Whole Blood 166 mg/dL (70-110)
[2022-12-18 23:16] LABS: Glucose,Whole Blood 137 mg/dL (70-110)
[2022-12-18 23:17] LABS: Calcium 9.3 mg/dL (8.4-10.2); Potassium 5.3 mmol/L (3.5-5.1); Total Bilirubin 0.8 mg/dL (0.2-1.3); Total Protein 6.4 g/dL (6.3-8.2)
[2022-12-18] MEDS ORDERED: DEXTROSE/WATER 1 250ML.BAG with DOPamine DRIP 800 MG IV SCH (23:30)
--- NOTE | 2022-12-18 23:33 | XR ---
EXAMINATION TYPE: XR chest 1V portable DATE OF EXAM: 12/18/2022 COMPARISON: 12/18/2022 earlier exam INDICATION: Respiratory distress TECHNIQUE: Single frontal view of the chest is obtained. FINDINGS: The heart size is normal. The pulmonary vasculature is normal. Moderate right pleural effusion is present. A small left pleural effusion is present. There is some opacification of the right upper lung field, correlate for atelectasis. Sternotomy wires are present. IMPRESSION: 1. Right lobe opacity likely related atelectasis. 2. Moderate right and small left pleural effusion. 3. Exam appears stable from earlier exam.
[2022-12-18 23:41] LABS: Anisocytosis Moderate; Hypochromasia Slight; MCH 30.4 pg (25.0-35.0); MCHC 32.3 g/dL (31.0-37.0); Macrocytosis Slight; Mean Platelet Volume 9.2; Platelet Count 324 k/uL (150-450); RBC 3.29 m/uL (4.30-5.90); RDW 21.9 % (11.5-15.5); WBC 6.4 k/uL (3.8-10.6)
[2022-12-19] MEDS ORDERED: SODIUM CHLORIDE 0.9% 1,000 ML IV SCH
[2022-12-19 00:32] LABS: Eosinophils # (M) 0.06 k/uL (0-0.7); Lymphocytes # (M) 1.47 k/uL (1.0-4.8); Monocytes # (M) 0.77 k/uL (0-1.0); Neutrophils % (M) 64 %; Nucleated Red Blood Cells 0 /100 WBC (0-0); Total Cells Counted 100
[2022-12-19 00:33] LABS: Polychromasia Present
--- NOTE | 2022-12-19 00:42 | CT ---
EXAM: CT Head Without Intravenous Contrast CLINICAL HISTORY: ITS.REASON CT Reason: Neuro deficit, acute, stroke suspected TECHNIQUE: Axial computed tomography images of the head/brain without intravenous contrast. CTDI is 49.2 mGy and DLP is 1247.4 mGy-cm. This CT exam was performed using one or more of the following dose reduction techniques: automated exposure control, adjustment of the mA and/or kV according to patient size, and/or use of iterative reconstruction technique. COMPARISON: MRI 09/21/2022 FINDINGS: Brain: Unremarkable. No hemorrhage. No significant white matter disease. No edema. Ventricles: No acute findings. No ventriculomegaly. Bones/joints: Unremarkable. No acute fracture. Soft tissues: Unremarkable. Sinuses: Small mucous retention cyst right maxillary sinus. Mastoid air cells: Unremarkable as visualized. No mastoid effusion. IMPRESSION: No acute findings in the head/brain.
[2022-12-19] MEDS ORDERED: DEXTROSE/WATER 1 250ML.BAG with DOPamine DRIP 800 MG IV SCH ×2 (00:51→05:15)
[2022-12-19 00:58] VITALS: TEMP 97.7
[2022-12-19] MEDS: METOCLOPRAMIDE 5 MG/ML 2 ML VIAL IVP SCH (01:35)
[2022-12-19] MEDS ORDERED: HEPARIN SODIUM 1,000 UN/ML (10ML VL) IV PRN (01:43)
[2022-12-19] MEDS ORDERED: HEPARIN SOD,PORK IN 0.45% NACL 25,000 UNIT in 0.45% NACL 1 250ML.BAG IV SCH (02:00)
[2022-12-19 02:12] VITALS: BP 90/52; PULSE 55; RESP 21
[2022-12-19] MEDS ORDERED: SODIUM BICARB 8.4% 50 ML SYR (1 MEQ/ML) ONE (02:58)
[2022-12-19] MEDS ORDERED: ATROPINE SULFATE 0.1 MG/ML 10ML SYRINGE ONE (02:58)
[2022-12-19] MEDS ORDERED: CALCIUM CHLORIDE 100 MG/ML 10 ML SYRINGE ONE (02:58)
[2022-12-19] MEDS ORDERED: EPINEPHrine 10 ML SYRINGE (0.1 MG/ML) ONE (02:58)
--- NOTE | 2022-12-19 04:06 | P.PN ---
Subjective Progress Note Date: 12/19/22 Principal diagnosis: Syncope, NSTEMI This is a 77-year-old white male seen in follow-up, originally admitted back on 12/12/2022 for syncope and non-ST elevation RI. We were originally consulted due to the patient's history of non-small cell lung cancer diagnosed by Dr. Calhoun and COPD. Pulmonary had signed off the case. Late last night, the patient developed symptomatic bradycardia while on the selective care unit. The patient's heart rate was found to be around 40 bpm, and the patient was hypotensive. Cardiology was informed, and the patient was transferred to the intensive care unit on dopamine at 3 mics per kilogram per minute. During this time, the patient was in some respiratory distress and was given 20 mg of Lasix. Chest x-ray at that time showed a moderate right and small left pleural effusion and right upper lobe atelectasis. Stable from prior exam. The patient was also found to have a pulseless left lower extremity. He is complaining that his left leg is numb, and he cannot move his toes. Patient's leg appears mottled and no pulse was found with Doppler. Vascular surgery was consulted, and recommended a CT angiogram with runoff. While this was being worked up, the patient developed some TIA like symptoms, and a CODE STROKE was initiated. He had left-sided facial droop, dysarthria, and left-sided hemiparesis. The patient was taken down for a CT of the brain without contrast which showed no acute intracranial hemorrhage. Neuro interventionalists elected not to TPA the patient. The patient's symptoms had resolved at that time. Patient is currently resting in bed, on 2 L nasal cannula, not in any acute distress. Heart rhythm is sinus bradycardia at 55 bpm. Blood pressure is improved on dopamine at 5 micrograms per kilogram per minute. He denies any chest pain. He has not had any further syncopal events. Repeat CBC this morning shows a WBC count of 6.4, hemoglobin 10, hematocrit 31, platelets 224. BMP this morning shows a sodium 123, potassium 5.3, chloride 83, serum CO2 21, BUN 35, creatinine elevated at 1.79, glucose 160. LFTs are elevated. NT proBNP elevated at 11,000. Troponins peaked at 16.1 and are down to 1.47 last night. Patient will continue to be monitored in the intensive care unit. Objective - Vital Signs Vital signs: Vital Signs Temp 97.7 F 12/19/22 00:00 Pulse 49 L 12/19/22 00:50 Resp 22 12/19/22 00:50 BP 85/53 12/19/22 00:50 Pulse Ox 96 12/19/22 00:50 FiO2 Intake & Output 12/18/22 12/18/22 12/19/22 06:59 18:59 06:59 Intake Total 660 150 Output Total 360 Balance 660 -210 Intake: IV 150 0.9 150 Oral 660 Output: Urine 360 Other: Voiding Method Urinal Urinal # Voids 1 2 - Exam GENERAL EXAM: Alert, 77-year-old white male, comfortable in no apparent distress. HEAD: Normocephalic and atraumatic EYES: Normal reaction of pupils, equal size. NOSE: Clear with pink turbinates. THROAT: No erythema or exudates. NECK: No masses, no JVD. CHEST: No chest wall deformity. LUNGS: Equal air entry with expiratory wheezes and scattered crackles. On 2 L nasal cannula. No conversational dyspnea or accessory muscle use.. CVS: S1 and S2 normal with no audible murmur, regular rhythm. No extra heart so unds. Heart rate 54 bpm ABDOMEN: No hepatosplenomegaly, active bowel sounds, no guarding or rigidity. SPINE: No scoliosis or deformity SKIN Mottled left leg CENTRAL NERVOUS SYSTEM Initially had left-sided facial droop and left-sided hemiparesis which has resolved now that the patient's back from CT EXTREMITIES: There is no peripheral edema, clubbing. Left lower extremity is cool and does not have a palpable pulse - Labs CBC & Chem 7: 12/18/22 22:44 12/18/22 22:44 Labs: Abnormal Lab Results - Last 24 Hours (Table) 12/18/22 12/18/22 12/18/22 Range/Units 06:54 22:26 22:44 RBC 3.29 L (4.30-5.90) m/uL Hgb 10.0 L (13.0-17.5) gm/dL Hct 31.0 L (39.0-53.0) % RDW 21.9 H (11.5-15.5) % Sodium 123 L (137-145) mmol/L Potassium (3.5-5.1) mmol/L Chloride 85 L (98-107) mmol/L Carbon Dioxide (22-30) mmol/L BUN 28 H (9-20) mg/dL Creatinine (0.66-1.25) mg/dL Glucose 108 H (74-99) mg/dL POC Glucose (mg/dL) 166 H (70-110) mg/dL AST (17-59) U/L ALT (4-49) U/L Troponin I (0.000-0.034) ng/mL 12/18/22 12/18/22 12/18/22 Range/Units 22:44 22:44 23:14 RBC (4.30-5.90) m/uL Hgb (13.0-17.5) gm/dL Hct (39.0-53.0) % RDW (11.5-15.5) % Sodium 123 L (137-145) mmol/L Potassium 5.3 H (3.5-5.1) mmol/L Chloride 83 L (98-107) mmol/L Carbon Dioxide 21 L (22-30) mmol/L BUN 35 H (9-20) mg/dL Creatinine 1.79 H (0.66-1.25) mg/dL Glucose 160 H (74-99) mg/dL POC Glucose (mg/dL) 137 H (70-110) mg/dL AST 193 H (17-59) U/L ALT 174 H (4-49) U/L Troponin I 1.470 H* (0.000-0.034) ng/mL Assessment and Plan Assessment: Symptomatic sinus bradycardia and hypotension requiring dopamine infusion at 5 mcg/kg/m. Suspected TIA, symptoms have resolved and neurology interventionalists has elected not to TPA. Noncontrast CT of the brain showed no acute hemorrhage or midline shift Suspected left lower leg ischemia Acute kidney injury, creatinine 1.79 Syncope, most likely cardiac in nature considering the patient presented with significantly elevated troponin, this is most likely secondary to non-ST elevation myocardial infarction and hypotension. Ischemic cardiomyopathy with an ejection fraction of 40% with inferior basal, inferoseptal and inferolateral hypokinesia Acute exacerbation of COPD Right upper lobe mass/non-small cell lung cancer, being followed by oncology and receiving treatment. Plan to have one more cycle of treatment next week. Benign essential hypertension Coronary artery disease and previous CABG 3 in 2018 History of GERD without esophagitis Dyslipidemia Chronic anemia and thrombocytopenia secondary to chemotherapy as well as immunotherapy Plan: Patient was transferred to the intensive care unit Medications, labs, and chest x-ray reviewed Continue supplemental oxygen to maintain oxygen saturation 92% or greater Continue dopamine infusion at 5 mcg/kg/m Obtain arterial doppler of the left lower extremity Consult vascular services CT angiogram with runoff per vascular services Gentle hydration with saline at 75 mL per hour The patient was started on low intensity heparin infusion Consult neurology No thrombolytics were recommended per neuro interventionalist obtain bilateral carotid artery Doppler Prognosis is guarded and the patient will be monitored in the intensive care unit I have personally seen and examined the patient, performed the documentation and the assessment and plan as written. Number of minutes spent on the visit: 20
--- NOTE | 2022-12-19 04:26 | CT ---
EXAM: CT Angiography Abdomen and Pelvis With Runoff to the Lower Extremities Without and With Intravenous Contrast CLINICAL HISTORY: Left foot ischemia. TECHNIQUE: Axial computed tomographic angiography images of the abdomen, pelvis and lower extremities without and with intravenous contrast. CTDI is 84. 77 mGy and DLP is 1777.1 mGy-cm. This CT exam was performed using one or more of the following dose reduction techniques: automated exposure control, adjustment of the mA and/or kV according to patient size, and/or use of iterative reconstruction technique. MIP reconstructed images were created and reviewed. COMPARISON: No relevant prior studies available. FINDINGS: VASCULATURE: Aorta: Extensive atherosclerotic calcification. No occlusion or stenosis. No abdominal aortic aneurysm. No dissection. Celiac trunk and mesenteric arteries: Moderate to severe stenosis at origin of celiac trunk. No stenosis or occlusion of the superior mesenteric artery. Renal arteries: No acute findings. Moderately severe stenosis of the proximal right renal artery of approximate 50%. Right iliac arteries: No occlusion or severe stenosis of the right common iliac artery. There is a severe stenosis in the proximal right external iliac artery. Right femoral/popliteal arteries: Moderately severe stenoses in the right common femoral artery. There are some proximal severe stenoses in the right superficial femoral artery. The mid and distal aspects of the right superficial femoral artery are occluded. There is some reconstitution of flow in the right popliteal artery with a series of moderate to severe stenoses. Right calf/foot arteries: Evaluation of the calf arteries is difficult due to small size and extensive calcification. The distal right anterior tibial artery appears to occlude before the dorsalis pedis. There is enhancement of the distal right posterior tibial artery which extends into the plantar arch. Left iliac arteries: Moderately severe stenoses of the left common iliac artery. Severe stenosis in the left external iliac artery. Left femoral/popliteal arteries: Moderate to severe stenoses within the left common femoral artery. Numerous severe stenoses in the left superficial femoral artery which occludes distally. There is some reconstitution of flow in the left popliteal artery with a series of severe stenoses. Left calf/foot arteries: Evaluation of the calf arteries is limited due to small size and extensive calcifications. The left anterior tibial artery occludes and there is no enhancement in the dorsalis pedis. There appears to be flow within the left posterior tibial artery which extends into the plantar arch. Small bilateral pleural effusions. Pleural-based masslike density in the anterior aspect of the right upper lobe. Diverticulosis without diverticulitis. No abnormal fluid. Sandhu catheter in the bladder. IMPRESSION: No evidence of abdominal aortic aneurysm, dissection or stenosis. Bilateral severe stenoses in the right and left external iliac arteries. Both superficial femoral arteries show a series of severe stenoses with distal occlusion. Bilateral reconstitution of flow in the popliteal arteries with numerous severe stenoses. The anterior tibial arteries are occluded bilaterally and there is no enhancement in the dorsalis pedis. Patent distal right posterior tibial arteries which extended into the plantar arch bilaterally.
--- NOTE | 2022-12-19 05:02 | P.EN ---
CODE BLUE note Activated at 0258. Arrived at the scene shortly after. Reviewed the chart and discussed the case with the RN in detail. The patient with an extensive PMH who had been admitted for syncope and non-ST elevation [place] was undergoing a computed tomography scan when he became unresponsive and developed PEA. The patient had a suspected TIA earlier in the day and had subsequently developed a mottled lower extremity for which he was undergoing a CT angiogram with runoff. Upon arrival at the scene, the patient was undergoing CPR with Dr Frost running the code. He intubated the patient and the expert medical writer subsequently took over. The patient was in PEA for the majority of the code. ACLS protocol was performed. A post was achieved multiple times although the patient was subsequently lose it again. There was an attempt to perform transcutaneous pacing while the patient had bradycardia. The patient was also given atropine without significant improvement. At 0348, CPR was halted and the patient was pronounced after a prolonged resuscitation effort. The family was notified by the expert medical writer. The primary team was notified by the RN. The patient was given epinephrine IV push 11, sodium bicarbonate IV push 2, and calcium chloride 1. Please refer to the code sheet for further details. Total time spent providing critical care for this patient: 70 minutes
[2022-12-19] MEDS ORDERED: methylPREDNISolone SOD SUCCI 125 MG/2 ML VIAL IV SCH (06:00)
--- NOTE | 2022-12-19 13:45 | P.DS ---
Providers Date of admission: 12/12/22 16:23 Expected date of discharge: 12/19/22 Attending physician: Nura Owusu Consults: 12/12/22 15:41 Consult Physician Urgent Consulting Provider: Narayan Wesley Consult Reason/Comments: NSTEMI Do you want consulting provider notified?: Already Contacted 12/13/22 10:14 Consult Physician Routine Consulting Provider: Alexx Herrera Consult Reason/Comments: lung ca, prognosis?? Do you want consulting provider notified?: Yes 12/14/22 09:58 Consult Physician Routine Consulting Provider: Christopher Last Consult Reason/Comments: BILATERAL PLEURAL EFFUSIONS Do you want consulting provider notified?: Yes 12/18/22 12:56 Consult Physician Routine Consulting Provider: Richy Levy Consult Reason/Comments: hyponatremia Do you want consulting provider notified?: Yes 12/18/22 22:47 Consult Physician Stat Consulting Provider: Wendy Sandhu Consult Reason/Comments: R/O arterial occlusion Do you want consulting provider notified?: Yes 12/19/22 00:18 Consult Physician Stat Consulting Provider: David Brown Consult Reason/Comments: suspected TIA/CVA Do you want consulting provider notified?: Yes Primary care physician: Nura Owusu Hospital Course: HISTORY OF PRESENT ILLNESS: This is a 77-year-old male with a previous medical history significant for coronary artery disease status post remote Percodans coronary intervention of the RCA more than 10 years ago, status post 3 vessel coronary artery bypass graft back in December 2017 with BALDERAS to LAD, 7 is venous graft to the diagonal branch and sentences graft to the ramus that was done at [facility], hypertension and hypertensive cardio vascular disease, hyperlipidemia, mild chronic obstructive pulmonary disease with an FEV1 of 69%, remote tobacco use and dependence. Patient had quit smoking in 2018, unfortunately patient developed to have a a non-small cell lung cancer that is PD1 and PDL one positive has been under the care of hematology oncology underwent chemotherapy along with immunotherapy in the form of Keytruda along with carboplatin along with Doxil patient was supposed to get his last chemotherapy next Saturday and then he will go for a repeated CT/PET scan for evaluation of the tumor response through Dr. Salcedo's office, patient stated that he had an episode of chest pain last Saturday and he did not have any nitroglycerin sublingual to take so he contacted Dr. Nicholson's office and get some better was her refill apparently that was not done so he tried to stop by today to get his prescription refilled, and while he was in the car he felt a bit dizzy and lightheaded, he sat in the car for lobe that he walked into the office while he is in the lobby he felt dizzy and immediately passed out, patient skinned his right knee, he did not hit his head, patient apparently was brought into the emergency department at [facility] via EMS for evaluation, patient laboratory evaluation showed mild edema, mild from cytopenia likely related to recent chemotherapy, and he also was found surprisingly an elevation of troponin of 16, EKG did not show evidence of acute ST-T wave changes, but because of the presentation was admitted to the hospital he was placed on aspirin as well as heparin drip, he was placed on his Plavix along with the rest of his cardiac medication he was seen in consultation by cardiology and he was admitted under my service for further evaluation and recommendation. 12/13: patient has been seen by cardiology and continued on heparin drip, echocardiogram ordered. Case was discussed with his primary hand binder cutter, Dr. Nicholson. orthostatic blood pressure was negative. Blood pressure this morning 111/55, heart rate in the 70s to 90s, afebrile, pulse ox 97% on room air. CTA of the chest revealed no evidence of pulmonary embolism. Decreased size of right upper lobe mass consistent with known lung cancer. Increase in size of subcarinal lymph node suspicious for metastasis 12/14: Echocardiogram reveals EF of 40% with inferior basal, inferior septal and inferior lateral hypokinesia mild to moderate pulmonary hypertension, mild mitral and tricuspid regurgitation. No pericardial effusion. Patient has been seen by oncology as requested by cardiology regarding prognosis. Would expect prognosis of 18-24 months or even longer. Plan from cardiology is for medical management. No plan for cardiac catheterization at this time and heparin is discontinued. This morning, patient was having some respiratory distress and one dose of IV Lasix ordered and patient diuresed. He is now seen in recheck and his respiratory status is improved. Chest x-ray performed today reveals chronic changes with stable small bilateral pleural effusions and suspected mild interstitial edema. Effusions and interstitial edema slightly worsened since most recent x-ray. IV Lasix added at 40 mg every 12 hours Patient has been afebrile, heart rate in the 80s, blood pressure 129/68, pulse ox 97% on 3 L nasal cannula. Repeat blood work reveals a hemoglobin of 9.2, WBC 5.2 and platelet count 213. Patient denies having any chest pain. 12/17: Yesterday, patient's blood pressure was soft and he was feeling dizzy, cardiology discontinued lisinopril, and admitted during and held IV Lasix yesterday. Patient states he is feeling better today. No chest pain. He does have shortness of breath with exertion. Sodium today is 123. Serum and urine osmolality and urine sodium ordered. Other lab work revealed a hemoglobin of 9, BUN 23 creatinine 1.03. Heart rates in the 70s to 90s, blood pressure 94/56. We will ask for home oxygen assessment done today. Anticipate he will be ready for discharge tomorrow. 12/18: Patient developed nausea and vomiting along with dizziness and shortness of breath this morning. He has received 2 doses of Zofran and was just given Compazine and continues to feel bad. He has not had anything to eat today. No abdominal pain. Cardiology ordered for one dose of IV Lasix continued on oral Lasix and his breathing is better. A chest x-ray was obtained which revealed similar to 12/16 with COPD, opacities the case and throughout the right upper lobe, small bilateral pleural effusions right greater than left bibasilar opacities. Repeat blood work reveals sodium 123, potassium 4.6, BUN 28 and creatinine 0.94. ProBNP 11,000. Patient also had 1 loose stool today. Consult will be added for nephrology regarding hyponatremia, fluid restriction of 1200 mL ordered. 12/19: Yesterday, patient developed TIA symptoms as well as shortness of breath and modeled lower extremity. Stroke was called and patient underwent a CAT scan of the brain that did not show any acute findings. Patient became bradycardic and hypotensive was transferred to the ICU and started on dopamine drip. He then developed left leg numbness and pulses were not able to be obtained. He subsequently went to CAT scan for CT angiography for left foot ischemia and while at CAT scan, patient coded and CPR was started and ran for approximately one hour. Please see nursing documentation for details. Patient did on the morning of 12/19. DISCHARGE DIAGNOSES 1. Syncope likely cardiac syncope in view of the patient having non-ST elevation NE. 2. Acute systolic heart failure. 3. Anemia and Thromocytopenia likely related to recent chemotherapy as well as immunotherapy. 4. Coronary artery disease status post coronary artery bypass graft 3 in 2018 5. Hypertension and hypertensive cardiovascular disease. 6. Mixed hyperlipidemia. 7. GERD with esophagitis. 8. Non-small cell lung cancer that is PD1 and PDL one positive 9. Mild COPD FEV1 is 69% of predicted patient has been tobacco free for the last 5 years. 10. Severe carotid artery disease in the range of 90% of the right internal carotid artery 11. Hypotension. 12. Hyponatremia. 13. Nausea and vomiting of unclear etiology. Impression and plan of care have been directed as dictated by the signing physician. Eugenia Arce nurse practitioner acting as scribe for signing physician. Patient Condition at Discharge: Fair Plan - Discharge Summary Discharge Rx Participant: No New Discharge Prescriptions: No Action Metoprolol Tartrate [Lopressor] 25 mg PO BID #60 tab lisinopriL [Zestril] 5 mg PO HS Ezetimibe [Zetia] 10 mg PO DAILY Clopidogrel [Plavix] 75 mg PO HS Aspirin [Adult Low Dose Aspirin EC] 81 mg PO DAILY Ranolazine [Ranexa] 1,000 mg PO BID Ondansetron [Zofran] 4 mg PO Q4H PRN PRN Reason: Nausea And Vomiting Atorvastatin [Lipitor] 80 mg PO DAILY Isosorbide Mononitrate ER [Imdur] 60 mg PO DAILY Pantoprazole [Protonix] 40 mg PO DAILY Discharge Medication List Metoprolol Tartrate [Lopressor] 25 mg PO BID #60 tab 01/21/18 [Rx] Aspirin [Adult Low Dose Aspirin EC] 81 mg PO DAILY 01/05/19 [History] Clopidogrel [Plavix] 75 mg PO HS 01/05/19 [History] Ezetimibe [Zetia] 10 mg PO DAILY 01/05/19 [History] lisinopriL [Zestril] 5 mg PO HS 01/05/19 [History] Ranolazine [Ranexa] 1,000 mg PO BID 09/06/22 [History] Atorvastatin [Lipitor] 80 mg PO DAILY 12/12/22 [History] Isosorbide Mononitrate ER [Imdur] 60 mg PO DAILY 12/12/22 [History] Ondansetron [Zofran] 4 mg PO Q4H PRN 12/12/22 [History] Pantoprazole [Protonix] 40 mg PO DAILY 12/12/22 [History] Follow up Appointment(s)/Referral(s): Nura Owusu MD [Primary Care Provider] - 1 Week Davina Reynoso MD [STAFF PHYSICIAN] - 12/21/22 1:45 pm Discharge Disposition:
--- NOTE | 2022-12-25 11:06 | CDI ---
Documentation Clarification Form Date: 12/25/2022 10:57:01 AM From: Barbara Pulido RN, CCDS Email: [email or web address] Admit Date: 12/12/2022 04:23:00 PM Patient Name: Michele Huizar Visit Number: [id number] Discharge Date: 12/19/2022 07:17:00 AM ATTENTION: The Clinical Documentation Specialists (CDI) and [facility] Coding Staff appreciate your assistance in clarifying documentation. Please respond to the clarification below the line at the bottom and electronically sign. The CDI & [facility] Coding staff will review the response and follow-up if needed. Please note: Queries are made part of the Legal Health Record. If you have any questions, please contact the author of this message via ITS. Dr. Nura Owusu Your patient had respiratory distress. Based on this information and the findings below, is there an additional diagnosis that is clinically appropriate for this patient? History/Risk Factors: Admitted for NSTEMI after passing out at the doctor's office. Past history of CAD - s/p PCI of the RCA and CABG 3 with BALDERAS to LAD, HTN, CHF, HLD, NSC lung cancer currently on immunotherapy and chemotherapy Tobacco use: former smoker Clinical Indicators: 12/13 Nursing Note: "Difficulty in breathing, diaphoretic b/p 91/51, spo2 98% on room air, placed on 2 liters NC. Improved breathing." 12/14 IM: "This morning, patient was having some respiratory distress and one dose of IV Lasix ordered and patient diuresed." 12/15 IM: "Dr. Last has seen the patient and adjusting the breathing treatments at this time." 12/19 Pulmonary: "Unfortunately, while the patient was down in CAT scan for his CT angiogram with runoff, he did have a PEA arrest." 12/14 CXR: small bilateral pleural effusions and suspected mild interstitial edema. Effusions and interstitial edema slightly worsened since most recent x- ray. 12/18 Vital signs: RR high of 30 Pulse oximetry: 88% on 12/18 12/17 Lung/Breathing assessment: diminished Treatment: IV Lasix 40mg 12/14-12/16 and 20mg 12/18-12/19. Home O2 assessment ordered Breathing tx: A/A QID O2: 2-4LNC Is there an additional diagnosis that is clinically appropriate for this patient? [ x ] Acute Hypoxic Respiratory Failure (pO2 <60 mm Hg or SpO2 <91% on room air) [ ] Other Diagnosis, please specify [ ] Unable to determine MTDD
== END 2022-12-19 07:17 | disposition expired ==
LOC: EC 10:53 → 3SCARD 16:23 → 2SICU 12-18 23:24
PROVIDERS: ADMIT Internal Medicine; ATTEND Internal Medicine
PROC: 3E033XZ Introduction of Vasopressor into Peripheral Vein, Percutaneous Approach (ICD-10-PCS; principal; 2022-12-19)
PROC: 0BH17EZ Insertion of Endotracheal Airway into Trachea, Via Natural or Artificial Opening (ICD-10-PCS; principal; 2022-12-19)
PROC: 5A2204Z Restoration of Cardiac Rhythm, Single (ICD-10-PCS; principal; 2022-12-19)
PROC: 5A12012 Performance of Cardiac Output, Single, Manual (ICD-10-PCS; principal; 2022-12-19)
DX: I21.4 Non-ST elevation (NSTEMI) myocardial infarction (principal); I50.21 Acute systolic (congestive) heart failure; J96.01 Acute respiratory failure with hypoxia; C34.11 Malignant neoplasm of upper lobe, right bronchus or lung; E87.1 Hypo-osmolality and hyponatremia; I25.810 Atherosclerosis of coronary artery bypass graft(s) without angina pectoris; J44.1 Chronic obstructive pulmonary disease with (acute) exacerbation; J98.11 Atelectasis; N17.9 Acute kidney failure, unspecified; C77.1 Secondary and unspecified malignant neoplasm of intrathoracic lymph nodes; G45.9 Transient cerebral ischemic attack, unspecified; G81.94 Hemiplegia, unspecified affecting left nondominant side; R29.810 Facial weakness; I95.9 Hypotension, unspecified; D64.81 Anemia due to antineoplastic chemotherapy; I25.110 Atherosclerotic heart disease of native coronary artery with unstable angina pectoris; R00.1 Bradycardia, unspecified; I46.9 Cardiac arrest, cause unspecified; R06.03 Acute respiratory distress; I99.8 Other disorder of circulatory system; T45.1X5A Adverse effect of antineoplastic and immunosuppressive drugs, initial encounter; D69.59 Other secondary thrombocytopenia; E78.2 Mixed hyperlipidemia; I11.0 Hypertensive heart disease with heart failure; K21.00 Gastro-esophageal reflux disease with esophagitis, without bleeding; J44.9 Chronic obstructive pulmonary disease, unspecified; I25.5 Ischemic cardiomyopathy; I27.20 Pulmonary hypertension, unspecified; I08.1 Rheumatic disorders of both mitral and tricuspid valves; Z95.5 Presence of coronary angioplasty implant and graft; Z87.891 Personal history of nicotine dependence; Z95.1 Presence of aortocoronary bypass graft; Z79.899 Other long term (current) drug therapy; Z79.82 Long term (current) use of aspirin
CPT/HCPCS: 36415; 70450; 71045; 71046; 71275; 75635; 80048; 80053; 80061; 83735; 83880; 83930; 83935; 84300; 84484; 85025; 85049; 85610; 85730; 92950; 93005; 93306; 94640; 94760; 96361; 96365; 96366; 96367; 96375; 99291